=== PATIENT | male | born 1945 | race Caucasian/White ===

== ENCOUNTER 2022-09-18 15:36 | Outpatient (REF) | payer MEDICARE, SELFPAY ==
[2022-09-18 18:01] LABS: Anion Gap 16 (12-20); Blood Urea Nitrogen 26 mg/dL (9-16); Calcium 8.3 mg/dL (8.4-10.2); Carbon Dioxide 27 mmol/L (22-29); Chloride 103 mmol/L (96-108); Estimated Glomerular Filt Rate 30; Glucose Random 163 mg/dL (60-115); Potassium 4.1 mmol/L (3.3-5.1); Sodium 142 mmol/L (135-145)
[2022-09-18 18:30] LABS: Folate 6.1 ng/mL (> or = 4.0); T4 Thyroxine 8.1 ug/dL (4.5-12.0); Thyroid Stimulating Hormone 1.86 uIU/mL (0.32-4.0); Vitamin B12 316 pg/mL (200-900); Vitamin D 25-OH Total 6.8 ng/mL (>30)
== END 2022-09-18 15:37 | disposition home or self-care (01) ==
LOC: HO.LAB 15:36
PROVIDERS: PCP Psychiatry & Neurology Neurology; Visit Provider Psychiatry & Neurology Neurology
DX: G31.84 Mild cognitive impairment of uncertain or unknown etiology (principal); E55.9 Vitamin D deficiency, unspecified
CPT/HCPCS: 36415; 80048; 82306; 82607; 82746; 84436; 84443

== ENCOUNTER 2022-10-08 10:16 | Outpatient (REF) | payer MEDICARE, SELFPAY ==
--- NOTE | ~2022-10-08 | CT_ITS ---
EXAMINATION: CT HEAD WITHOUT CONTRAST CLINICAL INFORMATION: Mild cognitive impairment. COMPARISON: There are no prior studies available for comparison. TECHNIQUE: Multidetector CT imaging of the head was obtained without the use of intravenous contrast. Coronal and sagittal reformatted images were generated at the technologist workstation. This CT examination was performed using dose optimization techniques as appropriate, variously including the following: *Automated exposure control *Adjustment of mA and/or kV according to patient size (this includes techniques or standardized protocols for targeted exams where dose is matched to indication/reason for exam; i.e. extremities or head) *Use of iterative reconstruction technique DLP: 890 mGy-cm. FINDINGS: There is no evidence of acute intracranial hemorrhage or territorial infarction. No abnormal mass-effect or midline shift is seen. Blackwood to white matter differentiation is well preserved. No extra-axial fluid collections are identified. The ventricles and sulci are commensurately prominent consistent with diffuse volume loss. There are a few patchy areas of low-attenuation in the periventricular subcortical white matter, consistent with chronic microvascular ischemic changes. 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 There are atheromatous calcifications of the bilateral vertebral and cavernous internal carotid arteries. There are likely small vascular calcifications in branches of the right middle cerebral artery. There are no acute osseous or soft tissue abnormalities. There is relative paucity of subcutaneous and scalp fat and there are multiple small cutaneous calcifications. The mastoid air cells are well-aerated. There is mucosal thickening in the inferior right maxillary and anterior left ethmoid sinuses. CT/CT head/brain wo IV con IMPRESSION: 1. There are no acute bleeds or territorial infarcts. No masses are demonstrated. 2. There are chronic microvascular ischemic changes and there are chronic infarcts in the cerebellar hemispheres. There is diffuse volume loss.
== END 2022-10-08 10:17 | disposition home or self-care (01) ==
LOC: HO.CT 10:16
PROVIDERS: PCP Physician Assistant Medical; Visit Provider Psychiatry & Neurology Neurology
DX: G31.84 Mild cognitive impairment of uncertain or unknown etiology (principal)
CPT/HCPCS: 70450

== ENCOUNTER 2025-01-06 14:00 | Outpatient (AMB) | payer MEDICARE, SELFPAY ==
--- OUTSIDE RECORDS SUMMARY | 2025-01-06 14:03 | XMS_ITS | Encounter Summary ---
Author Organization [facility], Address [address] [place] [address] Phone Care Team Providers Care Vb Net Programmer Name Role Phone Ryan Zhang Primary Care Provider [phone] Encounter Details Date Type Department Care Team (Late st Contact Info) Description 03/12/2024 Documentation Only [facility], [address] [place] [address] Suni Florez [address] [place] [phone] Social History Tobacco Use Types Packs/Day Years Used Date Smoking Tobacco: Never Sex and Gender Information Value Date Recorded Sex Assigned at Not on file Legal Sex Male 9:48 AM EDT Gender Identity Not on file Sexual Orientation Not on file documented as of this encounter Plan of Treatment Not on file documented as of this encounter Visit Diagnoses Not on filedocumented in this encounter Care Teams Vb Net Programmer Relationship Specialty Start Date End Date Ryan Zhang PCP - General 08/05/23 documented as of this encounter
--- NOTE | 2025-01-06 14:06 | MHC.OFFWIV ---
Intake Vital Signs 01/06/25 14:08 Height 5 ft 10 in Weight 73 lb BMI 10.5 BP 94/62 Blood Pressure Location Rt brachial Pulse 127 H Pulse Source Pulse Oximeter Temp 98.2 F Temp Source Oral Pulse Oximetry (%) 97 Oxygen Delivery Method Room Air Intake Visit Reasons: [employer] low pulse rate, pain when coughing Intake Note: patient reports a fall 2 days ago, fell on his front side, sustained laceration left hand and developed pain in chest with coughing and tickle in throat. states his heart rate is usually low and since the fall it has been very high Allergies Iodinated Contrast Media (IV Contrast Dye) Allergy (Intermediate, Verified 01/06/25 14:13) Swelling Penicillins Allergy (Verified 01/06/25 14:13) Swelling Do you need a note to return to daycare/school/sports/work: No HPI HPI Comments History of Present Illness Details 79 y/o Male patient with past medical history significant for HTN, CHF, Pacemaker, Afib on Warfarin, T2DM, GERD and HDL, presents to the walk in clinic with c/o Tachycardia associated with CP and Coughing for 2 days now. Pt fell and landed on the Chest 2 days ago, when the pain started. Reports his HR is always low, but today is elevated. He does have a Visiting nurse who comes home and check his Vitals. [facility] Medical History (Updated 01/06/25 @ 15:06 by Rebecca Levine NP) Tachycardia with heart rate 121-140 beats per minute Chest pain Review of Systems Const All systems reviewed & are unremarkable except as noted in HPI and below Physical Exam Vital Signs: Last Vital Signs Temp 98.2 F 01/06/25 14:08 Pulse 127 H 01/06/25 14:08 BP 94/62 01/06/25 14:08 Pulse Ox 97 01/06/25 14:08 Oxygen Delivery Method Room Air 01/06/25 14:08 BMI result Body Mass Index 10.5 Const General: no acute distress Nutritional Appearance: well nourished Orientation/consciousness: patient oriented x3 Resp Effort & Inspection: normal respiratory effort Auscultation: clear to auscultation bilaterally, no crackles, no rales, no rhonchi and no wheezes Cardio Rate: tachycardic Heart sounds: S1 normal heart sound present and S2 normal heart sound present Neuro General: patient oriented x3 Psych Speech and movement: Normal speech and movement present Assessment & Plan Assessment & Plan (1) Chest pain: Code(s): R07.9 - Chest pain, unspecified Qualifiers: Chest pain type: unspecified Qualified Code(s): R07.9 - Chest pain, unspecified Plan: Due to his extensive h/o Cardiac on Warfarin and Pacemaker, advised Patient to go to ED for further evaluation. High risk for internal bleeding, SVT, ID Offered Ambulance ride but patient felt stable and strong to drive himself to [facility] ED. (2) Tachycardia with heart rate 121-140 beats per minute: Code(s): R00.0 - Tachycardia, unspecified Plan: Due to his extensive h/o Cardiac on Warfarin and Pacemaker, advised Patient to go to ED for further evaluation. High risk for internal bleeding, SVT, ID Offered Ambulance ride but patient felt stable and strong to drive himself to [facility] ED. Plan Due to his extensive h/o Cardiac on Warfarin and Pacemaker, advised Patient to go to ED for further evaluation. High risk for internal bleeding, SVT, ID Offered Ambulance ride but patient felt stable and strong to drive himself to [facility] ED. Coding Level of Care Code Est Pt Level 4 (06595) Diagnoses Chest pain, unspecified type R07.9 Chest pain type: unspecified Tachycardia with heart rate 121-140 beats per minute R00.0 Time Spent (min) 20
[2025-01-06 14:08] VITALS: BP 94/62; PULSE 127; TEMP 36.8; O2SAT 97; BMI 10.5
== END 2025-01-06 14:52 | disposition home or self-care (01) ==
PROVIDERS: PCP Physician Assistant Medical; Visit Provider Nurse Practitioner Family
DX: R07.9 Chest pain, unspecified (principal); R00.0 Tachycardia, unspecified

== ENCOUNTER → 2025-01-06 14:00 | Outpatient (BNVA) | payer MEDICARE, SELFPAY | PROVIDERS: PCP Physician Assistant Medical; Visit Provider Nurse Practitioner Family | DX: R07.89 Other chest pain (principal); R00.0 Tachycardia, unspecified | CPT/HCPCS: 99212 ==

== ENCOUNTER 2025-05-01 12:22 | Inpatient (IN) | payer MEDICARE, SELFPAY ==
--- OUTSIDE RECORDS SUMMARY | 2025-04-29 10:00 | XMS_ITS | Encounter Summary ---
Author Organization [facility] Address [address] [place] [address] Care Team Providers Care Forensic Examiner Name Role Phone Armando Aceves Primary Care Provider [phone] Encounter Details Date Type Department Care Team (Latest Contact Info) Description 04/29/2025 10:00 AM EDT Clinical Support Coumadin [address] [phone] Persistent atrial fibrillation (CMS/HCC V24, CMS/HCC V28) (Primary Dx); FPC (current) use of anticoagulants Social History Tobacco Use Types Packs/Day Years Used Date Smoking Tobacco: Never Smokeless Tobacco: Never Alcohol Use Standard Drinks/Week Comments Not Currently 0 (1 standard drink = 0.6 oz pur e alcohol) Housing Instability Answer Date Recorde d Are you worried that in the next 2 months you may not have stable housing? No 10/06/2024 Food Access & Nutrition Answer Date Rec orded Do you have access to a vari ety of food including fruits and vegetables? No 10/06/2024 Access to Healthcare Answer Date Record ed Within the last 3 months, ho w many times did you visit the emergency department for your medical care? 3 10/06/2024 Health Literacy Answer Date Recorded How often do you need to hav e someone help you when you read instructions, pamphlets, or other written material from your doctor or pharmacy? Never 10/06/2024 Caregiver: How often do you need to have someone help you when you read instructions, pamphlets, or other written material from your doctor or pharmacy? Not on file 10/06/2024 Financial Risk Answer Date Recorded How hard is it for you to pa y for the very basics like food, housing, medical care, and air conditioning / heating? Not very hard 10/06/2024 Transportation Answer Date Recorded Has the lack of transportati on kept you from meetings, work, or from getting things needed for daily living? No Has the lack of transportati on kept you from medical appointments or from getting medications? No 10/06/2024 Social Isolation Answer Date Recorded How often do you feel lonely or isolated from th ose around you? Rarely 10/06/2024 Food Risk Answer Date Recorded Within the past 12 months we worried whether our food would run out before we got money to buy more. Never true 10/06/2024 Within the past 12 months th e food we bought just didn't last and we didn't have money to get more. Never true 10/06/2024 Dependent Care Answer Date Recorded Do you need help finding or paying for care for your loved ones. For example, client care consultant or elderly care for an older adult? No 10/06/2024 Education Answer Date Recorded Do you think completing more education or training, like finishing a GED, going to college, or learning a trade, would be helpful for you? No 10/06/2024 Employment and Income Answer Date Recor ded During the last four weeks, have you been actively looking for work? No 10/06/2024 Living Situation Answer Date Recorded What is your living situation? Unrecognized valu e 10/06/2024 Interpersonal Safety Answer Date Record ed Physical Abuse Unrecognized value 01/07/2025 Verbal Abuse Unrecognized value 01/07/2025 Sex and Gender Information Value Date Recorded Sex Assigned at Male 09/05/2024 6:24 PM EST Legal Sex Male 10:30 AM EST Gender Identity Male 09/05/2024 6:24 PM EST Sexual Orientation Straight 10/04/2024 10 :11 AM EDT documented as of this encounter Functional Status * Are you deaf or do you have serious difficulty hearing? Answer Date of Assessment Author No 09/26/2024 4:23 PM EDT Megan Cooley, BARBARA * Are you blind or do you have serious difficulty seeing, even when wearing glasses? Answer Date of Assessment Author No 09/26/2024 4:23 PM EDT CooleyMegan banks RN * Do you have serious difficulty walking or climbing stairs? Answer Date of Assessment Author No 09/26/2024 4:23 PM EDT Megan Cooley RN * Do you have serious difficulty dressing or bathing? Answer Date of Assessment Author No 09/26/2024 4:23 PM EDT Megan Cooley RN * Because of a physical, mental, or emotional condition, do you have serious difficulty doing errandsalone such as visiting the doctor? Answer Date of Assessment Author No 09/26/2024 4:23 PM EDT Megan Cooley RN documented as of this encounter Mental Status * Because of a physical, mental, or emotional condition, do you have serious difficulty concentrating, remembering, or making decisions? (5 years old or older) Answer Entry Date Author No 09/26/2024 4:23 PM EDT Megan Cooley RN documented in this encounter Progress Notes * Breanne Zhong LPN - 04/29/2025 10:00 AM EDT Anticoagulation Summary As of 04/29/2025 INR goal: 2.5-3.5 TTR: 53.8% (10.9 mo) INR used for dosin.0 (04/29/2025) Warfarin maintenance plan: 2.5 mg (5 mg x 0.5) every e, Fri, Emily; 0 mg all other days Weekly warfarin total: 7.5 mg Plan last modified: Beranne Zhong LPN (04/29/2025) Next INR check: 05/02/2025 Priority: Critical Target end date: -- Indications Atrial fibrillation (CMS/HCC V24 CMS/HCC V28) [I48.91] H/O mechanical aortic valve replacement (Resolved) [Z95.2] prep person (current) use of anticoagulants [Z79.01] Anticoagulation Episode Summary INR check location: Anticoagulation Clinic Preferred lab: -- Send INR reminders to: [facility] [place] Comments: -- Anticoagulation Care Providers Provider Role Specialty Phone number TOM [facility] [phone] Patient presents for follow-up of ongoing Warfarin therapy. Patient had his INR drawn via A/C Clinic Draw. Patient denies any significant issues with adherence to the medication regimen. Patient denies experiencing any symptoms of bleeding, such as unusual bruising, nosebleeds, hematuria, or melena. Patient reports feeling generally well and denies any new complaints. Plan of care: New warfarin dose: Hold 3 doses for upcoming Endoscopy Warfarin education of dietary considerations, medication/supplement interactions, and the need to continue avoiding activities that increase the risk of injury or bleeding reinforced. Patient verbalized understanding of ongoing INR monitoring and dosage change. Patient is aware of the signs of potential complications and knows to contact the clinic if they occur. Anticoagulation Flowsheet updated with new plan of care. Plan discussed with provider, no additional changes at this time. Anticoagulation Clinic Protocol Dose Type Dose Range INR Dose Adjustment # Doses Omitted Recheck Date Mini Dose 1.4-2.0 Very Low <1.2 Consult Provider 0 1 week Low 1.2-1.4 If singular event - no change If 2 in a row or 2 of the last 3 - Increase weekly dose by 10% 0 1 week In Range 1.4-2.0 No adjustment 0 1-4 weeks* High 2.0-3.0 If singular event - no change If 2 in a row or 2 of the last 3 - Decrease weekly dose by 10% 0 1 week Very High >3.0 Consult Provider 2 2 days If OK after 2 days - Decrease weekly dose by 10% 0 1 week Usual Dose 2.0-3.0 Very Low <1.5 Consult Provider 0 1 week Low 1.5-2.0 If singular event - No change If 2 in a row or 2 of the last 3 - Increase weekly dose by 10% 0 1 week In Range 2.0-3.0 No Adjustment 0 1-4 weeks* High >3.0-3.5 If singular event - No change If 2 in a row or 2 of the last 3 - Decrease weekly dose by 10% 0 1 week Very High >3.5-4.0 Consult Provider 1 2 days >4.0 Consult Provider 2 2 days If OK after 2 days - Decrease weekly dose by 10% 0 1 week Mechanical Valve 2.5-3.5 Very Low <1.5 Consult Provider 0 1 week Low 1.5-2.5 If singular event - No change If 2 in a row or 2 of the last 3 - Increase weekly dose by 10% 0 1 week In Range 2.5-3.5 No Adjustment 0 1-4 weeks* High >3.5-4.0 If singular event - No change If 2 in a row or 2 of the last 3 - Decrease weekly dose by 10% 0 1 week Very High >4.0-4.9 Consult Provider 1 2 days >5.0 Consult Provider 2 2 days If OK after 2 days - Decrease weekly dose by 10% 0 1 week * In range 1 week = recheck in 1 week In range 2 weeks = recheck in 2 weeks In range 3 weeks = recheck in 3 weeks In range 4 weeks = recheck in 4 weeks Cosigned by Ryan Zhang MD at 04/29/2025 10:36 AM EDT documented in this encounter Plan of Treatment Upcoming Encounters Date Type Department Care Team (Late st Contact Info) Description 05/03/2025 8:45 AM EDT Clinical Support Coumadin Clinic [address] [phone] 05/03/2025 11:00 AM EDT Hospital Encounter [facility] Endoscopy [address] [place] [phone] La Kidd MD [address] [address] 06/01/2025 11:00 AM EST Office Visit Adult Medicine [address] [phone] Armando Aceves, TOM [address] [place] [phone] 07/28/2025 10:30 AM EST Nutrition Internal Medicine [facility] [address] [facility] [address] [place] [phone] Georgette Bradley, RD [address] [place] [phone] 11/17/2025 11:00 AM EDT Ancillary Procedure [facility] [address] [facility] [address] [place] [address] documented as of this encounter Goals Goal Patient Goal Type Associated Problems Recent Progress Patient-Stated? Author STG's 6 visits General Yes Robert Gordon PT Note: Pt will report walking up to 7 mins, 2 or more days per week for exercise for general health. Pt is Independent and compliant with initial HEP. Pt will demonstrate sit to stand transfers w/ min A of UE's or less. Pt will demonstrate 9 reps or more for 30 SCS Test. LTG's 12 visits General Yes Robert Gordon PT Note: Pt will report walking up to 15 mins, 3 or more days per week for exercise for general health. Pt is Independent and compliant with final HEP. Pt will demonstrate sit to stand transfers w/ A of UE's for safety only. Pt will [id number] reps or more for 30 SCS Test. Autogenerated Goal Care Plan Autogenerated Problem No Jerica Mock documented as of this encounter Procedures Procedure Name Priority Date/Time Associated Diagnosis Comments POC PROTIME INR BLOOD Routine 04/29/2025 9:59 AM EDT Persistent atrial fibrillation (CMS/HCC V24, CMS/HCC V28) FPC (current) use of anticoagulants documented in this encounter Results * POC Protime INR Blood (04/29/2025 9:59 AM EDT) Lot Number INR POC 3.0 Prothrombin Time POC Exp Date Blood 04/29/2025 9:59 AM EDT us Ryan Zhang MD POINT OF CARE TEST ENT ER/EDIT ORDERABLES Final Result documented in this encounter Visit Diagnoses Diagnosis Persistent atrial fibrillation (CMS/HCC V24, CMS/HCC V28)- Primary Atrial fibrillation FPC (current) use of anticoagulants Long-term (current) use of anticoagulants Encounter for adjustment or management of cardiac device documented in this encounter Additional Health Concerns Active Problems Noted Date Diagnosed Date Autogenerated Problem 04/18/2025 Assessment Noted Time PHQ-9 Depression Total Score: 0 02/05/20 25 9:57 AM EDT A fall risk assessment has been complete d for the patient 06/17/2024 2:30 PM EST documented as of this encounter Care Teams Forensic Examiner Relationship Specialty Start Date End Date Armando Aceves PA [address] [place] [address] PCP - General Internal Medicine 10/11/20 documented as of this encounter
[2025-05-01] VITALS (12 sets, daily range): BP systolic 84–108; BP diastolic 26–61; PULSE 63–113; RESP 14–20; TEMP 36.1–37.3; O2SAT 93–100; BMI 21.6
--- NOTE | ~2025-05-01 | XR_ITS ---
CLINICAL HISTORY: check redjustment of NG tube 1 view chest x-ray. Comparison: CR - XR CHEST 1V - 05/01/25 19:50 EDT Findings: Enteric tube visualized looped over the upper chest near the midline, likely within the proximal esophagus. No pneumothorax or pleural effusion. Vague density redemonstrated over the mid right lung. Heart size is mildly enlarged. Left subclavian cardiac pacemaker/defibrillator device in place. Median sternotomy wires are visualized. Impression: 1. Enteric tube visualized looped over the upper chest near the midline, likely within the proximal esophagus. Recommend enteric tube repositioning. 2. Mild cardiomegaly with redemonstration of a vague density over the mid right lung. This document has been electronically signed by: Jeb Mendoza MD on 05/02/2025 00:21:10
--- NOTE | ~2025-05-01 | XR_ITS ---
CLINICAL HISTORY: NG tube placement Single view of the chest. COMPARISON: None provided. FINDINGS: Enteric tube extends present within the thoracic esophagus and is kinked upon itself with the tip directed superiorly. Tip is 13.3 cm above the diaphragm. Recommend retraction and advancement. Low lung volumes. Cardiomegaly. Atherosclerotic thoracic aorta. Hazy opacity within the right midlung. No pleural effusion. No pneumothorax. No acute fracture. IMPRESSION: 1. Enteric tube (NG) tip is kinked within the thoracic esophagus with tip terminating 13.3 cm above the diaphragm. Recommend retraction and readvancement. 2. Hazy opacity within the right midlung. This could represent atelectasis, aspiration pneumonitis or pneumonia. This document has been electronically signed by: Brandon Sweeney MD on 05/01/2025 17:25:30
--- NOTE | ~2025-05-01 | CT_ITS ---
CLINICAL HISTORY: abd pain, nausea, vomiting CT abdomen and pelvis without IV contrast. COMPARISON: None provided. FINDINGS: Aortic annular calcifications. Aortic valve replacement. Cardiomegaly. Cardiac pacemaker leads present. Heavy [place] coronary artery calcifications. Patchy tree-in-bud nodularity along the right lung base. Cholelithiasis present within the gallbladder. No pericholecystic inflammatory changes. Noncontrast appearance of the liver, spleen, pancreas and adrenal glands are unremarkable. Right renal cystic lesions measuring up to 1.7 cm. Nonobstructing right renal calculi measuring up to 3 mm. No right-sided hydronephrosis or hydroureter. No right ureteral calculus. Multiple nonobstructing left renal calculi measuring up to 4 mm. No left-sided hydronephrosis or hydroureter. Small volume abdominal ascites. Multiple dilated fluid-filled loops of small bowel within the abdomen measuring up to 3.5 cm. Most distal small bowel is contracted. Transition point present within a moderate-sized right inguinal hernia containing a portion of small bowel. Small fat containing left inguinal hernia. Jiudauxa-vn-waxve colonic stool burden. Normal appendix. Multiple normal-sized and prominent retroperitoneal lymph nodes. Moderate aortoiliac atherosclerotic vascular calcifications. Urinary bladder is unremarkable given degree of distention. Small fat containing left inguinal hernia. Advanced multilevel spondylosis. No acute fracture. IMPRESSION: 1. High-grade small-bowel obstruction secondary to obstruction of small bowel contained within a moderate sized right inguinal hernia. No free intraperitoneal air. 2. Small volume abdominal ascites. 3. Zykmeqyw-wc-dycfr colonic stool burden. 4. Multiple normal-sized and prominent retroperitoneal lymph nodes, nonspecific. 5. Cardiomegaly with coronary artery atherosclerosis. 6. Multiple nonobstructing renal calculi present bilaterally measuring up to 4 mm on the left. This document has been electronically signed by: Brandon Sweeney MD on 05/01/2025 14:10:01
--- NOTE | ~2025-05-01 | XR_ITS ---
CLINICAL HISTORY: NG tube adjustment --- Additional Notes or Special Instructions: Nurse will call when NG tube is adjusted [id number] Single view of the chest. COMPARISON: XR chest dated 05/01/25 at 15:22 EDT FINDINGS: Enteric tube is kinked with tip directed superiorly and side hole at the GE junction. Recommend retraction and readvancement. Left-sided cardiac pacemaker defibrillator appears in stable position. Cardiomegaly. Tortuous atherosclerotic thoracic aorta. Hazy opacity within the right midlung, similar to prior imaging. No pleural effusion. No pneumothorax. No acute fracture. Moderate spondylosis. IMPRESSION: 1. Enteric tube (NG) remains kinked within the distal esophagus with tip directed superiorly. Recommend retraction and readvancement. This document has been electronically signed by: Brandon Sweeney MD on 05/01/2025 20:56:00
--- NOTE | 2025-05-01 12:47 | ED_ITS ---
HPI - General Adult General Chief complaint: Abdominal Pain Stated complaint: WEAKNESS AND VOMITING Time Seen by Provider: 05/01/25 12:47 Source: patient and EMS Mode of arrival: EMS Limitations: no limitations History of Present Illness ED Provider: Brigid Marte PA-C HPI narrative: This is a 79 yo male who presents to the ED via EMS for abdominal pain with associated nausea and dizziness. He has a past medical history of mild cognitive impairment, HTN, and atrial fibrillation on warfarin with ICD and pacemaker. He report that he started feeling nauseous this morning about 2 hours after he woke up, attempted to go downstairs to the bathroom but could not ambulate down the stairs normally on account of weakness/dizziness/feeling faint. Attempted to get down the stairs by sitting and scooting down each step. A person in the home called EMS for him at that time. He vomited the first time outside of the home while EMS was preparing to transport him and again multiple times on the ride to the hospital. He does not quite recall the color of the vomit but thinks it might have been red. He endorses feeling like he might still vomit later. Ate fish and ice cream from [employer] around 5pm last night, others who had the same meal are not having GI symptoms. Notably, he has not had a bowel movement in 1 week. This is becoming more usual for him lately. Also reports trouble swallowing solids and has a EGD scheduled for this upcoming Friday through [facility]. Denies sick contacts, recent travel, chest pain, shortness of breath, diarrhea, syncope, or history of abdominal surgery. Onset (ago): hour(s) Location: abdomen Related Data Home Medications ?Medication ?Instructions ?Recorded ?Confirmed amiodarone 200 mg tablet 200 mg PO BID 02/11/2502/16 amitriptyline 75 mg tablet 75 mg PO BEDTIME 02/11/25 0 02/16/25 carvedilol 3.125 mg tablet 3.125 mg PO BID 02/11/25 donepezil 10 mg tablet 10 mg PO DAILY 02/11/2502/04 empagliflozin 10 mg tablet 10 mg PO DAILY 02/11/25 (Jardiance) ferrous sulfate 325 mg (65 mg 325 mg PO BID 02/11/25 0 02/16/25 iron) tablet (FeroSul) lansoprazole 30 mg capsule,delayed 30 mg PO DAILY@0630 02/11/25 02/16/25 release losartan 25 mg tablet 25 mg PO DAILY 02/11/2502/04 torsemide 20 mg tablet 80 mg PO BID 02/11/25 warfarin 5 mg tablet 5 - 7.5 mg PO DAILY 02/11/25 02/16/25 allopurinol 100 mg tablet 200 mg PO DAILY 05/01/25 fluticasone propionate 50 2 spray intranasal DAILY mcg/actuation nasal spray,suspension omeprazole 40 mg capsule,delayed 40 mg PO BID@0630,163 0 05/01/25 release prochlorperazine maleate 10 mg 10 mg PO Q6H PRN nausea /vomiting 05/01/25 tablet sennosides 8.6 mg tablet (senna) 17.2 mg PO DAILY 04/0705/01/25 simvastatin 20 mg tablet 20 mg PO BEDTIME 05/01/25 Previous Rx's ?Medication ?Instructions ?Recorded memantine 5 mg tablet (Namenda) 5 mg PO BID 30 days #6 0 tabs 02/16/25 Allergies Allergy/AdvReac Type Severity Reaction Status Date / Time Penicillins Allergy Unknown Unknown Verified 05/01/25 12:31 Iodinated Contrast Media (IV Allergy Swelling Verified 05/01/25 12:34 Contrast Dye) Review of Systems 2 Constitutional: Constitutional: Reports as per HPI Eyes: Eyes: Reports as per HPI ENT: Reports as per HPI Cardiovascular: Cardiovascular: Reports as per HPI Respiratory: Respiratory: Reports as per HPI Gastrointestinal: Gastrointestinal: Reports as per HPI Genitourinary: Genitourinary: Reports as per HPI Musculoskeletal: Musculoskeletal: Reports as per HPI Integumentary/Breasts: Skin/Breast: Reports as per HPI Neurologic: Reports as per HPI Psychiatric: Psychiatric: Reports as per HPI Endocrine: Endocrine: Reports as per HPI Hematologic/Lymphatic: Hematologic/Lymphatic: Reports as per HPI Allergic/Immunologic: Allergic/Immunologic: Reports as per HPI [facility] Past Medical History Attestation statement: The following information was validated with the patient. Source: old records reviewed and nursing notes reviewed Medical History Presence of combination internal cardiac defibrillator (ICD) and pacemaker Atrial fibrillation Hypertension MCI (mild cognitive impairment) Social History Social History Substance Use Type: Marijuana Physical Exam ED Vital Signs: Vital Signs - 24 hr 05/01/25 12:28 05/01/25 13:29 05/01/25 13:32 Temperature 98.7 F 98.2 F Pulse Rate 112 H 113 H Respiratory Rate 20 14 16 Blood Pressure 95/61 97/61 Pulse Oximetry 100 94 Oxygen Delivery Method Room Air Room Air BMI result Body Mass Index 21.6 Const General: no acute distress, alert, awake and other (chronically ill appearing) Nutritional Appearance: average body habitus Orientation/consciousness: patient oriented x3 HENMT Head: Yes normal to inspection and Yes atraumatic Ears: hearing grossly normal bilaterally and external ears normal General nose exam: Normal external nose present, no nasal discharge noted and no epistaxis Face and sinus: Yes normal facial exam, No abrasion and No laceration Mouth: Normal oral and palatal mucosa present, no drooling and no muffled voice Eyes General: appearance normal, both eyes and all related structures Periorbital: periorbital findings normal Eyelids: Yes eyelids normal Conjunctivae: conjunctivae normal Pupils: Equal, round and reactive pupils present EOM: EOMs intact bilaterally Neck Neck: Yes normal visual inspection and Yes full ROM Resp Effort & Inspection: normal respiratory effort and able to speak in complete sentences GI Palpation (GI): Soft to palpation, Tenderness to palpation present (GI) other (diffuse), no guarding and not rigid Auscultation: Hyperactive bowel sounds present Neuro General: patient oriented x3 Cranial nerves: Yes Equal, round and reactive pupils present Cognition (Neuro): normal cognition Extrem General: Yes normal to inspection, Yes full ROM and Yes capillary refill normal Psych Appearance: grossly normal Mental Status: mental status grossly normal Affect: normal affect Attitude: cooperative Thought process: Normal thought process present Thought content: Normal thought content present Insight: Good insight present (Psych) Medications Administered Generic Name Dose Route Start Last Admin Trade Name Freq PRN Reason Stop Dose Admin Sodium Chloride 1,000 mls @ 250 mls/hr 05/01/25 14:00 05/01/25 15:32 Ns IV 05/01/25 17:59 250 mls/hr .Q4H ASHLEE Administration Discontinued Medications Generic Name Dose Route Start Last Admin Trade Name Jose A PRN Reason Stop Dose Admin Sodium Chloride 1,000 mls @ 999 mls/hr 05/01/25 13:00 05/01/25 15:31 Ns IV 05/01/25 14:00 Infused .Q1H1M ASHLEE Infusion Phytonadione 5 mg/ Sodium 50.5 mls @ 50.5 mls/hr 05/01/25 15:27 05/01/25 16:37 Chloride IV 05/01/25 16:26 50.5 mls/hr ONCE ONE Administration Morphine Sulfate 4 mg 05/01/25 12:47 05/01/25 13:29 Morphine Sulfate 4 Mg/Ml Cartridge IVPUSH 05/01/25 12:48 4 mg ONCE ONE Administration Protocol Ondansetron HCl 4 mg 05/01/25 12:47 05/01/25 13:30 Ondansetron Hcl 4 Mg/2 Ml Vial IVPUSH 05/01/25 12:48 4 mg ONCE ONE Administration Medical Decision Making Medical Decision Making MDM Narrative: Patient is a 79 year old assigned male at with a history of HTN, CKD, atrial fib on warfarin, aortic root repair, pacemaker, mild cognitive impairment presenting to the emergency department today with nausea, vomiting, and abdominal pain. Patient's physical exam was as noted in the physical exam portion of this note. Patient's blood work showed a WBC of 13.5, INR of 1.9, BUN of 43, CR of 2.93, and alk phos of 126. Patient's EKG was unremarkable / paced. Patient's CT abd/pelvis showed a high-grade small-bowel obstruction secondary to obstruction of small bowel contained within a moderate sized right inguinal hernia but no free intraperitoneal air. I spoke to Dr. Nation, the general surgeon transitional nurse, who recommended NG tube placement, 5mg of IV Vitamin K, and that she would take him to the OR. Patient had an NG tube placed by BARBARA Chaidez. Patient's first NG tube was kinked in the esophagus. Patient's NG tube was retracted and readvanced without issue. I explained my physical exam findings as well as all test results to the patient. I answered all questions asked by the patient. Patient verbalized understanding and agreement with going to the OR with Dr. Nation to address his small bowel obstruction. Differential Diagnosis Differential Diagnoses: The differential diagnosis associated with the presentation includes SBO Nausea Vomiting Gastroenteritis Admission/Observation Consideration of admission/observation: Escalation of care including admission/observation considered Patient going to the operating room and then being admitted to the surgical service as noted in the MDM Rationale portion of this note. Consult Healthcare Provider Management of the patient was discussed with: Casserole Preparer (spoke with Dr. Nation as noted in the MDM Rationale portion of this note. ) Lab Data [facility] Lab Attestation statement: I reviewed the patient's lab results. My interpretation of these results are in the MDM Rationale portion of this note. 05/01/25 13:22 05/01/25 13:22 Labs: Lab Results 05/01/25 Range/Units 13:22 WBC 13.5 H (4.8-10.8) X10*3/uL RBC 4.72 (4.60-5.80) X10*6/uL Hgb 14.7 (14.0-18.0) g/dl Hct 46.1 (42.0-52.0) % MCV 97.7 (80.0-98.0) fL MCH 31.1 (27.0-33.0) pg MCHC 31.9 (31.0-36.0) g/dl RDW 15.3 (11.0-16.0) % Plt Count 154 L (160-400) X10*3/uL MPV 10.8 (9.4-12.4) fL Immature Gran % (Auto) 0.4 (0.0-0.4) % Neut % (Auto) 91.4 H (45-73) % Lymph % (Auto) 5.6 L (20-40) % [place] % (Auto) 2.1 (2-11) % Eos % (Auto) 0.2 (0-4) % Baso % (Auto) 0.3 (0-2) % Lymph # (Auto) 0.8 L (1.2-4.9) X10*3/uL [place] # (Auto) 0.3 (0.1-1.2) X10*3/uL Eos # (Auto) 0.0 (0.0-0.4) X10*3/uL Baso # (Auto) 0.0 (0.0-0.2) X10*3/uL Abs Immat Gran (auto) 0.06 H (0.00-0.03) X10*3/uL Absolute Neuts (auto) 12.3 H (2.0-8.3) x10*3/uL Absolute Nucleated RBC 0.000 (0.0-0.012) X10*3/uL Nucleated RBC % (auto) 0.0 (0.0-0.2) /100WBC Smear Tech's Comments VERIFIED PT 21.7 H (10.9-12.4) SEC INR 1.9 H (0.9-1.1) Sodium 139 (135-145) mmol/L Potassium 4.9 (3.3-5.1) mmol/L Chloride 97 (96-108) mmol/L Carbon Dioxide 27 (22-29) mmol/L Anion Gap 20 (12-20) BUN 43 H (9-16) mg/dL Creatinine 2.93 H (0.5-1.4) mg/dL Estim Creat Clear Calc 19.7 Estimated GFR 21 Random Glucose 173 H (60-115) mg/dL Calcium 9.8 (8.4-10.2) mg/dL Magnesium 2.5 (1.6-2.6) mg/dL Total Bilirubin 1.3 H (0.0-1.0) mg/dL AST 35 (5-37) U/L ALT 26 (0-40) U/L Alkaline Phosphatase 126 H (39-117) U/L Troponin I High Sens 23.8 (<3.5-35.0) ng/L Total Protein 8.4 H (6.5-8.0) g/dL Albumin 5.1 H (3.5-5.0) g/dL Independent Interpretation I performed an independent interpretation of an: EKG, Plain X-Ray and CT Scan Interpretation: My interpretation is in agreement with the radiologist's impression of these imaging studies. L CLINICAL HISTORY: abd pain, nausea, vomiting CT abdomen and pelvis without IV contrast. COMPARISON: None provided. FINDINGS: Aortic annular calcifications. Aortic valve replacement. Cardiomegaly. Cardiac pacemaker leads present. Heavy [place] coronary artery calcifications. Patchy tree-in-bud nodularity along the right lung base. Cholelithiasis present within the gallbladder. No pericholecystic inflammatory changes. Noncontrast appearance of the liver, spleen, pancreas and adrenal glands are unremarkable. Right renal cystic lesions measuring up to 1.7 cm. Nonobstructing right renal calculi measuring up to 3 mm. No right-sided hydronephrosis or hydroureter. No right ureteral calculus. Multiple nonobstructing left renal calculi measuring up to 4 mm. No left-sided hydronephrosis or hydroureter. Small volume abdominal ascites. Multiple dilated fluid-filled loops of small bowel within the abdomen measuring up to 3.5 cm. Most distal small bowel is contracted. Transition point present within a moderate-sized right inguinal hernia containing a portion of small bowel. Small fat containing left inguinal hernia. Wiipxzre-dp-esuxu colonic stool burden. Normal appendix. Multiple normal-sized and prominent retroperitoneal lymph nodes. Moderate aortoiliac atherosclerotic vascular calcifications. Urinary bladder is unremarkable given degree of distention. Small fat containing left inguinal hernia. Advanced multilevel spondylosis. No acute fracture. IMPRESSION: 1. High-grade small-bowel obstruction secondary to obstruction of small bowel contained within a moderate sized right inguinal hernia. No free intraperitoneal air. 2. Small volume abdominal ascites. 3. Mysrjxde-rl-rmcuz colonic stool burden. 4. Multiple normal-sized and prominent retroperitoneal lymph nodes, nonspecific. 5. Cardiomegaly with coronary artery atherosclerosis. 6. Multiple nonobstructing renal calculi present bilaterally measuring up to 4 mm on the left. This document has been electronically signed by: Brandon Sweeney MD on 05/01/2025 14:10:01 Dictated By: Brandon Sweeney MD Signed By: Electronically signed by Brandon Sweeney MD 05/01/25 1410 CLINICAL HISTORY: NG tube placement Single view of the chest. COMPARISON: None provided. FINDINGS: Enteric tube extends present within the thoracic esophagus and is kinked upon itself with the tip directed superiorly. Tip is 13.3 cm above the diaphragm. Recommend retraction and advancement. Low lung volumes. Cardiomegaly. Atherosclerotic thoracic aorta. Hazy opacity within the right midlung. No pleural effusion. No pneumothorax. No acute fracture. IMPRESSION: 1. Enteric tube (NG) tip is kinked within the thoracic esophagus with tip terminating 13.3 cm above the diaphragm. Recommend retraction and readvancement. 2. Hazy opacity within the right midlung. This could represent atelectasis, aspiration pneumonitis or pneumonia. This document has been electronically signed by: Brandon Sweeney MD on 05/01/2025 17:25:30 Dictated By: Brandon Sweeney MD Signed By: Electronically signed by Brandon Sweeney MD 05/01/25 1727 I independently interpreted this EKG and am in agreement with the below findings: Vent. Rate: 114 BPM Atrial Rate: 34 BPM P-R Int: * ms QRS Dur: 206 ms QT Int: 462 ms P-R-T Axes: * 187 48 degrees QTcB Int: 636 ms Ventricular-paced rhythm No previous ECGs available DD/ 1325 Radiology Impression Discussion of test interpretation with radiology: I have reviewed the radiologist's reading. Independent Historian Clinical information obtained from an independent historian. History obtained from or confirmed by: EMS (EMS provided additional history and confirmed the history provided by the patient. ) External Record Review External record reviewed: Outpatient record (reviewed records from [facility] ) Critical Care Time Critical Care Time Critical Care Time: Yes Total Critical Care Time: 58 Attestation: I spent 58 minutes of Critical Care Time with this patient. This does not include time spent on separately reported billable procedures. Discharge Plan Discharge Clinical Impression: Small bowel obstruction Patient Disposition: Admitted As Inpatient Discharge Date/Time: 05/01/25 17:09
--- NOTE | 2025-05-01 12:47 | ECG_ITS ---
Test Reason : WEAKNESS/NAUSEA Blood Pressure : */* mmHG Vent. Rate : 114 BPM Atrial Rate : 34 BPM P-R Int : * ms QRS Dur : 206 ms QT Int : 462 ms P-R-T Axes : * 187 48 degrees QTcB Int : 636 ms Ventricular-paced rhythm Abnormal ECG No previous ECGs available Referred By: Brigid Marte Electronically Signed By: RITO ROWLEY
--- OUTSIDE RECORDS SUMMARY | 2025-05-01 12:55 | XMS_ITS | Encounter Summary ---
Author Organization [facility], Address [address] [place] [address] Phone Care Team Providers Care Milk And Cream Grader Name Role Phone Ryan Zhang Primary Care Provider [phone] Encounter Details Date Type Department Care Team (Late st Contact Info) Description 03/17/2024 Documentation Only [facility], [address] [place] [address] Suni Florez [address] [place] [phone] Social History Tobacco Use Types Packs/Day Years [...] on filedocumented in this encounter Care Teams Milk And Cream Grader Relationship Specialty Start Date End Date Ryan Zhang PCP - General 08/05/23 documented as of this encounter
--- OUTSIDE RECORDS SUMMARY | 2025-05-01 12:55 | XMS_ITS | Encounter Summary ---
Author Organization [facility], Address [address] [place] [address] Phone Care Team Providers Care Mixing Machine Tender Name Role Phone Ryan Zhang Primary Care Provider [phone] Encounter Details Date Type Department Care Team (Late st Contact Info) Description 03/12/2024 Documentation Only [facility], [address] [place] [address] Suni Florez [address] [place] [phone] Social History Tobacco Use Types Packs/Day Years [...] on filedocumented in this encounter Care Teams Mixing Machine Tender Relationship Specialty Start Date End Date Ryan Zhang PCP - General 08/05/23 documented as of this encounter
--- OUTSIDE RECORDS SUMMARY | 2025-05-01 12:55 | XMS_ITS | Encounter Summary ---
Author Organization [facility] Address [address] [place] [address] Care Team Providers Care Senior Android Software Engineer Name Role Phone Armando Aceves Primary Care Provider [phone] Reason for Visit * Reason Onset Date Comments VNA 04/22/2025 Encounter Details Date Type Department Care Team ([facility] st Contact Info) Description 04/22/2025 Telephone Adult Medicine [address] [phone] Armando Aceves PA [address] [place] [phone] Social History Tobacco Use Types Packs/Day Years [...] care for your loved ones. For example, child nutrition manager or elderly care for an older adult? [...] 4:23 PM EDT Megan Cooley RN * Are you blind or do you [...] documented in this encounter Progress Notes * Veronique Santoro MA - 04/29/2025 2:49 PM EDT Call [facility] and verify signature * Veronique Santoro MA - 04/26/2025 3:06 PM EDT MSG left for call back * Dorota Cordova - 04/22/2025 11:52 AM EDT Mahsa is calling from [facility]. She would like to know who signed the last orders. If it wasMichael then to let her know and she can fax over a signature auth form. Please advise. documented in this encounter Plan of Treatment Upcoming Encounters Date Type Department Care Team (Late st Contact Info) Description 05/03/2025 8:45 AM EDT Clinical Support [facility] [place] [address] [place] [address] 05/03/2025 11:00 AM EDT Hospital Encounter [facility] Endoscopy [address] [place] [phone] La Kidd MD [address] [address] 06/01/2025 11:00 AM EST Office Visit Adult Medicine [address] [phone] Armando Aceves PA [address] [place] [phone] 07/28/2025 10:30 AM EST Nutrition Internal Medicine - [place] [address] [facility] [address] [place] [phone] Georgette Bradley, [place] [address] [place] [phone] 11/17/2025 11:00 AM EDT Ancillary Procedure [facility] [address] [facility] [address] [place] [phone] documented as of this encounter Goals Goal Patient Goal Type Associated Problems Recent Progress Patient-Stated? Author STG's 6 visits General Yes Robert Gordon, PT Note: Pt will report walking up to 7 mins, 2 or more days per week for exercise for general health. Pt is Independent and compliant with initial HEP. Pt will demonstrate sit to stand transfers w/ min A of UE's or less. Pt will demonstrate 9 reps or more for 30 SCS Test. LTG's 12 visits General Yes Robert Gordon, PT Note: Pt will report walking up to 15 mins, 3 or more days per week for exercise for general health. Pt is Independent and compliant with final HEP. Pt will demonstrate sit to stand transfers w/ A of UE's for safety only. Pt will [id number] reps or more for 30 SCS Test. Autogenerated Goal Care Plan Autogenerated Problem No Jerica Mock documented as of this encounter Visit Diagnoses Not on filedocumented in this encounter Additional Health Concerns Active Problems Noted Date Diagnosed Date Autogenerated Problem 04/18/2025 Assessment Noted Time PHQ-9 Depression Total Score: 0 02/05/20 25 9:57 AM EDT A fall risk assessment has been complete d for the patient 06/17/2024 2:30 PM EST documented as of this encounter Care Teams Senior Android Software Engineer Relationship Specialty Start Date End Date Armando Aceves PA [address] [place] [address] PCP - General Internal Medicine 10/11/20 documented as of this encounter
--- OUTSIDE RECORDS SUMMARY | 2025-05-01 12:55 | XMS_ITS | Clinical Summary ---
Author Organization [facility] Address [address] [place] [phone] Phone Care Team Providers Care Slider Assembler Name Role Phone Ryan Zhang Primary Care Provider [phone] Allergies Active Allergy Reactions Criticality Noted Date Comments Iodinated Contrast Media 09/05/2023 Penicillins 09/05/2023 Medications dilTIAZem CD (CARDIZEM CD) 180 MG 24 hr capsule Take 180 mg by mouth 1 (one) time each day Active simvastatin (ZOCOR) 20 MG tablet Take 20 mg by mouth every night Active amitriptyline (ELAVIL) 50 MG tablet Take 50 mg by mouth every night Active allopurinol (ZYLOPRIM) 100 MG tablet Take 100 mg by mouth 1 (one) time each day Active warfarin (COUMADIN) 5 MG tablet Take as directed per After Visit Summary. Active potassium chloride (MICRO-K) 10 MEQ CR capsule Take 20 mEq by mouth in the morning and 20 mEq in the evening. Do not crush or chew.. Active omeprazole OTC (PriLOSEC OTC) 20 MG EC tablet Take 20 mg by mouth 1 (one) time each day Do not crush, chew, or split. Active memantine (NAMENDA) 5 MG tablet Take 5 mg by mouth 1 (one) time each day Active torsemide (DEMADEX) 20 MG tablet Take FORTY mg in the morning and TWENTY mg in the evening Active amiodarone (PACERONE) 100 MG tablet Take 100 mg by mouth 1 (one) time each day Active lisinopril 10 MG tablet Take 1 tablet (10 mg total) by mouth 1 (one) time each day 30 tablet 11 09/05/2023 Active Active Problems Problem Noted Date Diagnosed Date Stage 3b chronic kidney disease 03/12/2024 Type 2 diabetes mellitus 09/05/2023 Anticoagulant therapy 09/05/2023 Benign essential hypertension 09/05/2023 Congestive heart failure 09/05/2023 Overview (09/05/2023): with diastolic dysfunction Gout 09/05/2023 Hyperlipidemia 09/05/2023 Hyperthyroidism 09/05/2023 Impaired fasting glucose 09/05/2023 Peripheral edema 09/05/2023 Immunizations Immunization Administration Dates Next Due H1N1 Inj Preservative Free 07/28/2009 Influenza Split High Dose Pr eservative Free IM 04/29/2023,04/13/2022,05/10/2021,04/14,05/03/2019,03/15/2018,03/23/2017 ,04/13/2016,03/20/2015 Moderna SARS-COV-2 06/12/2021,,09/01/2020,08/22,08/01/2020,07/22/2020 Pfizer SARS-COV-2 04/29/2023 Pneumococcal Conjugate 13-Valent 07/19/2015 Pneumococcal Polysaccharide 08/23/2016, 0 Tdap 05/18/2008 Family History Medical History Relation Comments Down syndrome Brother Heart disease Brother Coronary artery disease Mother Relation Status Comments Brother Father Mother Social History Tobacco Use Types Packs/Day Years Used Date Smoking Tobacco: Never Sex and Gender Information Value Date Recorded Sex Assigned at Not on file Legal Sex Male 9:48 AM EDT Gender Identity Not on file Sexual Orientation Not on file Plan of Treatment Health Maintenance Due Date Last Done Comments Diabetes: Hemoglobin A1C 12/06/2024 07/15/2023 Diabetes: Ophthalmology Exam 12/06/2024 03/29/2013, 03/17/2006 Diabetes: Pedal Pulse Checked 12/06/2024 Diabetes: Sensory Foot Exam 12/06/2024 Diabetes: Visual Foot Exam 12/06/2024 Influenza Vaccine (#1) 2025 3, 04/13/2022, 05/10/2021, Additional history exists Pneumococcal Vaccine: 50+ Years Completed 08/23/2016, 07/19/2015, 05/02/2010 Hepatitis B Vaccine Aged Out No longe r eligible based on patient's age to complete this topic Insurance Medicare [facility] Medicare [facility] Care Teams Slider Assembler Relationship Specialty Start Date End Date Ryan Zhang PCP - General 08/05/23
--- OUTSIDE RECORDS SUMMARY | 2025-05-01 12:55 | XMS_ITS | Encounter Summary ---
Author Organization [facility] Address [address] [place] [address] Care Team Providers Care Biomedical Instrument Technician Name Role Phone Armando Aceves Primary Care Provider [phone] Reason for Visit * Reason Onset Date Comments faxed order 04/26/2025 Marlyn Kyler - # [id number], #[id number], #[id number] Encounter Details Date Type Department Care Team ([facility] Contact Info) Description 04/26/2025 Telephone Adult Medicine [address] [phone] Armando Aceves PA [address] [place] [phone] Social History Tobacco Use Types Packs/Day Years [...] Record ed Within the last 3 months, jameel w many times did you visit the [...] for your loved ones. For example, child development assistant or elderly care for an older adult? [...] documented in this encounter Progress Notes * Cecil Jefferson - 04/26/2025 9:39 AM EDT Marlyn Caring order #[id number], #[id number], #[id number] received please sign and fax to [phone] documented in this encounter Plan of Treatment Upcoming Encounters Date Type Department Care Team (Late st Contact Info) Description 05/03/2025 8:45 AM EDT Clinical Support Coumadin [address] [phone] 05/03/2025 11:00 AM EDT Hospital Encounter [facility] [address] [place] [phone] La Kidd MD [address] [address] 06/01/2025 11:00 AM EST Office Visit Adult Medicine [facility] [address] [place] [address] Armando Aceves PA [address] [place] [phone] 07/28/2025 10:30 AM EST Nutrition Internal Medicine - [place] [address] [facility] [address] [place] [phone] Georgette Bradley, RD [address] [place] [phone] 11/17/2025 11:00 AM EDT Ancillary Procedure [facility] [address] [facility] [address] [place] [phone] documented as of this encounter Goals Goal [...] of UE's for safety only. Pt will reps or more for 30 SCS Test. [...] documented as of this encounter Care Teams Biomedical Instrument Technician Relationship Specialty Start Date End Date Armando Aceves PA [address] [place] [address] PCP - General Internal Medicine 10/11/20 documented as of this encounter
--- OUTSIDE RECORDS SUMMARY | 2025-05-01 12:55 | XMS_ITS | Encounter Summary ---
Author Organization [facility] Address [address] [place] [address] Care Team Providers Care Living Advisor Name Role Phone Armando Aceves Primary Care Provider [phone] Encounter Details Date Type Department Care Team (Latest Contact Info) Description 02/24/2025 Anticoagulation - Warfarin Visit Coumadin [address] [phone] Melissa Nichols LPN Persistent atrial fibrillation (CMS/HCC V24, CMS/HCC V28) (Primary Dx); care home (current) use of anticoagulants Social History Tobacco [...] for your loved ones. For example, child life therapist or elderly care for an older adult? [...] No 09/26/2024 4:23 PM EDT Megan Cooley, RN * Are you blind or do [...] Megan Cooley RN documented in this encounter Plan of Treatment Upcoming Encounters Date Type Department Care Team (Late st Contact Info) Description 05/03/2025 8:45 AM EDT Clinical Support Cou[facility] Clinic [address] [phone] 05/03/2025 11:00 AM EDT Hospital Encounter [facility] [address] [place] [phone] La Kidd MD [address] [address] 06/01/2025 11:00 AM EST Office Visit Adult Medicine [address] [phone] Armando Aceves PA [address] [place] [phone] 07/28/2025 10:30 AM EST Nutrition Internal Medicine [facility] 175 [facility] [address] [place] [phone] Georgette Bradley, [place]IN [address] [place] [phone] 11/17/2025 11:00 AM EDT Ancillary Procedure [facility] - [facility] [address] [facility] [address] [place] [address] documented as of this encounter [...] of UE's for safety only. Pt will [id number] reps or more for 30 SCS Test. documented as of this encounter Visit Diagnoses Diagnosis Persistent atrial fibrillation (CMS/HCC V24, CMS/HCC V28)- Primary Atrial fibrillation care home (current) use of anticoagulants Long-term (current) use of anticoagulants Encounter for adjustment or management of cardiac device documented in this encounter Additional Health Concerns Assessment Noted Time PHQ-9 Depression Total Score: 0 02/05/20 25 9:57 AM EDT A fall risk assessment has been complete d for the patient 06/17/2024 2:30 PM EST documented as of this encounter Care Teams Living Advisor Relationship Specialty Start Date End Date Armando Aceves PA [address] [place] [address] PCP - General Internal Medicine 10/11/20 documented as of this encounter
--- OUTSIDE RECORDS SUMMARY | 2025-05-01 12:55 | XMS_ITS | Clinical Summary ---
Author Organization [facility] [address] [place] [address] [place] [phone] Phone Care Team Providers Care Box Icer Name Role Phone Armando Aceves Primary Care Provider [phone] Allergies Active Allergy Reactions Criticality Noted Date Comments Iodinated Contrast Media Swelling High 08/23/2022 Confirmed with pt 09/05/24 Penicillins 09/05/2023 Medications warfarin (COUMADIN) 5 mg tablet Take 1 tablet (5 mg total) by mouth 2 (two) times a week. FRIDAY + FRIDAY May cause heavy bleeding. Take at same time every day. Do not change dietary habits. Managed by [facility] Class: Historic 023 Active FREESTYLE LANCETS MISC Sig: Use to check blood sugar once daily 023 Active blood-glucose meter kit Sig: Use to check blood sugar once daily Active blood sugar diagnostic (FreeStyle Lite Strips) test strip Use to check blood sugars daily 100 strip 5 024 Active cyanocobalamin (VITAMIN B-12) 1,000 mcg tablet Take 1 tablet (1,000 mcg total) by mouth 1 (one) time each day. 30 each 025 2025 Active warfarin (COUMADIN) 2.5 mg tablet Take 1 tablet (2.5 mg total) by mouth. FRIDAY, FRIDAY, FRIDAY, FRIDAY Active senna-docusate (PERICOLACE) 8.6-50 mg per tablet Take 2 tablets by mouth 1 (one) time each day. 60 each 11 025 Active carvediloL (COREG) 3.125 mg tablet Take 1 tablet (3.125 mg total) by mouth 2 (two) times a day. 180 tablet 1 025 2024 Active allopurinoL (ZYLOPRIM) 100 mg tablet Take 2 tablets (200 mg total) by mouth 1 (one) time each day. 180 tablet 1 025 Active ferrous sulfate 325 mg (65 mg iron) EC tablet Take 1 tablet (325 mg total) by mouth 2 (two) times a day. 180 tablet 1 025 Active amitriptyline (ELAVIL) 75 mg tablet Take 1 tablet (75 mg total) by mouth at bedtime. 90 tablet 1 025 Active simvastatin (ZOCOR) 20 mg tablet Take 1 tablet (20 mg total) by mouth at bedtime. 90 tablet 1 025 Active losartan (COZAAR) 25 mg tabletIndication s:Atrial fibrillation, unspecified type (CMS/HCC V24, CMS/HCC V28),Aberrant right subclavian artery,Biventric ular congestive heart failure (CMS/HCC V24, CMS/HCC V28),Nonrheumati c tricuspid valve regurgitation,St age 3b chronic kidney disease (CMS/HCC V24, CMS/HCC V28),PALMER (dyspnea on exertion),H/O mechanical aortic valve replacement,H/O aortic root repair TAKE 1 TABLET BY MOUTH EVERY DAY *NEW PRESCRIPTION REQUEST* 90 tablet 1 025 Active donepeziL (ARICEPT) 10 mg tablet Take 1 tablet (10 mg total) by mouth at bedtime. 025 Active torsemide (DEMADEX) 20 mg tablet Take 4 tablets (80 mg total) by mouth 1 (one) time each day. Dose adjustment per Dr Delarosa see encounter 7.22.25 025 Active potassium chloride (Klor-Con) 20 mEq packet Take 20 mEq by mouth 2 (two) times a day. 60 packet 11 025 Active fluticasone propionate (FLONASE) 50 mcg/actuation nasal spray Administer 2 sprays into each nostril 1 (one) time each day. Shake gently. Before first use, prime pump. After use, clean tip and replace cap. 16 g 5 025 2025 Active omeprazole (PriLOSEC) [address] capsule Take 1 capsule (40 mg total) by mouth 2 (two) times a day before meals. Do not crush or chew. 60 each 3 025 2025 Active enoxaparin (LOVENOX) 80 mg/0.8 mL syringe Inject 0.8 mL (80 mg total) under the skin every 12 (twelve) hours. 10 each 1 025 Active memantine (NAMENDA) 5 mg tablet Take 1 tablet (5 mg total) by mouth 2 (two) times a day. Active Jardiance 10 mg tablet TAKE 1 TABLET BY MOUTH ONCE DAILY 90 tablet 1 025 Active amiodarone (PACERONE) 200 mg tabletIndication s:Persistent atrial fibrillation (CMS/HCC V24, CMS/HCC V28) TAKE 2 TABLETS(400 MG) BY MOUTH 1 TIME EACH DAY 60 tablet 1 025 Active empagliflozin (Jardiance) 10 mg tablet Take 1 tablet (10 mg total) by mouth 1 (one) time each day in the morning. 90 tablet 1 025 2024 Discontinued amiodarone (PACERONE) 200 mg tabletIndication s:Persistent atrial fibrillation (CMS/HCC V24, CMS/HCC V28) Take 2 tablets (400 mg total) by mouth 1 (one) time each day. 60 each 1 025 2024 Discontinued Active Problems Problem Noted Date Diagnosed Date Biventricular implantable ca rdioverter-defibrillator (ICD) in situ 03/09/2025 Elevated INR 03/09/2025 Congestive heart failure, un specified HF chronicity, unspecified heart failure type (CMS/HCC V24, CMS/HCC V28) 01/07/2025 Pacemaker-mediated tachycardia 01/06/2025 Secondary hypercoagulable state (CMS/HCC V24) Assessment & Plan (12/30/2024 8:31 PM EDT): Atrial fibrillation with rap id ventricular response (CMS/HCC V24, CMS/HCC V28) 11/15/2024 Assessment & Plan (11/16/2024 1:01 AM EDT): - Being hospitalized for atrial fibrillation in rapid ventricular response significant for variable pacemaker conduction rates - 79-year-old man with multiple medical problems including chronic atrial fibrillation with pacemaker managed with amiodarone, carvedilol, and chronically on Coumadin; mechanical AVR; coronary artery heart disease; hypertension; hyperlipidemia; 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 is being hospitalized - Came to the ED with vague symptoms of dizziness and lightheadedness - In the ED, initial vital signs significant for tachycardia and soft systolic blood pressure; specifically heart rate then was oriented BPM, blood pressure 101/73 mmHg, respiration 18 bpm, temperature 36.6 C, O2 sat 97% on room air; twelve-lead EKG which showed V paced rhythm at 98 bpm initially with repeat showing the rate of 74 and seeming pacemaker failure; screening blood test beginning from comprehensive metabolic panel largely unremarkable documenting stable stage IV CKD with BUN/creatinine 22/2.66 with estimated GFR 24; BNP 1190; magnesium elevated to 2.7; CBC documenting stable chronic anemia to H/H 10.08/2033.0 and normal platelet count of 137; PT/INR therapeutic at 2.9; present discussed with cardiology who advised admission to hospital medicine with formal evaluation full fasting in the morning; hospital medicine was asked admit for atrial fibrillation RVR for this further evaluation - Will admit to hospital medicine for atrial fibrillation RVR with concerns for malfunctioning pacemaker device; telemetry bed; continuation of home medications unchanged; gentle isotonic saline; attention to systemic oxygenation, work of breathing, and fluid and electrolyte imbalances Diverticulum of Ahsanll 11/13/2024 Dizziness 11/08/2024 Assessment & Plan (11/24/2024 6:21 AM EDT): The patient's dizziness and dyspnea on exertion may be multifactorial as discussed above. However, he has been noted to have worsening iron deficiency anemia with a hemoglobin of 13 in June 2024 and most recently 9.6 on 11/16/2024. This may be contributing to his shortness of breath and dizziness; he is already taking an iron supplement and his PCP is continuing to follow him for this. Falls precautions reviewed. He was advised to seek urgent medical attention for any worsening symptoms. Acute kidney injury superimposed on CKD ([facility] V24) 10/22/2024 Nonischemic cardiomyopathy ([facility] V24, [facility] V28) 10/14/2024 Assessment & Plan (12/30/2024 8:44 PM EDT): ACC/AHA stage C heart failure with NYHA class II- III symptoms. LVEF 30-35% on most recent echocardiogram from 09/20/2024. The patient does still appear fluid overloaded today on exam and continues to report shortness of breath with exertion worse in the afternoon than in the mornings, but he no longer has orthopnea and his shortness of breath does appear somewhat improved by the description of his activity tolerance. He has persistent but very mild peripheral edema. Less you I feel still congested is okay to remain coughing given that the majority of his shortness of breath occurs in the afternoon, I did suggest that he take his second dose of torsemide today, approximately 6 hours after his first dose to see if this helps to improve symptoms. We will update a metabolic panel today to evaluate his renal function and electrolytes as well as recheck a BNP for comparison to previous; we will also check a chest xray to see if it provides an insight. Once again, I was able to review the patient's case with Dr. Delarosa; in line with guideline directed medical therapies for heart failure he will continue with carvedilol, empagliflozin, and losartan as well as torsemide. His renal function does not allow for the addition of spironolactone. He has an appointment with the advanced heart failure clinic at [facility], Dr. Connell, 12/31/2024 at 0745; we discussed this at length today as well as where the clinic is located and the patient strongly encouraged to attend this visit; he verbalizes understanding of the importance of this visit and that he will attend. We will see him back in 3 months after he has been seen by Dr. Connell; I will plan to follow up with him early next week to see how things went and we will see him sooner as needed. We reviewed heart failure management including low- sodium diet, symptom surveillance, daily weights, and medication compliance. I've asked the patient to call if they develop worsening symptoms of heart failure such as increased shortness of breath, new or worsening cough, increased swelling in the legs or ankles, or weight gain of more than 2 pounds in one day or 4 pounds in one week. Orders: B-type natriuretic peptide; Future XR Chest 2 Views; Future Assessment & Plan (11/24/2024 6:22 AM EDT): Ef 30-35% on most recent echocardiogram from 09/20/2024. The patient does still appear fluid overloaded today on exam and continues to report shortness of breath with exertion worse in the afternoon than in the mornings. BNP while in the emergency room was elevated at 1989; however, he felt well and appeared euvolemic on exam and no adjustments made to his diuretics. After the patient's visit was complete today, I was able to review his case with Dr. Delarosa; we will change his furosemide to torsemide 80 mg twice daily with a repeat BMP in approximately 1 week; he does take potassium supplementation. Additionally, in line with guideline directed medical therapies for heart failure he will continue with carvedilol, empagliflozin, and losartan. I have referred him to the advanced heart failure clinic at [facility], Dr. Connell, for further evaluation as well. I have reached out to the patient via telephone to discuss these changes and had to leave a message as there was no answer; I will continue to try to reach out but had requested a call back as well. We discussed risk reduction through lifestyle modifications including healthy diet, routine exercise, and weight management. We reviewed heart failure management including low-sodium diet, symptom surveillance, daily weights, and medication compliance. I've asked the patient to call if they develop worsening symptoms of heart failure such as increased shortness of breath, new or worsening cough, increased swelling in the legs or ankles, or weight gain of more than 2 pounds in one day or 4 pounds in one week. Will see him in close follow-up. Orders: torsemide (DEMADEX) 20 mg tablet; Take 4 tablets (80 mg total) by mouth 2 (two) times a day. Basic metabolic panel; Future Chronic anemia 10/08/2024 ACC/AHA stage C heart failur e with reduced ejection fraction (CMS/HCC V24, CMS/HCC V28) 09/26/2024 Assessment & Plan (12/30/2024 8:31 PM EDT): Orders: Comprehensive metabolic panel; Future B-type natriuretic peptide; Future XR Chest 2 Views; Future Assessment & Plan (11/24/2024 6:21 AM EDT): Orders: Ambulatory referral to Cardiology; Future Basic metabolic panel; Future Acute on chronic heart failure ([facility] V24, [facility] V28) 09/26/2024 Aortic aneurysm ([facility] V24) 09/13/2024 Aortic valve stenosis 09/13/2024 Assessment & Plan (12/30/2024 8:31 PM EDT): Assessment & Plan (11/24/2024 6:21 AM EDT): intermediate card tender (current) use of anticoagulants 2023 Assessment & Plan (11/16/2024 1:07 AM EDT): - Continue anticoagulant therapy for patient with multiple indications including mechanical valve in aortic position; chronic atrial fibrillation; and always involve cardiology in periodic monitoring History of actinic keratoses 09/09/2023 H/O aortic root repair 09/09/2023 Assessment & Plan (12/30/2024 8:31 PM EDT): Assessment & Plan (11/24/2024 6:21 AM EDT): Orders: Ambulatory referral to Cardiology; Future Atrial tachycardia ([facility] V24) 06/09/2023 Heart block 03/04/2023 Snoring 03/04/2023 Bradycardia 02/25/2023 Type 2 diabetes mellitus wit hout complication, without long-term current use of insulin ([facility] V24, [facility] V28) 02/03/2023 Assessment & Plan (11/16/2024 1:06 AM EDT): - Would continue glycemic control in house using insulin regimen augmented by sliding scale for known type 2 diabetes - Consider interval A1c Assessment & Plan (06/17/2024 6:17 PM EST): Orders: Hemoglobin A1c; Future Lipid panel with reflex to direct LDL; Future Microalbumin creatinine urine ratio; Future Last hemoglobin A1c was controlled at 5.4%. He is not on any medication. Will continue to monitor. Refilled strips. Nonrheumatic tricuspid valve regurgitation 10/09 Assessment & Plan (12/30/2024 8:31 PM EDT): Severe low velocity regurgitation of the tricuspid valve noted on most recent echocardiogram 09/20/2024; this may have been functional in nature related to his fluid overload at that time. No significant murmur noted on exam today. We will continue to monitor this on serial echocardiograms. Assessment & Plan (11/24/2024 6:21 AM EDT): Severe low velocity regurgitation of the tricuspid valve noted on most recent echocardiogram 09/20/2024; this may have been functional in nature related to his fluid overload at that time. No significant murmur noted on exam today. We will continue to monitor this on serial echocardiograms. Orders: Ambulatory referral to Cardiology; Future Peripheral edema 10/09/2022 Assessment & Plan (12/30/2024 8:31 PM EDT): As above. PALMER (dyspnea on exertion) 10/09/2022 Assessment & Plan (12/30/2024 8:31 PM EDT): As above. Orders: B-type natriuretic peptide; Future XR Chest 2 Views; Future Complete blood count; Future Stage 3b chronic kidney disease ([facility] V24, [facility] V28) 10/09/2022 Assessment & Plan (11/24/2024 6:21 AM EDT): Orders: Basic metabolic panel; Future Assessment & Plan (06/17/2024 6:17 PM EST): Orders: Complete blood count; Future Basic metabolic panel; Future Aberrant right subclavian artery 11/26/2021 Syphilis (acquired) 02/20/2021 Overview (09/09/2023): Positive titers, no known history of exposur eor tx. Patient did see ID, declined LP, decided to tx with doxy x 28 days Gallstone 02/05/2018 Cold sore 08/14/2017 Impaired fasting glucose 04/05/2016 History of mechanical aortic valve replacement 0 09/18/2015 Overview (09/09/2023): mechanical AVR in and root replacement in [address] [facility] [address] Zee for bicuspid AV with normal coronary arteries at that time. Last Assessment & Plan: Patient's mechanical aortic valve is normally functioning on most recent echocardiogram. Continue periodic surveillance, Coumadin, and SBE prophylaxis. Assessment & Plan (12/30/2024 8:31 PM EDT): The patient's most recent echocardiogram was completed 09/20/2024 showing a mechanical aortic valve that was well-seated and appeared to be functioning normally with a 35 mmHg peak and 17 mmHg mean gradient and no paravalvular leak; sinus of Valsalva measuring 3.3 cm and ascending aorta measured 3.7 cm. No concerning findings on exam today; will continue to follow this on serial echocardiograms. Assessment & Plan (11/24/2024 6:21 AM EDT): The patient's most recent echocardiogram was completed 09/20/2024 showing a mechanical aortic valve that was well-seated and appeared to be functioning normally with a 35 mmHg peak and 17 mmHg mean gradient and no paravalvular leak; sinus of Valsalva measuring 3.3 cm and ascending aorta measured 3.7 cm. No concerning findings on exam today; will continue to follow this on serial echocardiograms. Orders: Ambulatory referral to Cardiology; Future Assessment & Plan (11/16/2024 1:04 AM EDT): - Known mechanical valve in aortic position and chronically on Coumadin - INR therapeutic trial at 2.9 and he continues on carvedilol and multiple risk factor controls - Will continue will continue multiple risk factor control regimen including statin; beta-maria luisa; antiplatelets; and antihypertensives Insomnia 09/18/2015 Gout 03/20/2015 Assessment & Plan (06/17/2024 6:17 PM EST): Orders: Uric acid; Future Last flareup was 6 months ago. Continue allopurinol. Labs ordered. Hyperlipidemia 11/11/2014 Assessment & Plan (12/30/2024 8:31 PM EDT): Last lipid panel completed 09/26/2024 with an LDL of 26; continue simvastatin. Assessment & Plan (11/24/2024 6:21 AM EDT): Last lipid panel completed 09/26/2024 with an LDL of 26; continue simvastatin. Assessment & Plan (11/16/2024 1:06 AM EDT): - Continue outpatient statin for known hyperlipidemia - Simvastatin Assessment & Plan (06/17/2024 6:17 PM EST): Mixed hyperlipidemia. Continue on simvastatin daily. Labs are ordered. Vertigo, peripheral 07/02/2012 Depression 12/13/2011 Hyperthyroidism 06/13/2011 Overview (09/09/2023): Amiodarone-induced Congestive heart failure ([facility] V24, [facility] V 28) 02/14/2011 Hemorrhage of gastrointestinal tract 05/14/2007 Overview (09/09/2023): Chronic small-volume rectal bleeding. Negative colonoscopy 05/14/2007, no colon cancer screening needed for 10 years. IMO update Hearing loss 01/01/2007 Overview (09/09/2023): IMO update Assessment & Plan (11/16/2024 1:03 AM EDT): - Known progressive hearing loss requiring careful and directed communication for effective receipt - Direct communications close to the ear keeping the communicators mouth within his view reasonable Atrial fibrillation ([facility] V24, [facility] V28) 0 09/17/2005 Assessment & Plan (12/30/2024 8:31 PM EDT): Rate is well-controlled on carvedilol, he remains on amiodarone for rhythm control and no atrial fibrillation has been noted on his device. He remains anticoagulated on warfarin for cardioembolic prophylaxis; risks and benefits of continuing with anticoagulation were reviewed and he wishes to continue the current plan. He is aware to seek urgent medical attention for any uncontrolled bleeding, signs or symptoms of GI or other internal bleeding, or for any head injury. Orders: amiodarone (PACERONE) 200 mg tablet; Take 1 tablet (200 mg total) by mouth 1 (one) time each day. Assessment & Plan (11/24/2024 6:21 AM EDT): Orders: Ambulatory referral to Cardiology; Future Assessment & Plan (06/17/2024 6:17 PM EST): Continue anticoagulation with Coumadin, rate control with diltiazem. Advised patient to book follow-up appointment with Dr. Davis. Coronary atherosclerosis 09/17/2005 Assessment & Plan (11/16/2024 1:02 AM EDT): - Known CAD with no acute events - Continue secondary prevention regimen including antiplatelets, beta-maria luisa, statin, and follow clinical course closely Essential hypertension, benign 09/17/2005 Assessment & Plan (12/30/2024 8:31 PM EDT): Blood pressure is favorable on current medical therapies; continue losartan, carvedilol, and torsemide. We will update a metabolic panel in preparation for his visit with Dr. Connell tomorrow; continue to follow with nephrology as recommended. Assessment & Plan (11/24/2024 6:21 AM EDT): Blood pressure is favorable on current medical therapies; continue losartan in addition to torsemide. Will be updating metabolic panel in approximately 1 week; given his CKD, it does appear that his PCP has already referred him to nephrology to establish care. Orders: Basic metabolic panel; Future Assessment & Plan (11/16/2024 1:01 AM EDT): - Continue outpatient antihypertensive regimen for known essential hypertension; monitor BP control Assessment & Plan (06/17/2024 6:17 PM EST): Blood pressure is elevated today at 152/70. It has been elevated at home as well. Will discuss blood pressure management with PCP tomorrow. Will have him come back in 2 weeks for recheck. Heartburn 09/17/2005 Overview (09/09/2023): Extensive evaluation, approximately 1996, Dr. Royer Coronado, [place], [place], upper GI endoscopy, duodenal biopsy, flexible sigmoidoscopy, video esophagram, completely normal. History of heart valve replacement 09/17/2005 Overview (09/09/2023): [facility] aortic valve 1985. Aortic root replacement for ascending aortic aneurysm 1996. Resolved Problems Problem Noted Date Diagnosed Date Resolved Date H/O mechanical aortic valve replacement 05/19/2024 12/30/2024 (HFpEF) heart failure with p reserved ejection fraction (CMS/HCC V24, CMS/HCC V28) 01/10/202309/05 Assessment & Plan (06/17/2024 6:17 PM EST): No leg swelling, shortness of breath today. Continue on torsemide. Book follow- up appointment with Dr. Davis. Encounters Date Type Department Care Team Description 04/29/2025 10:00 AM EDT Clinical Support Coumadin [address] [phone] Persistent atrial fibrillation (CMS/HCC V24, CMS/HCC V28) (Primary Dx); intermediate card tender (current) use of anticoagulants 04/26/2025 Telephone Adult Medicine [address], [place] [phone] Armando Aceves PA 04/25/2025 Telephone Adult Medicine [address] [phone] Armando Aceves PA 04/25/2025 Telephone Coumadin [address] [phone] Breanne Zhong LPN 04/25/2025 Anticoagulation - Warfarin Visit Coumadin [address] [phone] Armando Aceves PA Persistent atrial fibrillation (CMS/HCC V24, CMS/HCC V28) (Primary Dx); senior living (current) use of anticoagulants 04/22/2025 Telephone Adult [address] [phone] Armando Aceves PA 04/19/2025 Anticoagulation - Warfarin Visit Coumadin [address] [phone] Armando Aceves PA Persistent atrial fibrillation (CMS/HCC V24, CMS/HCC V28) (Primary Dx); senior living (current) use of anticoagulants 04/18/2025 Telephone Gastroenterology - [address] [place] [phone] Rashaad Jose MD 04/15/2025 9:50 AM EDT Anticoagulation - Warfarin Visit Coumadin [address] [phone] Persistent atrial fibrillation (CMS/HCC V24, CMS/HCC V28) (Primary Dx); senior living (current) use of anticoagulants 04/12/2025 Telephone Adult Medicine [address] [phone] Armando Aceves PA 04/12/2025 Telephone Adult Medicine [address] [phone] Armando Aceves PA 04/11/2025 Anticoagulation - Warfarin Visit Coumadin [address] [phone] Armando Aceves PA Persistent atrial fibrillation (CMS/HCC V24, CMS/HCC V28) (Primary Dx); senior living (current) use of anticoagulants 04/07/2025 Telephone [facility] - [address] [place] [address] Provider, Not In System 04/06/2025 Telephone Adult Medicine [address] [phone] Genie Brown [place] 04/04/2025 Anticoagulation - Warfarin Visit Coumadin [address] [phone] Armando Aceves PA Persistent atrial fibrillation (CMS/HCC V24, CMS/HCC V28) (Primary Dx); intermediate card tender (current) use of anticoagulants 04/04/2025 Telephone Adult Medicine [address] [phone] Armando Aceves PA 04/01/2025 Telephone Gastroenterology - [address] [facility] [address] [facility] [address] [place] [phone] Kandice Laura [place] 03/28/2025 10:30 AM EDT Nutrition Internal Medicine - [place] [address] [facility] [address] [place] [phone] Stage 3b chronic kidney disease (CMS/HCC V24, CMS/HCC V28) (Primary Dx); Type 2 diabetes mellitus without complication, without long-term current use of insulin (CMS/HCC V24, CMS/HCC V28) 03/28/2025 Anticoagulation - Warfarin Visit Coumadin [address] [phone] Breanne Zhong LPN Persistent atrial fibrillation (CMS/HCC V24, CMS/HCC V28) (Primary Dx); senior living (current) use of anticoagulants 03/24/2025 Telephone Adult Medicine [facility] - [address] [phone] Armando Aceves PA 03/24/2025 Telephone Coumadin [address] [phone] Breanne Zhong LPN 03/24/2025 Anticoagulation - Warfarin Visit Coumadin [address] [phone] Breanne Zhong LPN Persistent atrial fibrillation (CMS/HCC V24, CMS/HCC V28) (Primary Dx); intermediate card tender (current) use of anticoagulants 03/23/2025 12:30 PM EDT Ancillary Procedure [facility] - [address] [place] [phone] Persistent atrial fibrillation (CMS/HCC V24, CMS/HCC V28); Biventricular congestive heart failure (CMS/HCC V24, CMS/HCC V28); H/O aortic root repair; History of heart valve replacement; Nonischemic cardiomyopathy (CMS/HCC V24, CMS/HCC V28); Acute kidney injury superimposed on CKD (CMS/HCC V24); Biventricular implantable cardioverter-defibrill ator (ICD) in situ; Elevated INR 03/21/2025 2:30 PM EDT Anesthesia Event [facility] [address] [place] [phone] Andres Vinson MD 03/21/2025 1:44 PM EDT - 03/21/2025 11:59 PM EDT Hospital Encounter [facility] [address] [place] [phone] La Kidd MD Oral phase dysphagia; Weight loss Discharge Disposition: Home or Self Care 03/21/2025 Telephone Gastroenterology - [address] [facility] [address] [place] [phone] La Kidd MD 03/18/2025 10:00 AM EDT Anticoagulation - Warfarin Visit [facility] [address] [phone] Persistent atrial fibrillation (CMS/HCC V24, CMS/HCC V28) (Primary Dx); senior living (current) use of anticoagulants 03/18/2025 Telephone Adult [address] [phone] Armando Aceves PA 03/16/2025 10:00 AM EDT Office Visit Adult [address] [phone] Thanh Anand PA Bilateral impacted cerumen (Primary Dx) 03/16/2025 Telephone Adult [address] [phone] Armando Aceves PA 03/15/2025 Anticoagulation - Warfarin Visit Coumadin [address] [phone] Breanne Zhong LPN Persistent atrial fibrillation (CMS/HCC V24, CMS/HCC V28) (Primary Dx); senior living (current) use of anticoagulants 03/11/2025 Anticoagulation - Warfarin Visit Coumadin [address] [phone] Breanne Zhong LPN Persistent atrial fibrillation (CMS/HCC V24, CMS/HCC V28) (Primary Dx); intermediate card tender (current) use of anticoagulants 03/09/2025 12:40 PM EDT Lab Draw Station [address] Persistent atrial fibrillation (CMS/HCC V24, CMS/HCC V28); Biventricular congestive heart failure (CMS/HCC V24, CMS/HCC V28); H/O aortic root repair; History of heart valve replacement; Nonischemic cardiomyopathy (CMS/HCC V24, CMS/HCC V28); Acute kidney injury superimposed on CKD (CMS/HCC V24); Biventricular implantable cardioverter-defibrill ator (ICD) in situ; Elevated INR; Chronic sinus complaints; Dysphagia, unspecified type; Atherosclerosis of coronary artery with other form of angina pectoris, unspecified vessel or lesion type, unspecified whether [place] or transplanted heart ([facility]/HCC V24); Essential hypertension, benign; Hyperthyroidism; Impaired fasting glucose; Type 2 diabetes mellitus without complication, without long-term current use of insulin (CMS/HCC V24, CMS/HCC V28) 03/09/2025 10:50 AM EDT Office Visit [facility] [address] [phone] Solo Delarosa MD Biventricular congestive heart failure (CMS/HCC V24, CMS/HCC V28) (Primary Dx); Persistent atrial fibrillation (CMS/HCC V24, CMS/HCC V28); H/O aortic root repair; History of heart valve replacement; Nonischemic cardiomyopathy (CMS/HCC V24, CMS/HCC V28); Acute kidney injury superimposed on CKD ([facility] V24); Biventricular implantable cardioverter-defibrill ator (ICD) in situ; Elevated INR; Tricuspid valve insufficiency, unspecified etiology 03/08/2025 Telephone [facility] [address] [phone] Solo Delarosa MD 03/08/2025 Anticoagulation - Warfarin Visit [facility]in Clinic [address] [phone] Breanne Zhong LPN Persistent atrial fibrillation ([facility] V24, [facility] V28) (Primary Dx); senior living (current) use of anticoagulants 03/03/2025 11:30 AM EDT Office Visit Adult Medicine [address] [phone] Anita Gastelum PA Fall, subsequent encounter (Primary Dx); Laceration of scalp, subsequent encounter; Dysphagia, unspecified type; Type 2 diabetes mellitus without complication, without long-term current use of insulin ([facility] V24, CMS/[facility] V28) 03/01/2025 Telephone Adult Medicine [address] [phone] Armando Aceves PA 03/01/2025 Anticoagulation - Warfarin Visit [facility]in Clinic [address] [phone] Breanne Zhong LPN Persistent atrial fibrillation (CMS/HCC V24, CMS/HCC V28) (Primary Dx); intermediate card tender (current) use of anticoagulants 03/01/2025 Telephone Gastroenterology [facility] 175 [facility] [address] [phone] Анна Enamorado PA 02/28/2025 Telephone Gastroenterology [facility] 175 [facility] [address] [phone] Анна Enamorado PA 02/25/2025 10:30 AM EDT Office Visit Adult [address] [phone] Aury Ferreira PA Fall, subsequent encounter (Primary Dx); Laceration of scalp, subsequent encounter 02/25/2025 Telephone Adult Medicine [address] [phone] Ariella Jimenez [place] 02/24/2025 Anticoagulation - Warfarin Visit Coumadin [address] [phone] Melissa Nichols LPN Persistent atrial fibrillation (CMS/HCC V24, CMS/HCC V28) (Primary Dx); senior living (current) use of anticoagulants 02/24/2025 Telephone Adult Medicine [address] [phone] Armando Aceves PA 02/23/2025 3:07 PM EDT - 02/23/2025 6:37 PM EDT Emergency [facility] [address] [place] [phone] Fall, initial encounter (Primary Dx); Laceration of scalp, initial encounter; History of pacemaker; History of atrial fibrillation Discharge Disposition: Home or Self Care 02/23/2025 9:00 AM EDT Office Visit [facility] [address] [phone] Thanh Anand PA Bilateral impacted cerumen (Primary Dx); intermediate card tender (current) use of anticoagulants; Type 2 diabetes mellitus without complication, without long-term current use of insulin ([facility] V24, [facility] V28) 02/22/2025 Telephone Coumadin [address] [phone] Breanne Zhong LPN 02/22/2025 Telephone Gastroenterology [facility] [address] [facility] [address] [place] [phone] Megan Hollis LPN 02/21/2025 10:30 AM EDT Office Visit [facility] [address] [phone] Анна Enamorado PA Gastroesophageal reflux disease, unspecified whether esophagitis present (Primary Dx); Dysphagia, unspecified type 02/18/2025 Telephone Adult [address] [phone] Ariella Jimenez [place] 02/16/2025 Anticoagulation - Warfarin Visit [address] [phone] Melissa Nichols LPN Persistent atrial fibrillation ([facility] V24, [facility] V28) (Primary Dx); intermediate card tender (current) use of anticoagulants 02/14/2025 11:00 AM EDT Office Visit Adult [address] [phone] Armando Aceves PA Chronic sinus complaints (Primary Dx); Dysphagia, unspecified type; Persistent atrial fibrillation ([facility]/HCC V24, [facility] V28); Biventricular congestive heart failure ([facility] V24, CMS/[facility] V28); Atherosclerosis of coronary artery with other form of angina pectoris, unspecified vessel or lesion type, unspecified whether [place] or transplanted heart ([facility] V24); Essential hypertension, benign; Hyperthyroidism; Impaired fasting glucose; Type 2 diabetes mellitus without complication, without long-term current use of insulin ([facility]/HCC V24, CMS/HCC V28) 02/14/2025 Telephone Adult Medicine [address] [phone] Armando Aceves PA 02/11/2025 Anticoagulation - Warfarin Visit Coumadin [address] [phone] Breanne Zhong LPN Persistent atrial fibrillation (CMS/HCC V24, CMS/HCC V28) (Primary Dx); intermediate card tender (current) use of anticoagulants 02/10/2025 Telephone Adult [address] [phone] Ariella Jimenez [place] 02/07/2025 [facility] [address] [phone] Breanne Zhong LPN Persistent atrial fibrillation (CMS/HCC V24, CMS/HCC V28) (Primary Dx); senior living (current) use of anticoagulants 02/04/2025 10:00 AM EDT Office Visit Adult [address] [phone] Aury Ferreira PA Oral phase dysphagia (Primary Dx); Weight loss; Decreased appetite 02/04/2025 Telephone [facility] [address] [place] [phone] Kathryn Chao [place] 02/03/2025 Telephone Adult [address] [phone] Armando Aceves PA 02/03/2025 Anticoagulation - Warfarin Visit Coumadin [address] [phone] Melissa Nichols LPN Persistent atrial fibrillation (CMS/HCC V24, CMS/HCC V28) (Primary Dx); senior living (current) use of anticoagulants 02/01/2025 2:10 PM EDT Ancillary Procedure [facility] [address] [place] [address] 02/01/2025 8:10 AM EDT Ancillary Procedure [facility] [address] [place] [address] from Last 3 Months Immunizations Immunization Administration Dates Next Due H1N1 Inj Preservative Free 07/28/2009 Influenza Quadravalent, 0.5m l (Fluzone High-dose) 65yo and older 04/13/2022,05/10/2021 Influenza trivalent, 0.5mL ( Fluzone High-dose) 65yo and older 04/06/2024,04/29/2023,04/13/2022,05/10,04/14/2020,05/03/2019,03/15/2018 ,03/23/2017,04/13/2016,03/20/2015 Influenza trivalent, with pr eservative (Fluzone; Afluria) 6mo and older 04/19/2014,03/30/2013,03/18/2012,04/04,03/27/2010,04/09/2009,05/04/2008 ,04/25/2007,05/07/2006,04/30/2005 Moderna SARS-CoV-2 COVID-19, mRNA, LNP-S, preservative free 04/17/2021,08/22/2020,07/22/2020 Pneumococcal conjugate 13 va lent (Prevnar 13, PCV13) 2mo and older 07/19/2015 Pneumococcal polysaccharide 23 valent (Pneumovax 23) 2yo and older 08/23/2016,05/02/2010 RSV, bivalent, protein subun it RSVpreF, 0.5mL, Preservative Free (Arexvy) 50yo and older 06/24/2024 Td Tetanus diptheria (Tdvax) 7yo and older 05/13/2018 Tdap Tetanus diptheria acell ular pertussis (Boostrix; Adacel) 7yo and older 05/18/2008 Zoster recombinant (Shingrix ) 19yo and older 09/19/2023,07/21/2023 Surgical History Surgery Date Site/Laterality Comments CERVICAL LAMINECTOMY early 1999 PROCEDURE: HISTORICAL CERV LAMINECTOMY OTHER SURGICAL HISTORY PROCEDURE: IA RPR THORACOABDOMINAL AORTIC ANEURYS W/WO BYPASS COLONOSCOPY 05/14/2007 PROCEDURE: IA COLONOSCOPY FLX DX W/COLLJ SPEC WHEN PFRMD; COMMENT: Negative AORTIC VALVE REPLACEMENT PROCEDURE: HISTORICAL AORTIC VALVE REPL Medical History Medical History Date Comments Heart valve replaced by other means DX:Heart valve replaced by other means; COMMENT: [facility] Aortic Atrial fibrillation ([facility] V24, [facility] V28) DX:Atrial fibrillation (HCC) ; COMMENT: S/P Ablation Heartburn DX:Heartburn Unspecified essential hypertension DX:Unspecified essential hypertension Hemorrhage of gastrointestin al tract, unspecified 05/14/2007 DX:Hemorrhage of gastrointes tinal tract, unspecified; COMMENT: Chronic small-volume rectal bleeding. Negative colonoscopy 05/14/2007, no colon cancer screening needed for 10 years. Unspecified disorder of thyroid DX:Unspecified disorder of thyroid Esophageal reflux DX:Esophageal reflux Actinic keratosis, hx of DX:Acti lukasz keratosis, hx of History of gallstones 12/01/2019 DX:History of gallstones Diabetes mellitus ([facility] V 24, [facility] V28) Hyperlipidemia Chronic gout CKD (chronic kidney disease) Lung disease Non-ischemic cardiomyopathy ([facility] V24, [facility] V28) CHF (congestive heart failur e) ([facility] V24, [facility] V28) Biventricular implantable cardioverter-defibrillator (ICD) in situ Anemia Depression Anxiety Elevated INR 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 ejection fraction ([facility] V24, [facility] V28) Aortic aneurysm ([facility] V24) Heart block Tricuspid regurgitation Aberrant right subclavian artery Syphilis H/O mechanical aortic valve replacement Gout Family History Medical History Relation Name Comments Other: Down syndrome Brother 1 at age 70 Other: Heart disease Brother 2 Other: in his 70s Father Other: coronary disease Mother in her 60s Blindness Neg Hx Cataracts Neg Hx Glaucoma Neg Hx Macular degeneration Neg Hx Strabismus Neg Hx Relation Name Status Comments Brother 1 downs syndrome Brother 2 (Age 70) heart Father (Age 70,s) Mother (Age 60s) Sister Alive Social History Tobacco Use Types Packs/Day Years Used Date Smoking Tobacco: Never Smokeless Tobacco: Never Tobacco Cessation:Counseling Given: Not Answered Alcohol Use Standard Drinks/Week Comments Not Currently [...] for your loved ones. For example, child care attendant school or elderly care for an older adult? [...] Orientation Straight 10/04/2024 10 :11 AM EDT Obstetrics History Last Filed Vital Signs Vital Sign Reading Time Taken Comments Blood Pressure 106/60 03/23/2025 1:05 PM EDT Pulse 60 03/16/2025 9:56 AM EDT Temperature 35.7 C (96.3 F) 03/16/2025 9:56 AM EDT Respiratory Rate 14 03/16/2025 9:56 AM EDT Oxygen Saturation 98% 03/16/2025 9:56 AM EDT Inhaled Oxygen Concentration - - Weight 75.8 kg (167 lb) 03/28/2025 12:03 PM EDT Height 177.8 cm (5' 10 ) 03/28/2025 12:03 PM EDT Body Mass Index 23.96 03/28/2025 12:03 PM EDT Plan of Treatment Upcoming Encounters Date Type Department Care Team (Late st Contact Info) Description 05/03/2025 8:45 AM EDT Clinical Support Coumadin [address] [phone] 05/03/2025 11:00 AM EDT Hospital Encounter [facility] [address] [place] [phone] La Kidd MD [address] [address] 06/01/2025 11:00 AM EST Office Visit Adult Medicine [address] [phone] Armando Aceves PA [address] [place] [address] 07/28/2025 10:30 AM EST Nutrition Internal Medicine - [place] 175 [facility] [address] [place] [phone] Georgette Bradley, RD [address] [place] [address] 11/17/2025 11:00 AM EDT Ancillary Procedure [facility] [address] [facility] [address] [place] [address] Health Maintenance Due Date Last Done Comments Colorectal Cancer Screening: Stool Based Tests (FOBT/FIT) 01/29/2024 01/28/2023 Diabetes: Annual Foot Exam 07/15/2024 07/15/2023, COVID-19 Vaccine (8 - Moderna risk season) 2025 04/06/2024, 04/29/2023, 05/07/2022, Additional history exists Influenza Vaccine (#1) 2025 , 04/29/2023, 04/13/2022, Additional history exists Medicare Annual Wellness Visit 06/17/2025 06/17/2024 Diabetes: Blood Sugar Control Test (HGBA1C) 09/06/2025 03/09/2025, 09/14/2024, 06/17/2024, Additional history exists Diabetes: Annual Urine Albumin-Creatinine Ratio (uACR) 09/14/2025 09/14/2024, 06/17/2024, 02/12/2024, Additional history exists Social Influencers of Health Screening 10/06/2025 10/06/2024, 06/17/2024 Falls Risk Assessment 01/08/2026 01/08/2025 , 06/17/2024, 08/15/2023, Additional history exists Diabetes: Annual Retina Eye Exam 02/07/2026 02/07/2025, 07/15/2023, 07/15/2023 Diabetes: Annual GFR (Glomerular Filtration Rate) 03/09/2026 03/09/2025, 02/23/2025, 01/28/2025, Additional history exists Hypertension/CHF/CAD Annual BMP Blood Test 03/09/2026 03/09/2025, 02/23/2025, 01/28/2025, Additional history exists DTaP,Tdap,and Td Vaccines (3 - Td or Tdap) 05/13/2028 05/13/2018, 05/18/2008 Cholesterol Screening (Lipid Panel) 03/09/2030 03/09/2025, 09/26/2024, 09/14/2024, Additional history exists Hepatitis C Screening Completed 04/08/2013, 013 Pneumococcal Vaccine: 50+ Years Completed 08/23/2016, 07/19/2015, 05/02/2010 Zoster Vaccines Completed 09/19/2023, 07/21/2023 RSV Immunization Adult Patients Completed 06/24/2024 Depression Screening Completed 02/04/2025, 08/15/19 24 HIB Vaccines Aged Out No longer eligi ble based on patient's age to complete this topic HPV Vaccines Aged Out No longer eligi ble based on patient's age to complete this topic Hepatitis A Vaccines Aged Out No long er eligible based on patient's age to complete this topic Hepatitis B Vaccines Aged Out No long er eligible based on patient's age to complete this topic IPV Vaccines Aged Out No longer eligi ble based on patient's age to complete this topic MMR Vaccines Aged Out No longer eligi ble based on patient's age to complete this topic Meningococcal ACWY Vaccine Aged Out N o longer eligible based on patient's age to complete this topic Meningococcal B Vaccine Aged Out No l onger eligible based on patient's age to complete this topic RSV Immunization Patients Under 20 months Aged Out No longer eligible based on patient's age to complete this topic Varicella Vaccines Aged Out No longer eligible based on patient's age to complete this topic Goals Goal Patient Goal Type Associated Problems [...] of UE's for safety only. Pt will [id number] reps or more for 30 SCS Test. Autogenerated Goal Care Plan Autogenerated Problem No [employer] Implanted Type Area Help Desk Consultant Device Identifier Shelf Expiration Date Model / Serial / Lot Defib Icd Bi Vent Sisseton Hr Leadership Coach D - [id number] - [id number] Implanted:Qty: 1 on 10/20/2024 by Adal Padilla MD at [facility] Cardiac BUILDING CODE ADMINISTRATOR-D ICD Left: Heart [employer] [facility] [employer] [id number] 09/03/2025 [id number] / [id number] / Abbt-Stju Sisseton Hf [id number] Implanted:10/05 (Quantity not on file) Cardiac BUILDING CODE ADMINISTRATOR-D ICD [employer] [employer] [employer] GALLANT HF / [id number] / Abbt-Stju [id number] Sisseton(Tm) Hf [id number] Implanted:10/05 (Quantity not on file) Cardiac BUILDING CODE ADMINISTRATOR-D ICD [employer] [employer] [id number] GALLANT(T M) HF / [id number] / Lead Tachy Durat 65cm 7122q/65 Sj4 - [id number] - [id number] Implanted:Qty: 1 on 10/20/2024 by Adal Padilla MD at [facility] Cardiac Lead N/A: Heart [employer] [id number] 07/06/2027 7122Q/65 / [id number] / Lead Pcmk Tendril Sts 7ool31cu - [id number] - [id number] Implanted:Qty: 1 on 10/20/2024 by Adal Padilla MD at [facility] Cardiac Lead N/A: Heart [employer] [id number] 05/06/2027 2088TC/52 / [id number] / Lead Pcmkr Lv Quartet Quardri 86 - [id number] - [id number] Implanted:Qty: 1 on 10/20/2024 by Adal Padilla MD at [facility] Cardiac Lead Left: Heart [employer] [employer] [id number] 03/06/2027 1458Q/86 / [id number] / Procedures Procedure Name Priority Date/Time Associated Diagnosis Comments POC PROTIME INR BLOOD Routine 04/29/2025 9:59 AM EDT Persistent atrial fibrillation (CMS/HCC V24, CMS/HCC V28) senior living (current) use of anticoagulants PROTHROMBIN TIME WITH INR Routine 04/25/2025 PROTHROMBIN TIME WITH INR Routine 04/19/2025 POC PROTIME INR BLOOD Routine 04/15/2025 9:49 AM EDT Persistent atrial fibrillation (CMS/HCC V24, CMS/HCC V28) intermediate card tender (current) use of anticoagulants PROTHROMBIN TIME WITH INR Routine 04/11/2025 PROTHROMBIN TIME WITH INR Routine 04/04/2025 PROTHROMBIN TIME WITH INR Routine 03/28/2025 PROTHROMBIN TIME WITH INR Routine 03/24/2025 TRANSTHORACIC ECHOCARDIOGRAM (TTE) COMPLETE W/ CONTRAST Routine 03/23/2025 1:19 PM EDT Persistent atrial fibrillation (CMS/HCC V24, CMS/HCC V28) Biventricular congestive heart failure (CMS/HCC V24, CMS/HCC V28) H/O aortic root repair History of heart valve replacement Nonischemic cardiomyopathy (CMS/HCC V24, CMS/HCC V28) Acute kidney injury superimposed on CKD (CMS/HCC V24) Biventricular implantable cardioverter-defibrill ator (ICD) in situ Elevated INR POC PROTIME INR BLOOD Routine 03/18/2025 Persistent atrial fibrillation (CMS/HCC V24, CMS/HCC V28) senior living (current) use of anticoagulants PROTHROMBIN TIME WITH INR Routine 03/15/2025 PROTHROMBIN TIME WITH INR Routine 03/11/2025 BILIRUBIN DUPLICATE PROCEDURE TO ORDER Routine 03/09/2025 12:44 PM EDT Persistent atrial fibrillation (CMS/HCC V24, CMS/HCC V28) Biventricular congestive heart failure (CMS/HCC V24, CMS/HCC V28) H/O aortic root repair History of heart valve replacement Nonischemic cardiomyopathy (CMS/HCC V24, CMS/HCC V28) Acute kidney injury superimposed on CKD (CMS/HCC V24) Biventricular implantable cardioverter-defibrill ator (ICD) in situ Elevated INR CBC WITH AUTO DIFFERENTIAL Routine 03/09/2025 12:44 PM EDT Chronic sinus complaints Dysphagia, unspecified type Persistent atrial fibrillation (CMS/HCC V24, CMS/HCC V28) Biventricular congestive heart failure (CMS/HCC V24, CMS/HCC V28) Atherosclerosis of coronary artery with other form of angina pectoris, unspecified vessel or lesion type, unspecified whether [place] or transplanted heart (CMS/HCC V24) Essential hypertension, benign Hyperthyroidism Impaired fasting glucose Type 2 diabetes mellitus without complication, without long-term current use of insulin (CMS/HCC V24, CMS/HCC V28) LIPID PANEL WITH REFLEX TO DIRECT LDL Routine 03/09/2025 12:44 PM EDT Chronic sinus complaints Dysphagia, unspecified type Persistent atrial fibrillation (CMS/HCC V24, CMS/HCC V28) Biventricular congestive heart failure (CMS/HCC V24, CMS/HCC V28) Atherosclerosis of coronary artery with other form of angina pectoris, unspecified vessel or lesion type, unspecified whether [place] or transplanted heart (CMS/HCC V24) Essential hypertension, benign Hyperthyroidism Impaired fasting glucose Type 2 diabetes mellitus without complication, without long-term current use of insulin (CMS/HCC V24, CMS/HCC V28) COMPREHENSIVE METABOLIC PANEL Routine 03/09/2025 12:44 PM EDT Chronic sinus complaints Dysphagia, unspecified type Persistent atrial fibrillation (CMS/HCC V24, CMS/HCC V28) Biventricular congestive heart failure (CMS/HCC V24, CMS/HCC V28) Atherosclerosis of coronary artery with other form of angina pectoris, unspecified vessel or lesion type, unspecified whether [place] or transplanted heart ([facility] V24) Essential hypertension, benign Hyperthyroidism Impaired fasting glucose Type 2 diabetes mellitus without complication, without long-term current use of insulin (CMS/[facility] V24, CMS/[facility] V28) HEMOGLOBIN A1C Routine 03/09/2025 12:44 PM EDT Chronic sinus complaints Dysphagia, unspecified type Persistent atrial fibrillation (CMS/HCC V24, CMS/HCC V28) Biventricular congestive heart failure (CMS/HCC V24, CMS/HCC V28) Atherosclerosis of coronary artery with other form of angina pectoris, unspecified vessel or lesion type, unspecified whether [place] or transplanted heart ([facility] V24) Essential hypertension, benign Hyperthyroidism Impaired fasting glucose Type 2 diabetes mellitus without complication, without long-term current use of insulin ([facility] V24, CMS/[facility] V28) THYROID STIMULATING HORMONE WITH REFLEX TO FREE T4 AND FREE T3 Routine 03/09/2025 12:44 PM EDT Chronic sinus complaints Dysphagia, unspecified type Persistent atrial fibrillation (CMS/HCC V24, CMS/HCC V28) Biventricular congestive heart failure (CMS/HCC V24, CMS/HCC V28) Atherosclerosis of coronary artery with other form of angina pectoris, unspecified vessel or lesion type, unspecified whether [place] or transplanted heart ([facility]/HCC V24) Essential hypertension, benign Hyperthyroidism Impaired fasting glucose Type 2 diabetes mellitus without complication, without long-term current use of insulin ([facility] V24, CMS/HCC V28) CBC AND DIFFERENTIAL Routine 03/09/2025 12:44 PM EDT Chronic sinus complaints Dysphagia, unspecified type Persistent atrial fibrillation (CMS/HCC V24, CMS/HCC V28) Biventricular congestive heart failure (CMS/HCC V24, CMS/HCC V28) Atherosclerosis of coronary artery with other form of angina pectoris, unspecified vessel or lesion type, unspecified whether [place] or transplanted heart ([facility] V24) Essential hypertension, benign Hyperthyroidism Impaired fasting glucose Type 2 diabetes mellitus without complication, without long-term current use of insulin ([facility] V24, [facility] V28) URIC ACID Routine 03/09/2025 12:44 PM EDT Chronic sinus complaints Dysphagia, unspecified type Persistent atrial fibrillation ([facility] V24, [facility] V28) Biventricular congestive heart failure ([facility] V24, [facility] V28) Atherosclerosis of coronary artery with other form of angina pectoris, unspecified vessel or lesion type, unspecified whether [place] or transplanted heart ([facility] V24) Essential hypertension, benign Hyperthyroidism Impaired fasting glucose Type 2 diabetes mellitus without complication, without long-term current use of insulin ([facility] V24, [facility] V28) PROTHROMBIN TIME WITH INR Routine 03/08/2025 PROTHROMBIN TIME WITH INR Routine 03/01/2025 ECG ANNOTATED 02/24/2025 ED LACERATION REPAIR Routine 02/23/2025 5:06 PM EDT ECG 12-LEAD STAT 02/23/2025 4:22 PM EDT CBC WITH AUTO DIFFERENTIAL STAT 02/23/2025 4:22 PM EDT CREATINE KINASE STAT 02/23/2025 4:22 PM EDT TROPONIN I HIGH SENSITIVITY STAT 02/23/2025 4:22 PM EDT ACTIVATED PARTIAL THROMBOPLASTIN TIME STAT 02/23/2025 4:22 PM EDT PROTHROMBIN TIME WITH INR STAT 02/23/2025 4:22 PM EDT BASIC METABOLIC PANEL STAT 02/23/2025 4:22 PM EDT CBC AND DIFFERENTIAL STAT 02/23/2025 4:[address] CERVICAL SPINE WO CONTRAST STAT 02/23/2025 3:[address] HEAD WO CONTRAST STAT 02/23/2025 3 :49 PM EDT PROTHROMBIN TIME WITH INR Routine 02/16/2025 PROTHROMBIN TIME WITH INR Routine 02/11/2025 PROTHROMBIN TIME WITH INR Routine 02/07/2025 PROTHROMBIN TIME WITH INR Routine 02/03/2025 CARDIAC DEVICE CHECK- REMOTE- MURJ Routine 02/01/2025 2:06 PM EDT CARDIAC DEVICE CHECK- REMOTE- MURJ Routine 02/01/2025 8:09 AM EDT MICROALBUMIN CREATININE URINE RATIO Routine 09/14/2024 10:58 AM EDT Longstanding persistent atrial fibrillation (CMS/HCC V24, CMS/HCC V28) Hospital discharge follow-up Atrial tachycardia (CMS/HCC V24) Aberrant right subclavian artery Chronic heart failure with preserved ejection fraction (CMS/HCC V24, CMS/HCC V28) Congestive heart failure, unspecified HF chronicity, unspecified heart failure type (CMS/HCC V24, CMS/HCC V28) Essential hypertension, benign HM DEPRESSION SCREENING Routine 08/15/2023 FALLS RISK ASSESSMENT Routine 08/15/2023 DIABETES EYE EXAM Routine 07/15/2023 DIABETES FOOT EXAM Routine 07/15/2023 HM STOOL BASED TEST Routine 01/28/2023 HEPATITIS C SCREENING Routine 04/08/2013 from Last 3 Months or Most Recently Relevant to Health Maintenance Results * POC Protime INR Blood (04/29/2025 9:59 AM EDT) Only the most recent of3 resultswithin the time period is included. Lot Number INR POC 3.0 Prothrombin Time POC Exp Date Blood 04/29/2025 9:59 AM EDT Ryan Zhang MD POINT OF CARE TEST ENT ER/EDIT ORDERABLES Final Result * Prothrombin time with INR (04/25/2025) Only the most recent of15 resultswithin the time period is included. INR 2.6 Comment:Marlyn Jackson Prothrombin Time POC Blood Venous blood specimen / Unknown 04/25/2025 Ryan Zhang MD LAB BLOOD ORDERABLES F inal Result * (ABNORMAL) TRANSTHORACIC ECHOCARDIOGRAM (TTE) COMPLETE W/ CONTRAST (03/23/2025 1:19 PM EDT) LV EDV (A2C) 218 mL CV PACS LV EDV (A4C) 167 mL CV PACS LV Diastolic Volume (BP) 199(A) 62 - 150 mL CV PACS LV ESV (A2C) 145 mL CV PACS LV ESV (A4C) 108 mL CV PACS LV Systolic Volume (BP) 129(A) 21 - 61 mL CV PACS IVSD 1.0 0.6 - 1.0 cm CV PACS LVIDD 5.1 4.2 - 5.8 cm CV PACS LVIDS 4.1(A) 2.5 - 4.0 cm CV PACS LVOT Diameter 2.1 cm CV PACS LVOT Mean Grad 1 mmHg CV PACS LVOT Peak VTI 11.4 cm CV PACS LVOT Mean Bandar 0.4 m/s CV PACS LVOT Peak Bandar 0.7 m/s CV PACS LVOT Peak Gradient 2 mmHg CV PACS LVPWD 1.0 0.6 - 1.0 cm CV PACS Ejection Fraction (A2C) 34 % CV PACS Ejection Fraction (A4C) 35 % CV PACS Ejection Fraction (BP) 35 % CV PACS LVOT Area 3.5 cm2 CV PACS LVOT Stroke Volume 39 mL CV PACS Left Atrium Minor Harrison 6.9 cm CV PACS Left Atrium Major Harrison 7.5 cm CV PACS LA Area Sys (A2C) 33 cm2 CV PACS LA Area Sys (A4C) 35 cm2 CV PACS LA Volume (BP) 138 mL CV PACS RA Area 42.2 cm2 CV PACS RA 2D Volume 195 mL CV PACS AV Mean Gradient 8 mmHg CV PACS Ao VTI 38.4 cm CV PACS AV Peak Bandar 2.0 m/s CV PACS AV Peak Gradient 15 mmHg CV PACS AV Area Continuity Equation 1.0 cm2 CV PACS AV Area Peak Velocity 1.1 cm2 CV PACS Aortic Sinus Valsalva 3.7 cm CV PACS Ascending Aorta 3.7 cm CV PACS IVC Proximal 4.2 cm CV PACS MR PISA Max Velocity 3.1 m/s CV PACS MR Peak Gradient 39 mmHg CV PACS Mitral Valve Max Velocity 1.3 m/s CV PACS MV Peak Gradient 7 mmHg CV PACS MV Deceleration Independence 3.7 m/s2 CV PACS MV PHT 105 ms CV PACS MV Mean Gradient 2 mmHg CV PACS MV VTI 35.2 cm CV PACS MV Area PHT 2.1 cm2 CV PACS MV Area Continuity Equation 1.1 cm2 CV PACS PV Acceleration Time 137 ms CV PACS PV Acceleration Time 137 ms CV PACS PV Peak Velocity 0.6 m/s CV PACS PV Peak Gradient 2 mmHg CV PACS RV Diastolic Basal Dimension 6.0(A) 2.5 - 4.1 cm CV PACS RV S' 10 cm/s CV PACS TAPSE 19 mm CV PACS TR Peak Velocity 1.50 m/s CV PACS TR Peak Gradient 9 mmHg CV PACS LV ESV Index (A4C) 56 mL/m2 CV PACS LV EDV Index (A4C) 87 mL/m2 CV PACS LVOT Stroke Index 20 mL/m2 CV PACS Relative Wall Thickness ratio 0.39 CV PACS LVOT:AV VTI Index 0.30 CV PACS FS 20 % CV PACS LV Mass 2D 188 g CV PACS Ascending Aorta Index 1.93 cm/m2 CV PACS MV VTI:LVOT VTI ratio 3.1 CV PACS LVOT flow 138 mL/s CV PACS RA 2D Volume Index 102 mL/m2 CV PACS NINFA Index (VTI) 0.54 cm2/m2 CV PACS NINFA Index (Pk Bandar) 0.57 cm2/m2 CV PACS LVIDD Index 2.66 cm/m2 CV PACS LVIDS Index 2.14 cm/m2 CV PACS AV Velocity Ratio 0.35 CV PACS LV Systolic Volume Index (BP) 67 mL/m2 CV PACS LV Diastolic Volume Index (BP) 104 mL/m2 CV PACS LA Volume Index (BP) 72 mL/m2 CV PACS LV Mass Index 2D 98 g/m2 CV PACS LV EDV Index (A2C) 114 mL/m2 CV PACS LV ESV Index (A2C) 76 mL/m2 CV PACS BSA 1.92 m2 CV PACS Right Ventricular Peak Systolic Pressure 24 mmHg CV PACS Est. RA Pressure 15 mmHg CV PACS Anatomical Region Laterality Modality Ultrasound Narrative 03/25/2025 12:55 PM EDT Left ventricle cavity size is normal. Left ventricular systolic function is moderately decreased. EF by 2D Ramirez biplane is 35%. Increased end-systolic diameter Moderate LV global hypokinesis is present. Left ventricle wall thickness is normal. Right ventricle is enlarged. Right ventricular systolic function appears mildly impaired. A mechanical aortic valve is present. Prosthetic valve appears to be functioning normally. Mitral valve with moderately thickened leaflets. Leaflet excursion appears to be decreased but no significant stenosis on Doppler interrogation and only very mild MR. Tricuspid valve demonstrates severe lower velocity regurgitation. There is a pacer wire in the right sided chambers. Mild pulmonic insufficiency. When compared to the study of September 20, 2024 it seems that the defibrillator wire is now present. The paradoxical septal motion looks slightly less prominent now. But no real change in the ejection fraction or tricuspid regurgitation. Left Ventricle Left ventricle cavity size is normal. Wall thickness is normal. Systolic function is moderately decreased. The quantitative EF by 2D Ramirez biplane is 35%. Moderate global LV hypokinesis is present. On some views there appears to be paradoxical septal motion. Unable to assess diastolic function. Right Ventricle Right ventricle cavity is dilated. Systolic function is normal. Left Atrium Left atrium volume index is severely increased. Right Atrium Right atrium cavity is severely dilated. IVC/SVC RA pressures is estimated to be 15 mmHg (IVC diameter >21 mm and decreases <50% during inspiration). Mitral Valve The leaflets are moderately thickened. There is annular calcification. There is mild regurgitation. There is no evidence of mitral valve stenosis. Tricuspid Valve The leaflets exhibit normal excursion. There is severe low velocity regurgitation. There is no evidence of tricuspid valve stenosis. The RVSP is estimated at 24 mmHg. Aortic Valve The valve has been surgically replaced. There is a mechanical valve. The prosthetic valve appears to be functioning normally. There is trace regurgitation. The aortic valve peak velocity is 2.0 m/s. The mean gradient is 8 mmHg. Pulmonic Valve Visualized portions of the pulmonic valve appear normal. There is mild pulmonic valve regurgitation. There is no evidence of pulmonic valve stenosis. Ascending Aorta The aorta appears normal in size. Pericardium Pericardium appears normal. Study Details Overall the study quality was technically difficult. Definity contrast was given to enhance imaging. Study was difficult due to: poor endocardial visualization. Solo Delarosa MD CV ECHO PROCEDURES Final Result * (ABNORMAL) Bilirubin duplicate procedure to order (03/09/2025 12:44 PM EDT) Total Bilirubin 0.8 0.0 - 1.4 mg/dL LAB CHEMISTRY METHOD 03/09/2025 4:03 PM EDT [facility] Bilirubin, Direct 0.4(H) 0.0 - 0.3 mg/dL LAB CHEMISTRY METHOD 03/09/2025 4:03 PM EDT [facility] Bilirubin, Indirect 0.4 0.0 - 1.1 mg/dL LAB CHEMISTRY METHOD 03/09/2025 4:03 PM EDT [facility] Blood Venous blood specimen / Unknown Venipuncture / Unknown 03/09/2025 12:44 PM EDT 03/09/2025 12:44 PM EDT Solo Delarosa MD LAB BLOOD ORDERABLES Final Resu lt [facility] [address] [place] [address], * Thyroid stimulating hormone with reflex to free t4 and free t3 (03/09/2025 12:44 PM EDT) Pathologist [facility] TSH 3.12 0.40 - 4.00 mcIU/mL LAB CHEMISTRY METHOD 03/09/2025 5:08 PM EDT [facility] Blood Venous blood specimen / Unknown Venipuncture / Unknown 03/09/2025 12:44 PM EDT 03/09/2025 12:44 PM EDT Armando SANTOS LAB BLOOD ORDERABLES Charlotte l Result Performing Organization Address [facility]/ZIP Co de Phone Number [facility] [address] [place] [address], * Lipid panel with reflex to direct LDL (03/09/2025 12:44 PM EDT) [facility] Cholesterol 102 0 - 200 mg/dL LAB CHEMISTRY METHOD 03/09/2025 4:03 PM EDT [facility] Triglycerides 71 0 - 150 mg/dL LAB CHEMISTRY METHOD 03/09/2025 4:03 PM EDT [facility] HDL 60 >=40 mg/dL LAB CHEMISTRY METHOD 03/09/2025 4:03 PM EDT [facility] LDL Calculated 28 0 - 100 mg/dL LAB CHEMISTRY METHOD 03/09/2025 4:03 PM EDT [facility] Comment:Estimated LDL Calcul ated using equation: Total cholesterol - HDL cholesterol - (Triglycerides/5) VLDL Cholesterol David 14.2 mg/dL LAB CHEMISTRY METHOD 03/09/2025 4:03 PM EDT [facility] Non HDL Chol. (LDL+VLDL) 42 <145 mg/dL LAB CHEMISTRY METHOD 03/09/2025 4:03 PM EDT [facility] Chol/HDL Ratio 1.7 0.0 - 4.4 LAB CHEMISTRY METHOD 03/09/2025 4:03 PM EDT [facility] Blood Venous blood specimen / Unknown Venipuncture / Unknown 03/09/2025 12:44 PM EDT 03/09/2025 12:44 PM EDT Armando SANTOS LAB BLOOD ORDERABLES Charlotte hickey Result [facility] [address] [place] [address], [place] [phone] * (ABNORMAL) CBC auto differential (03/09/2025 12:44 PM EDT) Only the most recent of2 resultswithin the time period is included. WBC 5.8 4.8 - 10.8 K/mcL LAB HEMETOLOGY METHOD 03/09/2025 2:56 PM EDT [facility] RBC 3.40(L) 4.50 - 5.50 M/mcL LAB HEMETOLOGY METHOD 03/09/2025 2:56 PM EDT [facility] Hemoglobin 10.1(L) 13.5 - 17.5 g/dL LAB HEMETOLOGY METHOD 03/09/2025 2:56 PM EDT [facility] Hematocrit 33.1(L) 42.0 - 54.0 % LAB HEMETOLOGY METHOD 03/09/2025 2:56 PM EDT [facility] MCV 96.5 79.0 - 98.0 FL LAB HEMETOLOGY METHOD 03/09/2025 2:56 PM EDT [facility] MCH 29.4 27.0 - 32.0 pcg LAB HEMETOLOGY METHOD 03/09/2025 2:56 PM EDT [facility] MCHC 30.5(L) 32.0 - 37.0 g/dL LAB HEMETOLOGY METHOD 03/09/2025 2:56 PM EDT [facility] RDW 17.8(H) 11.0 - 15.0 % LAB [facility]EMETOLOGY [facility] Platelets 100(L) 130 - 400 K/mcL LAB HEMETOLOGY METHOD 03/09/2025 2:56 PM [facility] MPV 11.5(H) 7.0 - 11.0 FL LAB HEMETOLOGY METHOD 03/09[facility]2025 [facility] NRBC 0.0 <1.0 % LAB HEMETOLOGY METHOD 03/09/2025 2:56 PM [facility] NRBC Absolute 0.00 <0.10 K/mcL LAB HEMETOLOGY METHOD 03/09/2025 2:56 PM [facility] Neutrophils Relative 77.1 % LAB HEMETOLOGY METHOD 03/09/2025 2:56 PM [facility] Lymphocytes Relative 14.6 % LAB HEMETOLOGY METHOD 03/09/2025 2:56 PM [facility] Monocytes Relative 5.9 % LAB HEMETOLOGY METHOD 03/09/2025 2:56 PM [facility] Eosinophils Relative 1.0 % LAB HEMETOLOGY METHOD 03/09/2025 2:56 PM [facility] Basophils Relative 0.9 % LAB HEMETOLOGY METHOD 03/09/2025 2:56 PM [facility] Immature Granulocytes Relative 0.5 % LAB HEMETOLOGY METHOD 03/09/2025 2:56 PM [facility] Neutrophils Absolute 4.45 1.50 - 7.00 K/mcL LAB HEMETOLOGY METHOD 03/09[facility]2025 2[facility] Lymphocytes Absolute 0.84(L) 1.00 - 5.00 K/mcL LAB HEMETOLOGY METHOD 03/09/2025 2:56 PM EDT [facility] Monocytes Absolute 0.34 0.20 - 1.00 K/mcL LAB HEMETOLOGY METHOD 03/09/2025 2:56 PM EDT [facility] Eosinophils Absolute 0.06 0.00 - 0.50 K/mcL LAB HEMETOLOGY METHOD 03/09/2025 2:56 PM EDT [facility] Basophils Absolute 0.05 0.00 - 0.20 K/[facility] LAB HEMETOLOGY METHOD 03/09/2025 2:56 PM EDT [facility] Immature Granulocytes Absolute 0.03 0.00 - 0.03 K/[facility] LAB HEMETOLOGY METHOD 03/09/2025 2:56 PM EDT [facility] Blood Venous blood specimen / Unknown Venipuncture / Unknown 03/09/2025 12:44 PM EDT 03/09/2025 12:44 PM EDT Armando SANTOS LAB BLOOD ORDERABLES Charlotte l Result [facility] [address] [place] [address], [place] [phone] * Uric acid (03/09/2025 12:44 PM EDT) Uric Acid 4.1 3.7 - 9.2 mg/dL LAB CHEMISTRY METHOD 03/09/2025 4:03 PM EDT [facility] Blood Venous blood specimen / Unknown Venipuncture / Unknown 03/09/2025 12:44 PM EDT 03/09/2025 12:44 PM EDT Armando SANTOS LAB BLOOD ORDERABLES Charlotte l Result [facility] [address] [place] [address], [place] [phone] * Hemoglobin A1c (03/09/2025 12:44 PM EDT) [facility] Hemoglobin A1C 6.4 <6.5 % LAB CHEMISTRY METHOD 03/09/2025 8:32 PM EDT [facility] Mean Bld Glu Estim. 137 mg/dL LAB CHEMISTRY METHOD 03/09/2025 8:32 PM EDT [facility] Blood Venous blood specimen / Unknown Venipuncture / Unknown 03/09/2025 12:44 PM EDT 03/09/2025 12:44 PM EDT Armando SANTOS LAB BLOOD ORDERABLES Charlotte hickey Result [facility] [address] [place] [address], * (ABNORMAL) Comprehensive metabolic panel (03/09/2025 12:44 PM EDT) [facility] Sodium 136 133 - 145 mmol/L LAB CHEMISTRY METHOD 03/09/2025 4:03 PM [facility] Potassium 4.4 3.5 - 5.5 mmol/L LAB CHEMISTRY METHOD 03/09/2025 4:03 PM [facility] Chloride 103 96 - 110 mmol/L LAB CHEMISTRY METHOD 03/09/2025 4:03 PM [facility] CO2 27 21 - 32 mmol/L LAB CHEMISTRY METHOD 03/09/2025 4:03 PM [facility] Anion Gap 6 3 - 11 LAB CHEMISTRY METHOD 03/09/2025 4:03 PM [facility] Glucose 136(H) 70 - 100 mg/dL LAB CHEMISTRY METHOD 03/09/2025 4:03 PM [facility] BUN 25 5 - 25 mg/dL LAB CHEMISTRY METHOD 03/09/2025 4:03 PM [facility] Creatinine 2.05(H) 0.70 - 1.30 mg/dL LAB CHEMISTRY METHOD 03/09/2025 4:03 PM [facility] eGFR 32(L) >=60 mL/min/1. 73m2 LAB CHEMISTRY METHOD 03/09/2025 4:03 PM [facility] Comment:Calculation based on the Chronic Kidney Disease Epidemiology Collaboration (CKD-EPI) equation refit without adjustment for race. BUN/Creatinine Ratio 12.2 LAB CHEMISTRY METHOD 03/09/2025 4:03 PM [facility] Calcium 8.5 8.5 - 10.5 mg/dL LAB CHEMISTRY METHOD 03/09/2025 4:03 PM [facility] AST (SGOT) 18 10 - 42 unit/L LAB CHEMISTRY METHOD 03/09/2025 4:03 PM [facility] ALT (SGPT) 14 10 - 60 unit/L LAB CHEMISTRY METHOD 03/09/2025 4:03 PM [facility] Alkaline Phosphatase 140(H) 42 - 121 unit/L LAB CHEMISTRY METHOD 03/09/2025 4:03 PM [facility] Total Protein 6.2 6.0 - 8.0 g/dL LAB CHEMISTRY METHOD 03/09/2025 4:03 PM [facility] Albumin 3.5 3.2 - 5.0 g/dL LAB CHEMISTRY METHOD 03/09/2025 4:03 PM [facility] Total Bilirubin 0.8 0.0 - 1.4 mg/dL LAB CHEMISTRY METHOD 03/09/2025 4:03 PM [facility] Blood Venous blood specimen / Unknown Venipuncture / Unknown 03/09/2025 12:44 PM EDT 03/09/2025 12:44 PM EDT Armando SANTOS LAB BLOOD ORDERABLES Charlotte l Result [facility] [address] [place] [address], [place] [phone] * ECG-Annotated (02/24/2025) us Provider Onbase ECG ORDERABLES Final Result * Laceration Repair (02/23/2025 5:06 PM EDT) Narrative Jonn Townsend MD - 02/23/2025 5:06 PM EDT Rosamaria Duffy NP 02/23/2025 5:41 PM Laceration Repair Date/Time: 02/23/2025 5:06 PM Performed by: Rosamaria Duffy NP Authorized by: Rosamaria Duffy NP Consent: Consent obtained: Verbal Consent given by: Patient Risks, benefits, and alternatives were discussed: yes Risks discussed: Infection and pain Alternatives discussed: No treatment Potter protocol: Procedure explained and questions answered to patient or proxy's satisfaction: yes Anesthesia: Anesthesia method: None Laceration details: Location: Scalp Scalp location: L parietal Length (cm): 3 Pre-procedure details: Preparation: Patient was prepped and draped in usual sterile fashion Exploration: Hemostasis achieved with: Direct pressure Imaging outcome: foreign body not noted Treatment: Area cleansed with: Povidone-iodine Amount of cleaning: Standard Irrigation solution: Sterile saline Irrigation method: Syringe Skin repair: Repair method: [place] Number of leatha: 5 Post-procedure details: Dressing: Antibiotic ointment Procedure completion: Tolerated well, no immediate complications Rosamaria Duffy NP IN CLINIC/BEDSIDE ORDERABLES Fi nal Result * Troponin I High Sensitivity (02/23/2025 4:22 PM EDT) High Sensitivity Troponin I 14 <=79 ng/L LAB CHEMISTRY METHOD 02/23/2025 5:23 PM EDT [facility] Blood Venous blood specimen / Unknown Venipuncture / Unknown 02/23/2025 4:22 PM EDT 02/23/2025 4:54 PM EDT Narrative [facility] - 02/23/2025 5:23 PM EDT High levels of biotin in samples may falsely decrease hsTroponin values. Use caution when interpreting hsTroponin results in patients taking biotin who exhibit renal impairment (eGFR <60) or in patients taking more than 20 mg/day of biotin. [facility] BLOOD ORDERABLES Final Resu lt Performing Organization Address [facility]/ZIP Co de Phone Number [facility] [address] [place] [address], [place] [phone] * (ABNORMAL) APTT (02/23/2025 4:22 PM EDT) [facility] aPTT 43.0(H) 24.1 - 39.3 sec LAB COAGULATION METHOD 02/23/2025 5:08 PM EDT [facility] Blood Venous blood specimen / Unknown Venipuncture / Unknown 02/23/2025 4:22 PM EDT 02/23/2025 4:54 PM EDT [facility] LAB BLOOD ORDERABLES Final Resu lt Performing Organization Address [facility] de Phone Number [facility] [address] [place] [address], [place] [phone] * Creatine kinase (02/23/2025 4:22 PM EDT) [facility] Total CK 82 22 - 269 unit/L LAB CHEMISTRY METHOD 02/23/2025 5:23 PM EDT [facility] Blood Venous blood specimen / Unknown Venipuncture / Unknown 02/23/2025 4:22 PM EDT 02/23/2025 4:54 PM EDT [facility] LAB BLOOD ORDERABLES Final Resu lt Performing Organization Address [facility]/ZIP Co de Phone Number [facility] [address] [place] [address], [place] [phone] * (ABNORMAL) Basic Metabolic Panel (BMP) (02/23/2025 4:22 PM EDT) Sodium 136 133 - 145 mmol/L LAB CHEMISTRY METHOD 02/23/2025 5:23 PM [facility] Potassium 4.4 3.5 - 5.5 mmol/L LAB CHEMISTRY METHOD 02/23/2025 5:23 PM [facility] Chloride 102 96 - 110 mmol/L LAB CHEMISTRY METHOD 02/23/2025 5:23 PM [facility] CO2 30 21 - 32 mmol/L LAB CHEMISTRY METHOD 02/23/2025 5:23 PM [facility] Anion Gap 4 3 - 11 LAB CHEMISTRY METHOD 02/23/2025 5:23 PM [facility] Glucose 111(H) 70 - 100 mg/dL LAB CHEMISTRY METHOD 02/23/2025 5:23 PM [facility] BUN 25 5 - 25 mg/dL LAB CHEMISTRY METHOD 02/23/2025 5:23 PM [facility] Creatinine 2.51(H) 0.70 - 1.30 mg/dL LAB CHEMISTRY METHOD 02/23/2025 5:23 PM [facility] eGFR 25(L) >=60 mL/min/1. 73m2 LAB CHEMISTRY METHOD 02/23/2025 5:23 PM [facility] Comment:Calculation based on the Chronic Kidney Disease Epidemiology Collaboration (CKD-EPI) equation refit without adjustment for race. BUN/Creatinine Ratio 10.0 LAB CHEMISTRY METHOD 02/23/2025 5:23 PM [facility] Calcium 8.4(L) 8.5 - 10.5 mg/dL LAB CHEMISTRY METHOD 02/23/2025 5:23 PM [facility] Blood Venous blood specimen / Unknown Venipuncture / Unknown 02/23/2025 4:22 PM EDT 02/23/2025 4:54 PM EDT Rosamaria Tati LAB BLOOD ORDERABLES Final Resu lt [facility] [address] [place] [address], [place] [phone] * 12-Lead ECG (02/23/2025 4:22 PM EDT) Ventricular Rate ECG 110 BPM GEMUSE Atrial Rate 102 BPM GEMUSE QRS Duration 216 ms GEMUSE Q-T Interval 474 ms GEMUSE QTc 641 ms GEMUSE R Harrison -160 degrees GEMUSE T Harrison 53 degrees GEMUSE ECG Interpretation Ventricular-pa wali rhythm Biventricular pacemaker detected Abnormal ECG When compared with ECG of 06-JAN-2025 17:14, Vent. rate has increased BY 39 BPM Suspect tracking of sinus tachycardia or slow atrial tachycardia Confirmed by Montrell PADILLA JOHN ([id number]) on 02/23/2025 5:54:45 PM GEMUSE 02/23/2025 4:22 PM EDT 02/23/2025 5:[address] [facility] Tati SAP CONSULTANT ECG ORDERABLES Final Result Performing Organization Address [facility] Co de Phone Number GEMUSE * CT Cervical Spine wo Contrast (02/23/2025 3:49 PM EDT) Anatomical Region Laterality Modality Spine, C-spine Computed Tomogra phy 02/23/2025 4:16 PM EDT Impressions 02/23/2025 4:20 PM EDT Osteopenia and degenerative changes without acute fracture or soft tissue swelling. No significant change from the prior study. -------- FINAL REPORT -------- Dictated By: Dk Kenney Dictated Date: 02/23/2025 16:16 ET Assigned Physician: Dk Kenney Reviewed and Electronically Signed By: Dk Kenney Signed Date: 02/23/2025 16:20 ET Workstation ID: [id number] Transcribed By: Self Edit Transcribed Date: 02/23/2025 16:16 ET Narrative 02/23/2025 4:20 PM EDT INDICATION: Neck trauma with pain Technique: CT scan of the cervical spine obtained without contrast. Scanner: [employer] LightSpeed 64 slice VCT Dose reduction technique: ASIR (Adaptive statistical iterative reconstruction) and/or AEC (automated exposure control) Dose: total exam DLP 1757 mGY per cm Comparison: September 06, 2024 FINDINGS: Vertebral bodies: Osteopenia, multilevel degenerative and scoliotic changes are similar to the prior study. No evidence of acute fracture or subluxation. No focal lytic or sclerotic lesions. Soft tissue: No evidence of prevertebral or paraspinal soft tissue swelling or hematoma. Other: Airway within normal limits. No cervical lymphadenopathy. Moderate right- sided carotid vascular calcifications. Lung apices are clear. No significant thyroid abnormality. Significantly tortuous partially imaged aortic arch. Procedure Note Dk Kenney MD - 02/23/2025 INDICATION: Neck trauma with pain Technique: CT scan of the cervical spine obtained without contrast. Scanner: [employer] LightSpeed 64 slice VCT Dose reduction technique: ASIR (Adaptive statistical iterativereconstruction) and/or AEC (automated exposure control) Dose: total exam DLP 1757 mGY per cm Comparison: September 06, 2024 FINDINGS: Vertebral bodies: Osteopenia, multilevel degenerative and scolioticchanges are similar to the prior study. No evidence of acute fracture orsubluxation. No focal lytic or sclerotic lesions. Soft tissue: No evidence of prevertebral or paraspinal soft tissueswelling or hematoma. Other: Airway within normal limits. No cervical lymphadenopathy. Moderateright- sided carotid vascular calcifications. Lung apices are clear. Nosignificant thyroid abnormality. Significantly tortuous partially imaged aortic arch. IMPRESSION: Osteopenia and degenerative changes without acute fracture or soft tissueswelling. No significant change from the prior study. -------- FINAL REPORT -------- Dictated By: Dk Kenney Dictated Date: 02/23/2025 16:16 ET Assigned Physician: Dk Kenney Reviewed and Electronically Signed By: Dk Kenney Signed Date: 02/23/2025 16:20 ET Workstation ID: [id number] Transcribed By: Self Edit Transcribed Date: 02/23/2025 16:16 ET us Rosamaria Tati TAWANNA IMG CT PROCEDURES Final Result * CT Head wo Contrast (02/23/2025 3:49 PM EDT) Anatomical Region Laterality Modality Head and Neck Computed Tomogra phy 02/23/2025 4:15 PM EDT Impressions 02/23/2025 4:16 PM EDT No evidence of acute intracranial process on noncontrast head CT. Atrophy and age-related changes. No significant change from the prior study. -------- FINAL REPORT -------- Dictated By: Dk Kenney Dictated Date: 02/23/2025 16:15 ET Assigned Physician: Dk Kenney Reviewed and Electronically Signed By: Dk Kenney Signed Date: 02/23/2025 16:16 ET Workstation ID: [id number] Transcribed By: Self Edit Transcribed Date: 02/23/2025 16:15 ET Narrative 02/23/2025 4:16 PM EDT INDICATION: Head trauma Technique: Axial images were obtained from the skull base to the vertex without contrast enhancement. Coronal and sagittal reformats obtained. Scanner: [employer] 64 slice VCT Dose reduction technique: ASIR (Adaptive statistical iterative reconstruction) Dose: total exam DLP 1757 mGY per cm Comparison: Compared to multiple prior studies most recent from January 06, 2025. FINDINGS: Intracranial contents: No acute intracranial hemorrhage, midline shift or mass-effect. The ventricles, sulci, sylvian fissures and basilar cisterns are symmetrically enlarged most consistent with atrophy. Minimal periventricular white matter changes are most consistent with small vessel ischemic disease. There are no abnormal intra or extra-axial fluid collections. Bony structures/soft tissues: Within normal limits for the patient's age. Sinuses: paranasal sinuses are clear. Procedure Note Dk Kenney MD - 02/23/2025 INDICATION: Head trauma Technique: Axial images were obtained from the skull base to the vertexwithout contrast enhancement. Coronal and sagittal reformats obtained. Scanner: [employer] 64 slice VCT Dose reduction technique: ASIR (Adaptive statistical iterativereconstruction) Dose: total exam DLP 1757 mGY per cm Comparison: Compared to multiple prior studies most recent from January. FINDINGS: Intracranial contents: No acute intracranial hemorrhage, midline shift ormass- effect. The ventricles, sulci, sylvian fissures and basilar cisternsare symmetrically enlarged most consistent with atrophy. Minimalperiventricular white matter changes are most consistent with small vesselischemic disease. There are no abnormal intra or extra-axial fluidcollections. Bony structures/soft tissues: Within normal limits for the patient'nadine. Sinuses: paranasal sinuses are clear. IMPRESSION: No evidence of acute intracranial process on noncontrast head CT. Atrophy and age-related changes. No significant change from the prior study. -------- FINAL REPORT -------- Dictated By: Dk Kenney Dictated Date: 02/23/2025 16:15 ET Assigned Physician: Dk Kenney Reviewed and Electronically Signed By: Dk Kenney Signed Date: 02/23/2025 16:16 ET Workstation ID: [id number] Transcribed By: Self Edit Transcribed Date: 02/23/2025 16:15 ET Rosamaria Duffy NP IM CT PROCEDURES Final Result * Cardiac device check - Remote- MURJ (02/01/2025 2:06 PM EDT) Only the most recent of2 resultswithin the time period is included. Date Time Interrogation Session [id number] CV DEVICE CHECK Type Interrogation Session Remote Device Initiated CV DEVICE CHECK Implantable Pulse Generator Help Desk Consultant [place] CV DEVICE CHECK Implantable Pulse Generator Type BUILDING CODE ADMINISTRATOR-D CV DEVICE CHECK Implantable Pulse Generator Model [id number] [place](TM) HF CV DEVICE CHECK Implantable Pulse Generator Serial Number [id number] CV DEVICE CHECK Implantable Pulse Generator Implant Date 20241020 CV DEVICE CHECK Battery Remaining Percentage 87.00 CV DEVICE CHECK Battery Remaining Longevity 50.0 CV DEVICE CHECK Battery Voltage 2.960 CV D EVICE CHECK Battery DUMPLING MACHINE OPERATOR Trigger 2.620 CV DEVICE CHECK Battery Status Middle of Service CV DEVICE CHECK Capacitor Charge Time 10.100 CV DEVICE CHECK Aydin Statistic RA Percent Paced 62.00 CV DEVICE CHECK Aydin Statistic RV Percent Paced 90.00 CV DEVICE CHECK BUILDING CODE ADMINISTRATOR Statistic BUILDING CODE ADMINISTRATOR Percent Paced 90.00 CV DEVICE CHECK Atrial Tachy Statistic AT/AF Delta Percent 0.00 CV DEVICE CHECK Lead Channel Sensing Intrinsic Amplitude 0.200 CV DEVICE CHECK Lead Channel Setting Sensing Sensitivity 0.30 CV DEVICE CHECK Lead Channel Impedance Value 310 CV DEVICE CHECK Lead Channel Setting Pacing Amplitude 3.000 CV DEVICE CHECK Lead Channel Setting Pacing Pulse Width 1.0 CV DEVICE CHECK Lead Channel Sensing Intrinsic Amplitude 6.500 CV DEVICE CHECK Lead Channel Setting Sensing Sensitivity 0.30 CV DEVICE CHECK Lead Channel Impedance Value 450 CV DEVICE CHECK Lead Channel Setting Pacing Amplitude 2.500 CV DEVICE CHECK Lead Channel Setting Pacing Pulse Width 0.5 CV DEVICE CHECK Lead Channel Impedance Value 600 CV DEVICE CHECK Lead Channel Pacing Threshold Amplitude 1.375 CV DEVICE CHECK Lead Channel Pacing Threshold Pulse Width 1.0 CV DEVICE CHECK Lead Channel Pacing Threshold Date 2025-02-01 CV DEVICE CHECK Lead Channel Setting Pacing Amplitude 1.875 CV DEVICE CHECK Lead Channel Setting Pacing Pulse Width 1.0 CV DEVICE CHECK Aydin Setting Mode (NBG Code) DDDR CV DEVICE CHECK Ventricular chambers paced during BUILDING CODE ADMINISTRATOR pacing. BiV CV DEVICE CHECK Aydin Setting Lower Rate Limit 60 CV DEVICE CHECK Aydin Setting AT Mode Switch Rate 180 CV DEVICE CHECK Aydin Setting Maximum Tracking Rate 120 CV DEVICE CHECK Aydin Setting Maximum Sensor Rate 130 CV DEVICE CHECK Aydin Setting PAV Delay 170 CV DEVICE CHECK Aydin Setting LETTY Delay 150 CV DEVICE CHECK BUILDING CODE ADMINISTRATOR LV-RV Delay -30 CV D EVICE CHECK Therapy Statistic Recent Shocks Delivered 0 CV DEVICE CHECK Therapy Statistic Recent Shocks Aborted 0 CV DEVICE CHECK Therapy Statistic Recent ATP Delivered 0 CV DEVICE CHECK Shock Measured Impedance 42 CV DEVICE CHECK Zone Setting Type Category VT CV DEVICE CHECK Rate 150 CV DEVICE CHECK Zone Setting Status On CV DEVICE CHECK Zone ID 1 CV DEVICE CHECK Zone Setting Type Category VT CV DEVICE CHECK Zone Setting Status Inactive CV DEVICE CHECK Zone ID 2 CV DEVICE CHECK Zone Setting Type Category VF CV DEVICE CHECK Rate 200 CV DEVICE CHECK Therapies 35.3J,39.3J,39.3J x 4 CV DEVICE CHECK Zone Setting Status On CV DEVICE CHECK Zone ID 3 CV DEVICE CHECK Date of Service 2025-05-01 CV DEVICE CHECK Anatomical Region Laterality Modality Device Interroga tion 02/01/2025 8:18 AM EDT Impressions 02/01/2025 2:03 PM EDT Unscheduled Remote * Reason: Per Lion Delarosa for HR * Alerts or Events: 0 * Battery: Battery is at 87%, 4.17 yrs * Sensing, impedance and thresholds reviewed * Programmed parameters reviewed * Presenting rhythm reviewed * Heart Rate Histograms reviewed * No significant changes noted Additional Notes: Presenting rhythm is BiV paced with Bigeminy Narrative Procedure Note Mallory Helm PA - 02/01/2025 IMPRESSION: Unscheduled Remote * Reason: Per Lion Delarosa for HR * Alerts or Events: 0 * Battery: Battery is at 87%, 4.17 yrs * Sensing, impedance and thresholds reviewed * Programmed parameters reviewed * Presenting rhythm reviewed * Heart Rate Histograms reviewed * No significant changes noted Additional Notes: Presenting rhythm is BiV paced with Bigeminy Mallory SANTOS CV IMPLANTABLE CARDIAC DEVICE IA OCEDURES Final Result * (ABNORMAL) Microalbumin creatinine urine ratio (09/14/2024 10:58 AM EDT) Creatinine, Urine 46.0 mg/dL LAB CHEMISTRY METHOD 09/14/2024 2:02 PM EDT [facility] Microalb, Ur 226.0(H) 0.0 - 29.0 mg/L LAB CHEMISTRY METHOD 09/14/2024 2:02 PM EDT [facility] Microalb/Crea t Ratio 491(H) <30 mg/g creat LAB CHEMISTRY METHOD 09/14/2024 2:02 PM EDT [facility] Urine Urine specimen obtained by clean catch procedure / Unknown Non-blood Collection / Unknown 09/14/2024 10:58 AM EDT 09/14/2024 10:58 AM EDT Armando SANTOS LAB URINE ORDERABLES [place] l Result [facility] [address] [place] [address], * Falls Risk Assessment (08/15/2023) [facility] Falls Risk Assessment Abstracted [facility] Provider HEALTH MAINTENANCE Final Result * Depression Screening (08/15/2023) [facility] HM Depression Screening Abstracted [facility] Provider HEALTH MAINTENANCE Final Result * Diabetes Foot Exam (07/15/2023) [facility] Diabetes: Annual Foot Exam Abstracted [facility] Provider HEALTH MAINTENANCE Final Result * Diabetes Eye Exam (07/15/2023) [facility] Diabetes: Annual Retina Eye Exam Abstracted Result [facility] Provider HEALTH MAINTENANCE Final Result * Stool Based Tests (FOBT/FIT) (01/28/2023) [facility] Colorectal Cancer Screening: Stool Based Tests negative [facility] Provider HEALTH MAINTENANCE Final Result * Hepatitis C Screening (04/08/2013) [facility] Hepatitis C Screening Abstracted [facility] Provider HEALTH MAINTENANCE Final Result from Last 3 Months or Most Recently Relevant to Health Maintenance Additional Health Concerns Active Problems Noted Date Diagnosed Date Autogenerated Problem 04/18/2025 Insurance MEDICARE [facility] Advance Directives Documents on File Type Date Recorded Patient Fish Peddler Expl anation Advance Directives and Living Will 09/14/2024 2:42 PM HEALTH CARE PROXY SIGNED ON 07/24/23 * Full Code - Confirmed (Latest Code Status on File) Date Activated Date Inactivated Comments 01/06/2025 11:29 PM 01/08/2025 3:43 PM This code sta tus was ascertained in the following way: Code status discussion: discussion with patient To update the patient's code status, place a code status order. Do not modify or discontinue any currently active code status orders. * Full Code - Default Date Activated Date Inactivated Comments 01/06/2025 9:14 PM 01/06/2025 11:29 PM This is order is used when code status has not been discussed with the patient, or code status is otherwise unknown/unconfirmed To update the patient's code status, place a code status order. Do not modify or discontinue any currently active code status orders. * Full Code - Default Date Activated Date Inactivated Comments 11/15/2024 11:08 PM 11/16/2024 5:16 PM This is ord er is used when code status has not been discussed with the patient, or code status is otherwise unknown/unconfirmed To update the patient's code status, place a code status order. Do not modify or discontinue any currently active code status orders. * Full Code - Default Date Activated Date Inactivated Comments 10/22/2024 2:09 PM 10/23/2024 6:05 PM This is orde r is used when code status has not been discussed with the patient, or code status is otherwise unknown/unconfirmed To update the patient's code status, place a code status order. Do not modify or discontinue any currently active code status orders. * Full Code - Default Date Activated Date Inactivated Comments 09/26/2024 7:57 PM 09/29/2024 4:37 PM This is orde r is used when code status has not been discussed with the patient, or code status is otherwise unknown/unconfirmed To update the patient's code status, place a code status order. Do not modify or discontinue any currently active code status orders. Healthcare Agents on File Name Relationship Healthcare Agent [facility] Communication Surendra Sesay Health Care Agent Care Teams Box Icer Relationship Specialty Start Date End Date Armando Aceves PA [address] [place] [address] PCP - General Internal Medicine 10/11/20
--- OUTSIDE RECORDS SUMMARY | 2025-05-01 12:55 | XMS_ITS | Encounter Summary ---
Author Organization [facility] Address [address] [place] [address] Care Team Providers Care Research Compliance Specialist Name Role Phone Armando Aceves Primary Care Provider [phone] Encounter Details Date Type Department Care Team ([facility] st Contact Info) Description 04/25/2025 Telephone Adult Medicine [address] [phone] Armando Aceves PA [address] [place] [phone] Social History Tobacco Use Types Packs/Day Years [...] your loved ones. For example, child care education coordinator or elderly care for an older adult? [...] Progress Notes * Veronique Santoro MA - 04/26/2025 11:17 AM EDT Call Kenyetta from [facility] and to verify the signature for order number #[id number]- #[id number] #[id number] - #[id number]. * Georgia Olivera - 04/25/2025 3:34 PM EDT Kenyetta from [facility] called and wanted to verify the signature for order number #[id number]- #[id number] #[id number] - #[id number]. [phone] documented in this encounter Plan of Treatment Upcoming Encounters Date Type Department Care Team (Late st Contact Info) Description 05/03/2025 8:45 AM EDT Clinical Support [address] [phone] 05/03/2025 11:00 AM EDT Hospital Encounter [facility] [address] [place] [phone] La Kidd MD [address] [facility] [address] [place] [address] 06/01/2025 11:00 AM EST Office Visit Adult Medicine [address] [phone] Armando Aceves PA [address] [place] [phone] 07/28/2025 10:30 AM EST Nutrition Internal Medicine - [place] [address] [facility] [address] [place] [phone] Georgette Bradley, [place] [address] [place] [phone] 11/17/2025 11:00 AM EDT Ancillary Procedure [facility] [address] [facility] [address] [place] [phone] documented as of this encounter Goals Goal [...] of UE's for safety only. Pt will [id number] reps or more for 30 SCS Test. [...] documented as of this encounter Care Teams Research Compliance Specialist Relationship Specialty Start Date End Date Armando Aceves PA [address] [place] [address] PCP - General Internal Medicine 10/11/20 documented as of this encounter
--- OUTSIDE RECORDS SUMMARY | 2025-05-01 12:55 | XMS_ITS | Encounter Summary ---
Author Organization [facility], Address [address] [place] [address] Phone Care Team Providers Care Radio Aerial Installer Name Role Phone Ryan Zhang Primary Care Provider [phone] Encounter Details Date Type Department Care Team (Late st Contact Info) Description 03/12/2024 Documentation Only [facility], [address] [place] [phone] Suni Florez [address] [place] [phone] Social History Tobacco Use Types Packs/Day Years [...] on filedocumented in this encounter Care Teams Radio Aerial Installer Relationship Specialty Start Date End Date Ryan Zhang PCP - General 08/05/23 documented as of this encounter
[2025-05-01 13:27] LABS: Hematocrit 46.1 % (42.0-52.0); Hemoglobin 14.7 g/dl (14.0-18.0); Imm Gran Abs Auto 0.06 X10*3/uL (0.00-0.03); Imm Gran Pct Auto 0.4 % (0.0-0.4); Lymphocytes Absolute Auto 0.8 X10*3/uL (1.2-4.9); MANUAL DIFF FLAG SCAN; Mean Corpuscular HGB Conc 31.9 g/dl (31.0-36.0); Mean Corpuscular Hemoglobin 31.1 pg (27.0-33.0); Mean Corpuscular Volume 97.7 fL (80.0-98.0); NRBC Abs Auto 0.000 X10*3/uL (0.0-0.012); NRBC Pct Auto 0.0 /100WBC (0.0-0.2); Platelet Count 154 X10*3/uL (160-400); Red Blood Count 4.72 X10*6/uL (4.60-5.80); SCAN SMEAR FLAG 1; White Blood Count 13.5 X10*3/uL (4.8-10.8)
[2025-05-01 13:44] LABS: Alanine Aminotransferase 26 U/L (0-40); Albumin Level 5.1 g/dL (3.5-5.0); Alkaline Phosphatase 126 U/L (39-117); Anion Gap 20 (12-20); Aspartate Amino Transferase 35 U/L (5-37); Blood Urea Nitrogen 43 mg/dL (9-16); Calcium 9.8 mg/dL (8.4-10.2); Carbon Dioxide 27 mmol/L (22-29); Chloride 97 mmol/L (96-108); Creatinine Clr Calc Pharmacy 19.7; Estimated Glomerular Filt Rate 21; Magnesium 2.5 mg/dL (1.6-2.6); Potassium 4.9 mmol/L (3.3-5.1); Sodium 139 mmol/L (135-145); Total Protein 8.4 g/dL (6.5-8.0)
[2025-05-01 13:50] LABS: INTERNATIONAL NORM RATIO 1.9 (0.9-1.1); Prothrombin Time 21.7 SEC (10.9-12.4)
[2025-05-01 13:51] LABS: Troponin-I High Sensitivity 23.8 ng/L (<3.5-35.0)
--- NOTE | 2025-05-01 15:35 | PC.NURSE ---
NG tube placed by this RN Auscultated for placement, + placement Suction applied, brown gastric contents filling container Will confirm with xray Dr. Schwartz in to see patient
--- NOTE | 2025-05-01 16:17 | PM.HPGS ---
History of Present Illness History of Present Illness Date of Service: 05/01/25 Chief complaint: abdominal discomfort Narrative: Danilo Sanders is a 79 year old male who presents to the ED via EMS for abdominal pain with associated nausea and dizziness. He has a past medical history of mild cognitive impairment, HTN, and atrial fibrillation with ICD and pacemaker. He report that he started feeling nauseous this morning about 2 hours after he woke up and needed help coming down the stairs. His friend who lives with him called EMS and they brought him into the ER. He denies any sick contacts he last ate yesterday age. He has not had a good bowel movement he says in over a week. He denies really knowing that he had a hernia and that it could cause problems. In the emergency room he was diagnosed with a right inguinal mass and CT scan of his abdomen and pelvis shows this to be incarcerated small bowel containing inguinal hernia. Patient says that he has been feeling weaker more tired. He is anticoagulated but held his Coumadin yesterday because he is supposed to be having an EGD on Friday at [facility] because he has dysphagia symptoms. Review of Systems Review of Systems: Yes all other systems are reviewed and are negative [facility] Past Medical History Medical History (Updated 05/01/25 @ 16:24 by Mandi Nation MD) Presence of combination internal cardiac defibrillator (ICD) and pacemaker Atrial fibrillation Hypertension MCI (mild cognitive impairment) Social History Social History Smoked in Last 30 Days: No Use of substances other than those prescribed or required for medical reasons: Yes Substance Use Type: Marijuana Substance Use Frequency: Daily Advance Directives: No Advance Directives Information Provided: No Do you have a plan to hurt others: No Plan Meds Allergies Allergy/AdvReac Type Severity Reaction Status Date / Time Penicillins Allergy Unknown Unknown Verified 05/01/25 12:31 Iodinated Contrast Media (IV Allergy Swelling Verified 05/01/25 12:34 Contrast Dye) Active Medications: Current Medications Sodium Chloride (Ns) 1,000 mls @ 250 mls/hr IV .Q4H ASHLEE Stop: 05/01/25 17:59 Last Admin: 05/01/25 15:32 Dose: 250 mls/hr Phytonadione 5 mg/ Sodium (Chloride) 50.5 mls @ 50.5 mls/hr IV ONCE ONE Stop: 05/01/25 16:26 Home Medications ?Medication ?Instructions ?Recorded ?Confirmed ?Last Taken ?Type amiodarone 200 mg tablet 200 mg PO BID 02/11/25 02/16/25 Unknown History amitriptyline 75 mg tablet 75 mg PO BEDTIME 02/11/25 02/16/25 Unknown History carvedilol 3.125 mg tablet 3.125 mg PO BID 02/11/25 02/16/25 Unknown History donepezil 10 mg tablet 10 mg PO DAILY 02/11/25 02/16/25 Unknown History empagliflozin 10 mg tablet 10 mg PO DAILY 02/11/25 02/16/25 Unknown History (Jardiance) ferrous sulfate 325 mg (65 mg 325 mg PO BID 02/11/25 02/16/25 Unknown History iron) tablet (FeroSul) lansoprazole 30 mg capsule,delayed 30 mg PO DAILY@0630 02/11/25 02/16/25 Unknown History release losartan 25 mg tablet 25 mg PO DAILY 02/11/25 02/16/25 Unknown History torsemide 20 mg tablet 80 mg PO BID 02/11/25 02/16/25 Unknown History warfarin 5 mg tablet 5 - 7.5 mg PO DAILY 02/11/25 02/16/25 Unknown History allopurinol 100 mg tablet 200 mg PO DAILY 05/01/25 Unknown History fluticasone propionate 50 2 spray intranasal DAILY 05/01/25 Unknown History mcg/actuation nasal spray,suspension omeprazole 40 mg capsule,delayed 40 mg PO BID@0630,1630 05/01/25 Unknown History release prochlorperazine maleate 10 mg 10 mg PO Q6H PRN nausea/vomiting 05/01/25 Unknown History tablet sennosides 8.6 mg tablet (senna) 17.2 mg PO DAILY 05/01/25 05/01/25 Unknown History simvastatin 20 mg tablet 20 mg PO BEDTIME 05/01/25 Unknown History Physical Exam Vital Signs: Vital Signs: Last Vital Signs Temp 97.0 F 05/01/25 16:03 Pulse 109 H 05/01/25 16:03 Resp 16 05/01/25 16:03 BP 93/56 L 05/01/25 16:03 Pulse Ox 96 05/01/25 16:03 O2 Del Method Room Air 05/01/25 16:03 BMI result Body Mass Index 21.6 Const: General: cooperative, lethargic and tired appearing Nutritional Appearance: thin Orientation/consciousness: patient oriented x3 and lethargic Eyes: Other: Nonicteric Resp: Effort & Inspection: normal respiratory effort Cardio: Rate: regular rate Rhythm: regular rhythm GI: Other: Abdomen is soft mild tenderness moderate distention hypoactive bowel sounds. Right inguinal area there is a moderate size mass consistent with incarcerated right inguinal hernia. No overlying skin changes. Left inguinal area feels relatively good. Neuro: General: patient oriented x3 Psych: Appearance: grossly normal Mental Status: mental status grossly normal Speech and movement: Other speech and movement exam findings present (Psych) Affect: normal affect Attitude: cooperative Results Results Labs: Short CBC 05/01/25 Range/Units 13:22 WBC 13.5 H (4.8-10.8) X10*3/uL Hgb 14.7 (14.0-18.0) g/dl Hct 46.1 (42.0-52.0) % Plt Count 154 L (160-400) X10*3/uL BMP 05/01/25 13:22 Sodium 139 Potassium 4.9 Chloride 97 Carbon Dioxide 27 BUN 43 H Creatinine 2.93 H Calcium 9.8 Liver Function 05/01/25 Range/Units 13:22 Total Bilirubin 1.3 H (0.0-1.0) mg/dL AST 35 (5-37) U/L ALT 26 (0-40) U/L Alkaline Phosphatase 126 H (39-117) U/L Albumin 5.1 H (3.5-5.0) g/dL Abdomen CT scan report/results: report reviewed and image reviewed CT scan - pelvis: report reviewed and image reviewed Additional studies: Patient: Danilo Sanders MR#: [id number] : 1945 Acct:[id number] Age/Sex: 79 / M ADM Date: 05/01/25 Loc: HO.ED Attending Dr: Ordering Physician: Brigid Marte Date of Service: 05/01/25 Procedure(s): CT abdomen pelvis wo IV con Accession Number(s): [id number] cc: Brigid Marte; Armando Aceves~ Report Number: [id number]: Total DLP = 471.00 mGy-cm Reason for Exam: abd pain, nausea, vomiting ADDENDUMThis document has been electronically signed by: Brandon Sweeney MD on 05/01/2025 14:10:01 ADDENDUM: This report was discussed with Estuardo Rainey on May 01, 2025 14:13:00 EDT. This document has been electronically signed by: Radha Fierro on 05/01/2025 14:13:56 Addendum Dictated By: Brandon Sweeney MD Addendum Signed By: <Electronically signed by Brandon Sweeney MD in OV> 05/01/25 141 Addendum Cosigned By: DD/ TD/TT: 05/01/25 CLINICAL HISTORY: abd pain, nausea, vomiting CT abdomen and pelvis without IV contrast. COMPARISON: None provided. FINDINGS: Aortic annular calcifications. Aortic valve replacement. Cardiomegaly. Cardiac pacemaker leads present. Heavy chemehuevi coronary artery calcifications. Patchy tree-in-bud nodularity along the right lung base. Cholelithiasis present within the gallbladder. No pericholecystic inflammatory changes. Noncontrast appearance of the liver, spleen, pancreas and adrenal glands are unremarkable. Right renal cystic lesions measuring up to 1.7 cm. Nonobstructing right renal calculi measuring up to 3 mm. No right-sided hydronephrosis or hydroureter. No right ureteral calculus. Multiple nonobstructing left renal calculi measuring up to 4 mm. No left-sided hydronephrosis or hydroureter. Small volume abdominal ascites. Multiple dilated fluid-filled loops of small bowel within the abdomen measuring up to 3.5 cm. Most distal small bowel is contracted. Transition point present within a moderate-sized right inguinal hernia containing a portion of small bowel. Small fat containing left inguinal hernia. Ymtpgzhz-bv-nfbru colonic stool burden. Normal appendix. Multiple normal-sized and prominent retroperitoneal lymph nodes. Moderate aortoiliac atherosclerotic vascular calcifications. Urinary bladder is unremarkable given degree of distention. Small fat containing left inguinal hernia. Advanced multilevel spondylosis. No acute fracture. IMPRESSION: 1. High-grade small-bowel obstruction secondary to obstruction of small bowel contained within a moderate sized right inguinal hernia. No free intraperitoneal air. 2. Small volume abdominal ascites. 3. Bgmnzshv-om-ikatb colonic stool burden. 4. Multiple normal-sized and prominent retroperitoneal lymph nodes, nonspecific. 5. Cardiomegaly with coronary artery atherosclerosis. 6. Multiple nonobstructing renal calculi present bilaterally measuring up to 4 mm on the left. This document has been electronically signed by: Brandon Sweeney MD on 05/01/2025 14:10:01 Dictated By: Brandon Sweeney MD Signed By: <Electronically signed by Brandon Sweeney MD in OV> 05/01/251409 DD/ 09 TD/TT: 05/01/251409 Shaker Operator: Assessment and Plan (1) Small bowel obstruction: Status: Acute (2) Incarcerated right inguinal hernia: Status: Acute Plan 79-year-old male with multiple medical problems presenting with small-bowel obstruction secondary to incarcerated right inguinal hernia. Patient is anticoagulated for an AICD and atrial fibrillation but he also told me that he has an aortic valve. He is set to see GI on Friday because he has not been able to swallow well and having difficulties this way. He had held his Coumadin yesterday and has not taken any meds today. He was unaware that he had a hernia. He has never had this repaired. It seems that this is the cause of his bowel obstruction and probably the cause of his nausea and vomiting. He says he has not had a bowel movement in about a week but his colon has a moderate amount of stool present. At this point his blood pressure is low he is weak he is tachycardic. He has responded a little bit to some IV fluids but our plan will be to try to reduce this hernia gave a little vitamin K2 reverse his anticoagulation status. If we are able to reduce his hernia in the operating room with sedation and muscle relaxation then we will plan for some elective repair in the future after getting him better resuscitated and dealing with his anticoagulation today. If we are unable to make this happen we will plan on doing an open repair. Patient understands risks and benefits and agrees to the operation. In the meantime continue resuscitation NG tube for decompression. We will get medical consult as well. We will come to the OR now for attempted reduction Quality Stroke Does the patient have a stroke diagnosis?: No VTE Prior VTE?: No VTE Risk Level:: Surgical - low VTE Device Contraindication: N/A - Device Ordered VTE Drug Contraindication: Treatment Not Indicated Procedures Date of Service Date of Service: 05/01/25
--- NOTE | 2025-05-01 16:18 | HO.ANESPROP2 ---
HPI - Anesthesia Eval Consult details Narrative: incarcerated hernia PMFSH Active Problems Active Problems: All Active Problems (Updated 02/16/25 @ 13:48 by Katherine Rizvi CNP) MCI (mild cognitive impairment) (Acute) Past Medical History Medical History Presence of combination internal cardiac defibrillator (ICD) and pacemaker Atrial fibrillation Hypertension MCI (mild cognitive impairment) Family History Family history of problems with anesthesia: No Surgical History History of Problems with Anesthesia: No Social History Social History Substance Use Type: Marijuana Meds Allergies Allergy/AdvReac Type Severity Reaction Status Date / Time Penicillins Allergy Unknown Unknown Verified 05/01/25 12:31 Iodinated Contrast Media (IV Allergy Swelling Verified 05/01/25 12:34 Contrast Dye) Active Medications: Current Medications Sodium Chloride (Ns) 1,000 mls @ 250 mls/hr IV .Q4H ASHLEE Stop: 05/01/25 17:59 Last Admin: 05/01/25 15:32 Dose: 250 mls/hr Phytonadione 5 mg/ Sodium (Chloride) 50.5 mls @ 50.5 mls/hr IV ONCE ONE Stop: 05/01/25 16:26 Home Medications ?Medication ?Instructions ?Recorded ?Confirmed ?Last Taken ?Type amiodarone 200 mg tablet 200 mg PO BID 02/11/25 02/16/25 Unknown History amitriptyline 75 mg tablet 75 mg PO BEDTIME 02/11/25 02/16/25 Unknown History carvedilol 3.125 mg tablet 3.125 mg PO BID 02/11/25 02/16/25 Unknown History donepezil 10 mg tablet 10 mg PO DAILY 02/11/25 02/16/25 Unknown History empagliflozin 10 mg tablet 10 mg PO DAILY 02/11/25 02/16/25 Unknown History (Jardiance) ferrous sulfate 325 mg (65 mg 325 mg PO BID 02/11/25 02/16/25 Unknown History iron) tablet (FeroSul) lansoprazole 30 mg capsule,delayed 30 mg PO DAILY@0630 02/11/25 02/16/25 Unknown History release losartan 25 mg tablet 25 mg PO DAILY 02/11/25 02/16/25 Unknown History torsemide 20 mg tablet 80 mg PO BID 02/11/25 02/16/25 Unknown History warfarin 5 mg tablet 5 - 7.5 mg PO DAILY 02/11/25 02/16/25 Unknown History allopurinol 100 mg tablet 200 mg PO DAILY 05/01/25 Unknown History fluticasone propionate 50 2 spray intranasal DAILY 05/01/25 Unknown History mcg/actuation nasal spray,suspension omeprazole 40 mg capsule,delayed 40 mg PO BID@0630,1630 05/01/25 Unknown History release prochlorperazine maleate 10 mg 10 mg PO Q6H PRN nausea/vomiting 05/01/25 Unknown History tablet sennosides 8.6 mg tablet (senna) 17.2 mg PO DAILY 05/01/25 05/01/25 Unknown History simvastatin 20 mg tablet 20 mg PO BEDTIME 05/01/25 Unknown History Exam Height,Weight and Vital Signs: Height 5 ft 10 in Weight 68.4 kg Last Vital Signs Temp 97.0 F 05/01/25 16:03 Pulse 109 H 05/01/25 16:03 Resp 16 05/01/25 16:03 BP 93/56 L 05/01/25 16:03 Pulse Ox 96 05/01/25 16:03 O2 Del Method Room Air 05/01/25 16:03 Pertinent Lab Results Pertinent Lab Results: Laboratory Tests 05/01/25 13:22 WBC 13.5 H RBC 4.72 Hgb 14.7 Hct 46.1 MCV 97.7 MCH 31.1 MCHC 31.9 RDW 15.3 Plt Count 154 L MPV 10.8 Immature Gran % (Auto) 0.4 Neut % (Auto) 91.4 H Lymph % (Auto) 5.6 L Hunt % (Auto) 2.1 Eos % (Auto) 0.2 Baso % (Auto) 0.3 Lymph # (Auto) 0.8 L Hunt # (Auto) 0.3 Eos # (Auto) 0.0 Baso # (Auto) 0.0 Abs Immat Gran (auto) 0.06 H Absolute Neuts (auto) 12.3 H Absolute Nucleated RBC 0.000 Nucleated RBC % (auto) 0.0 Smear Tech's Comments VERIFIED PT 21.7 H INR 1.9 H Sodium 139 Potassium 4.9 Chloride 97 Carbon Dioxide 27 Anion Gap 20 BUN 43 H Creatinine 2.93 H Estim Creat Clear Calc 19.7 Estimated GFR 21 Random Glucose 173 H Calcium 9.8 Magnesium 2.5 Total Bilirubin 1.3 H AST 35 ALT 26 Alkaline Phosphatase 126 H Troponin I High Sens 23.8 Total Protein 8.4 H Albumin 5.1 H Airway Mallampati Class: II TM Dist: >3cm Neck ROM: Full Denture: Upper and Lower Loose/Missing/Broken Teeth: No Heart: RRR Lungs: Cta Assessment and Plan Assessment Anesthesia Assessment: Anesthesia Plan Discussed and Chart Reviewed Final Anesthetic Review Family History of Problems with Anesthesia: No History of Problems with Anesthesia: No NPO: No ASA Class: III and Emergency Final Preanesthetic Review: No Changes in Pt Med Stat, Meds/Allgs Chart Reviewed, Consent Obtained/Reviewed and Anes Risks/Benef Reviewed Patient Risk: High Procedure Risk: Intermediate Anesthetic Plan Anesthetic Plan: GA Disposition: Standard PACU
--- NOTE | 2025-05-01 17:07 | PC.NURSE ---
Xray showed NG tube coiled Backed out NG tube and readvanced + sounds when checking for placement Hung Vit K Patient care transferred to surgery
--- NOTE | 2025-05-01 17:47 | P.OP_ITS ---
Operative Note Operative Note Date of Service: 05/01/25 Narrative: Preop diagnosis--incarcerated right inguinal hernia Postop diagnosis--incarcerated right inguinal hernia Procedure done--reduction of right incarcerated inguinal hernia Surgeon-Rios Anesthesia--propofol sedation The patient is a 79-year-old male who came in with nausea and vomiting small- bowel obstruction secondary to right inguinal hernia. He is anticoagulated on Coumadin dehydrated tachycardic hypotensive in the emergency room. Creatinine was elevated in the 2 range. It was decided to try to reduce the hernia and if successful then save an elective operation for another time when we could resuscitate him and make him more stable before a larger case. If reduction was not possible then we would carry out an open repair. The patient and his son were in agreement with this plan Procedure-- Patient was brought to the operative room and under anesthesia guidance received propofol was intubated NG tube had been hooked up to suction with gastric contents being drained. He was positioned head down and received some muscle relaxant and with steady pressure in the right groin area in about 10 seconds the hernia which was unable to be reduced in the emergency room secondary to pain was reduced. Patient was then extubated and returned stable to recovery room
--- NOTE | 2025-05-01 18:10 | PHA.MEDREC ---
Addendum entered by Judi Radford [facility] 05/02/25 14:37: Looking for patient's specific dose of warfarin...called Marlyn Chávez [phone] who then transferred me to [facility] ([phone]). Per Danisha, patient's usual dose of warfarin is 2.5 mg daily (his dose has been fluctuated due to unstable INR). He was supposed to hold his warfarin since 04/27/25 due to endoscopy on 05/03/25 but when she checked with him on 04/29/25, he was still taking the warfarin. Addendum entered by Jeanie Urbina [facility] 05/01/25 18:38: reviewed by [facility], med rec was also compared to a list from home that matches almost perfect aside from more recent prochlorperazine that was not on home list. Original Note: Pharmacy Consult ? Medication Reconciliation Pharmacy has completed the medication reconciliation. Confirmed medication list with patient. Patient claims he has not taken warfarin since . Patient also claims that every non-PRN medication outside of warfarin was last taken yesterday.
[2025-05-01] MEDS: Lactated Ringers 1,000 ML 100 ML IVCONT (18:30)
--- NOTE | 2025-05-01 19:44 | HO.PM.IMCN ---
History of Present Illness Data of Consult Service Date: 05/01/25 Requesting physician: Mandi Nation Primary Care Provider: TOM Roger HPI Reason for consult: medical management Pt is a 79 yo male with PMH BPH, Valve replacement and 2 years later possible Bental procedure for Aortic surgery, AICD/PPM, CHF, HTN, AFIB on coumadin, NENO, Allergic rhitinits, GERD, GOUT, constipation was BIBA from home for report of near syncopal episode since experiencing increasign abd pain and nausea with vomiting since this past . Pt's roommate Julio call 911. Evaluation in the ED noted High-grade small-bowel obstruction secondary to obstruction of small bowel contained within a moderate sized right inguinal hernia. No free intraperitoneal air. and surgery was notified. Pt was admitted by surgery and hospitalist asked to consult for medical management. Pt did receive an NG tube in the ED and is currently draining bile like liquid contents. Pt is feeling some relief but has pain with palpation of abdomen currently. Pt's BP was exceptionally low since arrival and renal function reflects likely a true AMELIA as pt states he has no hx of CKD. Pt was started on LR and rate increased to 125 mls per hour for next 4 hours noting possible hx of CHF (pt could not confirm this). CM with atherosclerosis noted on CT scan and possible PNA/ aspiration vs atelectasis on CXR post NG placement. pt does have a leukocytostos, no fever. Review of Systems Review of Systems: Pt reports abdominal pain only with palpation of abd, states N/V have improved since placement of NG tube. Pt denies CP, SOB at rest, lower leg pain, CHAUDHRY or visual changes. Yes all other systems are reviewed and are negative [facility] Medical History (Updated 05/01/25 @ 20:02 by CESAR Chatman) Marijuana dependence BPH (benign prostatic hyperplasia) Presence of combination internal cardiac defibrillator (ICD) and pacemaker Atrial fibrillation Hypertension MCI (mild cognitive impairment) Cognitive capacity: Currently A/O X3 Pertinent family history: Mother cx of DM Surgical History (Updated 05/01/25 @ 19:57 by CESAR Chatman) AICD (automatic cardioverter/defibrillator) present S/P aorta repair Heart valve replaced Social History Household Members: Friend(s) Housing: House Do you presently have visiting nurse or other home services: Yes (chacho) Patient Tobacco Use Status: Never used Tobacco Substance Use Type: Marijuana Ebola Risk: Travel/Contact With Anyone From Affected Area/s: No Has Patient Experienced Ebola Symptoms: No Meds Allergies Allergy/AdvReac Type Severity Reaction Status Date / Time Penicillins Allergy Unknown Unknown Verified 05/01/25 12:31 Iodinated Contrast Media (IV Allergy Swelling Verified 05/01/25 12:34 Contrast Dye) Active Medications: Current Medications Lactated Ringer's (Lr) 1,000 mls @ 125 mls/hr IVCONT .Q8H [facility] Last Admin: 05/01/25 18:30 Dose: 100 mls/hr Ondansetron HCl (Ondansetron Hcl 4 Mg/2 Ml Vial) 4 mg IVPUSH Q6H PRN PRN Reason: Nausea and Vomiting Pantoprazole Sodium (Pantoprazole Sodium 40 Mg/10 Ml Vial) 40 mg IVPUSH DAILY@0630 [facility] Last Admin: 05/01/25 18:30 Dose: 40 mg Home Medications ?Medication ?Instructions ?Recorded ?Confirmed ?Last Taken ?Type amiodarone 200 mg tablet 400 mg PO DAILY 02/11/25 05/01/25 04/30/25 History amitriptyline 75 mg tablet 75 mg PO BEDTIME 02/11/25 05/01/25 04/30/25 History carvedilol 3.125 mg tablet 3.125 mg PO BID 02/11/25 05/01/25 04/30/25 History donepezil 10 mg tablet 10 mg PO BEDTIME 02/11/25 05/01/25 04/30/25 History empagliflozin 10 mg tablet 10 mg PO DAILY 02/11/25 05/01/25 04/30/25 History (Jardiance) ferrous sulfate 325 mg (65 mg 325 mg PO BID 02/11/25 05/01/25 04/30/25 History iron) tablet (FeroSul) lansoprazole 30 mg capsule,delayed 30 mg PO DAILY@0630 02/11/25 05/01/25 04/30/25 History release losartan 25 mg tablet 25 mg PO DAILY 02/11/25 05/01/25 04/30/25 History torsemide 20 mg tablet 80 mg PO DAILY 02/11/25 05/01/25 04/30/25 History warfarin 5 mg tablet 5 - 7.5 mg PO DAILY 02/11/25 05/01/25 04/28/25 History allopurinol 100 mg tablet 200 mg PO DAILY 05/01/25 05/01/25 04/30/25 History cyanocobalamin (vitamin B-12) 1,000 mcg PO DAILY 05/01/25 05/01/25 04/30/25 History 1,000 mcg tablet fluticasone propionate 50 2 spray intranasal BID 05/01/25 05/01/25 04/30/25 History mcg/actuation nasal spray,suspension prochlorperazine maleate 10 mg 10 mg PO Q6H PRN nausea/vomiting 05/01/25 05/01/25 Unknown History tablet sennosides 8.6 mg-docusate sodium 2 tab-cap PO DAILY@1200 05/01/25 05/01/25 04/30/25 History 50 mg tablet (Senna with Docusate Sodium) simvastatin 20 mg tablet 20 mg PO BEDTIME 05/01/25 05/01/25 04/30/25 History Physical Exam Vital Signs and Narrative: Vital Signs: Last Vital Signs Temp 98.9 F 05/01/25 19:37 Pulse 70 05/01/25 19:37 Resp 18 05/01/25 19:37 BP 95/53 L 05/01/25 19:37 Pulse Ox 97 05/01/25 19:37 O2 Del Method Room Air 05/01/25 19:37 BMI result Body Mass Index 21.6 A/O X3, in NAD Neuro: CN II-XII intact HEENT: glasses on, sclera nonicteric, PERRLA Cardiac: S1S2, V paced rhythm on ECG, no JVD, no murmur, sternotomy incision present and healed Respi: decreased breath sounds B, no RH or WHeezing ABD: NG to LWS, abd soft, tender, no rebound tenderness, some guarding noted, hypoactive BS EXT: no edema BLEs Psych: mood stable, insight and judgement good SkinL no new lesions or rashes Results Labs 05/02/25 05:22 05/01/25 21:03 Labs: Laboratory Results - last 24 hr 05/01/25 13:22 MCV 97.7 MCH 31.1 MCHC 31.9 RDW 15.3 Plt Count 154 L MPV 10.8 Immature Gran % (Auto) 0.4 Neut % (Auto) 91.4 H Lymph % (Auto) 5.6 L [place] % (Auto) 2.1 Eos % (Auto) 0.2 Baso % (Auto) 0.3 Lymph # (Auto) 0.8 L [place] # (Auto) 0.3 Eos # (Auto) 0.0 Baso # (Auto) 0.0 Abs Immat Gran (auto) 0.06 H Absolute Neuts (auto) 12.3 H Absolute Nucleated RBC 0.000 Nucleated RBC % (auto) 0.0 Smear Tech's Comments VERIFIED PT 21.7 H INR 1.9 H Anion Gap 20 Estim Creat Clear Calc 19.7 Estimated GFR 21 Random Glucose 173 H Calcium 9.8 Magnesium 2.5 Total Bilirubin 1.3 H AST 35 ALT 26 Alkaline Phosphatase 126 H Troponin I High Sens 23.8 Total Protein 8.4 H Albumin 5.1 H ECG Attestation: I personally reviewed and interpreted this ECG as follows: (V paced rhythm ) Imaging Radiologist's Impressions: CT ABD 1. High-grade small-bowel obstruction secondary to obstruction of small bowel contained within a moderate sized right inguinal hernia. No free intraperitoneal air. 2. Small volume abdominal ascites. 3. Nbdygtlw-de-xyqtn colonic stool burden. 4. Multiple normal-sized and prominent retroperitoneal lymph nodes, nonspecific. 5. Cardiomegaly with coronary artery atherosclerosis. 6. Multiple nonobstructing renal calculi present bilaterally measuring up to 4 mm on the left. Assessment and Plan (1) Small bowel obstruction: Status: Acute (2) Incarcerated right inguinal hernia: Status: Acute (3) AMELIA (acute kidney injury): Status: Acute Plan Pt is a 79 yo male with PMH BPH, Valve replacement and 2 years later possible Bental procedure for Aortic surgery, AICD/PPM, CHF, HTN, AFIB on coumadin, NENO, Allergic rhitinits, GERD, GOUT, constipation was BIBA from home for report of near syncopal episode since experiencing increasign abd pain and nausea with vomiting since this past . Pt found to have high grade SBO and incarcerated R ing hernia. Pt admitted by surgery. HIGH Grade SBO, Incarcerated R inguinal hernia MGMT per surgery Surgery ordered for NG to be readjusted, CXR reordered to recheck placement NPO Hernia rduced by surgeon earlier today AMELIA/ hypotension Nephrology consulted LR at 125 next 4 hours, then to 100 mls per hour BMP stat Patel placement recommended, BS ordered if > 250 cc, patel will be placed UA pending Avoid NSAIDS Urine studies requested Aspiation PNA vs Atelecatasis via CXR Noted leukocytosis, no fever Pt started on ceftriaxone and doxycycline, BC X2 drawn first IS once NG removed Aspiration precautions ordered O2 prn Duo nebs prn BPH Holding BPH meds due to low BP Patel in place AFIB on coumadin Pt received 5 mgs VIT K per surgeon, INR 1.9 VPACED on ECG INR daily Surgeon permitting wt based lovenox (once daily due to creatinine clearance) at this time and if surgery is indicated, will need to hold 12 hours prior AICD PPM V paced rhythm Pt follows with Dr. Wheeler at [facility] last checked 2 months ago per pt CHF without exacerbation Check BNP Currently NPO, low salt diet when able to eat Daily weights Measure I/Os O2 prn Pt lives with roommate and has sister in [place] that he asked not be contacted regarding this admission. Pt deneis having a HCP or ADV Directives. Pt requests FUll CODE status. DVT Prophylaxis: surgeon agreeable to wt based lovenox,will hold 12 hours prior if surgery needed MED REC pending FULL CODE Hospitalist group will continue to follow along with surgery. Please reach out with any questions or concerns.
[2025-05-01 20:25] LABS: Anion Gap 18 (12-20); Blood Urea Nitrogen 49 mg/dL (9-16); Calcium 8.6 mg/dL (8.4-10.2); Carbon Dioxide 28 mmol/L (22-29); Chloride 100 mmol/L (96-108); Creatinine Clr Calc Pharmacy 19.0; Estimated Glomerular Filt Rate 20; Potassium 5.3 mmol/L (3.3-5.1); Sodium 141 mmol/L (135-145)
[2025-05-01 20:54] LABS: Appearance Urine Cloudy; Glucose Urine UA 250 mg/dL (Negative); PH 5.0 (5.0-9.0); Specific Gravity - Urine 1.020 (1.005-1.025); UMIC TRIGGER UACC YES
[2025-05-01 21:05] LABS: UACC Culture Trigger YES
[2025-05-01 21:11] LABS: Hematocrit 39.1 % (42.0-52.0); Hemoglobin 12.4 g/dl (14.0-18.0); Mean Corpuscular HGB Conc 31.7 g/dl (31.0-36.0); Mean Corpuscular Hemoglobin 31.1 pg (27.0-33.0); Mean Corpuscular Volume 98.0 fL (80.0-98.0); NRBC Abs Auto 0.000 X10*3/uL (0.0-0.012); NRBC Pct Auto 0.0 /100WBC (0.0-0.2); Platelet Count 103 X10*3/uL (160-400); Red Blood Count 3.99 X10*6/uL (4.60-5.80); White Blood Count 7.6 X10*3/uL (4.8-10.8)
[2025-05-01 21:23] LABS: Blood Urea Nitrogen 49 mg/dL (9-16); Creatinine Clr Calc Pharmacy 19.1; Estimated Glomerular Filt Rate 20
[2025-05-02] VITALS (8 sets, daily range): BP systolic 96–116; BP diastolic 50–64; PULSE 60–105; RESP 14–18; TEMP 36.1–37.3; O2SAT 94–97; BMI 21.8
--- NOTE | 2025-05-02 01:07 | PC.NURSE ---
I removed NG tube from left nare and Mame attempted to insert a new NG tube into the right nare and had difficulty advancing with pt reporting pain and inability to take the discomfort. ICU resource nurse deandre notified by Mame.
--- NOTE | 2025-05-02 04:07 | PC.NURSE ---
ICU resource nurse deandre attempted to insert NG tube and was met with resistance from both nares. Pt voiced being very uncomfortable with the procedure and the NG tube was removed. PT has no NG tube at this time, DRUM DYEING MACHINE OPERATOR Rosie notified
[2025-05-02 05:30] LABS: Hematocrit 34.8 % (42.0-52.0); Hemoglobin 11.1 g/dl (14.0-18.0); Imm Gran Abs Auto 0.02 X10*3/uL (0.00-0.03); Imm Gran Pct Auto 0.3 % (0.0-0.4); Lymphocytes Absolute Auto 0.6 X10*3/uL (1.2-4.9); MANUAL DIFF FLAG NO; Mean Corpuscular HGB Conc 31.9 g/dl (31.0-36.0); Mean Corpuscular Hemoglobin 31.1 pg (27.0-33.0); Mean Corpuscular Volume 97.5 fL (80.0-98.0); NRBC Abs Auto 0.000 X10*3/uL (0.0-0.012); NRBC Pct Auto 0.0 /100WBC (0.0-0.2); Red Blood Count 3.57 X10*6/uL (4.60-5.80); White Blood Count 7.0 X10*3/uL (4.8-10.8)
[2025-05-02 05:32] LABS: Platelet Count 90 X10*3/uL (160-400)
[2025-05-02 05:35] LABS: INTERNATIONAL NORM RATIO 1.7 (0.9-1.1); Prothrombin Time 19.4 SEC (10.9-12.4)
--- NOTE | 2025-05-02 05:53 | PM.EVENT ---
Event Note Date of Service: 05/02/25 Event Note: Received urgent message from lab, K 6.0 and LA 2.4. Pt is currently NPO with bowel obstruction. IVF have been running overnight. Adding fluid bolus. Pt will receive 25 gms Dextrose and 5 u of regular insulin now. Repeat BMP and LA at 9AM. Nephrology consulted. Jauregui orderd noting status of current renal fx. Time Spent With Patient Time: Total time managing care of this patient today ____ minutes.
[2025-05-02 06:05] LABS: Alanine Aminotransferase 43 U/L (0-40); Albumin Level 3.8 g/dL (3.5-5.0); Alkaline Phosphatase 72 U/L (39-117); Anion Gap 19 (12-20); Aspartate Amino Transferase 67 U/L (5-37); Blood Urea Nitrogen 58 mg/dL (9-16); Calcium 8.3 mg/dL (8.4-10.2); Carbon Dioxide 25 mmol/L (22-29); Chloride 101 mmol/L (96-108); Creatinine Clr Calc Pharmacy 16.9; Estimated Glomerular Filt Rate 17; Potassium 6.0 mmol/L (3.3-5.1); Sodium 139 mmol/L (135-145); Total Protein 6.3 g/dL (6.5-8.0)
[2025-05-02] MEDS: Albumin Human 25 % 50 ML 100 ML IV (06:29)
[2025-05-02] MEDS: Lactated Ringers 1,000 ML 100 ML IVCONT ×2 (06:35→09:45)
[2025-05-02 06:46] LABS: Glucose, Whole Blood 226 mg/dL (60-115)
[2025-05-02 06:46] LABS: Glucose, Whole Blood 173 mg/dL (60-115)
[2025-05-02] MEDS: Lactated Ringers 500 ML 999 ML IV (07:07)
[2025-05-02 07:28] LABS: Reflex Lactate? Lactic Acid Added
--- NOTE | 2025-05-02 07:36 | PM.PNGS ---
Subjective Subjective Date of Service: 05/02/25 <Myrtle Jaimes PA-C - Last Filed: 05/02/25 07:47> 05/02/25 <Adal Otto MD - Last Filed: 05/02/25 08:53> Interval history: Underwent reduction of right inguinal hernia with small bowel loops under anesthesia yesterday. NGT was unable to be placed overnight. Asking to go home. Denies any nausea, vomiting. Passing flatus and had a very large BM overnight. Was scheduled to undergo EGD tomorrow at [facility] for dysphagia. <Myrtle Jaimes PA-C - Last Filed: 05/02/25 07:47> Physical Exam Vital Signs: Vital Signs: Last Vital Signs Temp 97.4 F 05/02/25 07:20 Pulse 60 05/02/25 07:20 Resp 14 05/02/25 07:20 BP 102/50 L 05/02/25 07:20 Pulse Ox 96 05/02/25 07:20 O2 Del Method Room Air 05/02/25 07:20 BMI result Body Mass Index 21.8 <Myrtle Jaimes PA-C - Last Filed: 05/02/25 07:47> Const: Orientation/consciousness: patient oriented x3 <JESSICA Martinez Last Filed: 05/02/25 07:47> Resp: Effort & Inspection: normal respiratory effort <JESSICA Martinez Last Filed: 05/02/25 07:47> GI: Other: right groin with reduced hernia <Myrtle Jaimes PA-C - Last Filed: 05/02/25 07:47> Inspection: Yes distended (mild, soft) <Myrtle Jaimes PA-C - Last Filed: 05/02/25 07:47> Palpation (GI): nontender, no guarding and not rigid <JESSICA Martinez Last Filed: 05/02/25 07:47> Skin: General skin exam: no rashes or lesions noted <JESSICA Martinez Last Filed: 05/02/25 07:47> Neuro: General: patient oriented x3 and moves all extremities <JESSICA Martinez Filed: 05/02/25 07:47> Objective Data Active Medications Albuterol/Ipratropium (Albuterol/Iprat 2.5/0.5mg 3 Ml Ampul.Neb) 3 ml INHALE RQ4H WHILE AWAKE PRN PRN Reason: Shortness of Breath/Wheezing Enoxaparin Sodium (Enoxaparin Sodium 80 Mg/0.8 Ml Syringe) 70 mg 1 mg/kg (70 mg) SUBCUT Q24H [facility] Last Admin: 05/01/25 22:11 Dose: 70 mg Documented By: PERRY Lactated Ringer's (Lr) 1,000 mls @ 125 mls/hr IVCONT .Q8H [facility] Last Infusion: 05/02/25 06:35 Dose: 0 mls/hr Documented By: PERRY Ceftriaxone Sodium 1 gm/ (Sodium Chloride) 50 mls @ 100 mls/hr IV Q24H [facility] Last Infusion: 05/01/25 21:03 Dose: Infused Documented By: PERRY Doxycycline Hyclate 100 mg/ (Sodium Chloride) 250 mls @ 166.67 mls/hr IV Q12H [facility] Last Infusion: 05/01/25 22:45 Dose: Infused Documented By: PERRY Ondansetron HCl (Ondansetron Hcl 4 Mg/2 Ml Vial) 4 mg IVPUSH Q6H PRN PRN Reason: Nausea and Vomiting Pantoprazole Sodium (Pantoprazole Sodium 40 Mg/10 Ml Vial) 40 mg IVPUSH DAILY@0630 [facility] Last Admin: 05/02/25 06:30 Dose: 40 mg Documented By: PERRY Sodium Zirconium Cyclosilicate (Sodium Zirconium Cyclosilicate 10 Gm Powd.Pack) 10 gm PO ONCE ONE Stop: 05/02/25 08:01 <Myrtle Jaimes PA-C - Last Filed: 05/02/25 07:47> Labs CBC & Chem 7: 05/02/25 05:22 05/02/25 05:22 <Myrtle Jaimes PA-C - Last Filed: 05/02/25 07:47> Labs: Laboratory Results - last 24 hr 10/26/25 10/26/25 10/26/25 13:22 19:37 20:30 MCV 97.7 MCH 31.1 MCHC 31.9 RDW 15.3 Plt Count 154 L MPV 10.8 Immature Gran % (Auto) 0.4 Neut % (Auto) 91.4 H Lymph % (Auto) 5.6 L [place] % (Auto) 2.1 Eos % (Auto) 0.2 Baso % (Auto) 0.3 Lymph # (Auto) 0.8 L [place] # (Auto) 0.3 Eos # (Auto) 0.0 Baso # (Auto) 0.0 Abs Immat Gran (auto) 0.06 H Absolute Neuts (auto) 12.3 H Absolute Nucleated RBC 0.000 Nucleated RBC % (auto) 0.0 Smear Tech's Comments VERIFIED PT 21.7 H INR 1.9 H Anion Gap 20 18 Estim Creat Clear Calc 19.7 19.0 Estimated GFR 21 20 POC Glucose Random Glucose 173 H 124 H Lactic Acid Calcium 9.8 8.6 D Magnesium 2.5 Total Bilirubin 1.3 H AST 35 ALT 26 Alkaline Phosphatase 126 H Troponin I High Sens 23.8 NT-Pro-B Natriuret Pep 22399.7 H Total Protein 8.4 H Albumin 5.1 H TSH 3.10 Urine Color Dark Yellow Urine Appearance Cloudy Urine pH 5.0 Ur Specific [place] 1.020 Urine Protein 30 (1+) H Urine Glucose (UA) 250 H Urine Ketones Trace Urine Blood Negative Urine Nitrite Negative Ur Leukocyte Esterase Small (1+) H Urine RBC 0-2 Urine WBC 0-5 Ur Squamous Epith Cells 3-5 Urine Bacteria None Seen Hyaline Casts 6-10 Urine Osmolality 351 L Urine Creatinine 98.74 05/01/25 05/02/25 05/02/25 21:03 05:22 06:22 MCV 98.0 97.5 MCH 31.1 31.1 MCHC 31.7 31.9 RDW 15.2 15.4 Plt Count 103 L D 90 L MPV 10.3 9.7 Immature Gran % (Auto) 0.3 Neut % (Auto) 82.2 H Lymph % (Auto) 9.1 L [place] % (Auto) 8.3 Eos % (Auto) 0.0 Baso % (Auto) 0.1 Lymph # (Auto) 0.6 L [place] # (Auto) 0.6 Eos # (Auto) 0.0 Baso # (Auto) 0.0 Abs Immat Gran (auto) 0.02 Absolute Neuts (auto) 5.8 Absolute Nucleated RBC 0.000 0.000 Nucleated RBC % (auto) 0.0 0.0 Smear Tech's Comments PT 19.4 H INR 1.7 H Anion Gap 19 Estim Creat Clear Calc 19.1 16.9 Estimated GFR 20 17 POC Glucose 226 H Random Glucose 110 Lactic Acid 2.4 H* Calcium 8.3 L Magnesium Total Bilirubin 1.2 H AST 67 H ALT 43 H Alkaline Phosphatase 72 Troponin I High Sens NT-Pro-B Natriuret Pep Total Protein 6.3 L Albumin 3.8 TSH Urine Color Urine Appearance Urine pH Ur Specific [place] Urine Protein Urine Glucose (UA) Urine Ketones Urine Blood Urine Nitrite Ur Leukocyte Esterase Urine RBC Urine WBC Ur Squamous Epith Cells Urine Bacteria Hyaline Casts Urine Osmolality Urine Creatinine 05/02/25 06:42 MCV MCH MCHC RDW Plt Count MPV Immature Gran % (Auto) Neut % (Auto) Lymph % (Auto) [place] % (Auto) Eos % (Auto) Baso % (Auto) Lymph # (Auto) [place] # (Auto) Eos # (Auto) Baso # (Auto) Abs Immat Gran (auto) Absolute Neuts (auto) Absolute Nucleated RBC Nucleated RBC % (auto) Smear Tech's Comments PT INR Anion Gap Estim Creat Clear Calc Estimated GFR POC Glucose 173 H Random Glucose Lactic Acid Calcium Magnesium Total Bilirubin AST ALT Alkaline Phosphatase Troponin I High Sens NT-Pro-B Natriuret Pep Total Protein Albumin TSH Urine Color Urine Appearance Urine pH Ur Specific [place] Urine Protein Urine Glucose (UA) Urine Ketones Urine Blood Urine Nitrite Ur Leukocyte Esterase Urine RBC Urine WBC Ur Squamous Epith Cells Urine Bacteria Hyaline Casts Urine Osmolality Urine Creatinine <Myrtle Jaimes PA-C - Last Filed: 05/02/25 07:47> Procedures Date of Service Date of Service: 05/02/25 <Myrtle Jaimes PA-C - Last Filed: 05/02/25 07:47> 05/02/25 <Adal Otto MD - Last Filed: 05/02/25 08:53> Progress Note: A&P Assessment and plan (1) Incarcerated right inguinal hernia: Status: Acute <Myrtle Jaimes PA-C - Last Filed: 05/02/25 07:47> Assessment and Plan: SBO secondary to right inguinal hernia containing small bowel s/p reduction in the OR under sedation. Hernia remains reduced this morning and he has good GI function. Abd remains benign- soft, mildly distended. Can hold off on NGT placement. Speech eval prior to advancing diet given history of dysphagia, question of possible PNA/ aspiration. Can begin to advance diet when cleared by speech. Can follow up in office for repair of right inguinal hernia on outpatient basis once medically more stable. Patient comfortable with plan. <Myrtle Jaimes PA-C - Last Filed: 05/02/25 07:47> SBO secondary to right inguinal hernia containing small bowel s/p reduction in the OR under sedation. Hernia remains reduced this morning and he has good GI function. Abd remains benign- soft, mildly distended. Can hold off on NGT placement. Speech eval prior to advancing diet given history of dysphagia, question of possible PNA/ aspiration. Can begin to advance diet when cleared by speech. Can follow up in office for repair of right inguinal hernia on outpatient basis once medically more stable. Patient comfortable with plan. Patient seen and examined independently and I concur with the above assessment and plan. He did have an incarcerated hernia which was reduced under anesthesia. The this was the source of his small-bowel obstruction. His abdomen is now soft, nondistended and nontender. The hernias completely reduced at this time. No nasogastric tube is required at this time. Agree with advancing his diet once he is cleared from speech. He is awaiting upper endoscopy at [facility] and should be able to be discharged in preparation for this testing. <Adal Otto MD - Last Filed: 05/02/25 08:53> Time Spent With Patient Time: Total time managing care of this patient today ____ minutes. <Myrtle Jaimes PA-C - Last Filed: 05/02/25 07:47> Quality Stroke Does the patient have a stroke diagnosis?: No <Myrtle Jaimes PA-C - Last Filed: 05/02/25 07:47> VTE Prior VTE?: No <JESSICA Martinez Last Filed: 05/02/25 07:47> VTE Risk Level:: Surgical - low <JESSICA Martinez Last Filed: 05/02/25 07:47> VTE Device Contraindication: N/A - Device Ordered <Myrtle Jaimes PA-C - Last Filed: 05/02/25 07:47> VTE Drug Contraindication: Treatment Not Indicated <Myrtle Jaimes PA-C - Last Filed: 05/02/25 07:47>
[2025-05-02 07:55] LABS: EOS Counted 0 CELLS; EOS QC POS YES; EOS Stain Quality OK YES; WBC, Counted 0 CELLS
--- NOTE | 2025-05-02 08:19 | HO.POSTANES ---
Post Anesthesia Evaluation Post Anesthesia Evaluation Date of Service: 05/02/25 Vital Signs: Vital Signs Temp Pulse Resp BP Pulse Ox O2 Del Method 05/02/25 07:20 97.4 F 60 14 102/50 L 96 Room Air 05/02/25 06:42 63 108/52 L 05/02/25 03:44 98.9 F 65 18 96/55 L 94 Room Air 05/01/25 23:19 99.1 F 63 16 108/51 L 94 Room Air Anesthesia: General Mental Status: Awake Pain Control: Satisfactory Nausea/Vomiting: None Hydration: Adequate Anesthesia-Related Issues: No Anes. Related Issues
[2025-05-02 08:38] LABS: ~Lactic Acid-LAB USE ONLY 2.4 mmol/L (0.5-2.0)
--- NOTE | 2025-05-02 09:07 | HO.PM.IMPN ---
Subjective Subjective Date of Service: 05/02/25 Review of Systems Follow up small-bowel obstruction, initially General surgery patient transitioned to medical service No nausea, vomiting No complaints of abdominal pain Physical Exam Exam: Exam: Appearing in no acute distress lung sounds are clear to auscultation heart regular rate rhythm, clear S1, S2 positive bowel sounds, abdomen is soft, nontender neuro patient is alert x3, no focal deficits Vital Signs: Vital Signs: Last Vital Signs Temp 98.9 F 05/02/25 08:54 Pulse 63 05/02/25 08:54 Resp 16 05/02/25 08:54 BP 103/53 L 05/02/25 08:54 Pulse Ox 97 05/02/25 08:54 O2 Del Method Room Air 05/02/25 08:54 BMI result Body Mass Index 21.8 Objective Data Active Medications Albuterol/Ipratropium (Albuterol/Iprat 2.5/0.5mg 3 Ml Ampul.Neb) 3 ml INHALE RQ4H WHILE AWAKE PRN PRN Reason: Shortness of Breath/Wheezing Enoxaparin Sodium (Enoxaparin Sodium 80 Mg/0.8 Ml Syringe) 70 mg 1 mg/kg (70 mg) SUBCUT Q24H [facility] Last Admin: 05/01/25 22:11 Dose: 70 mg Documented By: PERRY Lactated Ringer's (Lr) 1,000 mls @ 100 mls/hr IVCONT .Q10H [facility] Last Infusion: 05/02/25 06:35 Dose: 0 mls/hr Documented By: PERRY Ceftriaxone Sodium 1 gm/ (Sodium Chloride) 50 mls @ 100 mls/hr IV Q24H [facility] Last Infusion: 05/01/25 21:03 Dose: Infused Documented By: PERRY Doxycycline Hyclate 100 mg/ (Sodium Chloride) 250 mls @ 166.67 mls/hr IV Q12H [facility] Last Admin: 05/02/25 07:51 Dose: 166.67 mls/hr Documented By: SALVADOR Ondansetron HCl (Ondansetron Hcl 4 Mg/2 Ml Vial) 4 mg IVPUSH Q6H PRN PRN Reason: Nausea and Vomiting Pantoprazole Sodium (Pantoprazole Sodium 40 Mg/10 Ml Vial) 40 mg IVPUSH DAILY@0630 [facility] Last Admin: 05/02/25 06:30 Dose: 40 mg Documented By: PERRY Labs 05/02/25 05:22 05/02/25 09:14 Labs: Laboratory Results - last 24 hr 05/01/25 05/01/25 05/01/25 13:22 19:37 20:30 MCV 97.7 MCH 31.1 MCHC 31.9 RDW 15.3 Plt Count 154 L MPV 10.8 Immature Gran % (Auto) 0.4 Neut % (Auto) 91.4 H Lymph % (Auto) 5.6 L [place] % (Auto) 2.1 Eos % (Auto) 0.2 Baso % (Auto) 0.3 Lymph # (Auto) 0.8 L [place] # (Auto) 0.3 Eos # (Auto) 0.0 Baso # (Auto) 0.0 Abs Immat Gran (auto) 0.06 H Absolute Neuts (auto) 12.3 H Absolute Nucleated RBC 0.000 Nucleated RBC % (auto) 0.0 Smear Tech's Comments VERIFIED PT 21.7 H INR 1.9 H Anion Gap 20 18 Estim Creat Clear Calc 19.7 19.0 Estimated GFR 21 20 POC Glucose Random Glucose 173 H 124 H Lactic Acid Lactic Acid F/U @ 2Hr Calcium 9.8 8.6 D Magnesium 2.5 Total Bilirubin 1.3 H AST 35 ALT 26 Alkaline Phosphatase 126 H Troponin I High Sens 23.8 NT-Pro-B Natriuret Pep 51972.7 H Total Protein 8.4 H Albumin 5.1 H TSH 3.10 Urine Color Dark Yellow Urine Appearance Cloudy Urine pH 5.0 Ur Specific [place] 1.020 Urine Protein 30 (1+) H Urine Glucose (UA) 250 H Urine Ketones Trace Urine Blood Negative Urine Nitrite Negative Ur Leukocyte Esterase Small (1+) H Urine RBC 0-2 Urine WBC 0-5 Ur Squamous Epith Cells 3-5 Urine Bacteria None Seen Hyaline Casts 6-10 Urine Eosinophils % 0.0 Urine Osmolality 351 L Urine Creatinine 98.74 05/01/25 05/02/25 05/02/25 21:03 05:22 06:22 MCV 98.0 97.5 MCH 31.1 31.1 MCHC 31.7 31.9 RDW 15.2 15.4 Plt Count 103 L D 90 L MPV 10.3 9.7 Immature Gran % (Auto) 0.3 Neut % (Auto) 82.2 H Lymph % (Auto) 9.1 L [place] % (Auto) 8.3 Eos % (Auto) 0.0 Baso % (Auto) 0.1 Lymph # (Auto) 0.6 L [place] # (Auto) 0.6 Eos # (Auto) 0.0 Baso # (Auto) 0.0 Abs Immat Gran (auto) 0.02 Absolute Neuts (auto) 5.8 Absolute Nucleated RBC 0.000 0.000 Nucleated RBC % (auto) 0.0 0.0 Smear Tech's Comments PT 19.4 H INR 1.7 H Anion Gap 19 Estim Creat Clear Calc 19.1 16.9 Estimated GFR 20 17 POC Glucose 226 H Random Glucose 110 Lactic Acid 2.4 H* Lactic Acid F/U @ 2Hr Calcium 8.3 L Magnesium Total Bilirubin 1.2 H AST 67 H ALT 43 H Alkaline Phosphatase 72 Troponin I High Sens NT-Pro-B Natriuret Pep Total Protein 6.3 L Albumin 3.8 TSH Urine Color Urine Appearance Urine pH Ur Specific [place] Urine Protein Urine Glucose (UA) Urine Ketones Urine Blood Urine Nitrite Ur Leukocyte Esterase Urine RBC Urine WBC Ur Squamous Epith Cells Urine Bacteria Hyaline Casts Urine Eosinophils % Urine Osmolality Urine Creatinine 05/02/25 05/02/25 06:42 07:54 MCV MCH MCHC RDW Plt Count MPV Immature Gran % (Auto) Neut % (Auto) Lymph % (Auto) [place] % (Auto) Eos % (Auto) Baso % (Auto) Lymph # (Auto) [place] # (Auto) Eos # (Auto) Baso # (Auto) Abs Immat Gran (auto) Absolute Neuts (auto) Absolute Nucleated RBC Nucleated RBC % (auto) Smear Tech's Comments PT INR Anion Gap Estim Creat Clear Calc Estimated GFR POC Glucose 173 H Random Glucose Lactic Acid Lactic Acid F/U @ 2Hr 2.4 H* Calcium Magnesium Total Bilirubin AST ALT Alkaline Phosphatase Troponin I High Sens NT-Pro-B Natriuret Pep Total Protein Albumin TSH Urine Color Urine Appearance Urine pH Ur Specific [place] Urine Protein Urine Glucose (UA) Urine Ketones Urine Blood Urine Nitrite Ur Leukocyte Esterase Urine RBC Urine WBC Ur Squamous Epith Cells Urine Bacteria Hyaline Casts Urine Eosinophils % Urine Osmolality Urine Creatinine Assessment and Plan (1) Small bowel obstruction: Status: Acute Plan 79 yo male with PMH BPH, Valve replacement and 2 years later possible Bental procedure for Aortic surgery, AICD/PPM, CHF, HTN, AFIB on coumadin, NENO, Allergic rhitinits, GERD, GOUT, constipation was BIBA from home for report of near syncopal episode since experiencing increasign abd pain and nausea with vomiting since this past . Pt found to have high grade SBO and incarcerated R ing hernia. Pt admitted by surgery initially, now on med team. High Grade SBO, Incarcerated R inguinal hernia Initial NG-tube placement unsuccessful, overnight RN attempted multiple times including nasogastric, unsuccessful, General surgery aware Hernia reduced by surgeon therefore hold off on NG tube for now as per Dr. Moss Swallow evaluation IV fluids clear liquid diet AMELIA/ hypotension Nephrology consulted IV fluids BMP stat Aspiration PNA vs Atelecatasis via CXR Noted leukocytosis, no fever Pt started on ceftriaxone and doxycycline, BC X2 drawn first Aspiration precautions ordered Duo nebs prn BPH Holding BPH meds due to low BP [place] in place PAFIB on coumadin Pt received 5 mgs VIT K per surgeon, INR 1.7 INR daily AICD PPM V paced rhythm Pt follows with Dr. Chacko at [facility] Device last checked 2 months ago per pt CHF without exacerbation DVT Prophylaxis with warfarin FULL CODE Quality Stroke Does the patient have a stroke diagnosis?: No VTE Prior VTE?: No VTE Risk Level:: Surgical - low VTE Device Contraindication: N/A - Device Ordered VTE Drug Contraindication: Treatment Not Indicated
[2025-05-02 09:46] LABS: Anion Gap 17 (12-20); Blood Urea Nitrogen 59 mg/dL (9-16); Calcium 8.1 mg/dL (8.4-10.2); Carbon Dioxide 26 mmol/L (22-29); Chloride 103 mmol/L (96-108); Creatinine Clr Calc Pharmacy 17.2; Estimated Glomerular Filt Rate 18; Potassium 5.5 mmol/L (3.3-5.1); Sodium 140 mmol/L (135-145)
[2025-05-02 10:15] LABS: Reflex Lactate? 2 Y
[2025-05-02 10:54] LABS: ~Lactic Acid-LAB USE ONLY 2.0 mmol/L (0.5-2.0)
--- NOTE | 2025-05-02 12:11 | MHC.CM.PN ---
PPT LIVES WITH FRIEND HAS HILARIO FOR NURSING HAS OWN [facility] DCD DC PLAN HOME WITH HILARIO
--- NOTE | 2025-05-02 12:33 | MHC.SL.SWA ---
Speech Pathologist Impression: Mild oral phase dysphgia, esophageal dysphagia longstanding Risk of Aspiration Due to: Complexity of comorbidities (SBO/R ing. hernia/GERD/vomiting/nausea) Dysphasia Diet Status: Full liquid diet, thin liquids, aspiration precautions, assist with tray set-up, LEGAL PRACTICE MANAGER to followup post procedure Liquid Consistency and Strategies for Safe Swallow: Liquid Intake Recommendation: Thin Liquid Intake Strategies: Solid Food Consistency: Dietary Recommendations: Full liquid diet Additional Modifications to Solid Foods: Oral Medication Intake: Whole with Puree Please contact the pharmacy regarding appropriate crushable or liquid drug formulations that are available whenever modified delivery is recommended. Compensatory Strategies and Precautions to be Taken for Safe Swallow: Supervision While Eating and Drinking for Safe Swallow: Tray Set Up Foods to Avoid: Swallowing Recommended Treatments: Recommendation for Speech: Speech Therapy through Rehab Facility Comment: Pt not wearing dentures. Pt reported he has modified his diet by avoiding certain foods. Pt tolerated all trials of thins, purees and full liquids without overt s/s of aspiration. LEGAL PRACTICE MANAGER provided education on reason for clinical bedside swallow and verbalized understanding of recc diet; oropharyngeal swallow WFL but given pt hx of SBO, hernia, GERD, nausea and vomiting, no other consistencies trialed. MD and RN notified of recc: full liquid diet, thin liquid consistencies, large meds in applesauce, straws ok. LEGAL PRACTICE MANAGER to follow as indicated. Frequency/Duration: Date Range for Service Req: Timeline to reassess: Procurement Forester Clinican/Clinical Fellow: No Supervisory Statement: I have reviewed and agree with the student/clinical fellow's documentation: N/A Speech Language Pathologist: Edyta Conley M.S., [facility]-LEGAL PRACTICE MANAGER
--- NOTE | 2025-05-02 14:01 | HO.WOUND ---
Wound Consult: Initial 79yr old?male admitted to [facility] on 05/01/25 15:58 - See progress notes and H&P for detailed history.? Wound consult placed for Coccyx wound POA.? Patient agreeable to assessment and photo documentation.? Patient reports he has had significant weight loss over the past year and that has affected his buttock muscles. He reports he is currently staying with a friend and the couch is very bad. He reports it is painful for him to sit, he reports he is sitting for long periods of time. Patient was educated on foam and waffle cushion use along with position changes every 2 hours. Coccyx Etiology: ??Deep Tissue Injury Present on Admission Measurements: 1cm x 0.4cm x 0.2cm Wound Bed: central area open with red moist tissue macerated edges superior site with slough noted to wound bed Drainage / Odor: None noted Edges: ? macerated [place] wound: red pink intact blanchable tissue - MASD- ? No Induration, Fluctuance or Warmth noted Pain: pain and tenderness noted Goals of Treatment: ? Triad and foam dressing Bilateral heels assessed - noted to be intact and blanchable both heels have prominent calcaneus - recommend foam application and use of pillows to off load pressure from heel for prevention. Recommendations: 1. Turn and Reposition every 2 hours and as needed for patient comfort.? Use pillows or wedges to support off loading positions. 2. Off Load all bony prominences with use of pillows and heel boots if needed.? Apply Preventative foams where needed. ? 3. Monitor for incontinence and moisture control, use barrier creams when needed for prevention and treatment. 4. Provide adequate and supplemental nutrition.? 5. Order low air loss mattress. 6. When applicable maintain blood glucose levels per Providers order. Coccyx - Off Load Pressure with Q2 hr turns and use of pillows - Cleanse with PH balance spray or wipes, pat dry. ?Apply thin layer of Triad to wound bed. Do not remove all of paste between applications as this may cause further skin damage.? Cover with foam dressing to aid in off loading and protection from friction. Change every 3 days and PRN. Bilateral Heels? - Elevate heels off of bed surface with pillows.? Float heels off of pillows.? Apply skin prep allow to dry.? Apply heel foam dressings, peel back and assess Q shift and change every 5-7 days and PRN. Re-consult wound care Nurse for wound deterioration or wound changes.
--- NOTE | 2025-05-02 15:42 | PM.CNNEP ---
History of Present Illness Reason for Consult Consult date: 05/02/25 Chief Complaint Chief complaint: abdominal discomfort History of Present Illness Narrative: 79 yo male with PMH BPH, Valve replacement and 2 years later possible Bental procedure for Aortic surgery, AICD/PPM, CHF, HTN, AFIB on coumadin, NENO, Allergic rhitinits, GERD, GOUT, constipation On admission was 2.3. Increase to 3.4. Developed hyperkalemia. Hence this consultation Review of Systems Constitutional: Denies fever(s) and Denies weight loss Cardiovascular: Denies chest pain Respiratory: Denies cough and Denies hemoptysis Gastrointestinal: Denies diarrhea and Denies nausea Musculoskeletal: Denies back pain Denies focal weakness [facility] Past Medical History Medical History (Updated 05/01/25 @ 20:02 by CESAR Chatman) Marijuana dependence BPH (benign prostatic hyperplasia) Presence of combination internal cardiac defibrillator (ICD) and pacemaker Atrial fibrillation Hypertension MCI (mild cognitive impairment) Surgical History Surgical History (Updated 05/01/25 @ 19:57 by CESAR Chatman) AICD (automatic cardioverter/defibrillator) present S/P aorta repair Heart valve replaced Social History Social History Household Members: Friend(s) Housing: House Do you presently have visiting nurse or other home services: Yes ([place]) Patient Tobacco Use Status: Never used Tobacco Substance Use Type: Marijuana service: No Travel History Ebola Risk: Travel/Contact With Anyone From Affected Area/s: No Has Patient Experienced Ebola Symptoms: No Meds Allergies Allergy/AdvReac Type Severity Reaction Status Date / Time Penicillins Allergy Unknown Unknown Verified 05/01/25 12:31 Iodinated Contrast Media (IV Allergy Swelling Verified 05/01/25 12:34 Contrast Dye) Active Medications: Current Medications Albuterol/Ipratropium (Albuterol/Iprat 2.5/0.5mg 3 Ml Ampul.Neb) 3 ml INHALE RQ4H WHILE AWAKE PRN PRN Reason: Shortness of Breath/Wheezing Lactated Ringer's (Lr) 1,000 mls @ 100 mls/hr IVCONT .Q10H [facility] Last Admin: 05/02/25 09:45 Dose: 100 mls/hr Ceftriaxone Sodium 1 gm/ (Sodium Chloride) 50 mls @ 100 mls/hr IV Q24H [facility] Last Infusion: 05/01/25 21:03 Dose: Infused Doxycycline Hyclate 100 mg/ (Sodium Chloride) 250 mls @ 166.67 mls/hr IV Q12H [facility] Last Infusion: 05/02/25 09:48 Dose: Infused Ondansetron HCl (Ondansetron Hcl 4 Mg/2 Ml Vial) 4 mg IVPUSH Q6H PRN PRN Reason: Nausea and Vomiting Pantoprazole Sodium (Pantoprazole Sodium 40 Mg/10 Ml Vial) 40 mg IVPUSH DAILY@0630 [facility] Last Admin: 05/02/25 06:30 Dose: 40 mg Warfarin Sodium (Warfarin Sodium 5 Mg Tablet) 5 mg PO ONCE@1800 ONE Stop: 05/02/25 18:01 Warfarin Sodium (Warfarin Sodium 2.5 Mg Tablet) 2.5 mg PO DAILY@1800 [facility] Home Medications ?Medication ?Instructions ?Recorded ?Confirmed ?Last Taken ?Type amiodarone 200 mg tablet 400 mg PO DAILY 02/11/25 05/01/25 04/30/25 History amitriptyline 75 mg tablet 75 mg PO BEDTIME 02/11/25 05/01/25 04/30/25 History carvedilol 3.125 mg tablet 3.125 mg PO BID 02/11/25 05/01/25 04/30/25 History donepezil 10 mg tablet 10 mg PO BEDTIME 02/11/25 05/01/25 04/30/25 History empagliflozin 10 mg tablet 10 mg PO DAILY 02/11/25 05/01/25 04/30/25 History (Jardiance) ferrous sulfate 325 mg (65 mg 325 mg PO BID 02/11/25 05/01/25 04/30/25 History iron) tablet (FeroSul) lansoprazole 30 mg capsule,delayed 30 mg PO DAILY@0630 02/11/25 05/01/25 04/30/25 History release losartan 25 mg tablet 25 mg PO DAILY 02/11/25 05/01/25 04/30/25 History torsemide 20 mg tablet 80 mg PO DAILY 02/11/25 05/01/25 04/30/25 History warfarin 5 mg tablet 2.5 mg PO DAILY 02/11/25 05/02/25 04/28/25 History allopurinol 100 mg tablet 200 mg PO DAILY 05/01/25 05/01/25 04/30/25 History cyanocobalamin (vitamin B-12) 1,000 mcg PO DAILY 05/01/25 05/01/25 04/30/25 History 1,000 mcg tablet fluticasone propionate 50 2 spray intranasal BID 05/01/25 05/01/25 04/30/25 History mcg/actuation nasal spray,suspension prochlorperazine maleate 10 mg 10 mg PO Q6H PRN nausea/vomiting 05/01/25 05/01/25 Unknown History tablet sennosides 8.6 mg-docusate sodium 2 tab-cap PO DAILY@1200 05/01/25 05/01/25 04/30/25 History 50 mg tablet (Senna with Docusate Sodium) simvastatin 20 mg tablet 20 mg PO BEDTIME 05/01/25 05/01/25 04/30/25 History Physical Exam Vital Signs: Last Vital Signs Temp 99.2 F 05/02/25 15:09 Pulse 62 05/02/25 15:09 Resp 18 05/02/25 15:09 BP 114/57 L 05/02/25 15:09 Pulse Ox 96 05/02/25 15:09 O2 Del Method Room Air 05/02/25 15:09 BMI result Body Mass Index 21.8 Const General: ill appearing Neck Neck: Yes supple Resp Auscultation: clear to auscultation bilaterally Cardio Palpation: no palpable S3 Heart sounds: no rubs Neuro Motor exam (neuro): no asterixis Results Lab Results 05/02/25 05:22 05/02/25 09:14 Lab results: Chemistry 05/01/25 05/01/25 05/01/25 13:22 19:37 21:03 Sodium 139 141 Potassium 4.9 5.3 H Carbon Dioxide 28 BUN 43 H 49 H 49 H Creatinine 2.93 H 3.04 H 3.02 H Calcium 9.8 8.6 D 05/02/25 05/02/25 05:22 09:14 Sodium 139 140 Potassium 6.0 H* 5.5 H Carbon Dioxide BUN 58 H 59 H Creatinine 3.42 H 3.38 H Calcium 8.3 L 8.1 L Hematology 05/01/25 05/01/25 05/02/25 13:22 21:03 05:22 WBC 13.5 H 7.6 7.0 Hgb 14.7 12.4 L 11.1 L Plt Count 154 L 103 L D 90 L Urinalysis 05/01/25 20:30 Urine Color Dark Yellow Urine Appearance Cloudy Urine pH 5.0 Ur Specific [place] 1.020 Urine Protein 30 (1+) H Urine Glucose (UA) 250 H Urine Ketones Trace Urine Blood Negative Urine Nitrite Negative Ur Leukocyte Esterase Small (1+) H Urine RBC 0-2 Urine WBC 0-5 Ur Squamous Epith Cells 3-5 Hyaline Casts 6-10 Urine Studies 05/01/25 05/02/25 20:30 09:00 Urine Osmolality 351 L Urine Creatinine 98.74 82.98 Assessment and Plan (1) AMELIA (acute kidney injury): Status: Acute Plan AMELIA most likely due to hypoperfusion in the setting of small-bowel obstruction. And poor p.o. intake. Urine sodium is less than 20 Tubular injury can not be ruled out. No evidence of obstructive uropathy. Urinalysis is essentially benign. Hyperkalemia due to underlying AMELIA Recommendations IV hydration. Keep intake more than output. Can use normal saline instead of Ringer's lactate. Ringer's lactate contains potassium. Agree with Noman. Watch urine output. No indication for dialysis Expect renal recovery once he has fluid repleted Procedures Date of Service Date of Service: 05/02/25
[2025-05-02 18:33] LABS: Anion Gap 17 (12-20); Blood Urea Nitrogen 65 mg/dL (9-16); Calcium 8.2 mg/dL (8.4-10.2); Carbon Dioxide 27 mmol/L (22-29); Chloride 100 mmol/L (96-108); Creatinine Clr Calc Pharmacy 17.0; Estimated Glomerular Filt Rate 17; Potassium 4.7 mmol/L (3.3-5.1); Sodium 139 mmol/L (135-145)
[2025-05-03] VITALS (7 sets, daily range): BP systolic 94–141; BP diastolic 53–61; PULSE 61–115; RESP 16–18; TEMP 36.1–36.8; O2SAT 93–96; BMI 22.3
[2025-05-03 06:14] LABS: INTERNATIONAL NORM RATIO 1.3 (0.9-1.1); Prothrombin Time 14.9 SEC (10.9-12.4)
--- NOTE | 2025-05-03 07:43 | PM.PNGS ---
Subjective Subjective Date of Service: 05/03/25 Interval history: Denies abd pain. Has been passing flatus. Occasionally has some pain at right groin. Physical Exam Vital Signs: Vital Signs: Last Vital Signs Temp 97.3 F 05/03/25 07:28 Pulse 106 H 05/03/25 07:28 Resp 16 05/03/25 07:28 BP 141/56 H 05/03/25 07:28 Pulse Ox 96 05/03/25 07:28 O2 Del Method Room Air 05/03/25 07:28 BMI result Body Mass Index 22.3 Const: General: comfortable, no acute distress and alert Resp: Effort & Inspection: normal respiratory effort GI: Other: distended, tympanitic soft, reports some mild discomfort with palpation of right groin, otherwise nontender right inguinal hernia, soft and reduced with light pressure again this morning Palpation (GI): no guarding Skin: General skin exam: no rashes or lesions noted Neuro: General: moves all extremities Objective Data Active Medications Albuterol/Ipratropium (Albuterol/Iprat 2.5/0.5mg 3 Ml Ampul.Neb) 3 ml INHALE RQ4H WHILE AWAKE PRN PRN Reason: Shortness of Breath/Wheezing Allopurinol (Allopurinol 100 Mg Tablet) 200 mg PO DAILY [facility] Amiodarone HCl (Amiodarone Hcl 200 Mg Tablet) 400 mg PO DAILY [facility] Amitriptyline HCl (Amitriptyline Hcl 25 Mg Tablet) 75 mg PO BEDTIME [facility] Atorvastatin Calcium (Atorvastatin Calcium 10 Mg Tablet) 10 mg PO BEDTIME [facility] Carvedilol (Carvedilol 3.125 Mg Tablet) 3.125 mg PO BID [facility]; Protocol Cyanocobalamin (Cyanocobalamin (Vitamin B-12) 1,000 Mcg Tablet) 1,000 mcg PO DAILY [facility] Donepezil HCl (Donepezil Hcl 10 Mg Tablet) 10 mg PO BEDTIME [facility] Empagliflozin (Empagliflozin 10 Mg Tablet) 10 mg PO DAILY [facility] Ferrous Sulfate (Ferrous Sulfate 324 Mg Tablet.Dr) 324 mg PO BID [facility] Fluticasone Propionate (Fluticasone Propionate Nasal 16 Gm Tamiment) 2 spray NOSTRIL-B BID [facility] Ceftriaxone Sodium 1 gm/ (Sodium Chloride) 50 mls @ 100 mls/hr IV Q24H [facility] Last Infusion: 05/02/25 19:55 Dose: Infused Documented By: JULES Doxycycline Hyclate 100 mg/ (Sodium Chloride) 250 mls @ 166.67 mls/hr IV Q12H [facility] Last Admin: 05/03/25 07:18 Dose: 166.67 mls/hr Documented By: SALVADOR Sodium Chloride (Ns) 1,000 mls @ 80 mls/hr IVCONT .[id number] [facility] Last Admin: 05/03/25 05:03 Dose: 80 mls/hr Documented By: JULES Memantine (Memantine Hcl 5 Mg Tablet) 5 mg PO BID [facility] Non-Formulary Medication (Lansoprazole) 30 mg PO DAILY@0630 [facility] Ondansetron HCl (Ondansetron Hcl 4 Mg/2 Ml Vial) 4 mg IVPUSH Q6H PRN PRN Reason: Nausea and Vomiting Pantoprazole Sodium (Pantoprazole Sodium 40 Mg/10 Ml Vial) 40 mg IVPUSH DAILY@0630 [facility] Last Admin: 05/03/25 05:02 Dose: 40 mg Documented By: JULES Senna/Docusate Sodium (Sennosides/Docusate Sodium Tablet) 2 tab PO DAILY@1200 [facility] Warfarin Sodium (Warfarin Sodium 2.5 Mg Tablet) 2.5 mg PO DAILY@1800 [facility] Labs 05/02/25 05:22 05/02/25 18:05 Labs: Laboratory Results - last 24 hr 05/01/25 05/02/25 05/02/25 20:30 07:54 09:00 Hold Purple Top PT INR Anion Gap Estim Creat Clear Calc Estimated GFR Random Glucose Lactic Acid F/U @ 2Hr 2.4 H* Lactic Acid F/U @ 4Hr Calcium Urine Eosinophils % 0.0 Ur Random Sodium < 20.0 Urine Creatinine 82.98 05/02/25 05/02/25 05/02/25 09:14 10:27 18:05 Hold Purple Top PT INR Anion Gap 17 17 Estim Creat Clear Calc 17.2 17.0 Estimated GFR 18 17 Random Glucose 98 132 H Lactic Acid F/U @ 2Hr Lactic Acid F/U @ 4Hr 2.0 Calcium 8.1 L 8.2 L Urine Eosinophils % Ur Random Sodium Urine Creatinine 05/03/25 05:02 Hold Purple Top SEE NOTE PT 14.9 H D INR 1.3 H Anion Gap Estim Creat Clear Calc Estimated GFR Random Glucose Lactic Acid F/U @ 2Hr Lactic Acid F/U @ 4Hr Calcium Urine Eosinophils % Ur Random Sodium Urine Creatinine Microbiology Microbiology Results: Microbiology 05/01/25 19:37 Blood Culture - Preliminary Blood - Venous No growth after 24 hours. 05/01/25 19:38 Blood Culture - Preliminary Blood - Venous No growth after 24 hours. 05/01/25 20:30 Urine Culture - Preliminary Urine clean catch - Clean Catch Midstream No growth to date. Procedures Date of Service Date of Service: 05/03/25 Progress Note: A&P Assessment and plan (1) Incarcerated right inguinal hernia: Status: Acute Plan Admitted with multiple acute medical comorbidities including SBO secondary to incarcerated right inguinal hernia containing bowel loops, reduced in the OR. He appears more distended this am, but remains soft. His hernia was again reduced at bedside this time with light pressure. Will order abdominal binder, instructed to apply pressure with coughing/use of abdominal muscles to prevent incarceration again. Given it continues to recur, would recommend repair of the right inguinal hernia during this stay once he clinically improves. Will continue to follow. Time Spent With Patient Time: Total time managing care of this patient today ____ minutes. Quality Stroke Does the patient have a stroke diagnosis?: No VTE Prior VTE?: No VTE Risk Level:: Surgical - low VTE Device Contraindication: N/A - Device Ordered VTE Drug Contraindication: Treatment Not Indicated
[2025-05-03] MEDS: Ferrous Sulfate 324 MG TABLET.DR PO ×2 (07:59→20:17)
[2025-05-03 08:27] LABS: Anion Gap 15 (12-20); Blood Urea Nitrogen 56 mg/dL (9-16); Calcium 8.0 mg/dL (8.4-10.2); Carbon Dioxide 26 mmol/L (22-29); Chloride 104 mmol/L (96-108); Creatinine Clr Calc Pharmacy 21.5; Estimated Glomerular Filt Rate 22; Potassium 4.7 mmol/L (3.3-5.1); Sodium 140 mmol/L (135-145)
--- NOTE | 2025-05-03 11:31 | MHC.CLN ---
CONSULT PT WITH INCREASED NUTRITION RISK R/T PRESSURE INJURY PO INTAKE 75-100% DIET RX: C/L RECOMMEND ADDING ENSURE CLEAR TID TO PROMOTE WOUND HEALING SUPP TO PROVIDE 720KCALS, 24G PROTEIN MONITOR PO INTAKE AND ENCOURAGE SUPPLEMENTS SEE FULL ASSESSMENT
--- NOTE | 2025-05-03 12:38 | P.CDIM_ITS ---
PROVIDER RESPONSE TEXT: To clarify, the appropriate diagnosis supported by the clinical indicators: Small bowel obstruction: partial QUERY TEXT: PHYSICIAN'S DOCUMENTATION REQUEST Date of Query: 05/03/2025 12:19 PM EDT Patient Name: Danilo Sanders Admit Date: 05/01/2025 Dear Jono Echeverria MD, A review of the medical record indicates additional documentation may be needed. Please review below and update the documentation accordingly. Clinical Indicators: Progress note 05/02/25 - High grade SBO, incarcerated right inguinal hernia. Hernia reduced by surgeon, swallow evaluation, IV fluids, clear liquid diet. Surgery notes 05/02/25 - Underweight reduction of right inguinal hernia with small bowel loops under anesthesia yesterday. Good GI function. BMI last night. He did have an incarcerated hernia which was reduced, this was the source of his small bowel obstruction. Based on the above, could you provide further specifics to the documented Small Bowel Obstruction? Small bowel obstruction partial, complete, incomplete, adynamic, reflex, neurogenic, volvulus etc. Other specified Other (explain) Clinically unable to determine (explain) Thank you, Ann Meyer, CCS, CDIS Use of terms such as suspected, likely, concern for, or probable (associated with a specific diagnosis that is being evaluated, monitored, or treated as if it exists) are acceptable and can be coded in the inpatient setting, when documented at the time of discharge. Please use your independent medical judgment in providing your response. THIS QUERY IS PART OF THE PERMANENT MEDICAL RECORD
--- NOTE | 2025-05-03 12:59 | P.PNNP_ITS ---
Subjective Subjective Date of Service: 05/03/25 Physical Exam 2 Vital Signs: Vital Signs: Last Vital Signs Temp 98.0 F 05/03/25 11:44 Pulse 112 H 05/03/25 11:44 Resp 18 05/03/25 11:44 BP 100/60 05/03/25 12:00 Pulse Ox 96 05/03/25 11:44 O2 Del Method Room Air 05/03/25 11:44 BMI result Body Mass Index 22.3 Neck: Neck: Yes supple Resp: Auscultation: clear to auscultation bilaterally Cardio: Palpation: no palpable S3 Heart sounds: no rubs Neuro: Motor exam (neuro): no asterixis Objective Data Labs 05/05/25 06:42 05/05/25 06:42 Labs: Laboratory Results - last 24 hr 05/02/25 05/03/25 05/03/25 18:05 05:02 07:57 Hold Purple Top SEE NOTE PT 14.9 H D INR 1.3 H Sodium 139 140 Potassium 4.7 4.7 Chloride 100 104 Carbon Dioxide 27 26 Anion Gap 17 15 BUN 65 H 56 H Creatinine 3.42 H 2.77 H Estim Creat Clear Calc 17.0 21.5 Estimated GFR 17 22 Random Glucose 132 H 73 Calcium 8.2 L 8.0 L Microbiology Microbiology Results: Microbiology 05/01/25 20:30 Urine clean catch - Clean Catch Midstream Urine Culture - Final 05/01/25 19:37 Blood - Venous Blood Culture - Preliminary No growth after 24 hours. 05/01/25 19:38 Blood - Venous Blood Culture - Preliminary No growth after 24 hours. Procedures Date of Service Date of Service: 05/05/25 Assessment & Plan Assessment and plan (1) AMELIA (acute kidney injury): Status: Acute Plan AMELIA most likely due to hypoperfusion in the setting of small-bowel obstruction. And poor p.o. intake. Urine sodium is less than 20 No evidence of obstructive uropathy. Urinalysis is essentially benign. Hyperkalemia due to underlying AMELIA- resolving Recommendations IV hydration. Keep intake more than output. Watch urine output. Expect renal recovery once he has fluid repleted Time Spent With Patient Time: Total time managing care of this patient today ____ minutes. Progress Note: Quality Stroke Does the patient have a stroke diagnosis?: No
--- NOTE | 2025-05-03 15:25 | MHC.SLORD ---
Speech Language Pathology Order Status: Patient seen at end of lunch today, currently on clear liquids as ordered by GI, tolerating well. Patient cleared by [employer]LECT[employer]ICE REPAIRER carlita yesterday oral pharyngeal swallow WFL Patient is edentulous and without dentures in hospital. Diet to advance per GI order, patient should tolerate up to level of soft regular diet/or dysphagia diet of chopped advanced, however advancement continingent upon GI direction.
--- NOTE | 2025-05-03 16:53 | P.PNIM_ITS ---
Subjective Subjective Date of Service: 05/03/25 Interval History: Patient seen examined at bedside this morning, in no acute respiratory distress. Patient states that he is feeling better than yesterday, is able to tolerate liquids, denies any complaints at this time. Review of Systems Review of Systems: Yes all other systems are reviewed and are negative Physical Exam 2 Exam: Exam: General: AxOx3, No acute distress Head: AT/NC ENT: Moist mucous membranes Neck: supple CVS; RRR, S1 S2 normal Lungs: Clear bilateral breath sounds, no wheezes or crackles Abd: Soft non tender, non distended Ext: No edema and no calf tenderness MSK: moving all 4 limbs Skin: No cyanosis or edema Psych: Cooperative with exam Neurology: no focal deficit Vital Signs: Vital Signs: Last Vital Signs Temp 97.6 F 05/03/25 15:48 Pulse 113 H 05/03/25 15:48 Resp 16 05/03/25 15:48 BP 106/53 L 05/03/25 15:48 Pulse Ox 96 05/03/25 15:48 O2 Del Method Room Air 05/03/25 15:48 BMI result Body Mass Index 22.3 Objective Data Active Medications Albuterol/Ipratropium (Albuterol/Iprat 2.5/0.5mg 3 Ml Ampul.Neb) 3 ml INHALE RQ4H WHILE AWAKE PRN PRN Reason: Shortness of Breath/Wheezing Allopurinol (Allopurinol 100 Mg Tablet) 200 mg PO DAILY [facility] Last Admin: 05/03/25 07:59 Dose: 200 mg Documented By: SALVADOR Amiodarone HCl (Amiodarone Hcl 200 Mg Tablet) 400 mg PO DAILY [facility] Last Admin: 05/03/25 07:59 Dose: 400 mg Documented By: SALVADOR Amitriptyline HCl (Amitriptyline Hcl 25 Mg Tablet) 75 mg PO BEDTIME [facility] Atorvastatin Calcium (Atorvastatin Calcium 10 Mg Tablet) 10 mg PO BEDTIME [facility] Carvedilol (Carvedilol 3.125 Mg Tablet) 3.125 mg PO BID [facility]; Protocol Last Admin: 05/03/25 07:59 Dose: 3.125 mg Documented By: SALVADOR Cyanocobalamin (Cyanocobalamin (Vitamin B-12) 1,000 Mcg Tablet) 1,000 mcg PO DAILY [facility] Last Admin: 05/03/25 07:59 Dose: 1,000 mcg Documented By: SALVADOR Donepezil HCl (Donepezil Hcl 10 Mg Tablet) 10 mg PO BEDTIME [facility] Empagliflozin (Empagliflozin 10 Mg Tablet) 10 mg PO DAILY [facility] Last Admin: 05/03/25 07:59 Dose: 10 mg Documented By: SALVADOR Ferrous Sulfate (Ferrous Sulfate 324 Mg Tablet.Dr) 324 mg PO BID [facility] Last Admin: 05/03/25 07:59 Dose: 324 mg Documented By: SALVADOR Fluticasone Propionate (Fluticasone Propionate Nasal 16 Gm [place]) 2 spray NOSTRIL-B BID [facility] Last Admin: 05/03/25 07:58 Dose: 2 spray Documented By: SALVADOR Ceftriaxone Sodium 1 gm/ (Sodium Chloride) 50 mls @ 100 mls/hr IV Q24H [facility] Last Infusion: 05/02/25 19:55 Dose: Infused Documented By: JULES Doxycycline Hyclate 100 mg/ (Sodium Chloride) 250 mls @ 166.67 mls/hr IV Q12H [facility] Last Infusion: 05/03/25 09:06 Dose: Infused Documented By: SALVADOR Lactated Ringer's (Lr) 1,000 mls @ 100 mls/hr IVCONT .Q10H [facility] Memantine (Memantine Hcl 5 Mg Tablet) 5 mg PO BID [facility] Last Admin: 05/03/25 07:59 Dose: 5 mg Documented By: SALVDAOR Ondansetron HCl (Ondansetron Hcl 4 Mg/2 Ml Vial) 4 mg IVPUSH Q6H PRN PRN Reason: Nausea and Vomiting Pantoprazole Sodium (Pantoprazole Sodium 40 Mg/10 Ml Vial) 40 mg IVPUSH DAILY@0630 [facility] Last Admin: 05/03/25 05:02 Dose: 40 mg Documented By: JULES Senna/Docusate Sodium (Sennosides/Docusate Sodium Tablet) 2 tab PO DAILY@1200 [facility] Last Admin: 05/03/25 11:55 Dose: 2 tab Documented By: SALVADOR Labs 05/02/25 05:22 05/03/25 07:57 Labs: Laboratory Results - last 24 hr 05/02/25 05/03/25 05/03/25 18:05 05:02 07:57 Hold Purple Top SEE NOTE PT 14.9 H D INR 1.3 H Anion Gap 17 15 Estim Creat Clear Calc 17.0 21.5 Estimated GFR 17 22 Random Glucose 132 H 73 Calcium 8.2 L 8.0 L Microbiology Microbiology Results: Microbiology 05/01/25 20:30 Urine Culture - Final Urine clean catch - Clean Catch Midstream 05/01/25 19:37 Blood Culture - Preliminary Blood - Venous No growth after 24 hours. 05/01/25 19:38 Blood Culture - Preliminary Blood - Venous No growth after 24 hours. Assessment and Plan (1) Small bowel obstruction: Status: Acute (2) AMELIA (acute kidney injury): Status: Acute (3) BPH (benign prostatic hyperplasia): Status: Acute Plan 79 yo male with PMH BPH, Valve replacement and 2 years later possible Bental procedure for Aortic surgery, AICD/PPM, CHF, HTN, AFIB on coumadin, NENO, Allergic rhitinits, GERD, GOUT, constipation was BIBA from home for report of near syncopal episode since experiencing increasign abd pain and nausea with vomiting since this past . Pt found to have high grade SBO and incarcerated R ing hernia. Pt admitted by surgery initially, now on med team. High Grade SBO, Incarcerated R inguinal hernia, fluctuated Initial NG-tube placement unsuccessful, overnight RN attempted multiple times including nasogastric, unsuccessful, General surgery aware Hernia reduced by surgeon, however recurred, plans on possible surgery on will switch to LR at 100mL/hr clear liquid diet AMELIA likely multifactorial in setting of SBO and poor oral intake Nephrology consulted and following initiate LR at 100mL/hr, will closely monitor, will aim for increased intake Aspiration PNA vs Atelecatasis via CXR, resolved continue ceftriaxone, doxy d/c Aspiration precautions Duo nebs prn BPH Holding BPH meds due to low BP [place] in place PAFIB on coumadin will hold of on coumadin at this time due to plans of possible surgery on . INR daily AICD PPM V paced rhythm Pt follows with Dr. Chacko at [facility] Device last checked 2 months ago per pt CHF without exacerbation DVT Prophylaxis: SCDs FULL CODE Quality Stroke Does the patient have a stroke diagnosis?: No VTE Prior VTE?: No VTE Risk Level:: Surgical - low VTE Device Contraindication: N/A - Device Ordered VTE Drug Contraindication: Treatment Not Indicated
--- NOTE | 2025-05-03 16:56 | PC.NURSE ---
Pt kary Agosto called stating patient phone and dentures are at home
[2025-05-03] MEDS: Lactated Ringers 1,000 ML 100 ML IVCONT (17:35)
[2025-05-04] MEDS: Lactated Ringers 1,000 ML 100 ML IVCONT ×3 (02:40→21:29)
[2025-05-04 04:00] VITALS: BP 104/65; PULSE 111; RESP 18; TEMP 36.6; O2SAT 94
[2025-05-04 05:49] LABS: Hematocrit 31.3 % (42.0-52.0); Hemoglobin 10.2 g/dl (14.0-18.0); Mean Corpuscular HGB Conc 32.6 g/dl (31.0-36.0); Mean Corpuscular Hemoglobin 31.7 pg (27.0-33.0); Mean Corpuscular Volume 97.2 fL (80.0-98.0); NRBC Abs Auto 0.000 X10*3/uL (0.0-0.012); NRBC Pct Auto 0.0 /100WBC (0.0-0.2); Platelet Count 71 X10*3/uL (160-400); Red Blood Count 3.22 X10*6/uL (4.60-5.80); White Blood Count 4.8 X10*3/uL (4.8-10.8)
[2025-05-04 05:53] VITALS: BMI 22.4
[2025-05-04 05:55] LABS: INTERNATIONAL NORM RATIO 1.2 (0.9-1.1); Prothrombin Time 14.2 SEC (10.9-12.4)
[2025-05-04 06:12] LABS: Anion Gap 12 (12-20); Blood Urea Nitrogen 43 mg/dL (9-16); Calcium 8.0 mg/dL (8.4-10.2); Carbon Dioxide 26 mmol/L (22-29); Chloride 105 mmol/L (96-108); Creatinine Clr Calc Pharmacy 26.8; Estimated Glomerular Filt Rate 29; Magnesium 1.8 mg/dL (1.6-2.6); Potassium 4.2 mmol/L (3.3-5.1); Sodium 139 mmol/L (135-145)
[2025-05-04 07:42] VITALS: BP 96/58; PULSE 99; RESP 16; TEMP 36.2; O2SAT 92
[2025-05-04] MEDS: Ferrous Sulfate 324 MG TABLET.DR PO ×2 (08:02→21:08)
--- NOTE | 2025-05-04 09:05 | P.PNGS_ITS ---
Subjective Subjective Date of Service: 05/04/25 Interval history: Denies abdominal pain, nausea, vomiting. Passing flatus. No new concerns. Physical Exam 2 Vital Signs: Vital Signs: Last Vital Signs Temp 97.2 F 05/04/25 07:42 Pulse 99 05/04/25 07:42 Resp 16 05/04/25 07:42 BP 96/58 L 05/04/25 07:42 Pulse Ox 92 05/04/25 07:42 O2 Del Method Room Air 05/04/25 07:42 BMI result Body Mass Index 22.4 Const: General: comfortable, no acute distress and alert Resp: Effort & Inspection: normal respiratory effort, able to speak in complete sentences and not tachypneic GI: Other: soft, very mildly distended nontender right inguinal hernia remains reduced Skin: General skin exam: no rashes or lesions noted Neuro: General: moves all extremities Objective Data Active Medications Albuterol/Ipratropium (Albuterol/Iprat 2.5/0.5mg 3 Ml Ampul.Neb) 3 ml INHALE RQ4H WHILE AWAKE PRN PRN Reason: Shortness of Breath/Wheezing Allopurinol (Allopurinol 100 Mg Tablet) 200 mg PO DAILY [facility] Last Admin: 05/04/25 08:02 Dose: 200 mg Documented By: ALBIN Amiodarone HCl (Amiodarone Hcl 200 Mg Tablet) 400 mg PO DAILY [facility] Last Admin: 05/04/25 08:02 Dose: 400 mg Documented By: ALBIN Amitriptyline HCl (Amitriptyline Hcl 25 Mg Tablet) 75 mg PO BEDTIME [facility] Last Admin: 05/03/25 20:17 Dose: 75 mg Documented By: RICK Atorvastatin Calcium (Atorvastatin Calcium 10 Mg Tablet) 10 mg PO BEDTIME [facility] Last Admin: 05/03/25 20:17 Dose: 10 mg Documented By: RICK Carvedilol (Carvedilol 3.125 Mg Tablet) 3.125 mg PO BID [facility]; Protocol Last Admin: 05/04/25 08:02 Dose: 3.125 mg Documented By: ALBIN Cyanocobalamin (Cyanocobalamin (Vitamin B-12) 1,000 Mcg Tablet) 1,000 mcg PO DAILY [facility] Last Admin: 05/04/25 08:02 Dose: 1,000 mcg Documented By: ALBIN Donepezil HCl (Donepezil Hcl 10 Mg Tablet) 10 mg PO BEDTIME [facility] Last Admin: 05/03/25 20:17 Dose: 10 mg Documented By: RICK Empagliflozin (Empagliflozin 10 Mg Tablet) 10 mg PO DAILY [facility] Last Admin: 05/04/25 08:03 Dose: Not Given Documented By: ALBIN Non-Admin Reason: preop for tomorrow Ferrous Sulfate (Ferrous Sulfate 324 Mg Tablet.Dr) 324 mg PO BID [facility] Last Admin: 05/04/25 08:02 Dose: 324 mg Documented By: ALBIN Fluticasone Propionate (Fluticasone Propionate Nasal 16 Gm [place]) 2 spray NOSTRIL-B BID [facility] Last Admin: 05/04/25 08:21 Dose: 2 spray Documented By: ALBIN Ceftriaxone Sodium 1 gm/ (Sodium Chloride) 50 mls @ 100 mls/hr IV Q24H [facility] Last Infusion: 05/03/25 20:46 Dose: Infused Documented By: RICK Lactated Ringer's (Lr) 1,000 mls @ 100 mls/hr IVCONT .Q10H [facility] Last Admin: 05/04/25 02:40 Dose: 100 mls/hr Documented By: EMI Memantine (Memantine Hcl 5 Mg Tablet) 5 mg PO BID [facility] Last Admin: 05/04/25 08:02 Dose: 5 mg Documented By: ALBIN Ondansetron HCl (Ondansetron Hcl 4 Mg/2 Ml Vial) 4 mg IVPUSH Q6H PRN PRN Reason: Nausea and Vomiting Pantoprazole Sodium (Pantoprazole Sodium 40 Mg/10 Ml Vial) 40 mg IVPUSH DAILY@0630 [facility] Last Admin: 05/04/25 05:38 Dose: 40 mg Documented By: EMI Senna/Docusate Sodium (Sennosides/Docusate Sodium Tablet) 2 tab PO DAILY@1200 [facility] Last Admin: 05/03/25 11:55 Dose: 2 tab Documented By: BRITTANYIT Labs 05/04/25 05:01 05/04/25 05:01 Labs: Laboratory Results - last 24 hr 05/04/25 05:01 MCV 97.2 MCH 31.7 MCHC 32.6 RDW 15.1 Plt Count 71 L MPV 11.2 Absolute Nucleated RBC 0.000 Nucleated RBC % (auto) 0.0 PT 14.2 H INR 1.2 H Anion Gap 12 Estim Creat Clear Calc 26.8 Estimated GFR 29 Random Glucose 81 Calcium 8.0 L Magnesium 1.8 Microbiology Microbiology Results: Microbiology 05/01/25 19:37 Blood Culture - Preliminary Blood - Venous No growth after 48 hours. 05/01/25 19:38 Blood Culture - Preliminary Blood - Venous No growth after 48 hours. 05/01/25 20:30 Urine Culture - Final Urine clean catch - Clean Catch Midstream Procedures Date of Service Date of Service: 05/04/25 Progress Note: A&P Assessment and plan (1) Incarcerated right inguinal hernia: Status: Acute Plan Admitted with multiple acute medical comorbidities including SBO secondary to incarcerated right inguinal hernia containing bowel loops, reduced in the OR. Right inguinal hernia intermittently recurring with associated discomfort at the area. Hernia currently remains reduced, abd soft and non tender. It was therefore recommended to proceed with repair of the right inguinal hernia during this stay to prevent recurrence of incarceration. He is tenatively on the schedule for tomorrow. NPO after midnight. Cont to hold coumadin. Time Spent With Patient Time: Total time managing care of this patient today ____ minutes. Quality Stroke Does the patient have a stroke diagnosis?: No VTE Prior VTE?: No VTE Risk Level:: Surgical - low VTE Device Contraindication: N/A - Device Ordered VTE Drug Contraindication: Treatment Not Indicated
--- NOTE | 2025-05-04 09:06 | P.CONAN_ITS ---
HPI - Anesthesia Eval Consult details Narrative: 79 yr old male for right Repair Hernia Inguinal Reducible *cancelled due to rapid afib during admission after 05/01 procedure s/p reduction of incarcerated inguinal hernia 05/01/25 with GA, ETT 7 H/O aortic valve replacement: see recent echo below Afib: on warfarin, follows with coumadin clinic through [facility] AICD (automatic cardioverter/defibrillator) present: device check from 01/2025 below CKD: seen by [facility] renal 05/03/25, recommended fluid repletion. Low platelets: 71 on 05/04/25. Daily CBCs planned per orders. [facility], [facility] Active Problems Active Problems: All Active Problems (Updated 05/01/25 @ 20:02 by [facility] AMELIA (acute kidney injury) (Acute) AICD (automatic cardioverter/defibrillator) present (Acute) BPH (benign prostatic hyperplasia) (Acute) Incarcerated right inguinal hernia (Acute) Small bowel obstruction (Acute) MCI (mild cognitive impairment) (Acute) Past Medical History Medical History (Updated 05/17/25 @ 00:02 by Background Daemon) Preoperative cardiovascular examination Marijuana dependence BPH (benign prostatic hyperplasia) Presence of combination internal cardiac defibrillator (ICD) and pacemaker Atrial fibrillation Hypertension MCI (mild cognitive impairment) Tachycardia with heart rate 121-140 beats per minute Chest pain Family History Family history of problems with anesthesia: No Surgical History Surgical History (Updated 05/17/25 @ 00:02 by Background Daemon) AICD (automatic cardioverter/defibrillator) present S/P aorta repair Heart valve replaced History of Problems with Anesthesia: No Social History Social History (System 05/05/25 @ 11:17 by Radha Solorio) Household Members: Friend(s) Housing: House Do you presently have visiting nurse or other home services: Yes ([place]) Patient Tobacco Use Status: Never used Tobacco Substance Use Type: Marijuana service: No Meds Allergies Allergy/AdvReac Type Severity Reaction Status Date / Time Iodinated Contrast Media (IV Allergy Intermediate Swelling Verified 05/17/25 13:44 Contrast Dye) Penicillins Allergy Swelling Verified 05/17/25 13:44 Active Medications: Current Medications Albuterol/Ipratropium (Albuterol/Iprat 2.5/0.5mg 3 Ml Ampul.Neb) 3 ml INHALE RQ4H WHILE AWAKE PRN PRN Reason: Shortness of Breath/Wheezing Allopurinol (Allopurinol 100 Mg Tablet) 200 mg PO DAILY [facility] Last Admin: 05/04/25 08:02 Dose: 200 mg Amiodarone HCl (Amiodarone Hcl 200 Mg Tablet) 400 mg PO DAILY [facility] Last Admin: 05/04/25 08:02 Dose: 400 mg Amitriptyline HCl (Amitriptyline Hcl 25 Mg Tablet) 75 mg PO BEDTIME [facility] Last Admin: 05/03/25 20:17 Dose: 75 mg Atorvastatin Calcium (Atorvastatin Calcium 10 Mg Tablet) 10 mg PO BEDTIME [facility] Last Admin: 05/03/25 20:17 Dose: 10 mg Carvedilol (Carvedilol 3.125 Mg Tablet) 3.125 mg PO BID [facility]; Protocol Last Admin: 05/04/25 08:02 Dose: 3.125 mg Cyanocobalamin (Cyanocobalamin (Vitamin B-12) 1,000 Mcg Tablet) 1,000 mcg PO DAILY [facility] Last Admin: 05/04/25 08:02 Dose: 1,000 mcg Donepezil HCl (Donepezil Hcl 10 Mg Tablet) 10 mg PO BEDTIME [facility] Last Admin: 05/03/25 20:17 Dose: 10 mg Empagliflozin (Empagliflozin 10 Mg Tablet) 10 mg PO DAILY [facility] Last Admin: 05/04/25 08:03 Dose: Not Given Ferrous Sulfate (Ferrous Sulfate 324 Mg Tablet.Dr) 324 mg PO BID [facility] Last Admin: 05/04/25 08:02 Dose: 324 mg Fluticasone Propionate (Fluticasone Propionate Nasal 16 Gm [place]) 2 spray NOSTRIL-B BID [facility] Last Admin: 05/04/25 08:21 Dose: 2 spray Ceftriaxone Sodium 1 gm/ (Sodium Chloride) 50 mls @ 100 mls/hr IV Q24H [facility] Last Infusion: 05/03/25 20:46 Dose: Infused Lactated Ringer's (Lr) 1,000 mls @ 100 mls/hr IVCONT .Q10H [facility] Last Admin: 05/04/25 02:40 Dose: 100 mls/hr Memantine (Memantine Hcl 5 Mg Tablet) 5 mg PO BID [facility] Last Admin: 05/04/25 08:02 Dose: 5 mg Ondansetron HCl (Ondansetron Hcl 4 Mg/2 Ml Vial) 4 mg IVPUSH Q6H PRN PRN Reason: Nausea and Vomiting Pantoprazole Sodium (Pantoprazole Sodium 40 Mg/10 Ml Vial) 40 mg IVPUSH DAILY@0630 [facility] Last Admin: 05/04/25 05:38 Dose: 40 mg Senna/Docusate Sodium (Sennosides/Docusate Sodium Tablet) 2 tab PO DAILY@1200 [facility] Last Admin: 05/03/25 11:55 Dose: 2 tab Home Medications ?Medication ?Instructions ?Recorded ?Confirmed ?Last Taken ?Type allopurinol 100 mg tablet 200 mg PO DAILY 01/06/25 Un known History cyanocobalamin (vitamin B-12) 1,000 mcg PO DAILY 01/06 Unknown History 1,000 mcg capsule ferrous sulfate 325 mg (65 mg 325 mg PO BID 01/06/25 Unknown History iron) tablet,delayed release potassium chloride 20 mEq 20 meq PO BID 01/06/25 Unkn own History tablet,extended release simvastatin 20 mg tablet 20 mg PO BEDTIME 01/06/25 U nknown History amitriptyline 75 mg tablet 75 mg PO BEDTIME 02/11/25 1 04/30/25 History carvedilol 3.125 mg tablet 3.125 mg PO BID 02/11/2504/30/25 History empagliflozin 10 mg tablet 10 mg PO DAILY 02/11/2504/30/25 History (Jardiance) lansoprazole 30 mg capsule,delayed 30 mg PO DAILY@0630 02/11/25 05/01/25 04/30/25 History release losartan 25 mg tablet 25 mg PO DAILY 02/11/2504/0704/30/25 History torsemide 20 mg tablet 80 mg PO DAILY 02/11/2504/0704/30/25 History fluticasone propionate 50 2 spray intranasal BID 05/0105/01/25 04/30/25 History mcg/actuation nasal spray,suspension prochlorperazine maleate 10 mg 10 mg PO Q6H PRN nausea /vomiting 05/01/25 05/01/25 Unknown History tablet sennosides 8.6 mg-docusate sodium 2 tab-cap PO DAILY@1 200 05/01/25 05/01/25 04/30/25 History 50 mg tablet (Senna with Docusate Sodium) Exam Height,Weight and Vital Signs: Height 5 ft 10 in Weight 70.7 kg Last Vital Signs Temp 97.2 F 05/04/25 07:42 Pulse 99 05/04/25 07:42 Resp 16 05/04/25 07:42 BP 96/58 L 05/04/25 07:42 Pulse Ox 92 05/04/25 07:42 O2 Del Method Room Air 05/04/25 07:42 Pertinent Lab Results Pertinent Lab Results: Laboratory Tests 05/01/25 05/01/25 05/01/25 13:22 19:37 20:30 WBC 13.5 H RBC 4.72 Hgb 14.7 Hct 46.1 MCV 97.7 MCH 31.1 MCHC 31.9 RDW 15.3 Plt Count 154 L MPV 10.8 Immature Gran % (Auto) 0.4 Neut % (Auto) 91.4 H Lymph % (Auto) 5.6 L [place] % (Auto) 2.1 Eos % (Auto) 0.2 Baso % (Auto) 0.3 Lymph # (Auto) 0.8 L [place] # (Auto) 0.3 Eos # (Auto) 0.0 Baso # (Auto) 0.0 Abs Immat Gran (auto) 0.06 H Absolute Neuts (auto) 12.3 H Absolute Nucleated RBC 0.000 Nucleated RBC % (auto) 0.0 Smear Tech's Comments VERIFIED Hold Purple Top PT 21.7 H INR 1.9 H Sodium 139 141 Potassium 4.9 5.3 H Chloride 97 100 Carbon Dioxide 27 28 Anion Gap 20 18 BUN 43 H 49 H Creatinine 2.93 H 3.04 H Estim Creat Clear Calc 19.7 19.0 Estimated GFR 21 20 POC Glucose Random Glucose 173 H 124 H Lactic Acid Lactic Acid F/U @ 2Hr Lactic Acid F/U @ 4Hr Calcium 9.8 8.6 D Magnesium 2.5 Total Bilirubin 1.3 H AST 35 ALT 26 Alkaline Phosphatase 126 H Troponin I High Sens 23.8 NT-Pro-B Natriuret Pep 67598.7 H Total Protein 8.4 H Albumin 5.1 H TSH 3.10 Urine Color Dark Yellow Urine Appearance Cloudy Urine pH 5.0 Ur Specific [place] 1.020 Urine Protein 30 (1+) H Urine Glucose (UA) 250 H Urine Ketones Trace Urine Blood Negative Urine Nitrite Negative Ur Leukocyte Esterase Small (1+) H Urine RBC 0-2 Urine WBC 0-5 Ur Squamous Epith Cells 3-5 Urine Bacteria None Seen Hyaline Casts 6-10 Urine Eosinophils % 0.0 Urine Osmolality 351 L Ur Random Sodium Urine Creatinine 98.74 05/01/25 05/02/25 05/02/25 21:03 05:22 06:22 WBC 7.6 7.0 RBC 3.99 L 3.57 L Hgb 12.4 L 11.1 L Hct 39.1 L 34.8 L MCV 98.0 97.5 MCH 31.1 31.1 MCHC 31.7 31.9 RDW 15.2 15.4 Plt Count 103 L D 90 L MPV 10.3 9.7 Immature Gran % (Auto) 0.3 Neut % (Auto) 82.2 H Lymph % (Auto) 9.1 L [place] % (Auto) 8.3 Eos % (Auto) 0.0 Baso % (Auto) 0.1 Lymph # (Auto) 0.6 L [place] # (Auto) 0.6 Eos # (Auto) 0.0 Baso # (Auto) 0.0 Abs Immat Gran (auto) 0.02 Absolute Neuts (auto) 5.8 Absolute Nucleated RBC 0.000 0.000 Nucleated RBC % (auto) 0.0 0.0 Smear Tech's Comments Hold Purple Top PT 19.4 H INR 1.7 H Sodium 139 Potassium 6.0 H* Chloride 101 Carbon Dioxide 25 Anion Gap 19 BUN 49 H 58 H Creatinine 3.02 H 3.42 H Estim Creat Clear Calc 19.1 16.9 Estimated GFR 20 17 POC Glucose 226 H Random Glucose 110 Lactic Acid 2.4 H* Lactic Acid F/U @ 2Hr Lactic Acid F/U @ 4Hr Calcium 8.3 L Magnesium Total Bilirubin 1.2 H AST 67 H ALT 43 H Alkaline Phosphatase 72 Troponin I High Sens NT-Pro-B Natriuret Pep Total Protein 6.3 L Albumin 3.8 TSH Urine Color Urine Appearance Urine pH Ur Specific [place] Urine Protein Urine Glucose (UA) Urine Ketones Urine Blood Urine Nitrite Ur Leukocyte Esterase Urine RBC Urine WBC Ur Squamous Epith Cells Urine Bacteria Hyaline Casts Urine Eosinophils % Urine Osmolality Ur Random Sodium Urine Creatinine 05/02/25 05/02/25 05/02/25 06:42 07:54 09:00 WBC RBC Hgb Hct MCV MCH MCHC RDW Plt Count MPV Immature Gran % (Auto) Neut % (Auto) Lymph % (Auto) [place] % (Auto) Eos % (Auto) Baso % (Auto) Lymph # (Auto) [place] # (Auto) Eos # (Auto) Baso # (Auto) Abs Immat Gran (auto) Absolute Neuts (auto) Absolute Nucleated RBC Nucleated RBC % (auto) Smear Tech's Comments Hold Purple Top PT INR Sodium Potassium Chloride Carbon Dioxide Anion Gap BUN Creatinine Estim Creat Clear Calc Estimated GFR POC Glucose 173 H Random Glucose Lactic Acid Lactic Acid F/U @ 2Hr 2.4 H* Lactic Acid F/U @ 4Hr Calcium Magnesium Total Bilirubin AST ALT Alkaline Phosphatase Troponin I High Sens NT-Pro-B Natriuret Pep Total Protein Albumin TSH Urine Color Urine Appearance Urine pH Ur Specific [place] Urine Protein Urine Glucose (UA) Urine Ketones Urine Blood Urine Nitrite Ur Leukocyte Esterase Urine RBC Urine WBC Ur Squamous Epith Cells Urine Bacteria Hyaline Casts Urine Eosinophils % Urine Osmolality Ur Random Sodium < 20.0 Urine Creatinine 82.98 05/02/25 05/02/25 05/02/25 09:14 10:27 18:05 WBC RBC Hgb Hct MCV MCH MCHC RDW Plt Count MPV Immature Gran % (Auto) Neut % (Auto) Lymph % (Auto) [place] % (Auto) Eos % (Auto) Baso % (Auto) Lymph # (Auto) [place] # (Auto) Eos # (Auto) Baso # (Auto) Abs Immat Gran (auto) Absolute Neuts (auto) Absolute Nucleated RBC Nucleated RBC % (auto) Smear Tech's Comments Hold Purple Top PT INR Sodium 140 139 Potassium 5.5 H 4.7 Chloride 103 100 Carbon Dioxide 26 27 Anion Gap 17 17 BUN 59 H 65 H Creatinine 3.38 H 3.42 H Estim Creat Clear Calc 17.2 17.0 Estimated GFR 18 17 POC Glucose Random Glucose 98 132 H Lactic Acid Lactic Acid F/U @ 2Hr Lactic Acid F/U @ 4Hr 2.0 Calcium 8.1 L 8.2 L Magnesium Total Bilirubin AST ALT Alkaline Phosphatase Troponin I High Sens NT-Pro-B Natriuret Pep Total Protein Albumin TSH Urine Color Urine Appearance Urine pH Ur Specific [place] Urine Protein Urine Glucose (UA) Urine Ketones Urine Blood Urine Nitrite Ur Leukocyte Esterase Urine RBC Urine WBC Ur Squamous Epith Cells Urine Bacteria Hyaline Casts Urine Eosinophils % Urine Osmolality Ur Random Sodium Urine Creatinine 05/03/25 05/03/25 05/04/25 05:02 07:57 05:01 WBC 4.8 RBC 3.22 L Hgb 10.2 L Hct 31.3 L MCV 97.2 MCH 31.7 MCHC 32.6 RDW 15.1 Plt Count 71 L MPV 11.2 Immature Gran % (Auto) Neut % (Auto) Lymph % (Auto) [place] % (Auto) Eos % (Auto) Baso % (Auto) Lymph # (Auto) [place] # (Auto) Eos # (Auto) Baso # (Auto) Abs Immat Gran (auto) Absolute Neuts (auto) Absolute Nucleated RBC 0.000 Nucleated RBC % (auto) 0.0 Smear Tech's Comments Hold Purple Top SEE NOTE PT 14.9 H D 14.2 H INR 1.3 H 1.2 H Sodium 140 139 Potassium 4.7 4.2 Chloride 104 105 Carbon Dioxide 26 26 Anion Gap 15 12 BUN 56 H 43 H Creatinine 2.77 H 2.23 H Estim Creat Clear Calc 21.5 26.8 Estimated GFR 22 29 POC Glucose Random Glucose 73 81 Lactic Acid Lactic Acid F/U @ 2Hr Lactic Acid F/U @ 4Hr Calcium 8.0 L 8.0 L Magnesium 1.8 Total Bilirubin AST ALT Alkaline Phosphatase Troponin I High Sens NT-Pro-B Natriuret Pep Total Protein Albumin TSH Urine Color Urine Appearance Urine pH Ur Specific [place] Urine Protein Urine Glucose (UA) Urine Ketones Urine Blood Urine Nitrite Ur Leukocyte Esterase Urine RBC Urine WBC Ur Squamous Epith Cells Urine Bacteria Hyaline Casts Urine Eosinophils % Urine Osmolality Ur Random Sodium Urine Creatinine Narrative Narrative: ECHO 03/23/25 ? Left ventricle cavity size is normal. Left ventricular systolic function is moderately decreased. EF by 2D Ramirez biplane is 35%. Increased end-systolic diameter ? Moderate LV global hypokinesis is present. ? Left ventricle wall thickness is normal. ? Right ventricle is enlarged. Right ventricular systolic function appears mildly impaired. ? A mechanical aortic valve is present. Prosthetic valve appears to be functioning normally. ? Mitral valve with moderately thickened leaflets. Leaflet excursion appears to be decreased but no significant stenosis on Doppler interrogation and only very mild MR. ? Tricuspid valve demonstrates severe lower velocity regurgitation. There is a pacer wire in the right sided chambers. ? Mild pulmonic insufficiency. ? When compared to the study of September 20, 2024 it seems that the defibrillator wire is now present. The paradoxical septal motion looks slightly less prominent now. But no real change in the ejection fraction or tricuspid regurgitation. ? DEVICE check January 2025 IMPRESSION: Unscheduled Remote * Reason: Per Lion Delarosa for HR * Alerts or Events: 0 * Battery: Battery is at 87%, 4.17 yrs * Sensing, impedance and thresholds reviewed * Programmed parameters reviewed * Presenting rhythm reviewed * Heart Rate Histograms reviewed * No significant changes noted ? Additional Notes: Presenting rhythm is BiV paced with Bigeminy EKG 02/2025 Suspected pacer failure Vent paced rhythm. Rate 110 Assessment and Plan Final Anesthetic Review Family History of Problems with Anesthesia: No History of Problems with Anesthesia: No
--- NOTE | 2025-05-04 10:49 | P.CDIM_ITS ---
PROVIDER RESPONSE TEXT: To clarify, the appropriate diagnosis supported by the clinical indicators: Deep tissue injury coccyx QUERY TEXT: PHYSICIAN'S DOCUMENTATION REQUEST Date of Query: 05/04/2025 08:51 AM EDT Patient Name: Danilo Sanders Admit Date: 05/01/2025 Dear Jono Echeverria MD, A review of the medical record indicates additional documentation may be needed. Please review below and update the documentation accordingly. Clinical Indicators: Wound care notes dated 05/03/25 - Deep tissue injury coccyx - Present on admision. Central area open with red moist tissue macerated edges superior site with slough noted to wound bed. Triad and foam dressing. Based on the above, could you please provide further information regarding the ulcer/wound/injury: Deep tissue injury coccyx Other specified Please specify the location and laterality of the ulcer/wound Pressure injury coccyx Other (explain) Clinically unable to determine (explain) Thank you, Ann Meyer, CCS, CDIS Use of terms such as suspected, likely, concern for, or probable (associated with a specific diagnosis that is being evaluated, monitored, or treated as if it exists) are acceptable and can be coded in the inpatient setting, when documented at the time of discharge. Please use your independent medical judgment in providing your response. THIS QUERY IS PART OF THE PERMANENT MEDICAL RECORD
--- NOTE | 2025-05-04 11:07 | HO.PM.IMPN ---
Subjective Subjective Date of Service: 05/04/25 Interval History: Patient seen examined at bedside this morning, in no acute respiratory distress. Patient's creatinine has improved. Continues on IV fluids. Plans on possible surgery on . No acute overnight events. Physical Exam Exam: Exam: General: AxOx3, No acute distress Head: AT/NC ENT: Moist mucous membranes Neck: supple CVS; RRR, S1 S2 normal Lungs: Clear bilateral breath sounds, no wheezes or crackles Abd: Soft non tender, abdominal binder in place Ext: No edema and no calf tenderness MSK: moving all 4 limbs Skin: No cyanosis or edema Psych: Cooperative with exam Neurology: no focal deficit Vital Signs: Vital Signs: Last Vital Signs Temp 97.2 F 05/04/25 07:42 Pulse 99 05/04/25 07:42 Resp 16 05/04/25 07:42 BP 96/58 L 05/04/25 07:42 Pulse Ox 92 05/04/25 07:42 O2 Del Method Room Air 05/04/25 07:42 BMI result Body Mass Index 22.4 Objective Data Active Medications Albuterol/Ipratropium (Albuterol/Iprat 2.5/0.5mg 3 Ml Ampul.Neb) 3 ml INHALE RQ4H WHILE AWAKE PRN PRN Reason: Shortness of Breath/Wheezing Allopurinol (Allopurinol 100 Mg Tablet) 200 mg PO DAILY [facility] Last Admin: 05/04/25 08:02 Dose: 200 mg Documented By: ALBIN Amiodarone HCl (Amiodarone Hcl 200 Mg Tablet) 400 mg PO DAILY [facility] Last Admin: 05/04/25 08:02 Dose: 400 mg Documented By: ALBIN Amitriptyline HCl (Amitriptyline Hcl 25 Mg Tablet) 75 mg PO BEDTIME [facility] Last Admin: 05/03/25 20:17 Dose: 75 mg Documented By: RICK Atorvastatin Calcium (Atorvastatin Calcium 10 Mg Tablet) 10 mg PO BEDTIME [facility] Last Admin: 05/03/25 20:17 Dose: 10 mg Documented By: RICK Carvedilol (Carvedilol 3.125 Mg Tablet) 3.125 mg PO BID [facility]; Protocol Last Admin: 05/04/25 08:02 Dose: 3.125 mg Documented By: ALBIN Cyanocobalamin (Cyanocobalamin (Vitamin B-12) 1,000 Mcg Tablet) 1,000 mcg PO DAILY [facility] Last Admin: 05/04/25 08:02 Dose: 1,000 mcg Documented By: ALBIN Donepezil HCl (Donepezil Hcl 10 Mg Tablet) 10 mg PO BEDTIME [facility] Last Admin: 05/03/25 20:17 Dose: 10 mg Documented By: RICK Ferrous Sulfate (Ferrous Sulfate 324 Mg Tablet.) 324 mg PO BID [facility] Last Admin: 05/04/25 08:02 Dose: 324 mg Documented By: ALBIN Fluticasone Propionate (Fluticasone Propionate Nasal 16 Gm [place]) 2 spray NOSTRIL-B BID [facility] Last Admin: 05/04/25 08:21 Dose: 2 spray Documented By: ALBIN Ceftriaxone Sodium 1 gm/ (Sodium Chloride) 50 mls @ 100 mls/hr IV Q24H [facility] Last Infusion: 05/03/25 20:46 Dose: Infused Documented By: RICK Lactated Ringer's (Lr) 1,000 mls @ 100 mls/hr IVCONT .Q10H [facility] Last Admin: 05/04/25 02:40 Dose: 100 mls/hr Documented By: EMI Memantine (Memantine Hcl 5 Mg Tablet) 5 mg PO BID [facility] Last Admin: 05/04/25 08:02 Dose: 5 mg Documented By: ALBIN Ondansetron HCl (Ondansetron Hcl 4 Mg/2 Ml Vial) 4 mg IVPUSH Q6H PRN PRN Reason: Nausea and Vomiting Pantoprazole Sodium (Pantoprazole Sodium 40 Mg/10 Ml Vial) 40 mg IVPUSH DAILY@0630 [facility] Last Admin: 05/04/25 05:38 Dose: 40 mg Documented By: EMI Senna/Docusate Sodium (Sennosides/Docusate Sodium Tablet) 2 tab PO DAILY@1200 [facility] Last Admin: 05/03/25 11:55 Dose: 2 tab Documented By: BRITTANYIT Labs 05/04/25 05:01 05/04/25 05:01 Labs: Laboratory Results - last 24 hr 05/04/25 05:01 MCV 97.2 MCH 31.7 MCHC 32.6 RDW 15.1 Plt Count 71 L MPV 11.2 Absolute Nucleated RBC 0.000 Nucleated RBC % (auto) 0.0 PT 14.2 H INR 1.2 H Anion Gap 12 Estim Creat Clear Calc 26.8 Estimated GFR 29 Random Glucose 81 Calcium 8.0 L Magnesium 1.8 Microbiology Microbiology Results: Microbiology 05/01/25 19:37 Blood Culture - Preliminary Blood - Venous No growth after 48 hours. 05/01/25 19:38 Blood Culture - Preliminary Blood - Venous No growth after 48 hours. 05/01/25 20:30 Urine Culture - Final Urine clean catch - Clean Catch Midstream Assessment and Plan (1) Small bowel obstruction: Status: Acute (2) AMELIA (acute kidney injury): Status: Acute (3) Incarcerated right inguinal hernia: Status: Acute Plan 79 yo male with PMH BPH, Valve replacement and 2 years later possible Bental procedure for Aortic surgery, AICD/PPM, CHF, HTN, AFIB on coumadin, NENO, Allergic rhitinits, GERD, GOUT, constipation was BIBA from home for report of near syncopal episode since experiencing increasign abd pain and nausea with vomiting since this past . Pt found to have high grade SBO and incarcerated R ing hernia. Pt admitted by surgery initially, now on med team. patient with recurrence of SBO with plans on taking to OR tomorrow High Grade SBO, Incarcerated R inguinal hernia, fluctuating Initial NG-tube placement unsuccessful, overnight RN attempted multiple times including nasogastric, unsuccessful, General surgery aware Hernia reduced by surgeon, however recurred, plans on possible surgery on 05/05 continue LR at 100mL/hr will advance diet, will make NPO at midnight for procedyre AMELIA likely multifactorial in setting of SBO and poor oral intake, improving currently 2.2 Nephrology consulted and following continue LR at 100mL/hr, will closely monitor, will aim for increased intake Aspiration PNA vs Atelecatasis via CXR, resolved continue ceftriaxone, doxy d/c Aspiration precautions Duo nebs prn BPH Holding BPH meds due to low BP [place] in place PAFIB on coumadin continue to hold of on coumadin at this time due to plans of possible surgery tomorrow INR daily AICD PPM V paced rhythm Pt follows with Dr. Chacko at [facility] last checked 2 months ago per pt sacral wound continue per wound care recs, offloading q2 hours CHF without exacerbation DVT Prophylaxis: SCDs FULL CODE Quality Stroke Does the patient have a stroke diagnosis?: No VTE Prior VTE?: No VTE Risk Level:: Surgical - low VTE Device Contraindication: N/A - Device Ordered VTE Drug Contraindication: Treatment Not Indicated
--- NOTE | 2025-05-04 11:10 | MHC.SL.SWA ---
Speech Pathologist Impression: Oropharyngeal coordination WNL, pt is edentulous but able to formulate/manipulate bolus of soft moist solids with efficiency Risk of Aspiration Due to: Hx GERD/vomitting Deconditioning Dx hernia Dysphasia Diet Status: Recc NDD2 with thins, meds in puree or as pt prefers Liquid Consistency and Strategies for Safe Swallow: Liquid Intake Recommendation: Thin Liquid Intake Strategies: Small Sips Chin Tuck with Liquids Double Swallow Solid Food Consistency: Dietary Recommendations: Grnd/Mech Altered (NDD2) Additional Modifications to Solid Foods: Oral Medication Intake: Whole with Puree Please contact the pharmacy regarding appropriate crushable or liquid drug formulations that are available whenever modified delivery is recommended. Compensatory Strategies and Precautions to be Taken for Safe Swallow: Sitting Upright (90 deg) Double Swallow Small Bites and Sips Alternate Liquids/Solids Rate of Ingestion Change Supervision While Eating and Drinking for Safe Swallow: Intermittent Supervision Foods to Avoid: Swallowing Recommended Treatments: Compens. Strategy Educat. Recommendation for Speech: Speech Therapy through Rehab Facility Comment: Pt seen for dysphagia treatment. Pt sitting upright in bed, alert, conversant. Pt will be NPO for procedure at midnight tonight. Pt endorsed persisting mild sore throat s/p attempts to insert NG tube, turgor of posterior pharynx remains red, velopharyngeal elevation WNL. Pt voicing mildly harsh but absent of wetness. Pt expressed dissatisfaction with clear liquid diet. Pt is edentulous and as dentures but does not have them here. Pt tolerated trials of vinnie cracker with sips of gingerale and tsps of pudding without overt s/s of aspiration. Pt elicited one dry cough with first bite of vinnie cracker d/t throat soreness, sipping gingerale by straw to relieve sensation. Pt reported sensation of globus with large medication, clearing with additional sips of thins. Pt on omeprazole at baseline d/t hx of GERD. FEED MILL TENDER recommended strategies such as alternating consistencies, double swallow, chin tuck, liquid wash, slow pacing/taking breaks and remaining upright after eating for 30 minutes. Pt verbalized understanding and demonstrated efficient use of strategies without cueing. Recc NDD2 with thins (pt will have lunch and dinner today, then will be NPO), meds as pt prefers. FEED MILL TENDER to followup post procedure. MD and RN notified via secure text of diet changes, white board updated in pt room. Frequency/Duration: M-F Daily, as indicated Date Range for Service Req: Timeline to reassess: Slab Grinder Clinican/Clinical Fellow: No Supervisory Statement: I have reviewed and agree with the student/clinical fellow's documentation: N/A Speech Language Pathologist: Edyta Conley M.S., CCC-FEED MILL TENDER
[2025-05-04 12:00] VITALS: BP 93/60; PULSE 117; RESP 16; TEMP 36.5; O2SAT 98
--- NOTE | 2025-05-04 13:47 | MHC.CLN ---
F/U PT WITH INCREASED NUTRITION RISK R/T PRESSURE INJURY PO INTAKE 75-100% DIET RX: 1800DM GRD M/S RECOMMEND ADDING ENSURE CLEAR TID TO PROMOTE WOUND HEALING SUPP TO PROVIDE 720KCALS, 24G PROTEIN MONITOR PO INTAKE AND ENCOURAGE SUPPLEMENTS
--- NOTE | 2025-05-04 13:53 | P.PNNP_ITS ---
Subjective Subjective Date of Service: 05/04/25 Interval history: Events noted. Serum creatinine has improved. Continues on IV fluids. Plans on possible surgery on . Physical Exam 2 Vital Signs: Vital Signs: Last Vital Signs Temp 97.7 F 05/04/25 12:00 Pulse 117 H 05/04/25 12:00 Resp 16 05/04/25 12:00 BP 93/60 05/04/25 12:00 Pulse Ox 98 05/04/25 12:00 O2 Del Method Room Air 05/04/25 12:00 BMI result Body Mass Index 22.4 Const: General: comfortable and no acute distress O rientation/consciousness: patient oriented x3 HEENT: Head: Yes normocephalic Mouth: Normal oral and palatal mucosa present Eyes: EOM: EOMs intact bilaterally Neck: Neck: Yes supple Resp: Auscultation: clear to auscultation bilaterally Cardio: Jugular venous distension: no JVD Rate: regular rate GI: Palpation (GI): Soft to palpation Auscultation: normal bowel sounds : General: Yes no CVA tenderness Back/Spine/Pelvis: Back: no CVA tenderness Skin: General skin exam: no rashes or lesions noted Neuro: General: patient oriented x3 and moves all extremities Extrem: General: Yes no pedal edema Objective Data Labs 05/04/25 05:01 05/04/25 05:01 Labs: Laboratory Results - last 24 hr 05/04/25 05:01 WBC 4.8 RBC 3.22 L Hgb 10.2 L Hct 31.3 L MCV 97.2 MCH 31.7 MCHC 32.6 RDW 15.1 Plt Count 71 L MPV 11.2 Absolute Nucleated RBC 0.000 Nucleated RBC % (auto) 0.0 PT 14.2 H INR 1.2 H Sodium 139 Potassium 4.2 Chloride 105 Carbon Dioxide 26 Anion Gap 12 BUN 43 H Creatinine 2.23 H Estim Creat Clear Calc 26.8 Estimated GFR 29 Random Glucose 81 Calcium 8.0 L Magnesium 1.8 Microbiology Microbiology Results: Microbiology 05/01/25 19:37 Blood - Venous Blood Culture - Preliminary No growth after 48 hours. 05/01/25 19:38 Blood - Venous Blood Culture - Preliminary No growth after 48 hours. 05/01/25 20:30 Urine clean catch - Clean Catch Midstream Urine Culture - Final Procedures Date of Service Date of Service: 05/04/25 Assessment & Plan Assessment and plan (1) AMELIA (acute kidney injury): Status: Acute Plan AMELIA most likely due to compromise in renal perfusion Urine sodium was less than 20; UO good Urinalysis is essentially benign. Serum cr better Continue current supportive care for now Progress Note: Quality Stroke Does the patient have a stroke diagnosis?: No
[2025-05-04 15:23] VITALS: BP 101/62; PULSE 116; RESP 18; TEMP 36.2; O2SAT 97
--- NOTE | 2025-05-04 15:38 | MHC.CM.PN ---
PER ROUNDS PT TO GO TO OR TOMORROW
[2025-05-04 19:25] VITALS: BP 107/65; PULSE 115; RESP 18; O2SAT 98
--- NOTE | 2025-05-04 19:28 | PC.NURSE ---
HR 110's. Off coumadin for surgery. Received carvedilol this AM. Ordered BID. Dr. Wheeler notified. Order for IV Push metoprolol x1. BP soft, 90's-100's systolic. 107/65. HR 115. Placed on Tele - VPaced. ? appropriateness of metoprolol. Dr. Wheeler at bedside. Order to give carvedilol as scheduled, hold of on IV metoprolol, transfer to [facility] for cardiac monitoring. Report given to Isha JIMENEZ.
[2025-05-04 20:00] VITALS: BP 103/61; PULSE 83; RESP 16; TEMP 37.2; O2SAT 95
[2025-05-05] VITALS (9 sets, daily range): BP systolic 88–110; BP diastolic 53–67; PULSE 63–119; RESP 16–18; TEMP 36.1–37; O2SAT 92–98; BMI 24.8; BMI 25.7
[2025-05-05] MEDS: Lactated Ringers 500 ML 999 ML IV (00:27)
[2025-05-05 06:52] LABS: Hematocrit 33.1 % (42.0-52.0); Hemoglobin 10.4 g/dl (14.0-18.0); Mean Corpuscular HGB Conc 31.4 g/dl (31.0-36.0); Mean Corpuscular Hemoglobin 31.0 pg (27.0-33.0); Mean Corpuscular Volume 98.8 fL (80.0-98.0); NRBC Abs Auto 0.000 X10*3/uL (0.0-0.012); NRBC Pct Auto 0.0 /100WBC (0.0-0.2); Red Blood Count 3.35 X10*6/uL (4.60-5.80); White Blood Count 5.1 X10*3/uL (4.8-10.8)
[2025-05-05 06:56] LABS: INTERNATIONAL NORM RATIO 1.4 (0.9-1.1); Prothrombin Time 15.9 SEC (10.9-12.4)
[2025-05-05 07:04] LABS: Platelet Count 77 X10*3/uL (160-400)
[2025-05-05 07:10] LABS: Anion Gap 11 (12-20); Blood Urea Nitrogen 31 mg/dL (9-16); Calcium 8.1 mg/dL (8.4-10.2); Carbon Dioxide 26 mmol/L (22-29); Chloride 106 mmol/L (96-108); Creatinine Clr Calc Pharmacy 33.4; Estimated Glomerular Filt Rate 37; Magnesium 1.8 mg/dL (1.6-2.6); Potassium 4.3 mmol/L (3.3-5.1); Sodium 139 mmol/L (135-145)
[2025-05-05] MEDS: Lactated Ringers 1,000 ML 100 ML IVCONT (07:52)
[2025-05-05] MEDS: Ferrous Sulfate 324 MG TABLET.DR PO ×2 (08:33→21:42)
--- NOTE | 2025-05-05 09:09 | PM.PNGS ---
Subjective Subjective Date of Service: 05/05/25 Interval history: Went into rapid A fib overnight with hypotension. Still in A fib. Denies any abdominal pain. Reports passing flatus. Physical Exam Vital Signs: Vital Signs: Last Vital Signs Temp 98.3 F 05/05/25 07:08 Pulse 119 H 05/05/25 07:08 Resp 18 05/05/25 07:08 BP 95/53 L 05/05/25 07:08 Pulse Ox 95 05/05/25 07:08 O2 Del Method Room Air 05/05/25 07:08 BMI result Body Mass Index 24.8 Const: General: comfortable, no acute distress and alert Resp: Effort & Inspection: normal respiratory effort and able to speak in complete sentences Cardio: Rate: tachycardic GI: Other: mildly distended soft mild tenderness overlying right groin, palpable hernia which was again reduced with light pressure Skin: Other: warm and dry Neuro: General: moves all extremities Objective Data Active Medications Albuterol/Ipratropium (Albuterol/Iprat 2.5/0.5mg 3 Ml Ampul.Neb) 3 ml INHALE RQ4H WHILE AWAKE PRN PRN Reason: Shortness of Breath/Wheezing Allopurinol (Allopurinol 100 Mg Tablet) 200 mg PO DAILY [facility] Last Admin: 05/05/25 08:33 Dose: 200 mg Documented By: SOSA Amiodarone HCl (Amiodarone Hcl 200 Mg Tablet) 400 mg PO DAILY [facility] Last Admin: 05/05/25 08:33 Dose: 400 mg Documented By: SOSA Amitriptyline HCl (Amitriptyline Hcl 25 Mg Tablet) 75 mg PO BEDTIME [facility] Last Admin: 05/04/25 21:08 Dose: 75 mg Documented By: SHEMAR Atorvastatin Calcium (Atorvastatin Calcium 10 Mg Tablet) 10 mg PO BEDTIME [facility] Last Admin: 05/04/25 21:08 Dose: 10 mg Documented By: SHEMAR Carvedilol (Carvedilol 3.125 Mg Tablet) 3.125 mg PO BID [facility]; Protocol Last Admin: 05/04/25 21:08 Dose: 3.125 mg Documented By: SHEMAR Cyanocobalamin (Cyanocobalamin (Vitamin B-12) 1,000 Mcg Tablet) 1,000 mcg PO DAILY [facility] Last Admin: 05/05/25 08:33 Dose: 1,000 mcg Documented By: SOSA Donepezil HCl (Donepezil Hcl 10 Mg Tablet) 10 mg PO BEDTIME [facility] Last Admin: 05/04/25 21:08 Dose: 10 mg Documented By: SHEMAR Ferrous Sulfate (Ferrous Sulfate 324 Mg Tablet.Dr) 324 mg PO BID [facility] Last Admin: 05/05/25 08:33 Dose: 324 mg Documented By: SOSA Fluticasone Propionate (Fluticasone Propionate Nasal 16 Gm [place]) 2 spray NOSTRIL-B BID [facility] Last Admin: 05/05/25 08:33 Dose: Not Given Documented By: SOSA Non-Admin Reason: Patient Refused Ceftriaxone Sodium 1 gm/ (Sodium Chloride) 50 mls @ 100 mls/hr IV Q24H [facility] Last Infusion: 05/04/25 21:35 Dose: Infused Documented By: SHEMAR Lactated Ringer's (Lr) 1,000 mls @ 100 mls/hr IVCONT .Q10H [facility] Last Admin: 05/05/25 07:52 Dose: 100 mls/hr Documented By: SOSA Memantine (Memantine Hcl 5 Mg Tablet) 5 mg PO BID [facility] Last Admin: 05/05/25 08:33 Dose: 5 mg Documented By: SOSA Ondansetron HCl (Ondansetron Hcl 4 Mg/2 Ml Vial) 4 mg IVPUSH Q6H PRN PRN Reason: Nausea and Vomiting Senna/Docusate Sodium (Sennosides/Docusate Sodium Tablet) 2 tab PO DAILY@1200 [facility] Last Admin: 05/04/25 13:06 Dose: 2 tab Documented By: ALBIN Labs 05/05/25 06:42 05/05/25 06:42 Labs: Laboratory Results - last 24 hr 05/05/25 06:42 MCV 98.8 H MCH 31.0 MCHC 31.4 RDW 14.7 Plt Count 77 L MPV 11.5 Absolute Nucleated RBC 0.000 Nucleated RBC % (auto) 0.0 PT 15.9 H INR 1.4 H Anion Gap 11 L Estim Creat Clear Calc 33.4 Estimated GFR 37 Random Glucose 88 Calcium 8.1 L Magnesium 1.8 Procedures Date of Service Date of Service: 05/05/25 Progress Note: A&P Assessment and plan (1) Incarcerated right inguinal hernia: Status: Acute Plan Rapid a fib with hypotension overnight, remains in A fib. Plan was for repair of right inguinal hernia today but discussed with hospitalist service and will postpone. Cardiology consulted. Added on tentatively for tomorrow if more stable. Can advance diet today, NPO after midnight. Discussed with patient. Time Spent With Patient Time: Total time managing care of this patient today ____ minutes. Quality Stroke Does the patient have a stroke diagnosis?: No VTE Prior VTE?: No VTE Risk Level:: Surgical - low VTE Device Contraindication: N/A - Device Ordered VTE Drug Contraindication: Treatment Not Indicated
--- NOTE | 2025-05-05 10:20 | P.CONCA_ITS ---
History of Present Illness History of Present Illness Date of Service: 05/05/25 Chief complaint: abdominal discomfort Narrative: This is a cardiology consultation regarding preoperative risk stratification for hernia surgery as well as atrial fibrillation. It seems that he goes to [facility]. Fairly complicated history and I do not have all the information. He has had some valvular intervention and possibly aortic surgery and has cardiomyopathy and atrial fibrillation. Not clear if it is paroxysmal atrial fibrillation or persistent but he is on amiodarone. Has an ICD in place. Current admission is because of small-bowel obstruction and in that context, there is planned for possibly operative intervention. In this context, he has been noticed to have a tachyarrhythmia with a paced rhythm and this suspicion for atrial fibrillation. Patient himself states he feels well. When he is home he can get around short distances without any major issues but may have difficulty going upstairs. He has not had any active anginal-type major concerns before this admission in the recent months. Review of Systems 2 Review of Systems: Yes all other systems are reviewed and are negative Constitutional: Constitutional: Reports as per HPI and Reports no additional constitutional complaints Eyes: Eyes: Reports as per HPI and Denies no additional eye complaints ENT: Denies system reviewed and no additional complaints, except as documented and Reports as per HPI Cardiovascular: Cardiovascular: Reports as per HPI, Reports no additional cardiovascular complaints, Denies acrocyanosis, Denies cool extremities, Denies chest pain, Denies leg edema, Denies lightheadedness, Denies palpitations and Denies dyspnea Respiratory: Respiratory: Reports as per HPI, Denies no additional respiratory complaints and Denies dyspnea Gastrointestinal: Gastrointestinal: Reports as per HPI and Denies no additional gastrointestinal complaints Genitourinary: Genitourinary: Reports no additional male genitourinary complaints and Reports as per HPI Musculoskeletal: Musculoskeletal: Reports no additional musculoskeletal complaints and Reports as per HPI Integumentary/Breasts: Skin/Breast: Reports system reviewed and no additional complaints, except as docu Neurologic: Reports system reviewed and no additional complaints, except as documented and Reports as per HPI Psychiatric: Psychiatric: Reports no additional psychiatric complaints and Reports as per HPI Endocrine: Endocrine: Reports no additional endocrine complaints, Reports as per HPI and Denies palpitations Hematologic/Lymphatic: Hematologic/Lymphatic: Reports no additional hematologic/lymphatic complaints and Reports as per HPI Allergic/Immunologic: Allergic/Immunologic: Reports no additional allergic/immunologic complaints and Reports as per HPI [facility] Past Medical History Medical History (Updated 05/05/25 @ 10:24 by Cameron Adrian MD) Marijuana dependence BPH (benign prostatic hyperplasia) Presence of combination internal cardiac defibrillator (ICD) and pacemaker Atrial fibrillation Hypertension MCI (mild cognitive impairment) Family History Pertinent family history: No pertinent family history Surgical History Surgical History (Updated 05/01/25 @ 19:57 by BENITO Chatman) AICD (automatic cardioverter/defibrillator) present S/P aorta repair Heart valve replaced Social History Social History Household Members: Friend(s) Housing: House Do you presently have visiting nurse or other home services: Yes ([place]) Patient Tobacco Use Status: Never used Tobacco Substance Use Type: Marijuana service: No Travel History Ebola Risk: Travel/Contact With Anyone From Affected Area/s: No Has Patient Experienced Ebola Symptoms: No Meds Allergies Allergy/AdvReac Type Severity Reaction Status Date / Time Penicillins Allergy Unknown Unknown Verified 05/01/25 12:31 Iodinated Contrast Media (IV Allergy Swelling Verified 05/01/25 12:34 Contrast Dye) Active Medications: Current Medications Albuterol/Ipratropium (Albuterol/Iprat 2.5/0.5mg 3 Ml Ampul.Neb) 3 ml INHALE RQ4H WHILE AWAKE PRN PRN Reason: Shortness of Breath/Wheezing Allopurinol (Allopurinol 100 Mg Tablet) 200 mg PO DAILY [facility] Last Admin: 05/05/25 08:33 Dose: 200 mg Amiodarone HCl (Amiodarone Hcl 200 Mg Tablet) 400 mg PO DAILY [facility] Last Admin: 05/05/25 08:33 Dose: 400 mg Amitriptyline HCl (Amitriptyline Hcl 25 Mg Tablet) 75 mg PO BEDTIME [facility] Last Admin: 05/04/25 21:08 Dose: 75 mg Atorvastatin Calcium (Atorvastatin Calcium 10 Mg Tablet) 10 mg PO BEDTIME [facility] Last Admin: 05/04/25 21:08 Dose: 10 mg Carvedilol (Carvedilol 3.125 Mg Tablet) 3.125 mg PO BID [facility]; Protocol Last Admin: 05/04/25 21:08 Dose: 3.125 mg Cyanocobalamin (Cyanocobalamin (Vitamin B-12) 1,000 Mcg Tablet) 1,000 mcg PO DAILY [facility] Last Admin: 05/05/25 08:33 Dose: 1,000 mcg Donepezil HCl (Donepezil Hcl 10 Mg Tablet) 10 mg PO BEDTIME [facility] Last Admin: 05/04/25 21:08 Dose: 10 mg Ferrous Sulfate (Ferrous Sulfate 324 Mg Tablet.) 324 mg PO BID [facility] Last Admin: 05/05/25 08:33 Dose: 324 mg Fluticasone Propionate (Fluticasone Propionate Nasal 16 Gm [place]) 2 spray NOSTRIL-B BID [facility] Last Admin: 05/05/25 08:33 Dose: Not Given Ceftriaxone Sodium 1 gm/ (Sodium Chloride) 50 mls @ 100 mls/hr IV Q24H [facility] Last Infusion: 05/04/25 21:35 Dose: Infused Lactated Ringer's (Lr) 1,000 mls @ 100 mls/hr IVCONT .Q10H [facility] Last Admin: 05/05/25 07:52 Dose: 100 mls/hr Memantine (Memantine Hcl 5 Mg Tablet) 5 mg PO BID [facility] Last Admin: 05/05/25 08:33 Dose: 5 mg Ondansetron HCl (Ondansetron Hcl 4 Mg/2 Ml Vial) 4 mg IVPUSH Q6H PRN PRN Reason: Nausea and Vomiting Senna/Docusate Sodium (Sennosides/Docusate Sodium Tablet) 2 tab PO DAILY@1200 [facility] Last Admin: 05/04/25 13:06 Dose: 2 tab Home Medications ?Medication ?Instructions ?Recorded ?Confirmed ?Last Taken ?Type amiodarone 200 mg tablet 400 mg PO DAILY 02/11/2504/30/25 History amitriptyline 75 mg tablet 75 mg PO BEDTIME 02/11/25 1 04/30/25 History carvedilol 3.125 mg tablet 3.125 mg PO BID 02/11/2504/30/25 History donepezil 10 mg tablet 10 mg PO BEDTIME 02/11/2504/30/25 History empagliflozin 10 mg tablet 10 mg PO DAILY 02/11/2504/30/25 History (Jardiance) ferrous sulfate 325 mg (65 mg 325 mg PO BID 02/11/25 1 04/30/25 History iron) tablet (FeroSul) lansoprazole 30 mg capsule,delayed 30 mg PO DAILY@0630 02/11/25 05/01/25 04/30/25 History release losartan 25 mg tablet 25 mg PO DAILY 02/11/2504/0704/30/25 History torsemide 20 mg tablet 80 mg PO DAILY 02/11/2504/0704/30/25 History warfarin 5 mg tablet 2.5 mg PO DAILY 02/11/2504/28/25 History allopurinol 100 mg tablet 200 mg PO DAILY 05/01/2504/30/25 History cyanocobalamin (vitamin B-12) 1,000 mcg PO DAILY 05/0105/01/25 04/30/25 History 1,000 mcg tablet fluticasone propionate 50 2 spray intranasal BID 05/0105/01/25 04/30/25 History mcg/actuation nasal spray,suspension prochlorperazine maleate 10 mg 10 mg PO Q6H PRN nausea /vomiting 05/01/25 05/01/25 Unknown History tablet sennosides 8.6 mg-docusate sodium 2 tab-cap PO DAILY@1 200 05/01/25 05/01/25 04/30/25 History 50 mg tablet (Senna with Docusate Sodium) simvastatin 20 mg tablet 20 mg PO BEDTIME 05/01/2504/30/25 History Physical Exam 2 Vital Signs: Vital Signs: Last Vital Signs Temp 98.3 F 05/05/25 07:08 Pulse 119 H 05/05/25 07:08 Resp 18 05/05/25 07:08 BP 95/53 L 05/05/25 07:08 Pulse Ox 95 05/05/25 07:08 O2 Del Method Room Air 05/05/25 07:08 BMI result Body Mass Index 24.8 Const: General: comfortable and no acute distress O rientation/consciousness: patient oriented x3 HEENT: Other: Unremarkable Head: Yes normal to inspection Neck: Neck: Yes normal visual inspection Chest: Chest palpation & inspection: normal inspection of the chest Resp: Auscultation: clear to auscultation bilaterally Cardio: Palpation: normal PMI Heart sounds: S1 normal heart sound present, S2 normal heart sound present, no gallops, Murmur heart sound present systolic II/ and no rubs GI: Palpation (GI): Soft to palpation Back/Spine/Pelvis: Other: unremarkable Skin: General skin exam: no rashes or lesions noted Neuro: General: patient oriented x3 Extrem: General: Yes normal to inspection Psych: Mental Status: mental status grossly normal Objective Labs and Meds 05/05/25 06:42 05/05/25 06:42 Lab results: Laboratory Results - last 24 hr 05/05/25 06:42 WBC 5.1 RBC 3.35 L Hgb 10.4 L Hct 33.1 L MCV 98.8 H MCH 31.0 MCHC 31.4 RDW 14.7 Plt Count 77 L MPV 11.5 Absolute Nucleated RBC 0.000 Nucleated RBC % (auto) 0.0 PT 15.9 H INR 1.4 H Sodium 139 Potassium 4.3 Chloride 106 Carbon Dioxide 26 Anion Gap 11 L BUN 31 H Creatinine 1.79 H Estim Creat Clear Calc 33.4 Estimated GFR 37 Random Glucose 88 Calcium 8.1 L Magnesium 1.8 ECG Interpretation: In the admission EKG, ventricular paced rhythm at 114/Min. Underlying rhythm probable flutter but not clear. Assessment and Plan (1) Preoperative cardiovascular examination: Status: Acute (2) Atrial fibrillation with rapid ventricular response: Status: Acute (3) AICD (automatic cardioverter/defibrillator) present: Status: Acute Plan Overall, complicated patient with prior cardiac interventions including valve surgery plus ICD and possible cardiomyopathy but no information available regarding any of this. Current arrhythmia probable atrial fibrillation with rapid rate. Per home meds, already on amiodarone 400 mg daily. Try oral metoprolol 50 mg and see if it slow down or converts. We will need an echocardiogram and also device check. This will need to be reviewed and the rhythm should will be stable before surgery- unless it is emergency surgery in which case it can proceed as high- risk surgery. 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 Procedures Date of Service Date of Service: 05/05/25
--- NOTE | 2025-05-05 12:18 | CA_ITS ---
Transthoracic Echocardiogram Patient (Last, First, Middle): Danilo Sanders M Gender: M Date of : 1945 Age: 79 Procedure Date: 05/05/2025 Procedure Type: Transthoracic Echocardiogram Location: [facility] [place] Height: 177.8 cm Weight: 78.02 kg BSA: 1.96 m2 Heart Rate: 116 bpm BP: 104 / 62 mmHg Pump House Technician: TO Referring MD: Cameron Adrian MD Symptoms: cardiomyopathy Study Quality: Adequate w contrast ECG Rhythm: Ventriculary paced rhythm Conclusions: - The left ventricular systolic function is severely decreased. The calculated ejection fraction is 28% by biplane method. - Severely increased right ventricular cavity size. - Severe biatrial enlargement. - The prosthetic aortic valve appears to be functioning normally. - There is severe tricuspid valve regurgitation. Tricuspid leaflets do not coapt. - The inferior vena cava is severely dilated and collapses less than 50% with inspiration. Findings Procedure Information Contrast agent, definity, is being given per protocol without apparent complications. Left Ventricle Normal left ventricular cavity size. There is mildly increased left ventricular wall thickness. The left ventricular systolic function is severely decreased. The calculated ejection fraction is 28% by biplane method. There is severe global hypokinesis. There is paradoxical septal motion consistent with post-operative status. Diastolic function is indeterminate on the basis of available data. Right Ventricle Severely increased right ventricular cavity size. There is mildly decreased right ventricular systolic function. There is an ICD wire seen in the right ventricle. Atria Severe biatrial enlargement. Aortic Valve The prosthetic aortic valve appears to be functioning normally. The mean gradient is 8 mmHg. There is no aortic valve regurgitation. Per history, mechanical aortic valve. Mitral Valve There is mild mitral annular calcification. There is trace mitral valve regurgitation. There is no mitral valve stenosis. Pulmonic Valve There is trace pulmonic valve regurgitation. Tricuspid Valve There is severe tricuspid valve regurgitation. The right ventricular systolic pressure is not calculated. Tricuspid leaflets do not coapt. Great Vessels The asc aorta is normal in size. Venous The inferior vena cava is severely dilated and collapses less than 50% with inspiration. Pericardium/Pleural There is no evidence of pericardial effusion. Prior Study Comparison No prior study available for comparison. Measurements 2D Linear Measurements IVSd: 1.20 0.6-0.9/0.6-1.0 cm LVIDd: 5.29 3.9-5.3/4.2-5.9 cm LVIDd Index: 2.70 2.4-3.2/2.2-3.1 cm/m2 LVIDs: 4.76 2.0-3.6 cm LVPWd: 1.18 0.7-1.1 cm LA Diam: 5.10 2.7-3.8/3.0-4.0 cm LAIDs Index: 1.94 1.5-2.3 cm/m2 LV Mass: 315.31 67-162/88-224 g LV Mass Index: 160.87 43-95/49-115 g/m2 LVOT Diam: 2.20 3.0+(-)1.3 cm 2D Systolic Function EF 4C: 32.90 >55% EF 2C: 25.60 >55% EF BiP: 27.70 >55% Mitral Valve MV VTI: 0.29 MV Pk Bandar: 1.38 MV Mn Bandar: 0.98 MV Pk Grad: 8.00 MV Mn Grad: 4.00 MV Pk E: 1.27 MV Decel Time: 198.00 E'Lateral: 6.37 E/E' Lat: 19.90 PHT: 58.00 MVA PHT: 3.79 MVA Continuity: 0.[address] [place]: 6.38 Aortic Valve AoV Pk Bandar: 1.94 AoV Mn Bandar: 1.35 AoV VTI: 0.31 AoV Pk Grad: 15.00 Aov Mn Grad: 8.00 NINFA Cont.VTI: 0.80 LVOT LVOT Pk Bandar: 0.51 LVOT Mn Bandar: 0.32 LVOT VTI: 0.07 LVOT Pk Grad: 1.00 LVOT Mn Grad: 0.00 LVOT Diam: 2.20 LVOT Area: 3.80 Diastolic Function MV Pk E: 1.27 E' Laterial: 6.37 E/E' Lat: 19.90 Right Ventricle TAPSE (mm): 16.90 TVS' Bandar: 8.70 Tricuspid Valve TR Pk Bandar: 1.49 TR Pk Grad: 9.00 RA Press: 15.00 RVSP: 24.00 Great Vessels Aorta Sinus of Valsalva: 3.63 2.0-3.5 cm Ao Asc: 3.20 2.1-3.4 cm Updated in Other Vendor System with Status of Final Cameron Adrian MD electronically signed on 05/05/2025 3:18:40 PM with status of Final
--- NOTE | 2025-05-05 12:49 | P.PNIM_ITS ---
Subjective Subjective Date of Service: 05/05/25 Interval History: Patient seen examined at bedside this morning, patient overnight had episodes of atrial fibrillation as well as hypotension, creatinine improved. Patient had plans for surgery today, however given atrial fibrillation and hypotension, surgery postpone. Cardiology consulted. Review of Systems Review of Systems: Yes all other systems are reviewed and are negative Physical Exam 2 Exam: Exam: General: AxOx3, No acute distress Head: AT/NC ENT: Moist mucous membranes Neck: supple CVS; irregularly irregular Lungs: Clear bilateral breath sounds, no wheezes or crackles Abd: Soft non tender, non distended Ext: No edema and no calf tenderness MSK: moving all 4 limbs Skin: No cyanosis or edema Psych: Cooperative with exam Neurology: no focal deficit Vital Signs: Vital Signs: Last Vital Signs Temp 97.5 F 05/05/25 11:10 Pulse 117 H 05/05/25 11:10 Resp 18 05/05/25 11:10 BP 104/62 05/05/25 11:10 Pulse Ox 93 05/05/25 11:10 O2 Del Method Room Air 05/05/25 11:10 BMI result Body Mass Index 24.8 Objective Data Active Medications Albuterol/Ipratropium (Albuterol/Iprat 2.5/0.5mg 3 Ml Ampul.Neb) 3 ml INHALE RQ4H WHILE AWAKE PRN PRN Reason: Shortness of Breath/Wheezing Allopurinol (Allopurinol 100 Mg Tablet) 200 mg PO DAILY [facility] Last Admin: 05/05/25 08:33 Dose: 200 mg Documented By: SOSA Amiodarone HCl (Amiodarone Hcl 200 Mg Tablet) 400 mg PO DAILY [facility] Last Admin: 05/05/25 08:33 Dose: 400 mg Documented By: SOSA Amitriptyline HCl (Amitriptyline Hcl 25 Mg Tablet) 75 mg PO BEDTIME [facility] Last Admin: 05/04/25 21:08 Dose: 75 mg Documented By: SHEMAR Atorvastatin Calcium (Atorvastatin Calcium 10 Mg Tablet) 10 mg PO BEDTIME [facility] Last Admin: 05/04/25 21:08 Dose: 10 mg Documented By: SHEMAR Carvedilol (Carvedilol 3.125 Mg Tablet) 3.125 mg PO BID [facility]; Protocol Last Admin: 05/04/25 21:08 Dose: 3.125 mg Documented By: SHEMAR Cyanocobalamin (Cyanocobalamin (Vitamin B-12) 1,000 Mcg Tablet) 1,000 mcg PO DAILY [facility] Last Admin: 05/05/25 08:33 Dose: 1,000 mcg Documented By: SOSA Donepezil HCl (Donepezil Hcl 10 Mg Tablet) 10 mg PO BEDTIME [facility] Last Admin: 05/04/25 21:08 Dose: 10 mg Documented By: SHEMAR Ferrous Sulfate (Ferrous Sulfate 324 Mg Tablet.Dr) 324 mg PO BID [facility] Last Admin: 05/05/25 08:33 Dose: 324 mg Documented By: SOSA Fluticasone Propionate (Fluticasone Propionate Nasal 16 Gm [place]) 2 spray NOSTRIL-B BID [facility] Last Admin: 05/05/25 08:33 Dose: Not Given Documented By: SOSA Non-Admin Reason: Patient Refused Ceftriaxone Sodium 1 gm/ (Sodium Chloride) 50 mls @ 100 mls/hr IV Q24H [facility] Last Infusion: 05/04/25 21:35 Dose: Infused Documented By: SHEMAR Lactated Ringer's (Lr) 1,000 mls @ 100 mls/hr IVCONT .Q10H [facility] Last Admin: 05/05/25 07:52 Dose: 100 mls/hr Documented By: SOSA Sodium Chloride (Ns) 2,352 mls @ 2,352 mls/hr 30 ml/kg infuse over 1 hr (2352 ml) IV .Q1H STA Stop: 05/05/25 13:40 Memantine (Memantine Hcl 5 Mg Tablet) 5 mg PO BID [facility] Last Admin: 05/05/25 08:33 Dose: 5 mg Documented By: SOSA Metoprolol Tartrate (Metoprolol Tartrate 50 Mg Tablet) 50 mg PO BID [facility]; Protocol Ondansetron HCl (Ondansetron Hcl 4 Mg/2 Ml Vial) 4 mg IVPUSH Q6H PRN PRN Reason: Nausea and Vomiting Senna/Docusate Sodium (Sennosides/Docusate Sodium Tablet) 2 tab PO DAILY@1200 [facility] Last Admin: 05/04/25 13:06 Dose: 2 tab Documented By: ALBIN Labs 05/05/25 06:42 05/05/25 06:42 Labs: Laboratory Results - last 24 hr 05/05/25 06:42 MCV 98.8 H MCH 31.0 MCHC 31.4 RDW 14.7 Plt Count 77 L MPV 11.5 Absolute Nucleated RBC 0.000 Nucleated RBC % (auto) 0.0 PT 15.9 H INR 1.4 H Anion Gap 11 L Estim Creat Clear Calc 33.4 Estimated GFR 37 Random Glucose 88 Calcium 8.1 L Magnesium 1.8 Assessment and Plan (1) Atrial fibrillation with rapid ventricular response: Status: Acute (2) Small bowel obstruction: Status: Acute (3) AMELIA (acute kidney injury): Status: Acute Plan 79 yo male with PMH BPH, Valve replacement and 2 years later possible Bental procedure for Aortic surgery, AICD/PPM, CHF, HTN, AFIB on coumadin, NENO, Allergic rhitinits, GERD, GOUT, constipation was BIBA from home for report of near syncopal episode since experiencing increasign abd pain and nausea with vomiting since this past . Pt found to have high grade SBO and incarcerated R ing hernia. Pt admitted by surgery initially, now on med team. patient with recurrence of SBO with plans on taking to OR tomorrow High Grade SBO, Incarcerated R inguinal hernia, fluctuating Initial NG-tube placement unsuccessful, overnight RN attempted multiple times including nasogastric, unsuccessful, General surgery aware Hernia reduced by surgeon, however recurred, patient hypotensive w/ A fib, will postpone surgery until medically optimized continue LR at 100mL/hr Hypotension likely 2/2 PAFIB on coumadin continue to hold of on coumadin at this time will initiate metoprolol per cardio recs will give NS bolus at this time and recheck BPS Cardiology consulted AMELIA likely multifactorial in setting of SBO and poor oral intake, improving currently 2.2, improving Nephrology consulted and following continue LR at 100mL/hr, will closely monitor, will aim for increased intake BPH Holding BPH meds due to low BP Ja[place] in place AICD PPM V paced rhythm Pt follows with Dr. Chacko at [facility] last checked 2 months ago per pt sacral wound continue per wound care recs, offloading q2 hours CHF without exacerbation DVT Prophylaxis: SCDs FULL CODE Quality Stroke Does the patient have a stroke diagnosis?: No VTE Prior VTE?: No VTE Risk Level:: Surgical - low VTE Device Contraindication: N/A - Device Ordered VTE Drug Contraindication: Treatment Not Indicated
[2025-05-05] MEDS: SODIUM CHLORIDE 2352 ML IV (13:02)
--- NOTE | 2025-05-05 13:07 | PC.NURSE ---
clarified with DR Wheeler , IV fluids bolus infusing for low hypotension. Carvedilol held by d/t hypotension .Surgery postponed, diet resumed , tolerating Po intake , no n/v
--- NOTE | 2025-05-05 13:15 | MHC.SL.SWA ---
Speech Pathologist Impression: Risk of Aspiration Due to: Dysphasia Diet Status: Liquid Consistency and Strategies for Safe Swallow: Liquid Intake Recommendation: Thin Liquid Intake Strategies: Small Sips Chin Tuck with Liquids Double Swallow Solid Food Consistency: Dietary Recommendations: Pureed (NDD1) Additional Modifications to Solid Foods: Oral Medication Intake: Whole with Puree Please contact the pharmacy regarding appropriate crushable or liquid drug formulations that are available whenever modified delivery is recommended. Compensatory Strategies and Precautions to be Taken for Safe Swallow: Sitting Upright (90 deg) Double Swallow Small Bites and Sips Alternate Liquids/Solids Rate of Ingestion Change Supervision While Eating and Drinking for Safe Swallow: Intermittent Supervision Foods to Avoid: Swallowing Recommended Treatments: Compens. Strategy Educat. Recommendation for Speech: Comment: Patient seen for dysphagia treatment. Patient placed on NDD1, Thin liquids per MD after postponed surgery. Patient remains NPO after midnight for potential procedure tomorrow. Per notes: patient with rapid a fib overnight, postponed surgery and consulted cardiology. Per Cardiology Consult: Overall, complicated patient with prior cardiac interventions including valve surgery plus ICD and possible cardiomyopathy but no information available regarding any of this. Current arrhythmia probable atrial fibrillation with rapid rate. Per home meds, already on amiodarone 400 mg daily. Try oral metoprolol 50 mg and see if it slow down or converts. We will need an echocardiogram and also device check. This will need to be reviewed and the rhythm should will be stable before surgery- unless it is emergency surgery in which case it can proceed as high-risk surgery. Patient met in room and seen with pudding and thin liquids. Patient completing lunch prior, reporting good appetite/intake. Patient educated on reflux precautions re: small sips/bites, alternating solids/liquids, HOB elevated at 90 degrees and remaining upright for at least 30 minutes after completion of meal. Patient showing understanding of compensatory strategies and able to use during PO intake. Patient with no overt s/sx of penetration/aspiration. Due to potential surgery/NPO at midnight as well as patient's extensive GI history, recommend continuing with MD orders of NDD1, Thin liquids. ST to follow-up tomorrow after procedure or potential upgrade if surgery remains postponed. RN notified of ST POC via secure chat. Frequency/Duration: Date Range for Service Req: Timeline to reassess: Rug Dyer Clinican/Clinical Fellow: No Supervisory Statement: I have reviewed and agree with the student/clinical fellow's documentation: N/A Speech Language Pathologist: Selene Ruby M.A., CCC-PERSONAL INJURY LAW SPECIALIST
--- NOTE | 2025-05-05 13:54 | P.PNNP_ITS ---
Subjective Subjective Date of Service: 05/05/25 Interval history: Events noted. Atrial fibrillation and developed hypotension. Surgery has been postponed. Creatinine is trending down Physical Exam 2 Vital Signs: Vital Signs: Last Vital Signs Temp 97.5 F 05/05/25 11:10 Pulse 117 H 05/05/25 11:10 Resp 18 05/05/25 11:10 BP 104/62 05/05/25 11:10 Pulse Ox 93 05/05/25 11:10 O2 Del Method Room Air 05/05/25 11:10 BMI result Body Mass Index 24.8 Const: General: ill appearing Neck: Neck: Yes supple Resp: Auscultation: clear to auscultation bilaterally Cardio: Palpation: no palpable S3 Heart sounds: no rubs Neuro: Motor exam (neuro): no asterixis Objective Data Labs 05/05/25 06:42 05/05/25 06:42 Labs: Laboratory Results - last 24 hr 05/05/25 06:42 WBC 5.1 RBC 3.35 L Hgb 10.4 L Hct 33.1 L MCV 98.8 H MCH 31.0 MCHC 31.4 RDW 14.7 Plt Count 77 L MPV 11.5 Absolute Nucleated RBC 0.000 Nucleated RBC % (auto) 0.0 PT 15.9 H INR 1.4 H Sodium 139 Potassium 4.3 Chloride 106 Carbon Dioxide 26 Anion Gap 11 L BUN 31 H Creatinine 1.79 H Estim Creat Clear Calc 33.4 Estimated GFR 37 Random Glucose 88 Calcium 8.1 L Magnesium 1.8 Microbiology Microbiology Results: Microbiology 05/01/25 19:37 Blood - Venous Blood Culture - Preliminary No growth after 48 hours. 05/01/25 19:38 Blood - Venous Blood Culture - Preliminary No growth after 48 hours. 05/01/25 20:30 Urine clean catch - Clean Catch Midstream Urine Culture - Final Procedures Date of Service Date of Service: 05/05/25 Assessment & Plan Assessment and plan (1) AMELIA (acute kidney injury): Status: Acute Plan AMELIA most likely due to hypoperfusion in the setting of small-bowel obstruction. And poor p.o. intake. Urine sodium is less than 20 No evidence of obstructive uropathy. Urinalysis is essentially benign. Hyperkalemia due to underlying AMELIA- resolving Renal function is improving. Recommendations Avoid hypotension IV hydration. Keep intake more than output. Watch urine output. Time Spent With Patient Time: Total time managing care of this patient today ____ minutes. Progress Note: Quality Stroke Does the patient have a stroke diagnosis?: No
[2025-05-05 16:02] LABS: Hematocrit 32.8 % (42.0-52.0); Hemoglobin 10.5 g/dl (14.0-18.0); Mean Corpuscular HGB Conc 32.0 g/dl (31.0-36.0); Mean Corpuscular Hemoglobin 31.7 pg (27.0-33.0); Mean Corpuscular Volume 99.1 fL (80.0-98.0); NRBC Abs Auto 0.000 X10*3/uL (0.0-0.012); NRBC Pct Auto 0.0 /100WBC (0.0-0.2); Red Blood Count 3.31 X10*6/uL (4.60-5.80); White Blood Count 4.3 X10*3/uL (4.8-10.8)
[2025-05-05 16:04] LABS: INTERNATIONAL NORM RATIO 1.4 (0.9-1.1); Prothrombin Time 16.3 SEC (10.9-12.4)
[2025-05-05 16:07] LABS: PTT Heparin Drip 32.0 SEC (53-77.9)
[2025-05-05] MEDS: Heparin Sodium,Porcine/1/2NS 25,000 UNIT/250 ML IV.SOLN 11.4 UNIT IVCONT (16:08)
[2025-05-05 16:10] LABS: Platelet Count 62 X10*3/uL (160-400)
[2025-05-05 22:20] LABS: PTT Heparin Drip 79.4 SEC (53-77.9)
[2025-05-06] VITALS (7 sets, daily range): BP systolic 91–102; BP diastolic 53–65; PULSE 65–121; RESP 16–18; TEMP 36.3–37.1; O2SAT 93–98; BMI 25.7
[2025-05-06 06:39] LABS: Mean Corpuscular Volume 97.9 fL (80.0-98.0); NRBC Abs Auto 0.000 X10*3/uL (0.0-0.012); NRBC Pct Auto 0.0 /100WBC (0.0-0.2); PLT CLUMP 1
[2025-05-06 06:41] LABS: Hematocrit 32.6 % (42.0-52.0); Hemoglobin 10.5 g/dl (14.0-18.0); Mean Corpuscular HGB Conc 32.2 g/dl (31.0-36.0); Mean Corpuscular Hemoglobin 31.5 pg (27.0-33.0); Red Blood Count 3.33 X10*6/uL (4.60-5.80)
[2025-05-06 06:43] LABS: Anion Gap 12 (12-20); Blood Urea Nitrogen 25 mg/dL (9-16); Calcium 7.7 mg/dL (8.4-10.2); Carbon Dioxide 22 mmol/L (22-29); Chloride 109 mmol/L (96-108); Creatinine Clr Calc Pharmacy 44.8; Estimated Glomerular Filt Rate 50; Magnesium 1.7 mg/dL (1.6-2.6); Potassium 3.7 mmol/L (3.3-5.1); Sodium 139 mmol/L (135-145)
[2025-05-06 06:49] LABS: Platelet Count 75 X10*3/uL (160-400); White Blood Count 5.5 X10*3/uL (4.8-10.8)
[2025-05-06 07:02] LABS: INTERNATIONAL NORM RATIO 1.4 (0.9-1.1); Prothrombin Time 15.8 SEC (10.9-12.4)
[2025-05-06 07:05] LABS: PTT Heparin Drip 44.9 SEC (53-77.9)
[2025-05-06] MEDS: Ferrous Sulfate 324 MG TABLET.DR PO ×2 (08:56→22:22)
--- NOTE | 2025-05-06 11:44 | MHC.CLN ---
F/U PT WITH INCREASED NUTRITION RISK R/T PRESSURE INJURY PO INTAKE 75-100% DIET RX: 1800DM GRD M/S-ACUTE SPECIALIST RECOMMENDING PUREED DIET AND PT WITH INCREASED KCAL NEEDS FOR WOUND HEALING RECOMMEND 2200DM PUREED DIET RECOMMEND ADDING ENSURE TID TO PROMOTE WOUND HEALING SUPP TO PROVIDE 1050KCALS, 60G PROTEIN MONITOR PO INTAKE AND ENCOURAGE SUPPLEMENTS
--- NOTE | 2025-05-06 13:53 | P.PNIM_ITS ---
Subjective Subjective Date of Service: 05/06/25 Interval History: Patient seen examined at bedside this morning, patient states that he is feeling okay, denies any abdominal pain. Spoke with General surgery, suggested that surgery can be done in the outpatient setting as he is no longer obstructed. 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 Continues on heparin drip. Review of Systems Review of Systems: Yes all other systems are reviewed and are negative Physical Exam 2 Exam: Exam: General: AxOx3, No acute distress Head: AT/NC ENT: Moist mucous membranes Neck: supple CVS; Irregularly Irregular, S1 S2 normal Lungs: Clear bilateral breath sounds, no wheezes or crackles Abd: Soft non tender, non distended Ext: No edema and no calf tenderness MSK: moving all 4 limbs Skin: No cyanosis or edema Psych: Cooperative with exam Neurology: no focal deficit Vital Signs: Vital Signs: Last Vital Signs Temp 97.6 F 05/06/25 11:58 Pulse 65 05/06/25 11:58 Resp 18 05/06/25 11:58 BP 98/57 L 05/06/25 11:58 Pulse Ox 98 05/06/25 11:58 O2 Del Method Room Air 05/06/25 11:58 BMI result Body Mass Index 25.7 Objective Data Active Medications Albuterol/Ipratropium (Albuterol/Iprat 2.5/0.5mg 3 Ml Ampul.Neb) 3 ml INHALE RQ4H WHILE AWAKE PRN PRN Reason: Shortness of Breath/Wheezing Allopurinol (Allopurinol 100 Mg Tablet) 200 mg PO DAILY [facility] Last Admin: 05/06/25 08:56 Dose: 200 mg Documented By: MILTON Amiodarone HCl (Amiodarone Hcl 200 Mg Tablet) 400 mg PO DAILY [facility] Last Admin: 05/06/25 08:55 Dose: 400 mg Documented By: MILTON Amitriptyline HCl (Amitriptyline Hcl 25 Mg Tablet) 75 mg PO BEDTIME [facility] Last Admin: 05/05/25 21:42 Dose: 75 mg Documented By: SHEMAR Atorvastatin Calcium (Atorvastatin Calcium 10 Mg Tablet) 10 mg PO BEDTIME [facility] Last Admin: 05/05/25 21:42 Dose: 10 mg Documented By: SHEMAR Cyanocobalamin (Cyanocobalamin (Vitamin B-12) 1,000 Mcg Tablet) 1,000 mcg PO DAILY [facility] Last Admin: 05/06/25 08:56 Dose: 1,000 mcg Documented By: MILTON Donepezil HCl (Donepezil Hcl 10 Mg Tablet) 10 mg PO BEDTIME [facility] Last Admin: 05/05/25 21:42 Dose: 10 mg Documented By: SHEMAR Enoxaparin Sodium (Enoxaparin Sodium 80 Mg/0.8 Ml Syringe) 80 mg 1 mg/kg (80 mg) SUBCUT Q12H [facility] Ferrous Sulfate (Ferrous Sulfate 324 Mg Tablet.Dr) 324 mg PO BID [facility] Last Admin: 05/06/25 08:56 Dose: 324 mg Documented By: MILTON Fluticasone Propionate (Fluticasone Propionate Nasal 16 Gm [place]) 2 spray NOSTRIL-B BID [facility] Last Admin: 05/06/25 11:56 Dose: Not Given Documented By: MILTON Non-Admin Reason: Patient Refused Ceftriaxone Sodium 1 gm/ (Sodium Chloride) 50 mls @ 100 mls/hr IV Q24H [facility] Last Infusion: 05/05/25 22:30 Dose: Infused Documented By: SHEMAR Memantine (Memantine Hcl 5 Mg Tablet) 5 mg PO BID [facility] Last Admin: 05/06/25 08:56 Dose: 5 mg Documented By: MILTON Metoprolol Tartrate (Metoprolol Tartrate 50 Mg Tablet) 50 mg PO BID [facility]; Protocol Ondansetron HCl (Ondansetron Hcl 4 Mg/2 Ml Vial) 4 mg IVPUSH Q6H PRN PRN Reason: Nausea and Vomiting Senna/Docusate Sodium (Sennosides/Docusate Sodium Tablet) 2 tab PO DAILY@1200 [facility] Last Admin: 05/05/25 16:17 Dose: 2 tab Documented By: SOSA Warfarin Sodium (Warfarin Sodium 5 Mg Tablet) 5 mg PO DAILY@1800 [facility] Labs 05/06/25 06:02 05/06/25 06:02 Labs: Laboratory Results - last 24 hr 05/05/25 05/05/25 05/06/25 15:47 21:41 06:02 MCV 99.1 H 97.9 MCH 31.7 31.5 MCHC 32.0 32.2 RDW 14.8 14.8 Plt Count 62 L 75 L MPV 12.2 11.8 Absolute Nucleated RBC 0.000 0.000 Nucleated RBC % (auto) 0.0 0.0 PT 16.3 H 15.8 H INR 1.4 H 1.4 H aPTT Heparin Protocol 32.0 L 79.4 H D 44.9 L D Anion Gap 12 Estim Creat Clear Calc 44.8 Estimated GFR 50 Random Glucose 80 Calcium 7.7 L Magnesium 1.7 Assessment and Plan (1) Atrial fibrillation with rapid ventricular response: Status: Acute (2) Small bowel obstruction: Status: Acute (3) AMELIA (acute kidney injury): Status: Acute Plan 79 yo male with PMH BPH, Valve replacement and 2 years later possible Bental procedure for Aortic surgery, AICD/PPM, CHF, HTN, AFIB on coumadin, NENO, Allergic rhitinits, GERD, GOUT, constipation was BIBA from home for report of near syncopal episode secondary to abd pain, N/V since this 04/28. Pt found to have high grade SBO and incarcerated R ing hernia. Pt admitted by surgery initially, now on med team. patient with recurrence of SBO. While awaiting for Surgery, patient with hypotension, assessed by Cardiology on 05/05, deemed high cardiac risk, if needed would benefit from procedure being done at tertiary center. Per surgery, hernia was reduced and at this time stable, suggested following up as outpatient. High Grade SBO, Incarcerated R inguinal hernia, fluctuating Initial NG-tube placement unsuccessful, overnight RN attempted multiple times including nasogastric, unsuccessful, General surgery aware Hernia reduced by surgeon, however recurred, patient hypotensive w/ A fib, patient HR improving, per surgery to follow up as outpatient Hypotension, resolved PAFIB will initiate lovenox 80mg BID, to bridge with warfarin as this medication was stopped preparing for surgery. continue metoprolol 50mg BID Cardiology consulted AMELIA likely multifactorial in setting of SBO and poor oral intake, improving Nephrology consulted and following continue LR at 100mL/hr, will closely monitor, will aim for increased intake BPH Holding BPH meds due to low BP Ja[place] in place AICD PPM V paced rhythm Pt follows with Dr. Chacko at [facility] last checked 2 months ago per pt sacral wound continue per wound care recs, offloading q2 hours CHF without exacerbation DVT Prophylaxis: SCDs lovenox 80mg BID w/ warfarin bridge FULL CODE Quality Stroke Does the patient have a stroke diagnosis?: No VTE Prior VTE?: No VTE Risk Level:: Surgical - low VTE Device Contraindication: N/A - Device Ordered VTE Drug Contraindication: Treatment Not Indicated
--- NOTE | 2025-05-06 14:43 | PM.EVENT ---
Event Note Date of Service: 05/06/25 Event Note: Cardiology consultation appreciated. Patient at high risk for surgical intervention and anesthesia. The hernias now reduced and is abdomen soft. Would be best to avoid surgery on this patient given the high risk. He should consider wearing a hernia truss to reduce the chances of incarceration. If surgery is necessary would be best done at a tertiary care center. Time Spent With Patient Time: Total time managing care of this patient today ____ minutes.
--- NOTE | 2025-05-06 16:00 | MHC.SL.SWA ---
Speech Pathologist Impression: Mild oropharyngeal dysphagia Risk of Aspiration Due to: Extensive GI Hx, Current dentition status Dysphasia Diet Status: Recommend UPGRADE to NDD2, Thin Liquids Liquid Consistency and Strategies for Safe Swallow: Liquid Intake Recommendation: Thin Liquid Intake Strategies: Small Sips Chin Tuck with Liquids Double Swallow Solid Food Consistency: Dietary Recommendations: Pureed (NDD1) Additional Modifications to Solid Foods: Oral Medication Intake: Whole with Puree Please contact the pharmacy regarding appropriate crushable or liquid drug formulations that are available whenever modified delivery is recommended. Compensatory Strategies and Precautions to be Taken for Safe Swallow: Sitting Upright (90 deg) Double Swallow Small Bites and Sips Alternate Liquids/Solids Rate of Ingestion Change Supervision While Eating and Drinking for Safe Swallow: Intermittent Supervision Foods to Avoid: Swallowing Recommended Treatments: Compens. Strategy Educat. Recommendation for Speech: Speech Therapy through Rehab Facility Comment: Patient seen for dysphagia treatment. Seen sitting EOB. Patient trialed with vinnie cracker pieces in pudding and small piece of regular vinnie cracker. Patient edentulous; typically wears dentures during PO intake but does not presently have. Patient with occasional prolonged mastication, yet adequate cohesion and clearance of ground trial. Patient reporting increase mastication efforts with small piece of vinnie cracker and noted reduced bite-off strength. Patient consuming thin liquids via cup sips of water and straw sips of gingerale. Patient with no overt s/sx of penetration/aspiration. Recommend UPGRADE to NDD2, Thin liquids. Recommendations communicated to RN and MD via secure chat and MD approving upgrade. GAMER to follow for compensatory strategies and any further upgrades if patient can tolerate. GAMER tx indicated to improve pt understanding and use of compensatory safety strategies such as slow pacing, small bites and sips, alternating consistencies, liquid wash, upright positioning during and after PO intake (for 30 mintues), taking large meds in applesauce, using straws. Frequency/Duration: M-F Daily Date Range for Service Req: Timeline to reassess: Riffler Tender Clinican/Clinical Fellow: No Supervisory Statement: I have reviewed and agree with the student/clinical fellow's documentation: N/A Speech Language Pathologist: Selene Ruby M.A., CCC-GAMER
--- NOTE | 2025-05-06 18:19 | P.PNNP_ITS ---
Subjective Subjective Date of Service: 05/06/25 Interval history: Patient seen examined at bedside this morning, patient states that he is feeling okay, denies any abdominal pain. Spoke with General surgery, suggested that surgery can be done in the outpatient setting as he is no longer obstructed. 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 Continues on heparin drip. Physical Exam 2 Vital Signs: Vital Signs: Last Vital Signs Temp 98.2 F 05/06/25 16:00 Pulse 110 H 05/06/25 16:00 Resp 18 05/06/25 16:00 BP 92/53 L 05/06/25 16:00 Pulse Ox 97 05/06/25 16:00 O2 Del Method Room Air 05/06/25 16:00 BMI result Body Mass Index 25.7 Const: General: ill appearing Neck: Neck: Yes supple Resp: Auscultation: clear to auscultation bilaterally Cardio: Palpation: no palpable S3 Heart sounds: no rubs Neuro: Motor exam (neuro): no asterixis Objective Data Labs 05/06/25 06:02 05/06/25 06:02 Labs: Laboratory Results - last 24 hr 05/05/25 05/06/25 21:41 06:02 WBC 5.5 RBC 3.33 L Hgb 10.5 L Hct 32.6 L MCV 97.9 MCH 31.5 MCHC 32.2 RDW 14.8 Plt Count 75 L MPV 11.8 Absolute Nucleated RBC 0.000 Nucleated RBC % (auto) 0.0 PT 15.8 H INR 1.4 H aPTT Heparin Protocol 79.4 H D 44.9 L D Sodium 139 Potassium 3.7 Chloride 109 H Carbon Dioxide 22 Anion Gap 12 BUN 25 H Creatinine 1.38 Estim Creat Clear Calc 44.8 Estimated GFR 50 Random Glucose 80 Calcium 7.7 L Magnesium 1.7 Microbiology Microbiology Results: Microbiology 05/01/25 19:37 Blood - Venous Blood Culture - Preliminary No growth after 48 hours. 05/01/25 19:38 Blood - Venous Blood Culture - Preliminary No growth after 48 hours. 05/01/25 20:30 Urine clean catch - Clean Catch Midstream Urine Culture - Final Procedures Date of Service Date of Service: 05/06/25 Assessment & Plan Assessment and plan (1) AMELIA (acute kidney injury): Status: Acute Plan Renal function abdias k to baseline Keep I >O and avoid hypotension Shall stop following actively. Time Spent With Patient Time: Total time managing care of this patient today ____ minutes. Progress Note: Quality Stroke Does the patient have a stroke diagnosis?: No
[2025-05-07 03:27] VITALS: BP 99/59; PULSE 111; RESP 18; TEMP 36.7; O2SAT 93
[2025-05-07 05:51] VITALS: BMI 26.0
[2025-05-07 07:28] VITALS: BP 110/64; PULSE 60; RESP 16; TEMP 36.9; O2SAT 94
[2025-05-07 08:44] LABS: INTERNATIONAL NORM RATIO 1.5 (0.9-1.1); Prothrombin Time 17.0 SEC (10.9-12.4)
[2025-05-07] MEDS: Ferrous Sulfate 324 MG TABLET.DR PO ×2 (10:07→22:26)
[2025-05-07 11:34] VITALS: BP 94/53; PULSE 61; RESP 20; TEMP 36.8; O2SAT 96
[2025-05-07 15:34] VITALS: BP 107/55; PULSE 60; RESP 20; TEMP 37; O2SAT 98
--- NOTE | 2025-05-07 16:28 | HO.PM.IMPN ---
Subjective Subjective Date of Service: 05/07/25 Interval History: hypotension improving no pain at hernia, which reduced yesterday Review of Systems Review of Systems: Yes all other systems are reviewed and are negative Physical Exam Vital Signs: Vital Signs: Last Vital Signs Temp 98.6 F 05/07/25 15:34 Pulse 60 05/07/25 15:34 Resp 20 05/07/25 15:34 BP 107/55 L 05/07/25 15:34 Pulse Ox 98 05/07/25 15:34 O2 Del Method Room Air 05/07/25 15:34 BMI result Body Mass Index 26.0 Gen: in no acute distress HEENT: sclera anicteric, moist mucus membranes Neck: supple Lungs: clear to auscultation bilaterally Heart: regular rate and rhythm, 2/6 systolic murmur, mechanical S2 Abd: soft, non-tender, non-distended Ext: no edema Skin: warm/well-perfused Neuro: alert and oriented x3, no focal findings Psych: appropriate affect Objective Data Active Medications Albuterol/Ipratropium (Albuterol/Iprat 2.5/0.5mg 3 Ml Ampul.Neb) 3 ml INHALE RQ4H WHILE AWAKE PRN PRN Reason: Shortness of Breath/Wheezing Allopurinol (Allopurinol 100 Mg Tablet) 200 mg PO DAILY [facility] [place] Last Admin: 05/07/25 10:06 Dose: 200 mg Documented By: SOSA Amiodarone HCl (Amiodarone Hcl 200 Mg Tablet) 400 mg PO DAILY [facility] [place] Last Admin: 05/07/25 10:07 Dose: 400 mg Documented By: SOSA Amitriptyline HCl (Amitriptyline Hcl 25 Mg Tablet) 75 mg PO BEDTIME [facility] [place] Last Admin: 05/06/25 22:21 Dose: 75 mg Documented By: KIANNA Atorvastatin Calcium (Atorvastatin Calcium 10 Mg Tablet) 10 mg PO BEDTIME [facility] [place] Last Admin: 05/06/25 22:21 Dose: 10 mg Documented By: KIANNA Cyanocobalamin (Cyanocobalamin (Vitamin B-12) 1,000 Mcg Tablet) 1,000 mcg PO DAILY [facility] [place] Last Admin: 05/07/25 10:07 Dose: 1,000 mcg Documented By: SOSA Donepezil HCl (Donepezil Hcl 10 Mg Tablet) 10 mg PO BEDTIME [facility] [place] Last Admin: 05/06/25 22:22 Dose: 10 mg Documented By: KIANNA Enoxaparin Sodium (Enoxaparin Sodium 80 Mg/0.8 Ml Syringe) 80 mg 1 mg/kg (80 mg) SUBCUT Q12H [facility] [place] Last Admin: 05/07/25 14:35 Dose: 80 mg Documented By: SOSA Ferrous Sulfate (Ferrous Sulfate 324 Mg Tablet.Dr) 324 mg PO BID [facility] [place] Last Admin: 05/07/25 10:07 Dose: 324 mg Documented By: SOSA Fluticasone Propionate (Fluticasone Propionate Nasal 16 Gm [place]) 2 spray NOSTRIL-B BID [facility] [place] Last Admin: 05/07/25 10:09 Dose: Not Given Documented By: SOSA Non-Admin Reason: Patient Refused Ceftriaxone Sodium 1 gm/ (Sodium Chloride) 50 mls @ 100 mls/hr IV Q24H [facility] [place] Last Infusion: 05/06/25 21:27 Dose: Infused Documented By: KIANNA Memantine (Memantine Hcl 5 Mg Tablet) 5 mg PO BID [facility] [place] Last Admin: 05/07/25 10:07 Dose: 5 mg Documented By: SOSA Metoprolol Tartrate (Metoprolol Tartrate 50 Mg Tablet) 50 mg PO BID [facility] [place]; Protocol Last Admin: 05/07/25 10:07 Dose: 50 mg Documented By: SOSA Ondansetron HCl (Ondansetron Hcl 4 Mg/2 Ml Vial) 4 mg IVPUSH Q6H PRN PRN Reason: Nausea and Vomiting Senna/Docusate Sodium (Sennosides/Docusate Sodium Tablet) 2 tab PO DAILY@1200 [facility] [place] Last Admin: 05/07/25 13:46 Dose: 2 tab Documented By: SOSA Warfarin Sodium (Warfarin Sodium 5 Mg Tablet) 5 mg PO DAILY@1800 [facility] [place] Last Admin: 05/06/25 17:49 Dose: 5 mg Documented By: MARIBELB Labs 05/06/25 06:02 05/06/25 06:02 Labs: Laboratory Results - last 24 hr 05/07/25 08:10 PT 17.0 H INR 1.5 H Microbiology Microbiology Results: Microbiology 05/01/25 19:37 Blood Culture - Final Blood - Venous No growth after 5 days. 05/01/25 19:38 Blood Culture - Final Blood - Venous No growth after 5 days. Assessment and Plan (1) Atrial fibrillation with rapid ventricular response: Status: Acute (2) Small bowel obstruction: Status: Acute (3) AMELIA (acute kidney injury): Status: Acute Plan d7, 79yo M with hx mechanical aortic valve, aortic root replacement, BiV AICD, AF on warfarin, CHF, HTN who came in with near-syncopal episode and was found to have high-grade SBO from incarcerated R inguinal hernia. Initially admitted to Gen Surg service, then transferred to Medicine service. Due to hypotension and cardiac conditions, deemed to be too high risk for surgery and hernia reduced anyways. high-grade SBO incarcarted R inguinal hernia, fluctuating - hernia reduced x2, follow up as outpt at tertiary care center pAF mechanical aortic valve chronic HFrEF - on enoxaparin->warfarin bridge - resumed metoprolol tartrate, continue amiodarone - per regulatory affairs consultant: In today's device check, biventricular pacing 96%. Atrial tachycardia/atrial fibrillation burden at 0%. Hence not clear if the slight tachycardia is sinus tachycardia or atrial tachycardia. Of note, outpatient notes also describing similar rhythm and even February of 2025. In today's echocardiogram, LVEF is similar to diminished in the 25-30% range. There is severe tricuspid regurgitation with markedly dilated IVC and diminished collapse suggesting high RA pressures. Overall, complicated patient, severe cardiomyopathy, severe tricuspid regurgitation, status post Bi V ICD, tachycardia from either sinus tachycardia or atrial tachycardia, incarcerated hernia. He is going to be at high cardiac risk for surgery. Consider doing this in a tertiary care center. Otherwise, with regard to the aortic valve itself as it is a mechanical valve he needs IV heparin, while being off Coumaund continue per wound care recs, offloading q2 hours hypotension, resolved - resumed metoprolol tartrate AMELIA, prerenal - resolving after IV fluid resuscitation, Nephrology following BPH - Jauregui in place, tamsulosin hold due to hypotension PNA - completed course of ceftriaxone and doxycycline MCI: donepezil, mematine HLD: statin VTE ppx: enoxaparin/warfarin dispo: home with VNA In my clinical judgment, the patient requires continued inpatient hospitalization for the following reasons: hypotension, anticoagulation Total time managing care of this patient today: 45 minutes. Quality Stroke Does the patient have a stroke diagnosis?: No VTE Prior VTE?: No VTE Risk Level:: Surgical - low VTE Device Contraindication: N/A - Device Ordered VTE Drug Contraindication: Treatment Not Indicated
[2025-05-07 20:00] VITALS: BP 101/62; PULSE 60; RESP 18; TEMP 36.4; O2SAT 98
[2025-05-07 22:27] VITALS: BP 99/54; PULSE 60
[2025-05-08] VITALS (9 sets, daily range): BP systolic 84–127; BP diastolic 46–62; PULSE 54–87; RESP 16–20; TEMP 36.2–37.2; O2SAT 92–97
[2025-05-08 07:57] LABS: INTERNATIONAL NORM RATIO 2.0 (0.9-1.1); Prothrombin Time 23.1 SEC (10.9-12.4)
[2025-05-08 08:10] LABS: Anion Gap 12 (12-20); Blood Urea Nitrogen 33 mg/dL (9-16); Calcium 8.1 mg/dL (8.4-10.2); Carbon Dioxide 24 mmol/L (22-29); Chloride 105 mmol/L (96-108); Creatinine Clr Calc Pharmacy 33.7; Estimated Glomerular Filt Rate 36; Potassium 4.4 mmol/L (3.3-5.1); Sodium 137 mmol/L (135-145)
[2025-05-08] MEDS: Ferrous Sulfate 324 MG TABLET.DR PO ×2 (09:39→22:44)
[2025-05-08] MEDS: Lactated Ringers 250 ML 50 ML IVCONT (10:00)
--- NOTE | 2025-05-08 12:40 | HO.PM.IMPN ---
Subjective Subjective Date of Service: 05/08/25 Interval History: no dyspnea or chest pain hypotensive overnight without symptoms; SCr worse Review of Systems Review of Systems: Yes all other systems are reviewed and are negative Physical Exam Vital Signs: Vital Signs: Last Vital Signs Temp 97.5 F 05/08/25 12:00 Pulse 60 05/08/25 12:00 Resp 20 05/08/25 12:00 BP 109/57 L 05/08/25 12:00 Pulse Ox 96 05/08/25 12:00 O2 Del Method Room Air 05/08/25 12:00 BMI result Body Mass Index 26.0 Gen: in no acute distress HEENT: sclera anicteric, moist mucus membranes Neck: supple Lungs: clear to auscultation bilaterally Heart: regular rate and rhythm, 2/6 systolic murmur, mechanical S2 Abd: soft, non-tender, non-distended Ext: no edema Skin: warm/well-perfused Neuro: alert and oriented x3, no focal findings Psych: appropriate affect Objective Data Active Medications Albuterol/Ipratropium (Albuterol/Iprat 2.5/0.5mg 3 Ml Ampul.Neb) 3 ml INHALE RQ4H WHILE AWAKE PRN PRN Reason: Shortness of Breath/Wheezing Allopurinol (Allopurinol 100 Mg Tablet) 200 mg PO DAILY [facility] Last Admin: 05/08/25 09:39 Dose: 200 mg Documented By: SOSA Amiodarone HCl (Amiodarone Hcl 200 Mg Tablet) 400 mg PO DAILY [facility] Last Admin: 05/08/25 09:39 Dose: 400 mg Documented By: SOSA Amitriptyline HCl (Amitriptyline Hcl 25 Mg Tablet) 75 mg PO BEDTIME [facility] Last Admin: 05/07/25 22:26 Dose: 75 mg Documented By: KIANNA Atorvastatin Calcium (Atorvastatin Calcium 10 Mg Tablet) 10 mg PO BEDTIME [facility] Last Admin: 05/07/25 22:26 Dose: 10 mg Documented By: KIANNA Cyanocobalamin (Cyanocobalamin (Vitamin B-12) 1,000 Mcg Tablet) 1,000 mcg PO DAILY [facility] Last Admin: 05/08/25 09:40 Dose: 1,000 mcg Documented By: SOSA Donepezil HCl (Donepezil Hcl 10 Mg Tablet) 10 mg PO BEDTIME [facility] Last Admin: 05/07/25 22:26 Dose: 10 mg Documented By: KIANNA Enoxaparin Sodium (Enoxaparin Sodium 80 Mg/0.8 Ml Syringe) 80 mg 1 mg/kg (80 mg) SUBCUT Q12H [facility] Last Admin: 05/08/25 01:30 EDT Dose: 80 mg Documented By: KIANNA Ferrous Sulfate (Ferrous Sulfate 324 Mg Tablet.Dr) 324 mg PO BID [facility] Last Admin: 05/08/25 09:39 Dose: 324 mg Documented By: SOSA Fluticasone Propionate (Fluticasone Propionate Nasal 16 Gm [place]) 2 spray NOSTRIL-B BID [facility] Last Admin: 05/08/25 09:40 Dose: Not Given Documented By: SOSA Non-Admin Reason: Patient Refused Lactated Ringer's (Lr) 250 mls @ 50 mls/hr IVCONT .Q5H [facility] Stop: 05/08/25 14:59 Last Admin: 05/08/25 10:00 Dose: 50 mls/hr Documented By: SOSA Memantine (Memantine Hcl 5 Mg Tablet) 5 mg PO BID [facility] Last Admin: 05/08/25 09:39 Dose: 5 mg Documented By: SOSA Metoprolol Tartrate (Metoprolol Tartrate 25 Mg Tablet) 25 mg PO BID [facility]; Protocol Last Admin: 05/08/25 09:40 Dose: 25 mg Documented By: SOSA Ondansetron HCl (Ondansetron Hcl 4 Mg/2 Ml Vial) 4 mg IVPUSH Q6H PRN PRN Reason: Nausea and Vomiting Senna/Docusate Sodium (Sennosides/Docusate Sodium Tablet) 2 tab PO DAILY@1200 [facility] Last Admin: 05/07/25 13:46 Dose: 2 tab Documented By: SOSA Warfarin Sodium (Warfarin Sodium 5 Mg Tablet) 5 mg PO DAILY@1800 [facility] Last Admin: 05/07/25 17:38 Dose: 5 mg Documented By: SOSA Labs 05/06/25 06:02 05/08/25 06:50 Labs: Laboratory Results - last 24 hr 05/08/25 06:50 Hold Purple Top SEE NOTE PT 23.1 H D INR 2.0 H Anion Gap 12 Estim Creat Clear Calc 33.7 Estimated GFR 36 Random Glucose 74 Calcium 8.1 L Assessment and Plan (1) Atrial fibrillation with rapid ventricular response: Status: Acute (2) Small bowel obstruction: Status: Acute (3) AMELIA (acute kidney injury): Status: Acute Plan d8, 79yo M with hx mechanical aortic valve, aortic root replacement, BiV AICD, AF on warfarin, CHF, HTN who came in with near-syncopal episode and was found to have high-grade SBO from incarcerated R inguinal hernia. Initially admitted to Gen Surg service, then transferred to Medicine service. Due to hypotension and cardiac conditions, deemed to be too high risk for surgery and hernia reduced anyways. AMELIA - will give 250 mL LR, recheck BMP tomorrow hypotension - fluids as above, reduce metoprolol dose high-grade SBO incarcarted R inguinal hernia, fluctuating - hernia reduced x2, follow up as outpt at tertiary care center pAF mechanical aortic valve chronic HFrEF - on enoxaparin->warfarin bridge, INR 2 today, d/c enoxaparin tomorrow if therapeutic - resumed metoprolol tartrate but decrease dose today, continue amiodarone - per fashion consultant sales: In today's device check, biventricular pacing 96%. Atrial tachycardia/atrial fibrillation burden at 0%. Hence not clear if the slight tachycardia is sinus tachycardia or atrial tachycardia. Of note, outpatient notes also describing similar rhythm and even February of 2025. In today's echocardiogram, LVEF is similar to diminished in the 25-30% range. There is severe tricuspid regurgitation with markedly dilated IVC and diminished collapse suggesting high RA pressures. Overall, complicated patient, severe cardiomyopathy, severe tricuspid regurgitation, status post Bi V ICD, tachycardia from either sinus tachycardia or atrial tachycardia, incarcerated hernia. He is going to be at high cardiac risk for surgery. Consider doing this in a tertiary care center. Otherwise, with regard to the aortic valve itself as it is a mechanical valve he needs IV heparin, while being off Coumaund continue per wound care recs, offloading q2 hours BPH - Jauregui in place, tamsulosin hold due to hypotension PNA - completed course of ceftriaxone and doxycycline MCI: donepezil, mematine HLD: statin VTE ppx: enoxaparin/warfarin dispo: PT eval In my clinical judgment, the patient requires continued inpatient hospitalization for the following reasons: hypotension, anticoagulation Total time managing care of this patient today: 45 minutes. Quality Stroke Does the patient have a stroke diagnosis?: No VTE Prior VTE?: No VTE Risk Level:: Surgical - low VTE Device Contraindication: N/A - Device Ordered VTE Drug Contraindication: Treatment Not Indicated
[2025-05-09 03:33] VITALS: BP 119/52; PULSE 60; RESP 18; TEMP 36.5; O2SAT 93
[2025-05-09 05:45] VITALS: BMI 26.6
[2025-05-09 07:41] LABS: Anion Gap 11 (12-20); Blood Urea Nitrogen 33 mg/dL (9-16); Calcium 7.9 mg/dL (8.4-10.2); Carbon Dioxide 23 mmol/L (22-29); Chloride 106 mmol/L (96-108); Creatinine Clr Calc Pharmacy 35.7; Estimated Glomerular Filt Rate 38; Potassium 3.6 mmol/L (3.3-5.1); Sodium 136 mmol/L (135-145)
[2025-05-09 07:45] LABS: INTERNATIONAL NORM RATIO 2.6 (0.9-1.1); Prothrombin Time 29.7 SEC (10.9-12.4)
[2025-05-09 08:00] VITALS: BP 112/55; PULSE 58; RESP 15; TEMP 36.9; O2SAT 93
[2025-05-09] MEDS: Ferrous Sulfate 324 MG TABLET.DR PO (08:42)
--- NOTE | 2025-05-09 10:55 | MHC.CM.PN ---
Second IMM 05/09/25, Pt to DC this afternoon, his son will bring him home, he is active with [facility], CM will request that they add PT to his services.
[2025-05-09 11:14] VITALS: BP 111/58; PULSE 61; RESP 16; TEMP 36.8; O2SAT 98
--- NOTE | 2025-05-09 13:40 | MHC.CLN ---
F/U PO INTAKE 100% DIET RX: 2200DM PUREED RECEIVING ENSURE TID TO PROMOTE WOUND HEALING SUPP PROVIDES 1050KCALS, 60G PROTEIN MONITOR PO INTAKE AND ENCOURAGE SUPPLEMENTS
--- NOTE | 2025-05-09 14:08 | W.MHC.F2F ---
Service Date Service Date: 05/09/25 Encounter Date of encounter: 05/09/25 Reasons for Services Signs and symptoms assessed: INR monitoring PT; see eval 05/09/25 Reason for fdc: medication management, medication treatment and teach disease management Reason for physical therapy: home safety and mobility, therapeutic exercises, gait/transfer training, assess need for DME, ADL training and energy conservation MD Overseeing Care: Armando Aceves Homebound: Leaving the home is medically contraindicated at this time without the asist of a device and/or another person due th the listed conditions above and below. Reason homebound: unsteady gait / fall risk and weakness related to hospital stay Certification: Based on the above findings, I certify that this patient is confined to the home and needs intermittent fdc care, physical therapy and/or speech therapy, or continues to need occupational therapy. The patient is under my care, and I have initiated the establishment of the plan of care. The patient will be followed by a physician who will periodically review the plan of care. Time Spent With Patient Time: Total time managing care of this patient today ____ minutes.
--- NOTE | 2025-05-09 14:17 | PM.DS ---
DS: Providers Provider Date of Service: 05/09/25 Date of admission: 05/01/25 15:58 Date of discharge: 05/09/25 Primary care physician: TOM Roger Consults: 05/01/25 17:43 Consult to Hospitalist Routine Comment: Consulting Provider: [facility] Reason For Exam: med management cardiac status etc. 05/01/25 20:14 Consult to Nephrology Routine Consulting Provider: [facility] Reason for consultation: AMELIA 05/02/25 11:26 Consult to Wound Care Routine Consulting Provider: [facility] Wound Care Management Reason for consultation: open wound coocyx 05/05/25 09:03 Consult to Cardiology Routine Consulting Provider: [facility] Reason for consultation: a fib Has provider been notified: No DS: Diagnosis Discharge Diagnosis (1) Small bowel obstruction: Status: Acute (2) Acute on chronic kidney failure: Status: Acute (3) Incarcerated right inguinal hernia: Status: Acute (4) Atrial fibrillation: Status: Acute (5) Anticoagulated on warfarin: Status: Acute (6) Pneumonia: Status: Acute (7) History of mechanical aortic valve replacement: Status: Acute DS: Summary Hospital Course Hospital Course: From the history and physical by the admitting surgeon, Mandi Nation, 05/01/25: Danilo Sanders is a 79 year old male who presents to the ED via EMS for abdominal pain with associated nausea and dizziness. He has a past medical history of mild cognitive impairment, HTN, and atrial fibrillation with ICD and pacemaker. He report that he started feeling nauseous this morning about 2 hours after he woke up and needed help coming down the stairs. His friend who lives with him called EMS and they brought him into the ER. He denies any sick contacts he last ate yesterday age. He has not had a good bowel movement he says in over a week. He denies really knowing that he had a hernia and that it could cause problems. In the emergency room he was diagnosed with a right inguinal mass and CT scan of his abdomen and pelvis shows this to be incarcerated small bowel containing inguinal hernia. Patient says that he has been feeling weaker more tired. He is anticoagulated but held his Coumadin yesterday because he is supposed to be having an EGD on Friday at [facility] because he has dysphagia symptoms. 79yo M with hx mechanical aortic valve, aortic root replacement, BiV AICD, AF on warfarin, CHF, HTN who came in with near-syncopal episode and was found to have high-grade SBO from incarcerated R inguinal hernia. Initially admitted to Gen Surgery service, then transferred to Medicine service. Due to hypotension and cardiac conditions, deemed to be too high risk for surgery; fortunately, the hernia reduced. Hospital course by problem: high-grade SBO incarcarted R inguinal hernia, fluctuating - Hernia reduced x2, recommended follow up as outpt at tertiary care center as he is high-risk for anesthesia. AMELIA/CKD - Improved with fluid resuscitation. To recheck BMP in 4 days. pAF mechanical aortic valve chronic HFrEF - Initially placed on enoxaparin with warfarin held in preparation for surgery, but once surgery no longer planned, started on warfarin with bridging enoxaparin. INR 2 on 05/08 and 2.6 on 05/09; enoxaparin discontinued. Warfarin to continue at 5 mg/d; recheck INR on 05/11 and 05/13 and adjust dose to achieve INR 2-3. - per wireless sales consultant: In today's device check, biventricular pacing 96%. Atrial tachycardia/atrial fibrillation burden at 0%. Hence not clear if the slight tachycardia is sinus tachycardia or atrial tachycardia. Of note, outpatient notes also describing similar rhythm and even February of 2025. In today's echocardiogram, LVEF is similar to diminished in the 25-30% range. There is severe tricuspid regurgitation with markedly dilated IVC and diminished collapse suggesting high RA pressures. Overall, complicated patient, severe cardiomyopathy, severe tricuspid regurgitation, status post Bi V ICD, tachycardia from either sinus tachycardia or atrial tachycardia, incarcerated hernia. He is going to be at high cardiac risk for surgery. Consider doing this in a tertiary care center. Otherwise, with regard to the aortic valve itself as it is a mechanical valve he needs IV heparin, while being off Coumaudin pneumonia - Completed course of ceftriaxone and doxycycline He was seen by PT and home VNA/PT recommended; discharged home with home services. Time Attestation Discharge Coordination Time (in mins): 45 Quality: Safe Use of Opioids Does Pt have an Active Cancer Diagnosis on the Problem List?: No Quality: Stroke Does the patient have a stroke diagnosis?: No Physical Exam Vital Signs: Vital Signs: Last Vital Signs Temp 98.3 F 05/09/25 11:14 Pulse 61 05/09/25 11:14 Resp 16 05/09/25 11:14 BP 111/58 L 05/09/25 11:14 Pulse Ox 98 05/09/25 11:14 O2 Del Method Room Air 05/09/25 11:14 BMI result Body Mass Index 26.6 Gen: in no acute distress HEENT: sclera anicteric, moist mucus membranes Neck: supple Lungs: clear to auscultation bilaterally Heart: regular rate and rhythm, 2/6 systolic murmur, mechanical S2 Abd: soft, non-tender, non-distended Ext: no edema Skin: warm/well-perfused Neuro: alert and oriented x3, no focal findings Psych: appropriate affect DS: Data Data Completed and Pending Completed studies during hospitalization [Text1]: Laboratory Results WBC 5.5 X10*3/uL (4.8-10.8) 05/06/25 06:02 RBC 3.33 X10*6/uL (4.60-5.80) L 05/06/25 06:02 Hgb 10.5 g/dl (14.0-18.0) L 05/06/25 06:02 Hct 32.6 % (42.0-52.0) L 05/06/25 06:02 MCV 97.9 fL (80.0-98.0) 05/06/25 06:02 MCH 31.5 pg (27.0-33.0) 05/06/25 06:02 MCHC 32.2 g/dl (31.0-36.0) 05/06/25 06:02 RDW 14.8 % (11.0-16.0) 05/06/25 06:02 Plt Count 75 X10*3/uL (160-400) L 05/06/25 06:02 MPV 11.8 fL (9.4-12.4) 05/06/25 06:02 Immature Gran % (Auto) 0.3 % (0.0-0.4) 05/02/25 05:22 Neut % (Auto) 82.2 % (45-73) H 05/02/25 05:22 Lymph % (Auto) 9.1 % (20-40) L 05/02/25 05:22 [place] % (Auto) 8.3 % (2-11) 05/02/25 05:22 Eos % (Auto) 0.0 % (0-4) 05/02/25 05:22 Baso % (Auto) 0.1 % (0-2) 05/02/25 05:22 Lymph # (Auto) 0.6 X10*3/uL (1.2-4.9) L 05/02/25 05:22 [place] # (Auto) 0.6 X10*3/uL (0.1-1.2) 05/02/25 05:22 Eos # (Auto) 0.0 X10*3/uL (0.0-0.4) 05/02/25 05:22 Baso # (Auto) 0.0 X10*3/uL (0.0-0.2) 05/02/25 05:22 Abs Immat Gran (auto) 0.02 X10*3/uL (0.00-0.03) 05/02/25 05:22 Absolute Neuts (auto) 5.8 x10*3/uL (2.0-8.3) 05/02/25 05:22 Absolute Nucleated RBC 0.000 X10*3/uL (0.0-0.012) 05/06/25 06:02 Nucleated RBC % (auto) 0.0 /100WBC (0.0-0.2) 05/06/25 06:02 Smear Tech's Comments VERIFIED 05/01/25 13:22 Hold Purple Top SEE NOTE 05/08/25 06:50 PT 29.7 SEC (10.9-12.4) H D 05/09/25 06:34 INR 2.6 (0.9-1.1) H 05/09/25 06:34 aPTT Heparin Protocol 44.9 SEC (53-77.9) L D 05/06/25 06:02 Sodium 136 mmol/L (135-145) 05/09/25 06:34 Potassium 3.6 mmol/L (3.3-5.1) 05/09/25 06:34 Chloride 106 mmol/L (96-108) 05/09/25 06:34 Carbon Dioxide 23 mmol/L (22-29) 05/09/25 06:34 Anion Gap 11 (12-20) L 05/09/25 06:34 BUN 33 mg/dL (9-16) H 05/09/25 06:34 Creatinine 1.73 mg/dL (0.5-1.4) H 05/09/25 06:34 Estim Creat Clear Calc 35.7 05/09/25 06:34 Estimated GFR 38 05/09/25 06:34 POC Glucose 173 mg/dL (60-115) H 05/02/25 06:42 Random Glucose 82 mg/dL (60-115) 05/09/25 06:34 Lactic Acid 2.4 mmol/L (0.5-2.0) H* 05/02/25 05:22 Lactic Acid F/U @ 2Hr 2.4 mmol/L (0.5-2.0) H* 05/02/25 07:54 Lactic Acid F/U @ 4Hr 2.0 mmol/L (0.5-2.0) 05/02/25 10:27 Calcium 7.9 mg/dL (8.4-10.2) L 05/09/25 06:34 Magnesium 1.7 mg/dL (1.6-2.6) 05/06/25 06:02 Total Bilirubin 1.2 mg/dL (0.0-1.0) H 05/02/25 05:22 AST 67 U/L (5-37) H 05/02/25 05:22 ALT 43 U/L (0-40) H 05/02/25 05:22 Alkaline Phosphatase 72 U/L (39-117) 05/02/25 05:22 Troponin I High Sens 23.8 ng/L (<3.5-35.0) 05/01/25 13:22 NT-Pro-B Natriuret Pep 48955.7 pg/mL (<300) H 05/01/25 13:22 Total Protein 6.3 g/dL (6.5-8.0) L 05/02/25 05:22 Albumin 3.8 g/dL (3.5-5.0) 05/02/25 05:22 TSH 3.10 uIU/mL (0.32-4.0) 05/01/25 13:22 Urine Color Dark Yellow 05/01/25 20:30 Urine Appearance Cloudy 05/01/25 20:30 Urine pH 5.0 (5.0-9.0) 05/01/25 20:30 Ur Specific [place] 1.020 (1.005-1.025) 05/01/25 20:30 Urine Protein 30 (1+) mg/dL (Neg-Trace) H 05/01/25 20:30 Urine Glucose (UA) 250 mg/dL (Negative) H 05/01/25 20:30 Urine Ketones Trace mg/dL (Negative) 05/01/25 20:30 Urine Blood Negative (Negative) 05/01/25 20: Urine Nitrite Negative (Negative) 05/01/25 20:30 Ur Leukocyte Esterase Small (1+) (Negative) H 05/01/25 20:30 Urine RBC 0-2 /HPF (0-2) 05/01/25 20:30 Urine WBC 0-5 /HPF (0-5) 05/01/25 20:30 Ur Squamous Epith Cells 3-5 /HPF (0-2) 05/01/25 20:30 Urine Bacteria None Seen (None Seen) 05/01/25 20: Hyaline Casts 6-10 /LPF (0-2) 05/01/25 20:30 Urine Eosinophils % 0.0 % 05/01/25 20:30 Urine Osmolality 351 mosm/kg (373-1093) L 05/01/25 20:30 Ur Random Sodium < 20.0 mmol/L 05/02/25 09:00 Urine Creatinine 82.98 mg/dL 05/02/25 09:00 Discharge Plan Discharge Anticipated Discharge Date/Time: 05/09/25 14:09 Patient Disposition: Home Health Service Discharge Diagnosis: Severe TR, HFrEF, A fib, SBO Referrals: [facility] General Surgery [Outside] - 2 Weeks Armando Aceves PA [Primary Care Provider, Internal Medicine] - 1 Week Discharge Medications: New warfarin [Jantoven] 5 mg Tablet 5 mg PO DAILY@1800 Qty: 1 0RF Continued prochlorperazine maleate 10 mg tablet 10 mg PO Q6H PRN (Reason: nausea/vomiting) fluticasone propionate 50 mcg/actuation spray,suspension 2 spray intranasal BID sennosides-docusate sodium [Senna with Docusate Sodium] 8.6-50 mg Tablet 2 tab-cap PO DAILY@1200 torsemide 20 mg tablet 80 mg PO DAILY amitriptyline 75 mg tablet 75 mg PO BEDTIME carvedilol 3.125 mg tablet 3.125 mg PO BID lansoprazole 30 mg capsule,delayed release(DR/EC) 30 mg PO DAILY@0630 losartan 25 mg tablet 25 mg PO DAILY Jardiance 10 mg tablet 10 mg PO DAILY memantine [Namenda] 5 mg tablet 5 mg PO BID 30 Days Qty: 60 3RF donepezil 10 mg tablet 10 mg PO DAILY allopurinol 100 mg tablet 200 mg PO DAILY simvastatin 20 mg tablet 20 mg PO BEDTIME ferrous sulfate 325 mg (65 mg iron) tablet,delayed release (DR/EC) 325 mg PO BID potassium chloride 20 mEq tablet extended release 20 meq PO BID cyanocobalamin (vitamin B-12) 1,000 mcg capsule 1,000 mcg PO DAILY Changed amiodarone 200 mg tablet 200 mg PO DAILY Qty: 1 0RF Discontinued allopurinol 100 mg tablet 200 mg PO DAILY simvastatin 20 mg tablet 20 mg PO BEDTIME cyanocobalamin (vitamin B-12) 1,000 mcg Tablet 1,000 mcg PO DAILY donepezil 10 mg tablet 10 mg PO BEDTIME ferrous sulfate [FeroSul] 325 mg (65 mg iron) tablet 325 mg PO BID warfarin 5 mg tablet 2.5 mg PO DAILY torsemide 20 mg tablet PO amitriptyline 75 mg tablet 75 mg PO BEDTIME amiodarone 200 mg tablet 200 mg PO DAILY carvedilol 3.125 mg tablet 3.125 mg PO BID lansoprazole 30 mg capsule,delayed release(DR/EC) 30 mg PO DAILY warfarin 5 mg tablet 5 - 7.5 mg PO DAILY losartan 25 mg tablet 25 mg PO DAILY Jardiance 10 mg tablet 10 mg PO DAILY Discharge Orders: Discharge Order (Routine); Ordered 05/09/25 Ordered By: Juan Daniel Sears Diet: Low salt diet Activity on Discharge: As tolerated Stand Alone Forms: Patient Portal Discharge page Print Language: Greek Other Ambulatory Orders: Basic Metabolic Panel (Routine) Timeframe: 4 Days Facility: [facility] - Location: Laboratory Ordered By: Juan Daniel Sears Prothrombin Time INR (Routine) Timeframe: 4 Days Facility: [facility] - Location: Laboratory Ordered By: Juan Daniel Sears Prothrombin Time INR (Routine) Timeframe: 2 Days Facility: [facility] - Location: Laboratory Ordered By: Juan Daniel Sears Care Plan Goals: safe anticoagulation cardiac health management of hernia Health Concerns: small bowel obstruction due to hernia, atrial fibrillation, CHF, AMELIA/CKD Plan of Treatment: hernia reduced follow up with [facility] General Surgery to plan for repair resume warfarin 5 mg daily; check INR 05/11 and 05/13; adjust to acheive INR of 2-3 resume all other medications recheck BMP 05/13 Please follow up with your primary care doctor within 1 week. Return to the hospital if you experience recurrent or worsening symptoms. Assessment: See Discharge Summary.
--- NOTE | 2025-05-09 14:50 | MHC.SL.SWA ---
Speech Pathologist Impression: Mild oropharyngeal dyspahgia Risk of Aspiration Due to: Current dentition status, extensive GI hx Dysphasia Diet Status: Recommend CONTINUE NDD2, Thin Liquids Liquid Consistency and Strategies for Safe Swallow: Liquid Intake Recommendation: Thin Liquid Intake Strategies: Small Sips Double Swallow Solid Food Consistency: Dietary Recommendations: Grnd/Mech Altered (NDD2) Additional Modifications to Solid Foods: Oral Medication Intake: Whole with Puree Please contact the pharmacy regarding appropriate crushable or liquid drug formulations that are available whenever modified delivery is recommended. Compensatory Strategies and Precautions to be Taken for Safe Swallow: Sitting Upright (90 deg) Double Swallow Small Bites and Sips Alternate Liquids/Solids Rate of Ingestion Change Supervision While Eating and Drinking for Safe Swallow: Intermittent Supervision Foods to Avoid: Swallowing Recommended Treatments: Compens. Strategy Educat. Recommendation for Speech: Speech Therapy through Rehab Facility Comment: Prior to being seen, patient's diet upgraded to NDD2 per INSPECTOR TYPE recommendations on 05/06/15. Patient seen for dysphagia treatment. Seen sitting EOB. Patient trialed with vinnie cracker pieces in pudding and small piece of regular vinnie cracker. Patient edentulous; typically wears dentures during PO intake but does not presently have. Patient with occasional prolonged mastication, yet adequate cohesion and clearance. Patient with no s/sx of penetration/aspiration. Patient reporting possible discharge home this evening. INSPECTOR TYPE educating patient on diet recommendations and ability to trial advanced solids at home when dentures are present. Patient demonstrating understanding towards diet recommendations and education. Recommend CONTINUE with diet of NDD2, Thin Liquids. Frequency/Duration: M-F daily Date Range for Service Req: Timeline to reassess: Director Of Email Marketing Clinican/Clinical Fellow: No Supervisory Statement: I have reviewed and agree with the student/clinical fellow's documentation: N/A Speech Language Pathologist: Selene Ruby M.A., CCC-INSPECTOR TYPE
[2025-05-09 15:42] VITALS: BP 108/56; PULSE 59; RESP 16; TEMP 36.6; O2SAT 95
--- OUTSIDE RECORDS SUMMARY | 2025-05-26 20:00 | XMS_ITS | Clinical Summary ---
Author Organization Unknown Care Team Providers Care Occ Med Physician Name Role Phone HARJIT SANTOS, JESS Unavailable Unavailmalinda FINK RN, JESUS Unavailable Unavaila jesse GODOY RN, LUIS Unavailable Unavailable RESHMA PT, DONTE Unavailable Unavailable BRI [employer], MALATHI Unavailable Unavai lable Payers Payer Name Policy Type Policy Number Effective Date Expira tion Date MEDICARE - [facility] [id number] [employer] [id number] Problems Condition Name Condition Details Condition Category [...] 07-07 00:00: 00 ATHSCL HEART DISEASE OF [place] CORONARY ARTERY W/O ANG PCTRS Active 07-07 00:00: 00 GOUT, UNSPECIFIED Active 07-07 00:00: 00 UNSPECIFIED HEARING LOSS, UNSPECIFIED EAR Active 07-07 00:00: 00 CONDUCTION DISORDER, UNSPECIFIED Active 07-07 00:00: 00 PRESENCE OF PROSTHETIC HEART VALVE Active 07-07 00:00: 00 INTERMEDIATE (CURRENT) USE OF ORAL HYPOGLYCEMIC DRUGS Active [...] 02-25 00:00: 00 09-26 23:59 :00 No [id number] 1 tablet DAILY 1 tablet DAILY (route: oral) Med Classific ation: Gout and Hyperuric emia Therapy amitriptyli ne 50 mg tablet 02-25 00:00: 00 09-26 23:59 :00 No [id number] 1 tablet BEDTIME 1 tablet BEDTIME (route: oral) Med Classific ation: Central Nervous System Agents diltiazem CD 180 mg capsule,ext ended release 24 hr 02-25 00:00: 00 09-26 23:59 :00 No [id number] 1 capsule DAILY 1 capsule DAILY (route: oral) Med Classific ation: Cardiovas cular Therapy Agents fluticasone propionate 50 mcg/actuati on nasal spray,suspe nsion 02-25 00:00: 00 09-26 23:59 :00 No [id number] 1 spray DAILY 1 spray DAILY (route: nasal) Med Classific ation: Respirato ry Therapy Agents omeprazole 20 mg capsule,del ayed release 02-25 00:00: 00 09-26 23:59 :00 No [id number] 1 capsule DAILY 1 capsule DAILY (route: oral) Med Classific ation: Gastroint estinal Therapy Agents potassium chloride ER 20 mEq tablet,exte nded release 02-25 00:00: 00 09-26 23:59 :00 No [id number] 1 tablet DAILY 1 tablet DAILY (route: oral) Med Classific ation: Electroly te Balance-N utritiona l Products simvastatin 20 mg tablet 02-25 00:00: 00 09-26 23:59 :00 No [id number] 1 tablet BEDTIME 1 tablet BEDTIME (route: oral) Med Classific ation: Cardiovas cular Therapy Agents torsemide 20 mg tablet 02-25 00:00: 00 09-26 23:59 :00 No [id number] 1 tablet DAILY 1 tablet DAILY (route: oral) Med Classific ation: Cardiovas cular Therapy Agents warfarin 5 mg tablet 02-22 00:00: 00 03-02 23:59 :00 No [id number] 1 tablet DAILY 1 tablet DAILY (route: oral) Med Classific ation: Hematolog ical Agents warfarin 2.5 mg tablet 03-06 00:00: 00 03-06 23:59 :00 No [id number] 2.5 mg DAILY 2.5 mg DAILY (route: oral) Med Classific ation: Hematolog ical Agents warfarin 5 mg tablet 03-07 00:00: 00 03-08 23:59 :00 No [id number] 5 mg DAILY 5 mg DAILY (route: oral) Med Classific ation: Hematolog ical Agents warfarin 5 mg tablet 03-09 00:00: 00 03-12 23:59 :00 No [id number] 5 tablet DAILY 5 tablet DAILY (route: oral) Med Classific ation: Hematolog ical Agents warfarin 5 mg tablet 03-12 00:00: 00 03-18 23:59 :00 No [id number] 5 mg DAILY 5 mg DAILY (route: oral) Med Classific ation: Hematolog ical Agents allopurinol 100 mg tablet 3-26 00:00: 00 Yes [id number] 2 tablet DAILY 2 tablet DAILY (route: oral) Med Classific ation: Gout and Hyperuric emia Therapy amitriptyli ne 75 mg tablet 09-29 00:00: 00 Yes [id number] 1 tablet BEDTIME 1 tablet BEDTIME (route: oral) Med Classific ation: Central Nervous System Agents carvedilol 3.125 mg tablet 09-29 00:00: 00 Yes [id number] 1 tablet 2 TIMES DAILY 1 tablet 2 TIMES DAILY (route: oral) Med Classific ation: Cardiovas cular Therapy Agents cyanocobala min (vit B-12) 1,000 mcg tablet 09-29 00:00: 00 Yes [id number] 1 tablet DAILY 1 tablet DAILY (route: oral) Med Classific ation: Electroly te Balance-N utritiona l Products donepezil 10 mg tablet 09-29 00:00: 00 Yes [id number] 1 tablet DAILY 1 tablet DAILY (route: oral) Med Classific ation: Cognitive Disorder Therapy furosemide 80 mg tablet 09-29 00:00: 00 10-05 23:59 :00 No [id number] 1 tablet 2 TIMES DAILY 1 tablet 2 TIMES DAILY (route: oral) Med Classific ation: Cardiovas cular Therapy Agents lansoprazol e 30 mg capsule,del ayed release 09-29 00:00: 00 03-01 23:59 :00 No [id number] 1 capsule DAILY 1 capsule DAILY (route: oral) Med Classific ation: Gastroint estinal Therapy Agents losartan 25 mg tablet 09-29 00:00: 00 Yes [id number] 1 tablet DAILY 1 tablet DAILY (route: oral) Med Classific ation: Cardiovas cular Therapy Agents potassium chloride 20 mEq oral packet 09-29 00:00: 00 02-16 00:00 :00 No [id number] 1 packet 2 TIMES DAILY 1 packet 2 TIMES DAILY (route: oral) Med Classific ation: Electroly te Balance-N utritiona l Products simvastatin 20 mg tablet 09-29 00:00: 00 Yes [id number] 1 tablet BEDTIME 1 tablet BEDTIME (route: oral) Med Classific ation: Cardiovas cular Therapy Agents warfarin 5 mg tablet 09-29 00:00: 10-05 23:59 :00 No [id number] 5 mg DIRECTED 5 mg DIRECTED (route: oral) Med Classific ation: Hematolog ical Agents furosemide 80 mg tablet 10-05 00:00: 00 11-21 23:59 :00 No [id number] Per instruc tions DAILY Per instructio ns DAILY (route: oral) Med Classific ation: Cardiovas cular Therapy Agents warfarin 5 mg tablet 10-11 00:00: 00 10-17 23:59 :00 No [id number] Per instruc tions DAILY Per instructio ns DAILY (route: oral) Med Classific ation: Hematolog ical Agents warfarin 5 mg tablet 10-05 00:00: 00 10-10 23:59 :00 No [id number] Per instruc tions DAILY Per instructio ns DAILY (route: oral) Med Classific ation: Hematolog ical Agents warfarin 2.5 mg tablet 10-18 00:00: 00 10-21 23:59 :00 No [id number] 1 tablet DAILY 1 tablet DAILY (route: oral) Med Classific ation: Hematolog ical Agents warfarin 5 mg tablet 10-25 00:00: 00 10-31 23:59 :00 No [id number] Per instruc tions DAILY Per instructio ns DAILY (route: oral) Med Classific ation: Hematolog ical Agents acetaminoph en ER 650 mg tablet,exte nded release 10-25 00:00: 00 Yes [id number] 1 tablet EVERY 8 HOURS 1 tablet EVERY 8 HOURS (route: oral) Med Classific ation: Analgesic , Anti-infl ammatory or Antipyret ic amiodarone 200 mg tablet 10-25 00:00: 00 01-10 23:59 :00 No [id number] 1 tablet DAILY 1 tablet DAILY (route: oral) Med Classific ation: Cardiovas cular Therapy Agents ferrous sulfate 325 mg (65 mg iron) tablet 10-25 00:00: 00 02-16 00:00 :00 No [id number] 1 tablet DAILY 1 tablet DAILY (route: oral) Med Classific ation: Electroly te Balance-N utritiona l Products Jardiance 10 mg tablet -21 00:00: 00 Yes [id number] 1 tablet DAILY 1 tablet DAILY (route: oral) Med Classific ation: Endocrine warfarin 5 mg tablet 4-28 00:00: 00 11-08 23:59 :00 No [id number] Per instruc tions DAILY Per instructio ns DAILY (route: oral) Med Classific ation: Hematolog ical Agents warfarin 5 mg tablet 11-10 00:00: 00 11-14 23:59 :00 No [id number] 2.5 mg DIRECTED 2.5 mg DIRECTED (route: oral) Med Classific ation: Hematolog ical Agents warfarin 5 mg tablet 11-15 00:00: 00 11-21 23:59 :00 No [id number] 2.5 mg DIRECTED 2.5 mg DIRECTED (route: oral) Med Classific ation: Hematolog ical Agents warfarin 2.5 mg tablet 20 00:00: 00 11-30 23:59 :00 No [id number] Per instruc tions DAILY Per instructio ns DAILY (route: oral) Med Classific ation: Hematolog ical Agents warfarin 5 mg tablet 11-30 00:00: 00 12-05 23:59 :00 No [id number] Per instruc tions DAILY Per instructio ns DAILY (route: oral) Med Classific ation: Hematolog ical Agents torsemide 20 mg tablet 19 00:00: 00 01-25 23:59 :00 No [id number] 4 tablet 2 TIMES DAILY 4 tablet 2 TIMES DAILY (route: oral) Med Classific ation: Cardiovas cular Therapy Agents warfarin 5 mg tablet 6-09 00:00: 00 12-16 23:59 :00 No [id number] 0.5 tablet DIRECTED 0.5 tablet DIRECTED (route: oral) Med Classific ation: Hematolog ical Agents warfarin 5 mg tablet 6-13 00:00: 00 12-20 23:59 :00 No [id number] 2.5 mg DAILY 2.5 mg DAILY (route: oral) Med Classific ation: Hematolog ical Agents warfarin 5 mg tablet 6-19 00:00: 00 12-28 23:59 :00 No [id number] 2.5 mg DAILY 2.5 mg DAILY (route: oral) Med Classific ation: Hematolog ical Agents warfarin 5 mg tablet 6-24 00:00: 00 01-03 23:59 :00 No [id number] 2.5 mg DAILY 2.5 mg DAILY (route: oral) Med Classific ation: Hematolog ical Agents warfarin 5 mg tablet - 00:00: 00 01-09 23:59 :00 No [id number] 2.5 mg DAILY 2.5 mg DAILY (route: oral) Med Classific ation: Hematolog ical Agents warfarin 5 mg tablet -07 00:00: 00 01-13 23:59 :00 No [id number] 0.5 tablet DIRECTED 0.5 tablet DIRECTED (route: oral) Med Classific ation: Hematolog ical Agents amiodarone 200 mg tablet -07 00:00: 00 01-25 23:59 :00 No [id number] 2 tablet DAILY 2 tablet DAILY (route: oral) Med Classific ation: Cardiovas cular Therapy Agents warfarin 5 mg tablet 7-11 00:00: 00 01-20 23:59 :00 No [id number] 2.5 mg DIRECTED 2.5 mg DIRECTED (route: oral) Med Classific ation: Hematolog ical Agents warfarin 5 mg tablet 7-18 00:00: 00 01-27 23:59 :00 No [id number] 2.5 mg DAILY 2.5 mg DAILY (route: oral) Med Classific ation: Hematolog ical Agents warfarin 5 mg tablet 8-03 00:00: 00 02-06 23:59 :00 No [id number] 2.5 mg DAILY 2.5 mg DAILY (route: oral) Med Classific ation: Hematolog ical Agents torsemide 20 mg tablet 01-25 00:00: 00 Yes [id number] 4 tablet DAILY 4 tablet DAILY (route: oral) Med Classific ation: Cardiovas cular Therapy Agents warfarin 5 mg tablet 02-11 00:00: 00 02-15 23:59 :00 No [id number] 2.5 mg DIRECTED 2.5 mg DIRECTED (route: oral) Med Classific ation: Hematolog ical Agents warfarin 5 mg tablet 02-16 00:00: 00 02-22 23:59 :00 No [id number] 0.5 tablet DIRECTED 0.5 tablet DIRECTED (route: oral) Med Classific ation: Hematolog ical Agents Allergy Relief (fluticason e) 50 mcg/actuati on nasal spray,suspe nsion 02-16 00:00: 00 Yes [id number] 2 spray DAILY 2 spray DAILY (route: nasal) Med Classific ation: Respirato ry Therapy Agents amiodarone 200 mg tablet 02-16 00:00: 00 Yes [id number] 2 tablet DAILY 2 tablet DAILY (route: oral) Med Classific ation: Cardiovas cular Therapy Agents ferrous sulfate 325 mg (65 mg iron) tablet 02-16 00:00: 00 Yes [id number] 1 tablet 2 TIMES DAILY 1 tablet 2 TIMES DAILY (route: oral) Med Classific ation: Electroly te Balance-N utritiona l Products potassium chloride ER 20 mEq tablet,exte nded release 02-16 00:00: 00 Yes [id number] 1 tablet 2 TIMES DAILY 1 tablet 2 TIMES DAILY (route: oral) Med Classific ation: Electroly te Balance-N utritiona l Products Senna with Docusate Sodium 8.6 mg-50 mg tablet 02-16 00:00: 00 Yes [id number] 2 tablet DAILY 2 tablet DAILY (route: oral) Med Classific ation: Gastroint estinal Therapy Agents memantine 5 mg tablet 02-16 00:00: 00 Yes [id number] 1 tablet 2 TIMES DAILY 1 tablet 2 TIMES DAILY (route: oral) Med Classific ation: Cognitive Disorder Therapy warfarin 5 mg tablet 02-23 00:00: 00 03-01 23:59 :00 No [id number] Per instruc tions DIRECTED Per instructio ns DIRECTED (route: oral) Med Classific ation: Hematolog ical Agents omeprazole 40 mg capsule,del ayed release 03-01 00:00: 00 Yes [id number] 1 capsule 2 TIMES DAILY 1 capsule 2 TIMES DAILY (route: oral) Med Classific ation: Gastroint estinal Therapy Agents warfarin 5 mg tablet 03-03 00:00: 00 03-07 23:59 :00 No [id number] Per instruc tions DAILY Per instructio ns DAILY (route: oral) Med Classific ation: Hematolog ical Agents warfarin 5 mg tablet 03-11 00:00: 00 03-14 23:59 :00 No [id number] Per instruc tions DAILY Per instructio ns DAILY (route: oral) Med Classific ation: Hematolog ical Agents warfarin 5 mg tablet 03-15 00:00: 00 03-24 23:59 :00 No [id number] Per instruc tions DIRECTED Per instructio ns DIRECTED (route: oral) Med Classific ation: Hematolog ical Agents warfarin 2.5 mg tablet 03-28 00:00: 00 03-28 23:59 :00 No [id number] 0.5-1 tablet DAILY 0.5-1 tablet DAILY (route: oral) Med Classific ation: Hematolog ical Agents warfarin 2.5 mg tablet 03-28 00:00: 00 04-04 23:59 :00 No [id number] Per instruc tions DIRECTED Per instructio ns DIRECTED (route: oral) Med Classific ation: Hematolog ical Agents warfarin 2.5 mg tablet 04-04 00:00: 00 04-10 23:59 :00 No [id number] Per instruc tions DAILY Per instructio ns DAILY (route: oral) Med Classific ation: Hematolog ical Agents warfarin 5 mg tablet 2024-07 0-06 00:00: 00 04-12 23:59 :00 No [id number] Per instruc tions DAILY Per instructio ns DAILY (route: oral) Med Classific ation: Hematolog ical Agents warfarin 5 mg tablet 2024-07 0-13 00:00: 00 04-18 23:59 :00 No [id number] 2.5 mg DAILY 2.5 mg DAILY (route: oral) Med Classific ation: Hematolog ical Agents warfarin 5 mg tablet 2024-07 0-14 00:00: 00 04-25 23:59 :00 No [id number] 0.5 tablet DAILY 0.5 tablet DAILY (route: oral) Med Classific ation: Hematolog ical Agents warfarin 5 mg tablet 2024-07 0-20 00:00: 00 04-26 23:59 :00 No [id number] 2.5 mg DAILY 2.5 mg DAILY (route: [...] Observation Time Observation Value Commen ts Temperature 2025-04-25 09:16:00.000 97 [degF] Temperature 2025-04-19 10:12:00.000 97.9 [degF] Temperature 2025-04-11 09:58:00.000 97 [degF] Temperature 2025-04-04 08:49:00.000 97 [degF] Pulse 2025-04-25 09:16:00.000 70 /min Pulse 2025-04-19 10:12:00.000 70 /min Pulse 2025-04-11 09:58:00.000 62 /min Pulse 2025-04-04 08:49:00.000 60 /min O2 Saturation (%) 2025-04-25 09:18:00.000 100 % O2 Saturation (%) 2025-04-19 10:12:00.000 97 % O2 Saturation (%) 2025-04-11 09:58:00.000 97 % O2 Saturation (%) 2025-04-04 08:49:00.000 97 % Respirations 2025-04-25 09:16:00.000 18 /min Respirations 2025-04-19 10:12:00.000 18 /min Respirations 2025-04-11 09:58:00.000 18 /min Respirations 2025-04-04 08:49:00.000 18 /min Weight (lbs) 2025-04-25 09:16:00.000 161 [lb_av] Weight (lbs) 2025-04-19 10:12:00.000 165 [lb_av] Weight (lbs) 2025-04-11 09:58:00.000 166 [lb_av] Weight (lbs) 2025-04-04 08:49:00.000 165.4 [lb_av] Systolic Blood Pressure 2025-04-25 09:16:00.000 120 mm [Hg] Systolic Blood Pressure 2025-04-19 10:12:00.000 126 mm [Hg] Systolic Blood Pressure 2025-04-11 09:58:00.000 112 mm [Hg] Systolic Blood Pressure 2025-04-04 08:49:00.000 126 mm [Hg] Diastolic Blood Pressure 2025-04-25 09:16:00.000 [...] MAINTAIN SITUATIONAL AWARENESS AND WILL NOTIFY CLINICAL NUCLEAR TEST TECHNICIAN AND PHYSICIAN/PROVIDER WITH ANY CHANGE IN CONDITION. [code = SKILLED NURSE TO PERFORM ENVIRONMENTAL SAFETY RISK ASSESSMENT AND FALL RISK ASSESSMENT AND PROVIDE INSTRUCTION TO IMPLEMENT ENVIRONMENTAL SAFETY AND FALL PREVENTION STRATEGIES THROUGHOUT THE CERTIFICATION PERIOD. SKILLED NURSE WILL MAINTAIN SITUATIONAL AWARENESS AND WILL NOTIFY CLINICAL NUCLEAR TEST TECHNICIAN AND PHYSICIAN/PROVIDER WITH ANY CHANGE IN CONDITION.] [...] CARE WILL BE ESTABLISHED THAT MEETS PATIENT'S SENIOR CARE NEEDS AND INCLUDES PATIENT GOAL FOR HOME [...] End Date/Time Encounter Type Admission Type Attending [facility] Care Department Encounter ID Discharge Date Discharge Status Discharge Condition Discharge Reason Percent Goals Met 2025-03-29 00:00:00 2025-05-27 00:00:00 Outpatient RECERTIFIC ATION LUIS GODOY [facility] [id number]
== END 2025-05-09 18:23 | disposition home health service (06) | DRG 393 ==
LOC: HO.ED 15:29 → HO.SSS 15:52 → HO.EDOVER 16:05 → HO.S3 16:48 → HO.IMC 05-04 19:07
PROVIDERS: Hospitalist; Internal Medicine; Nurse Practitioner Acute Care; Nurse Practitioner Family; Physician Assistant Medical; Student in an Organized Health Care Education/Training Program; Admitting Provider Surgery; Emergency Provider Emergency Medicine Emergency Medical Services; PCP Physician Assistant Medical; Visit Provider Family Medicine
PROC: 0YJ5XZZ Inspection of Right Inguinal Region, External Approach (ICD-10-PCS; principal; 2025-05-01 17:00)
DX: K40.30 Unilateral inguinal hernia, with obstruction, without gangrene, not specified as recurrent (principal); J69.0 Pneumonitis due to inhalation of food and vomit; N17.9 Acute kidney failure, unspecified; J98.11 Atelectasis; I50.22 Chronic systolic (congestive) heart failure; I42.9 Cardiomyopathy, unspecified; I95.9 Hypotension, unspecified; E87.5 Hyperkalemia; I48.0 Paroxysmal atrial fibrillation; N40.0 Benign prostatic hyperplasia without lower urinary tract symptoms; G31.84 Mild cognitive impairment of uncertain or unknown etiology; I11.0 Hypertensive heart disease with heart failure; L89.156 Pressure-induced deep tissue damage of sacral region; Z45.02 Encounter for adjustment and management of automatic implantable cardiac defibrillator; Z95.2 Presence of prosthetic heart valve; Z79.01 Long term (current) use of anticoagulants; Z79.899 Other long term (current) drug therapy
CPT/HCPCS: 36415; 71045; 74176; 80048; 80053; 81001; 82565; 82570; 82947; 83605; 83735; 83880; 83935; 84300; 84443; 84484; 84520; 85025; 85027; 85610; 85730; 85999; 87040; 87086; 92526; 92610; 93005; 93306; 97162; 99285; J0330; J0690; J0696; J1271; J1644; J1650; J2003; J2004; J2270; J2405; J2470; J2704; J3430; J7120; P9047; Q9957

== ENCOUNTER → 2025-05-01 12:47 | Outpatient (BNV) | payer MEDICARE, SELFPAY | PROVIDERS: PCP Physician Assistant Medical; Visit Provider Radiology Diagnostic Radiology | DX: Z46.59 Encounter for fitting and adjustment of other gastrointestinal appliance and device (principal) | CPT/HCPCS: 71045; 74176 ==

== ENCOUNTER → 2025-05-01 12:47 | Outpatient (BNV) | payer MEDICARE, SELFPAY | PROVIDERS: Admitting Provider Surgery; Emergency Provider Emergency Medicine Emergency Medical Services; PCP Physician Assistant Medical; Visit Provider Internal Medicine | DX: R94.31 Abnormal electrocardiogram [ECG] [EKG] (principal); Z95.0 Presence of cardiac pacemaker | CPT/HCPCS: 93010 ==

== ENCOUNTER 2025-05-01 15:58 | Outpatient (BNV) | payer MEDICARE, SELFPAY | END 2025-05-05 12:18 | PROVIDERS: Admitting Provider Surgery; Emergency Provider Emergency Medicine Emergency Medical Services; PCP Physician Assistant Medical; Visit Provider Internal Medicine | DX: I51.7 Cardiomegaly (principal); I36.1 Nonrheumatic tricuspid (valve) insufficiency | CPT/HCPCS: 93306 ==

== ENCOUNTER → 2025-05-01 15:58 | Outpatient (BNV) | payer MEDICARE, SELFPAY | PROVIDERS: Admitting Provider Surgery; Emergency Provider Emergency Medicine Emergency Medical Services; PCP Physician Assistant Medical; Visit Provider Surgery | DX: K40.30 Unilateral inguinal hernia, with obstruction, without gangrene, not specified as recurrent (principal) | CPT/HCPCS: 99024; 99499 ==

== ENCOUNTER → 2025-05-01 15:58 | Outpatient (BNV) | payer MEDICARE, SELFPAY | PROVIDERS: Admitting Provider Surgery; Emergency Provider Emergency Medicine Emergency Medical Services; PCP Physician Assistant Medical; Visit Provider Internal Medicine Hypertension Specialist | DX: N17.9 Acute kidney failure, unspecified (principal) | CPT/HCPCS: 99232 ==

== ENCOUNTER → 2025-05-01 15:58 | Outpatient (BNV) | payer MEDICARE, SELFPAY | PROVIDERS: Admitting Provider Surgery; Emergency Provider Emergency Medicine Emergency Medical Services; PCP Physician Assistant Medical; Visit Provider Internal Medicine | DX: Z01.810 Encounter for preprocedural cardiovascular examination (principal); I48.91 Unspecified atrial fibrillation; Z95.810 Presence of automatic (implantable) cardiac defibrillator | CPT/HCPCS: 99223 ==

== ENCOUNTER 2025-05-13 10:10 | Outpatient (REF) | payer MEDICARE, SELFPAY ==
--- OUTSIDE RECORDS SUMMARY | 2025-05-13 12:37 | XMS_ITS | Encounter Summary ---
Author Organization [facility] Address [address] [place] [address] Care Team Providers Care Evaporator Name Role Phone Armando Aceves Primary Care Provider [phone] Encounter Details Date Type Department Care Team (Latest Contact Info) Description 05/13/2025 Anticoagulation - Warfarin Visit [facility] [address] [phone] Armando Aceves PA [address] [place] [phone] Persistent atrial fibrillation (CMS/HCC V24, CMS/HCC V28) (Primary Dx); intermediate frame tender (current) use of anticoagulants Social History Tobacco [...] ed Within the last 3 months, jameel valero many times did you visit the emergency [...] care for your loved ones. For example, children's choir director or elderly care for an older adult? [...] Assessment Author No 09/26/2024 4:23 PM EDT Cooley, N icholas, RN * Are you blind or do you have serious difficulty seeing, even when wearing glasses? Answer Date of Assessment Author No 09/26/2024 4:23 PM Megan Sanders RN * Do you have serious difficulty walking or climbing stairs? Answer Date of Assessment Author No 09/26/2024 4:23 PM Megan Sanders RN * Do you have serious difficulty dressing or bathing? Answer Date of Assessment Author No 09/26/2024 4:23 PM Megan Sanders RN * Because of a physical, mental, or emotional condition, do you have serious difficulty doing errandsalone such as visiting the doctor? Answer Date of Assessment Author No 09/26/2024 4:23 PM Megan Sanders RN documented as of this encounter Mental Status * Because of a physical, mental, or emotional condition, do you have serious difficulty concentrating, remembering, or making decisions? (5 years old or older) Answer Entry Date Author No 09/26/2024 4:23 PM Megan Sanders RN documented in this encounter Progress Notes * Breanne Zhong LPN - 05/13/2025 9:53 AM EST Images from the original note were not included. Anticoagulation Summary As of 05/13/2025 INR goal: 2.5-3.5 TTR: 55.1% (11.3 mo) INR used for dosin.7 (05/13/2025) Warfarin maintenance plan: 0 mg every Fri, Sat; 2.5 mg (5 mg x 0.5) every Fri, Emily; 5 mg (5 mg x 1)all other days Weekly warfarin total: 20 mg Plan last modified: Breanne Zhong LPN (05/13/2025) Next INR check: 05/16/2025 Priority: Critical Target end date: -- Indications Atrial fibrillation (CMS/HCC V24 CMS/HCC V28) [I48.91] H/O mechanical aortic valve replacement (Resolved) [Z95.2] senior care (current) use of anticoagulants [Z79.01] Anticoagulation Episode Summary INR check location: Anticoagulation Clinic Preferred lab: -- Send INR reminders to: [facility] Comments: -- Anticoagulation Care Providers Provider Role Specialty Phone number TOM Roger Internal Medicine [phone] Patient presents for follow-up of ongoing Warfarin therapy. Patient had his INR drawn via [facility] Draw.Patient denies any significant issues with adherence to the medication regimen. Patient denies experiencing any symptoms of bleeding, such as unusual bruising, nosebleeds, hematuria, or melena. Patient reports feeling generally well and denies any new complaints. Plan of care: 2 New warfarin dose: Hold 2 doses Warfarin education of dietary considerations, medication/supplement interactions, [...] = recheck in 4 weeks Cosigned by TOM Roger at 05/13/2025 10:18 AM EST documented in this encounter Plan of Treatment Upcoming Encounters Date Type Department Care Team (Late st Contact Info) Description 05/18/2025 2:00 PM EST Office Visit Adult Medicine [address] [phone] Armando Aceves PA [address] [place] [phone] 06/01/2025 11:00 AM EST Office Visit Adult Medicine [address] [phone] Armando Aceves PA [address] [place] [phone] 07/28/2025 10:30 AM EST Nutrition Internal Medicine [facility] [address] [phone] Georgette Bradley, RD [address] [place] [address] 11/17/2025 11:00 AM EDT Ancillary Procedure [facility] [address] [facility] [address] [place] [address] documented as of this encounter [...] of UE's for safety only. Pt will [id number] reps or more for 30 SCS Test. documented as of this encounter Procedures Procedure Name Priority Date/Time Associated Diagnosis Comments PROTHROMBIN TIME WITH INR Routine 05/13/2025 documented in this encounter Results * Prothrombin time with INR (05/13/2025) INR 5.7 Comment:Marlyn Jackson Prothrombin Time POC Blood Venous blood specimen / Unknown 05/13/2025 Armando SANTOS LAB BLOOD ORDERABLES Charlotte l Result documented in this encounter Visit Diagnoses Diagnosis Persistent atrial fibrillation (CMS/HCC V24, CMS/HCC V28)- Primary Atrial fibrillation intermediate frame tender (current) use of anticoagulants Long-term (current) use of anticoagulants Encounter for adjustment or management of cardiac device documented in this encounter Additional Health Concerns Assessment Noted Time PHQ-9 Depression Total Score: 0 02/05/20 25 9:57 AM EDT A fall risk assessment has been complete d for the patient 06/17/2024 2:30 PM EST documented as of this encounter Care Teams Evaporator Relationship Specialty Start Date End Date Armando Aceves PA [address] [place] [address] PCP - General Internal Medicine 10/11/20 documented as of this encounter
--- OUTSIDE RECORDS SUMMARY | 2025-05-13 12:37 | XMS_ITS | Encounter Summary ---
Author Organization [facility], Address [address] [place] [address] Phone Care Team Providers Care Application Support Manager Name Role Phone Ryan Zhang Primary Care Provider [phone] [phone] Encounter Details Date Type Department Care Team (Late st Contact Info) Description 03/12/2024 Documentation Only [facility], [address] [place] [address] Suni Florez [address] [place] [phone] Social History Tobacco Use Types Packs/Day Years [...] on filedocumented in this encounter Care Teams Application Support Manager Relationship Specialty Start Date End Date Ryan Zhang PCP - General 08/05/23 documented as of this encounter
--- OUTSIDE RECORDS SUMMARY | 2025-05-13 12:37 | XMS_ITS | Clinical Summary ---
Author Organization [facility] Address [address] [place] [phone] Phone Care Team Providers Care Wood Heel Flap Trimmer Name Role Phone Ryan Zhang Primary Care Provider [phone] Allergies Active Allergy Reactions Criticality Noted Date [...] age to complete this topic Insurance Medicare [facility] Medicare [facility] Care Teams Wood Heel Flap Trimmer Relationship Specialty Start Date End Date Ryan Zhang PCP - General 08/05/23
--- OUTSIDE RECORDS SUMMARY | 2025-05-13 12:37 | XMS_ITS | Encounter Summary ---
Author Organization [facility] Address [address] [place] [address] Care Team Providers Care Recyclable Products Sorter Name Role Phone Armando Aceves Primary Care Provider [phone] Encounter Details Date Type Department Care Team (Latest Contact Info) Description 02/24/2025 Anticoagulation - Warfarin Visit Coumadin [address] [phone] Melissa Nichols LPN Persistent atrial fibrillation (CMS/HCC V24, CMS/HCC V28) (Primary Dx); residential (current) use of anticoagulants Social History Tobacco [...] care for your loved ones. For example, residential child care counselor or elderly care for an older adult? [...] Entry Date Author No 09/26/2024 4:23 PM CARLYT Megan Cooley RN documented in this encounter Plan of Treatment Upcoming Encounters Date Type Department Care Team (Late st Contact Info) Description 05/18/2025 2:00 PM EST Office Visit Adult Medicine [address] [phone] Armando Aceves PA [address] [place] [phone] 06/01/2025 11:00 AM EST Office Visit Adult Medicine [address] [phone] Armando Aceves PA [address] [place] [phone] 07/28/2025 10:30 AM EST Nutrition Internal Medicine - [place] 175 [facility] [address] [place] [phone] Georgette Bradley, RD [address] [place] [phone] 11/17/2025 11:00 AM EDT Ancillary Procedure [facility] [address] [facility] [address] [place] [phone] documented as of this encounter Goals Goal [...] of UE's for safety only. Pt will [id number] reps or more for 30 SCS Test. documented as of this encounter Visit Diagnoses Diagnosis Persistent atrial fibrillation (CMS/HCC V24, CMS/HCC V28)- Primary Atrial fibrillation residential (current) use of anticoagulants Long-term (current) use of anticoagulants Encounter for adjustment or management of cardiac device documented in this encounter Additional Health Concerns Assessment Noted Time PHQ-9 Depression Total Score: 0 02/05/20 25 9:57 AM EDT A fall risk assessment has been complete d for the patient 06/17/2024 2:30 PM EST documented as of this encounter Care Teams Recyclable Products Sorter Relationship Specialty Start Date End Date Armando Aceves PA [address] [place] [phone] PCP - General Internal Medicine 10/11/20 documented as of this encounter
--- OUTSIDE RECORDS SUMMARY | 2025-05-13 12:37 | XMS_ITS | Encounter Summary ---
Author Organization [facility] Address [address] [place] [address] Care Team Providers Care Motor Equipment Captain Name Role Phone Armando Aceves Primary Care Provider [phone] Reason for Visit * Reason Onset Date Comments patient outreach 05/11/2025 Encounter Details Date Type Department Care Team ([facility] Contact Info) Description 05/11/2025 Telephone Adult Medicine [facility] [address] [place] [phone] Katherine Hugo, PharmD [address] [place] [address] Social History Tobacco Use Types Packs/Day Years [...] for your loved ones. For example, child and adolescent psychiatrist or elderly care for an older adult? [...] of Assessment Author No 09/26/2024 4:23 PM EDMegan Espana RN * Because of a physical, mental, [...] documented in this encounter Progress Notes * Katherine Hugo PharmD - 05/11/2025 2:28 PM EST Received referral from Daniel Owusu in regards to [facility] of jardiance. Patient is paying 96/month for jardiance. Patient may qualify for jardiance's PAP. Called patient- no answer. LM with my direct line Katherine Hugo PharmD., BCACP Clinical Pharmacist [email or web address] P: [phone] F:[phone] documented in this encounter Plan of Treatment Upcoming Encounters Date Type Department Care Team (Late st Contact Info) Description 05/18/2025 2:00 PM EST Office Visit Adult [address] [phone] Armando Aceves PA [address] [place] [phone] 06/01/2025 11:00 AM EST Office Visit Adult Medicine [place] [id number] [place] [address] Armando Aceves PA [address] [place] [phone] 07/28/2025 10:30 AM EST Nutrition Internal Medicine - [place] [address] [facility] [address] [place] [phone] Georgette Bradley, RD [address] [place] [phone] 11/17/2025 11:00 AM EDT Ancillary Procedure [facility] [address] [facility] [address] [place] [phone] documented as of this encounter Goals Goal [...] of UE's for safety only. Pt will [id number] reps or more for 30 SCS Test. documented as of this encounter Visit Diagnoses Not on filedocumented in this encounter Additional Health Concerns Assessment Noted Time PHQ-9 Depression Total Score: 0 02/05/20 25 9:57 AM EDT A fall risk assessment has been complete d for the patient 06/17/2024 2:30 PM EST documented as of this encounter Care Teams Motor Equipment Captain Relationship Specialty Start Date End Date Armando Aceves PA [address] [place] [id number] PCP - General Internal Medicine 10/11/20 documented as of this encounter
--- OUTSIDE RECORDS SUMMARY | 2025-05-13 12:37 | XMS_ITS | Clinical Summary ---
Author Organization [facility] [address] [place] [address] [place] [phone] Phone Care Team Providers Care Artist Relationship Manager Name Role Phone Armando Aceves Primary Care Provider [phone] Allergies Active Allergy Reactions Criticality Noted Date Comments Iodinated Contrast Media Swelling High 08/23/2022 Confirmed with pt 09/05/24 Penicillins 09/05/2023 Medications warfarin (COUMADIN) 5 mg tablet Take 1 tablet (5 mg total) by mouth 2 (two) times a week. FRIDAY + FRIDAY May cause heavy bleeding. Take at same time every day. Do not change dietary habits. Managed by [facility] Class: Historic 023 Active FREESTYLE [...] EACH DAY 60 tablet 1 025 Active amiodarone (PACERONE) 200 [...] and fluid and electrolyte imbalances Diverticulum of [place] 11/13/2024 Dizziness 11/08/2024 Assessment & Plan (11/24/2024 [...] symptoms. Acute kidney injury superimposed on CKD ([facility] V24) 10/22/2024 Nonischemic cardiomyopathy (CMS/HCC V24, CMS/HCC V28) 10/14/2024 Assessment & Plan (12/30/2024 8:44 [...] with the advanced heart failure clinic at [facility], Dr. Connell, 12/31/2024 at 0745; we discussed [...] to the advanced heart failure clinic at [facility], Dr. Connell, for further evaluation as well. [...] panel; Future Acute on chronic heart failure ([facility] V24, [facility] /[facility] V28) 09/26/2024 Aortic aneurysm ([facility] V24) 09/13/2024 Aortic valve stenosis 09/13/2024 Assessment & Plan (12/30/2024 8:31 PM EDT): Assessment & Plan (11/24/2024 6:21 AM EDT): retirement (current) use of anticoagulants 2023 Assessment & [...] Ambulatory referral to Cardiology; Future Atrial tachycardia ([facility] V24) 06/09/2023 Heart block 03/04/2023 Snoring 03/04/2023 Bradycardia 02/25/2023 Type 2 diabetes mellitus wit hout complication, without long-term current use of insulin ([facility] V24, [facility] V28) 02/03/2023 Assessment & Plan (11/16/2024 1:06 [...] count; Future Stage 3b chronic kidney disease (CMS/HCC V24, CM S/HCC V28) 10/09/2022 Assessment & Plan (11/24/2024 6:21 [...] in and root replacement in 1986 at [facility] by Dr. Zee for bicuspid AV with [...] 06/13/2011 Overview (09/09/2023): Amiodarone-induced Congestive heart failure (CMS/[facility] V24, CMS/[facility] V 28) 02/14/2011 Hemorrhage of gastrointestinal tract [...] mouth within his view reasonable Atrial fibrillation (CMS/HCC V24, CMS/HCC V28) 0 09/17/2005 Assessment & Plan (12/30/2024 [...] Extensive evaluation, approximately 1996, Dr. Royer Coronado, [place], [place], upper GI endoscopy, duodenal biopsy, flexible [...] Encounters Date Type Department Care Team Description 05/13/2025 Telephone Adult Medicine [address] [phone] Armando Aceves PA 05/13/2025 Anticoagulation - Warfarin Visit [facility] [address] [phone] Armando Aceves PA Persistent atrial fibrillation (CMS/HCC V24, CMS/HCC V28) (Primary Dx); retirement (current) use of anticoagulants 05/11/2025 Telephone Adult Medicine [address], [place] [phone] Katherine Hugo PharmD 05/11/2025 Telephone Gastroenterology - [address] [place] [phone] La Kidd MD 05/10/2025 Telephone Adult Medicine [address] [phone] Asya Mcelroy [place] 05/10/2025 Anticoagulation - Warfarin Visit Coumadin [address] [phone] Armando Aceves, PA Persistent atrial fibrillation (CMS/HCC V24, CMS/HCC V28) (Primary Dx); retirement (current) use of anticoagulants 05/05/2025 Telephone [facility] - [address] [place] [phone] Provider, Not In System 05/04/2025 Telephone Adult Medicine [address] [phone] Armando Aceves, PA 04/29/2025 10:00 AM EDT Clinical Support Coumadin [address] [phone] Persistent atrial fibrillation (CMS/HCC V24, CMS/HCC V28) (Primary Dx); retirement (current) use of anticoagulants 04/26/2025 Telephone Adult Medicine [address] [phone] Armando Aceves PA 04/25/2025 Telephone Adult Medicine [address] [phone] Armando Aceves, PA 04/25/2025 Telephone Coumadin [address] [phone] Breanne Zhong LPN 04/25/2025 Anticoagulation - Warfarin Visit Coumadin [address] [phone] Armando Aceves PA Persistent atrial fibrillation (CMS/HCC V24, CMS/HCC V28) (Primary Dx); retirement (current) use of anticoagulants 04/22/2025 Telephone Adult Medicine [address] [phone] Armando Aceves PA 04/19/2025 Anticoagulation - Warfarin Visit Coumadin [address] [phone] Armando Aceves PA Persistent atrial fibrillation (CMS/HCC V24, CMS/HCC V28) (Primary Dx); 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 terminal 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 (current) use of anticoagulants 04/18/2025 Telephone Gastroenterology - [address] [facility] [address] [place] [phone] Rashaad Jose MD 04/15/2025 9:50 AM EDT Anticoagulation - Warfarin Visit Coumadin [address] [phone] Persistent atrial fibrillation (CMS/HCC V24, CMS/HCC V28) (Primary Dx); ferry terminal agent (current) use of anticoagulants 04/12/2025 Telephone Adult Medicine [address] [phone] Armando Aceves PA 04/12/2025 Telephone Adult Medicine [address] [phone] Armando Aceves PA 04/11/2025 Anticoagulation - Warfarin Visit Coumadin [address] [phone] Armando Aceves PA Persistent atrial fibrillation (CMS/HCC V24, CMS/HCC V28) (Primary Dx); retirement (current) use of anticoagulants 04/07/2025 Telephone [facility] - [address] [place] [phone] Provider, Not In System 04/06/2025 Telephone Adult Medicine [address] [phone] Genie Brown [place] 04/04/2025 Anticoagulation - Warfarin Visit Coumadin [address] [phone] Armando Aceves, PA Persistent atrial fibrillation ([facility]/HCC V24, [facility]/HCC V28) (Primary Dx); ferry terminal agent (current) use of anticoagulants 04/04/2025 Telephone Adult Medicine [address] [phone] Armando Aceves PA 04/01/2025 Telephone Gastroenterology - 299 [facility] 299 [facility] [address] [place] [phone] Kandice Laura [place] 03/28/2025 10:30 AM EDT Nutrition Internal Medicine - [place] [address] [facility] 200 [place] [phone] Stage 3b chronic kidney disease ([facility]/HCC V24, CMS/HCC V28) (Primary Dx); Type 2 diabetes mellitus without complication, without long-term current use of insulin ([facility]/HCC V24, [facility]/HCC V28) 03/28/2025 [facility] [address] [phone] Breanne Zhong LPN Persistent atrial fibrillation ([facility]/HCC V24, [facility]/HCC V28) (Primary Dx); ferry terminal agent (current) use of anticoagulants 03/24/2025 Telephone Adult Medicine [address] [phone] Armando Aceves PA 03/24/2025 Telephone Coumadin [address] [phone] Breanne Zhong LPN 03/24/2025 Anticoagulation - Warfarin Visit Coumadin [address] [phone] Breanne Zhong LPN Persistent atrial fibrillation (CMS/HCC V24, CMS/HCC V28) (Primary Dx); ferry terminal agent (current) use of anticoagulants 03/23/2025 12:30 PM EDT Ancillary Procedure [facility] - [address] [place] [phone] Persistent atrial fibrillation (CMS/HCC V24, CMS/HCC V28); Biventricular congestive heart failure (CMS/HCC V24, CMS/HCC V28); H/O aortic root repair; History of heart valve replacement; Nonischemic cardiomyopathy (CMS/HCC V24, CMS/HCC V28); Acute kidney injury superimposed on CKD ([facility]/HCC V24); Biventricular implantable cardioverter-defibrill ator (ICD) in situ; Elevated INR 03/21/2025 2:30 PM EDT Anesthesia Event [facility] [address] [place] [phone] Andres Vinson MD 03/21/2025 1:44 PM EDT - 03/21/2025 11:59 PM EDT Hospital Encounter [facility] [address] [place] [phone] La Kidd MD Oral phase dysphagia; Weight loss Discharge Disposition: Home or Self Care 03/21/2025 Telephone Gastroenterology - [address] [facility] 299 [facility] [address] [place] [phone] La Kidd MD 03/18/2025 10:00 AM EDT Anticoagulation - Warfarin Visit [facility] [address] [phone] Persistent atrial fibrillation (CMS/HCC V24, CMS/HCC V28) (Primary Dx); retirement (current) use of anticoagulants 03/18/2025 Telephone Adult Medicine [address] [phone] Armando Aceves PA 03/16/2025 10:00 AM EDT Office Visit Adult Medicine [address] [phone] Thanh Anand PA Bilateral impacted cerumen (Primary Dx) 03/16/2025 Telephone Adult Medicine [facility] - [address] [phone] Armando Aceves PA 03/15/2025 Anticoagulation - Warfarin Visit Coumadin [address] [phone] Breanne Zhong LPN Persistent atrial fibrillation (CMS/HCC V24, CMS/HCC V28) (Primary Dx); retirement (current) use of anticoagulants 03/11/2025 Anticoagulation - Warfarin Visit Coumadin [address] [phone] Breanne Zhong LPN Persistent atrial fibrillation (CMS/HCC V24, CMS/HCC V28) (Primary Dx); ferry terminal agent (current) use of anticoagulants 03/09/2025 12:40 PM EDT Lab Draw Station - [address] Persistent atrial fibrillation (CMS/HCC V24, CMS/HCC V28); Biventricular congestive heart failure (CMS/HCC V24, CMS/HCC V28); H/O aortic root repair; History of heart valve replacement; Nonischemic cardiomyopathy (CMS/HCC V24, CMS/HCC V28); Acute kidney injury superimposed on CKD ([facility]/HCC V24); Biventricular implantable cardioverter-defibrill ator (ICD) in situ; Elevated INR; Chronic sinus complaints; Dysphagia, unspecified type; Atherosclerosis of coronary artery with other form of angina pectoris, unspecified vessel or lesion type, unspecified whether pala or transplanted heart ([facility]/HCC V24); Essential hypertension, benign; Hyperthyroidism; Impaired fasting glucose; Type 2 diabetes mellitus without complication, without long-term current use of insulin (CMS/HCC V24, CMS/HCC V28) 03/09/2025 10:50 AM EDT Office Visit [facility] - [address] [place] [address] Solo Delarosa MD Biventricular congestive heart failure (CMS/HCC V24, CMS/HCC V28) (Primary Dx); Persistent atrial fibrillation (CMS/HCC V24, CMS/HCC V28); H/O aortic root repair; History of heart valve replacement; Nonischemic cardiomyopathy (CMS/HCC V24, CMS/HCC V28); Acute kidney injury superimposed on CKD (CMS/HCC V24); Biventricular implantable cardioverter-defibrill ator (ICD) in situ; Elevated INR; Tricuspid valve insufficiency, unspecified etiology 03/08/2025 Telephone [facility] - [facility] [address] [place] [phone] Solo Delarosa MD 03/08/2025 Anticoagulation - Warfarin Visit [facility] [address] [phone] Breanne Zhong LPN Persistent atrial fibrillation (CMS/HCC V24, CMS/HCC V28) (Primary Dx); ferry terminal agent (current) use of anticoagulants 03/03/2025 11:30 AM EDT Office Visit Adult Medicine [address] [phone] Anita Gastelum PA Fall, subsequent encounter (Primary Dx); Laceration of scalp, subsequent encounter; Dysphagia, unspecified type; Type 2 diabetes mellitus without complication, without long-term current use of insulin ([facility]/HCC V24, [facility]/HCC V28) 03/01/2025 Telephone Adult Medicine [address] [phone] Armando Aceves PA 03/01/2025 Anticoagulation - Warfarin Visit Coumadin [address] [phone] Breanne Zhong LPN Persistent atrial fibrillation ([facility]/HCC V24, CMS/HCC V28) (Primary Dx); ferry terminal agent (current) use of anticoagulants 03/01/2025 Telephone Gastroenterology [facility] [address] [facility] [address] [place] [phone] Анна Enamorado PA 02/28/2025 Telephone Gastroenterology [facility] [address] [phone] Анна Enamorado PA 02/25/2025 10:30 AM EDT Office Visit [address] [phone] Aury Ferreira PA Fall, subsequent encounter (Primary Dx); Laceration of scalp, subsequent encounter 02/25/2025 Telephone Adult Medicine [address] [phone] Ariella Jimenez [place] 02/24/2025 Anticoagulation - Warfarin Visit Coumadin [address] [phone] Melissa Nichols LPN Persistent atrial fibrillation (CMS/HCC V24, CMS/HCC V28) (Primary Dx); retirement (current) use of anticoagulants 02/24/2025 Telephone Adult [address] [phone] Armando Aceves PA 02/23/2025 3:07 PM EDT - 02/23/2025 6:37 PM EDT Emergency [facility] [address] [place] [address] Fall, initial encounter (Primary Dx); Laceration of scalp, initial encounter; History of pacemaker; History of atrial fibrillation Discharge Disposition: Home or Self Care 02/23/2025 9:00 AM EDT Office Visit [address] [phone] Thanh Anand PA Bilateral impacted cerumen (Primary Dx); ferry terminal agent (current) use of anticoagulants; Type 2 diabetes mellitus without complication, without long-term current use of insulin (CMS/HCC V24, CMS/HCC V28) 02/22/2025 Telephone Coumadin [address] [phone] Breanne Zhong LPN 02/22/2025 Telephone Gastroenterology [facility] [address] [place] [phone] Megan Hollis LPN 02/21/2025 10:30 AM EDT Office Visit Gastroenterology [facility] [address] [facility] [address] [place] [phone] Анна Enamorado PA Gastroesophageal reflux disease, unspecified whether esophagitis present (Primary Dx); Dysphagia, unspecified type 02/18/2025 Telephone Adult Medicine [address] [phone] Ariella Jimenez [place] 02/16/2025 Anticoagulation - Warfarin Visit Coumadin [address] [phone] Melissa Nichols LPN Persistent atrial fibrillation (CMS/HCC V24, CMS/HCC V28) (Primary Dx); ferry terminal agent (current) use of anticoagulants 02/14/2025 11:00 AM EDT Office Visit Adult Medicine [address] [phone] Armando Aceves PA Chronic sinus complaints (Primary Dx); Dysphagia, unspecified type; Persistent atrial fibrillation (CMS/HCC V24, CMS/HCC V28); Biventricular congestive heart failure (CMS/HCC V24, CMS/HCC V28); Atherosclerosis of coronary artery with other form of angina pectoris, unspecified vessel or lesion type, unspecified whether pala or transplanted heart ([facility]/HCC V24); Essential hypertension, benign; Hyperthyroidism; Impaired fasting glucose; Type 2 diabetes mellitus without complication, without long-term current use of insulin (CMS/HCC V24, CMS/HCC V28) 02/14/2025 Telephone Adult Medicine [address] [phone] Armando Aceves PA 02/11/2025 Anticoagulation - Warfarin Visit Coumadin [address] [phone] Breanne Zhong LPN Persistent atrial fibrillation (CMS/HCC V24, CMS/HCC V28) (Primary Dx); retirement (current) use of anticoagulants 02/10/[address] [phone] Ariella Jimenez [place] from Last 3 Months Immunizations Immunization Administration [...] HISTORICAL CERV LAMINECTOMY OTHER SURGICAL HISTORY PROCEDURE: TN RPR THORACOABDOMINAL AORTIC ANEURYS W/WO BYPASS COLONOSCOPY 05/14/2007 PROCEDURE: TN COLONOSCOPY FLX DX W/COLLJ SPEC WHEN PFRMD; COMMENT: Negative AORTIC VALVE REPLACEMENT PROCEDURE: HISTORICAL AORTIC VALVE REPL Medical History Medical History Date Comments Heart valve replaced by other means DX:Heart valve replaced by other means; COMMENT: [facility] Aortic Atrial fibrillation ([facility] V24, [facility] V28) DX:Atrial fibrillation (HCC) ; COMMENT: S/P [...] gallstones 12/01/2019 DX:History of gallstones Diabetes mellitus ([facility] V 24, [facility] V28) Hyperlipidemia Chronic gout CKD (chronic kidney disease) Lung disease Non-ischemic cardiomyopathy ([facility] V24, [facility] V28) CHF (congestive heart failur e) ([facility] V24, [facility] V28) Biventricular implantable cardioverter-defibrillator (ICD) in situ Anemia Depression Anxiety Elevated INR 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 ejection fraction ([facility] V24, [facility] V28) Aortic aneurysm ([facility] V24) Heart block Tricuspid regurgitation Aberrant right [...] your loved ones. For example, child care coordinator or elderly care for an older [...] 2:00 PM EST Office Visit Adult Medicine [address] [phone] Armando Aceves PA [address] [place] [phone] 06/01/2025 11:00 AM EST Office Visit Adult Medicine [address] [phone] Armando Aceves PA [address] [place] [phone] 07/28/2025 10:30 AM EST Nutrition Internal Medicine - [address] [place] [address] Georgette Bradley, RD [address] [place] [address] 11/17/2025 11:00 AM EDT Ancillary Procedure [facility] - [facility] [address] [facility] [address] [place] [address] Health Maintenance Due Date Last [...] of UE's for safety only. Pt will [id number] reps or more for 30 SCS Test. Medical Devices Implanted Type Area Instruments Sales Representative Device Identifier Shelf Expiration Date Model / Serial / Lot Defib Icd Bi Vent [place] [employer] Button Puncher D - [id number] - [id number] Implanted:Qty: 1 on 10/20/2024 by Adal Padilla MD at [facility] Cardiac MIS MANAGER-D ICD Left: Heart [facility] [id number] 09/03/2025 [id number] / [id number] / Abbt-Stju [place] [employer] [id number] Implanted:10/05 (Quantity not on file) Cardiac MIS MANAGER-D ICD [facility] G[place]ANT HF / [id number] / Abbt-Stju [id number] [place](Tm) Hf [id number] Implanted:10/05 (Quantity not on file) Cardiac MIS MANAGER-D ICD [facility] [id number] GALLANT(T M) HF / [id number] / Lead Tachy Durat 65cm 7122q/65 Sj4 - [id number] - [id number] Implanted:Qty: 1 on 10/20/2024 by Adal Padilla MD at [facility] Cardiac Lead N/A: Heart [facility] [employer] [id number] 07/06/2027 7122Q/65 / [id number] / Lead Pcmk Tendril Sts 6vay54ec - [id number] - [id number] Implanted:Qty: 1 on 10/20/2024 by Adal Padilla MD at [facility] Cardiac Lead N/A: Heart [facility] [employer] [id number] 05/06/2027 2088TC/52 / [id number] / Lead Pcmkr Lv Quartet Quardri 86 - [id number] - [id number] Implanted:Qty: 1 on 10/20/2024 by Adal Padilla MD at [facility] Cardiac Lead Left: Heart [facility] [employer] [id number] 03/06/2027 1458Q/86 / [id number] / Procedures Procedure Name Priority Date/Time Associated Diagnosis Comments PROTHROMBIN TIME WITH INR Routine 05/13/2025 PROTHROMBIN TIME WITH INR Routine 05/10/2025 EXTERNAL XRAY REPORT 05/01/2025 EXTERNAL XRAY REPORT 05/01/2025 EXTERNAL XRAY REPORT 05/01/2025 EXTERNAL XRAY REPORT 05/01/2025 EXTERNAL XRAY REPORT 05/01/2025 EXTERNAL XRAY REPORT 05/01/2025 EXTERNAL XRAY REPORT 05/01/2025 EXTERNAL XRAY REPORT 05/01/2025 EXTERNAL XRAY REPORT 05/01/2025 EXTERNAL XRAY REPORT 05/01/[address] REPORT 05/01/2025 POC PROTIME INR BLOOD Routine 04/29/2025 9:59 AM EDT Persistent atrial fibrillation (CMS/HCC V24, CMS/HCC V28) retirement (current) use of anticoagulants PROTHROMBIN TIME WITH INR Routine 04/25/2025 PROTHROMBIN TIME WITH INR Routine 04/19/2025 POC PROTIME INR BLOOD Routine 04/15/2025 9:49 AM EDT Persistent atrial fibrillation (CMS/HCC V24, CMS/HCC V28) ferry terminal agent (current) use of anticoagulants PROTHROMBIN TIME WITH [...] Persistent atrial fibrillation (CMS/HCC V24, CMS/HCC V28) ferry terminal agent (current) use of anticoagulants PROTHROMBIN TIME WITH [...] unspecified vessel or lesion type, unspecified whether pala or transplanted heart (CMS/HCC V24) Essential hypertension, [...] unspecified vessel or lesion type, unspecified whether pala or transplanted heart ([facility] V24) Essential hypertension, benign Hyperthyroidism Impaired fasting glucose Type 2 diabetes mellitus without complication, without long-term current use of insulin ([facility] V24, [facility] V28) COMPREHENSIVE METABOLIC PANEL Routine 03/09/2025 12:44 PM EDT Chronic sinus complaints Dysphagia, unspecified type Persistent atrial fibrillation ([facility] V24, [facility] V28) Biventricular congestive heart failure ([facility] V24, [facility] V28) Atherosclerosis of coronary artery with other form of angina pectoris, unspecified vessel or lesion type, unspecified whether pala or transplanted heart ([facility] V24) Essential hypertension, benign Hyperthyroidism Impaired fasting glucose Type 2 diabetes mellitus without complication, without long-term current use of insulin ([facility] V24, [facility] V28) HEMOGLOBIN A1C Routine 03/09/2025 12:44 PM EDT Chronic sinus complaints Dysphagia, unspecified type Persistent atrial fibrillation ([facility] V24, [facility] V28) Biventricular congestive heart failure ([facility] V24, [facility] V28) Atherosclerosis of coronary artery with other form of angina pectoris, unspecified vessel or lesion type, unspecified whether pala or transplanted heart ([facility] V24) Essential hypertension, benign Hyperthyroidism Impaired fasting glucose Type 2 diabetes mellitus without complication, without long-term current use of insulin ([facility] V24, [facility] V28) THYROID STIMULATING HORMONE WITH REFLEX TO FREE T4 AND FREE T3 Routine 03/09/2025 12:44 PM EDT Chronic sinus complaints Dysphagia, unspecified type Persistent atrial fibrillation ([facility] V24, [facility] V28) Biventricular congestive heart failure ([facility] [facility] V24, [facility] V28) Atherosclerosis of coronary artery with other form of angina pectoris, unspecified vessel or lesion type, unspecified whether pala or transplanted heart ([facility] V24) Essential hypertension, benign Hyperthyroidism Impaired fasting glucose Type 2 diabetes mellitus without complication, without long-term current use of insulin ([facility] V24, [facility] V28) CBC AND DIFFERENTIAL Routine 03/09/2025 12:44 PM EDT Chronic sinus complaints Dysphagia, unspecified type Persistent atrial fibrillation (CMS/HCC V24, CMS/HCC V28) Biventricular congestive heart failure (CMS/HCC V24, CMS/HCC V28) Atherosclerosis of coronary artery with other form of angina pectoris, unspecified vessel or lesion type, unspecified whether pala or transplanted heart (CMS/HCC V24) Essential hypertension, benign Hyperthyroidism Impaired fasting glucose Type 2 diabetes mellitus without complication, without long-term current use of insulin (CMS/HCC V24, CMS/HCC V28) URIC ACID Routine 03/09/2025 12:44 PM EDT Chronic sinus complaints Dysphagia, unspecified type Persistent atrial fibrillation (CMS/HCC V24, CMS/HCC V28) Biventricular congestive heart failure (CMS/HCC V24, CMS/HCC V28) Atherosclerosis of coronary artery with other form of angina pectoris, unspecified vessel or lesion type, unspecified whether pala or transplanted heart (CMS/HCC V24) Essential hypertension, benign Hyperthyroidism Impaired fasting glucose Type 2 diabetes mellitus without complication, without long-term current use of insulin (CMS/HCC V24, CMS/HCC V28) PROTHROMBIN TIME WITH INR Routine 03/08/2025 [...] 02/16/2025 PROTHROMBIN TIME WITH INR Routine 02/11/2025 MICROALBUMIN CREATININE URINE RATIO Routine 09/14/2024 10:58 AM EDT Longstanding persistent atrial fibrillation (CMS/HCC V24, CMS/HCC V28) Hospital discharge follow-up Atrial tachycardia (CMS/HCC V24) Aberrant right subclavian artery Chronic heart failure with preserved ejection fraction (CMS/HCC V24, CMS/HCC V28) Congestive heart failure, unspecified HF chronicity, unspecified heart failure type (CMS/HCC V24, CMS/HCC V28) Essential hypertension, benign DEPRESSION SCREENING Routine 08/15/2023 FALLS RISK ASSESSMENT Routine 08/15/2023 DIABETES EYE EXAM Routine 07/15/2023 DIABETES FOOT EXAM Routine 07/15/2023 STOOL BASED TEST Routine 01/28/2023 HEPATITIS C SCREENING Routine 04/08/2013 from Last 3 Months or Most Recently Relevant to Health Maintenance Results * Prothrombin time with INR (05/13/2025) Only the most recent of15 resultswithin the time period is included. [facility] INR 5.7 Comment:Marlyn Jackson Prothrombin Time POC Blood Venous blood specimen / Unknown 05/13/2025 Armando SANTOS LAB BLOOD ORDERABLES Charlotte l Result * External Xray Report (05/01/2025) Only the most recent of10 resultswithin the time period is included. Anatomical Region Laterality Modality Radiographic Mireille ging Provider [facility] XR PROCEDURES Final Result * External CT Report (05/01/2025) Anatomical Region Laterality Modality Computed Tomogra phy Result [facility] Provider [facility] CT PROCEDURES Final Result * POC Protime INR Blood (04/29/2025 9:59 AM EDT) Only the most recent of3 resultswithin the time period is included. Pathologist [facility] Lot Number INR POC 3.0 Prothrombin Time POC Exp Date Blood 04/29/2025 9:59 AM EDT Result [facility] Ryan Zhang MD POINT OF CARE TEST ENT ER/EDIT ORDERABLES Final Result * (ABNORMAL) TRANSTHORACIC ECHOCARDIOGRAM (TTE) COMPLETE W/ CONTRAST (03/23/2025 1:19 PM EDT) Pathologist [facility] LV EDV (A2C) 218 mL CV PACS [...] 39 mL CV PACS Left [facility] Minor [place] 6.9 cm CV PACS Left [facility] Major [place] 7.5 cm CV PACS LA Area Sys [...] Gradient 7 mmHg CV PACS MV Deceleration Tensas 3.7 m/s2 CV PACS MV PHT 105 [...] was difficult due to: poor endocardial visualization. us Solo Delarosa MD CV ECHO PROCEDURES Final Result * (ABNORMAL) Bilirubin duplicate procedure to order (03/09/2025 12:44 PM EDT) Total Bilirubin 0.8 0.0 - 1.4 mg/dL LAB CHEMISTRY METHOD 03/09/2025 4:03 PM EDT [facility] Bilirubin, Direct 0.4(H) 0.0 - 0.3 mg/dL LAB CHEMISTRY METHOD 03/09/2025 4:03 PM EDT [facility] Bilirubin, Indirect 0.4 0.0 - 1.1 mg/dL LAB CHEMISTRY METHOD 03/09/2025 4:03 PM EDT [facility] Blood Venous blood specimen / Unknown Venipuncture / Unknown 03/09/2025 12:44 PM EDT 03/09/2025 12:44 PM EDT Solo Delarosa MD LAB BLOOD ORDERABLES Final Resu lt Performing Organization Address City/[facility]/ZIP Co de Phone Number [facility] [address] [place] [address], [place] [phone] * Thyroid stimulating hormone with reflex to free t4 and free t3 (03/09/2025 12:44 PM EDT) Pathologist [facility] TSH 3.12 0.40 - 4.00 mcIU/mL LAB CHEMISTRY METHOD 03/09/2025 5:08 PM EDT [facility] Blood Venous blood specimen / Unknown Venipuncture / Unknown 03/09/2025 12:44 PM EDT 03/09/2025 12:44 PM EDT Armando SANTOS LAB BLOOD ORDERABLES Charlotte l Result Performing Organization Address City/[facility]/ZIP Co de Phone Number [facility] [address] [place] [address], [place] [phone] * Lipid panel with reflex to direct LDL (03/09/2025 12:44 PM EDT) Cholesterol 102 0 - 200 mg/dL LAB CHEMISTRY METHOD 03/09/2025 4:03 PM EDT [facility] Triglycerides 71 0 - 150 mg/dL LAB CHEMISTRY METHOD 03/09/2025 4:03 PM EDT [facility] HDL 60 >=40 mg/dL LAB CHEMISTRY METHOD 03/09/2025 4:03 PM EDT [facility] LDL Calculated 28 0 - 100 mg/dL LAB CHEMISTRY METHOD 03/09/2025 4:03 PM EDT [facility] Comment:Estimated LDL Calcul ated using equation: Total cholesterol - HDL cholesterol - (Triglycerides/5) VLDL Cholesterol David 14.2 mg/dL LAB CHEMISTRY METHOD 03/09/2025 4:03 PM EDT [facility] Non HDL Chol. (LDL+VLDL) 42 <145 mg/dL LAB CHEMISTRY METHOD 03/09/2025 4:03 PM EDT [facility] Chol/HDL Ratio 1.7 0.0 - 4.4 LAB CHEMISTRY METHOD 03/09/2025 4:03 PM EDT [facility] Blood Venous blood specimen / Unknown Venipuncture / Unknown 03/09/2025 12:44 PM EDT 03/09/2025 12:44 PM EDT Armando SANTOS LAB BLOOD ORDERABLES Charlotte hickey Result [facility] [address] [place] [address], * (ABNORMAL) CBC auto differential (03/09/2025 12:44 PM EDT) Only the most recent of2 resultswithin the time period is included. WBC 5.8 4.8 - 10.8 K/mcL LAB HEMETOLOGY METHOD 03/09/2025 2:56 PM T [facility] RBC 3.40(L) 4.50 - 5.50 M/mcL LAB HEMETOLOGY METHOD 03/09/2025 2:56 PM EDT [facility] Hemoglobin 10.1(L) 13.5 - 17.5 g/dL LAB HEMETOLOGY METHOD 03/09/2025 2:56 PM EDT [facility] Hematocrit 33.1(L) 42.0 - 54.0 % LAB HEMETOLOGY METHOD 03/09/2025 2:56 PM T [facility] MCV 96.5 79.0 - 98.0 FL LAB HEMETOLOGY METHOD 03/09/2025 2:56 PM EDT [facility] MCH 29.4 27.0 - 32.0 pcg LAB HEMETOLOGY METHOD 03/09/2025 2:56 PM EDT [facility] MCHC 30.5(L) 32.0 - 37.0 g/dL LAB HEMETOLOGY METHOD 03/09[facility]2025 [facility] RDW 17.8(H) 11.0 - 15.0 % LAB HEMETOLOGY METHOD 03/09/2025 2:56 PM EDT [facility] Platelets 100(L) 130 - 400 K/mcL LAB HEMETOLOGY METHOD 03/09/2025 2:[facility] MPV 11.5(H) 7.0 - 11.0 FL LAB HEMETOLOGY METHOD 03/09/2025 2:[facility] NRBC 0.0 <1.0 % LAB HEMETOLOGY METHOD 03/09/2025 2:56 [facility] NRBC Absolute 0.00 <0.10 K/mcL LAB HEMETOLOGY METHOD 03/09/2025 2:56 [facility] Neutrophils Relative 77.1 % LAB HEMETOLOGY METHOD 03/09/2025 2:56 PM [facility] Lymphocytes Relative 14.6 % LAB HEMETOLOGY METHOD 03/09/2025 2:56 PM [facility] Monocytes Relative 5.9 % LAB HEMETOLOGY METHOD 03/09/2025 2:56 PM [facility] Eosinophils Relative 1.0 % LAB HEMETOLOGY METHOD 03/09/2025 2:[facility] Basophils Relative 0.9 % LAB HEMETOLOGY METHOD 03/09/2025 2:56 PM [facility] Immature Granulocytes Relative 0.5 % LAB HEMETOLOGY METHOD 03/09/2025 2:56 [facility] Neutrophils Absolute 4.45 1.50 - 7.00 K/mcL LAB HEMETOLOGY METHOD 03/09/2025 2:56 PM EDT [facility] Lymphocytes Absolute 0.84(L) 1.00 - 5.00 K/mcL LAB HEMETOLOGY METHOD 03/09/2025 2:56 PM EDT [facility] Monocytes Absolute 0.34 0.20 - 1.00 K/[facility] LAB HEMETOLOGY METHOD 03/09/2025 2:56 PM EDT [facility] Eosinophils Absolute 0.06 0.00 - 0.50 K/[facility] LAB HEMETOLOGY METHOD 03/09/2025 2:56 PM EDT [facility] Basophils Absolute 0.05 0.00 - 0.20 K/mcL LAB HEMETOLOGY METHOD 03/09/2025 2:56 PM EDT [facility] Immature Granulocytes Absolute 0.03 0.00 - 0.03 K/[facility] LAB HEMETOLOGY METHOD 03/09/2025 2:56 PM EDT [facility] Blood Venous blood specimen / Unknown Venipuncture / Unknown 03/09/2025 12:44 PM EDT 03/09/2025 12:44 PM EDT Armando SANTOS LAB BLOOD ORDERABLES Charlotte l Result [facility] [address] [place] [address], * Uric acid (03/09/2025 12:44 PM EDT) Uric Acid 4.1 3.7 - 9.2 mg/dL LAB CHEMISTRY METHOD 03/09/2025 4:03 PM EDT [facility] Blood Venous blood specimen / Unknown Venipuncture / Unknown 03/09/2025 12:44 PM EDT 03/09/2025 12:44 PM EDT Armando SANTOS LAB BLOOD ORDERABLES Charlotte l Result [facility] [address] [place] [address], [place] [phone] * Hemoglobin A1c (03/09/2025 12:44 PM EDT) Pathologist [facility] Hemoglobin A1C 6.4 <6.5 % LAB CHEMISTRY METHOD 03/09/2025 8:32 PM EDT [facility] Mean Bld Glu Estim. 137 mg/dL LAB CHEMISTRY METHOD 03/09/2025 8:32 PM EDT [facility] Blood Venous blood specimen / Unknown Venipuncture / Unknown 03/09/2025 12:44 PM EDT 03/09/2025 12:44 PM EDT Armando SANTOS LAB BLOOD ORDERABLES Charlotte l Result Performing Organization Address City/[facility]/ZIP Co de Phone Number [facility] [address] [place] [address], [place] [phone] * (ABNORMAL) Comprehensive metabolic panel (03/09/2025 12:44 PM EDT) [facility] Sodium 136 133 - 145 mmol/L LAB CHEMISTRY METHOD 03/09/2025 4:03 PM EDT [facility] Potassium 4.4 3.5 - 5.5 mmol/L LAB CHEMISTRY METHOD 03/09/2025 4:03 PM EDT [facility] Chloride 103 96 - 110 mmol/L LAB CHEMISTRY METHOD 03/09/2025 4:03 PM EDT [facility] CO2 27 21 - 32 mmol/L LAB CHEMISTRY METHOD 03/09/2025 4:03 PM EDT [facility] Anion Gap 6 3 - 11 LAB CHEMISTRY METHOD 03/09/2025 4:03 PM EDT [facility] Glucose 136(H) 70 - 100 mg/dL LAB CHEMISTRY METHOD 03/09/2025 4:03 PM [facility] BUN 25 5 - 25 mg/dL LAB CHEMISTRY METHOD 03/09/2025 4:03 PM [facility] Creatinine 2.05(H) 0.70 - 1.30 mg/dL LAB CHEMISTRY METHOD 03/09/2025 4:03 PM [facility] eGFR 32(L) >=60 mL/min/1. 73m2 LAB CHEMISTRY METHOD 03/09/2025 4:03 PM [facility] Comment:Calculation based on the Chronic Kidney Disease Epidemiology Collaboration (CKD-EPI) equation refit without adjustment for race. BUN/Creatinine Ratio 12.2 LAB CHEMISTRY METHOD 03/09/2025 4:03 PM [facility] Calcium 8.5 8.5 - 10.5 mg/dL LAB CHEMISTRY METHOD 03/09/2025 4:03 PM [facility] AST (SGOT) 18 10 - 42 unit/L LAB CHEMISTRY METHOD 03/09/2025 4:03 PM [facility] ALT (SGPT) 14 10 - 60 unit/L LAB CHEMISTRY METHOD 03/09/2025 4:03 PM [facility] Alkaline Phosphatase 140(H) 42 - 121 unit/L LAB CHEMISTRY METHOD 03/09/2025 4:03 PM [facility] Total Protein 6.2 6.0 - 8.0 g/dL LAB CHEMISTRY METHOD 03/09/2025 4:03 PM [facility] Albumin 3.5 3.2 - 5.0 g/dL LAB CHEMISTRY METHOD 03/09/2025 4:03 PM [facility] Total Bilirubin 0.8 0.0 - 1.4 mg/dL LAB CHEMISTRY METHOD 03/09/2025 4:03 PM [facility] Blood Venous blood specimen / Unknown Venipuncture / Unknown 03/09/2025 12:44 PM EDT 03/09/2025 12:44 PM EDT Armando SANTOS LAB BLOOD ORDERABLES Charlotte edelmira Result [facility] [address] [place] [address], [place] [phone] * ECG-Annotated (02/24/2025) Provider Onbase MD ECG ORDERABLES Final Result * Laceration Repair [...] Infection and pain Alternatives discussed: No treatment [place] protocol: Procedure explained and questions answered to [...] Irrigation method: Syringe Skin repair: Repair method: Lynco Number of leatha: 5 Post-procedure details: Dressing: Antibiotic ointment Procedure completion: Tolerated well, no immediate complications Rosamaria Duffy NP IN CLINIC/BEDSIDE ORDERABLES Fi nal Result * Troponin I High Sensitivity (02/23/2025 4:22 PM EDT) High Sensitivity Troponin I 14 <=79 ng/L LAB CHEMISTRY METHOD 02/23/2025 5:23 PM EDT [facility] Blood Venous blood specimen / Unknown Venipuncture / Unknown 02/23/2025 4:22 PM EDT 02/23/2025 4:54 PM EDT Narrative [facility] - 02/23/2025 5:23 PM EDT High levels of biotin in samples may falsely decrease hsTroponin values. Use caution when interpreting hsTroponin results in patients taking biotin who exhibit renal impairment (eGFR <60) or in patients taking more than 20 mg/day of biotin. Rosamaria Duffy LAB BLOOD ORDERABLES Final Resu lt Performing Organization Address City/[facility]/ZIP Co de Phone Number [facility] [address] [place] [address], [place] [phone] * (ABNORMAL) APTT (02/23/2025 4:22 PM EDT) aPTT 43.0(H) 24.1 - 39.3 sec LAB COAGULATION METHOD 02/23/2025 5:08 PM EDT [facility] Blood Venous blood specimen / Unknown Venipuncture / Unknown 02/23/2025 4:22 PM EDT 02/23/2025 4:54 PM EDT Rosamaria Duffy LAB BLOOD ORDERABLES Final Resu lt Performing Organization Address City/[facility]/ZIP Co de Phone Number [facility] [address] [place] [address], [place] [phone] * Creatine kinase (02/23/2025 4:22 PM EDT) Total CK 82 22 - 269 unit/L LAB CHEMISTRY METHOD 02/23/2025 5:23 PM EDT [facility] Blood Venous blood specimen / Unknown Venipuncture / Unknown 02/23/2025 4:22 PM EDT 02/23/2025 4:54 PM EDT Rosamaria Duffy NP LAB BLOOD ORDERABLES Final Resu lt [facility] [address] [place] [address], * (ABNORMAL) Basic Metabolic Panel (BMP) (02/23/2025 4:22 PM EDT) Sodium 136 133 - 145 mmol/L LAB CHEMISTRY METHOD [facility]2025 [facility] Potassium 4.4 3.5 - 5.5 mmol/L LAB CHEMISTRY METHOD 02/23/2025 5:23 PM [facility] Chloride 102 96 - 110 mmol/L LAB CHEMISTRY METHOD 02/23/2025 5:23 PM [facility] CO2 30 21 - 32 mmol/L LAB CHEMISTRY METHOD 02/23/2025 5:23 PM [facility] Anion Gap 4 3 - 11 LAB CHEMISTRY METHOD 02/23/2025 5:23 PM [facility] Glucose 111(H) 70 - 100 mg/dL LAB CHEMISTRY METHOD 02/23/2025 5:23 PM [facility] BUN 25 5 - 25 mg/dL LAB CHEMISTRY METHOD 02/23/2025 5:23 PM [facility] Creatinine 2.51(H) 0.70 - 1.30 mg/dL LAB CHEMISTRY METHOD 02/23/2025 5:23 PM [facility] eGFR 25(L) >=60 mL/min/1. 73m2 LAB CHEMISTRY METHOD 02/23/2025 5:23 PM [facility] Comment:Calculation based on the Chronic Kidney Disease Epidemiology Collaboration (CKD-EPI) equation refit without adjustment for race. BUN/Creatinine Ratio 10.0 LAB CHEMISTRY METHOD 02/23/2025 5:23 PM [facility] Calcium 8.4(L) 8.5 - 10.5 mg/dL LAB CHEMISTRY METHOD 02/23/2025 5:23 PM EDT [facility] Blood Venous blood specimen / Unknown Venipuncture / Unknown 02/23/2025 4:22 PM EDT 02/23/2025 4:54 PM EDT [facility] LAB BLOOD ORDERABLES Final Resu lt Performing Organization Address [facility] Co de Phone Number [facility] [address] [place] [address], [place] [phone] * 12-Lead ECG (02/23/2025 4:22 PM EDT) Ventricular Rate ECG 110 BPM GEMUSE Atrial Rate 102 BPM GEMUSE QRS Duration 216 ms GEMUSE Q-T Interval 474 ms GEMUSE QTc 641 ms GEMUSE R [place] -160 degrees GEMUSE T [place] 53 degrees GEMUSE ECG Interpretation Ventricular-pa wali rhythm Biventricular pacemaker detected Abnormal ECG When compared with ECG of 06-JAN-2025 17:14, Vent. rate has increased BY 39 BPM Suspect tracking of sinus tachycardia or slow atrial tachycardia Confirmed by Montrell PADILLA JOHN ([id number]) on 02/23/2025 5:54:45 PM GEMUSE 02/23/2025 4:22 PM EDT 02/23/2025 5:54 PM EDT [facility] ECG ORDERABLES Final Result Performing Organization Address [facility] Co de Phone Number GEMUSE * CT [...] Dictated Date: 02/23/2025 16:16 ET Assigned Physician: kD Kenney Reviewed and Electronically Signed By: Dk Kenney Signed Date: 02/23/2025 16:20 ET Workstation ID: [id number] Transcribed By: Self Edit Transcribed Date: 02/23/2025 16:16 ET Narrative 02/23/2025 4:20 PM EDT INDICATION: Neck trauma with pain Technique: CT scan of the cervical spine obtained without contrast. Scanner: [employer] 64 slice VCT Dose reduction technique: [...] the cervical spine obtained without contrast. Scanner: [employer] 64 slice VCT Dose reduction technique: [...] Signed Date: 02/23/2025 16:20 ET Workstation ID: [id number] Transcribed By: Self Edit Transcribed Date: 02/23/2025 16:16 ET Rosamaria Duffy NP IMG CT PROCEDURES Final Result * CT [...] Signed Date: 02/23/2025 16:16 ET Workstation ID: [id number] Transcribed By: Self Edit Transcribed Date: 02/23/2025 16:15 ET Narrative 02/23/2025 4:16 PM EDT INDICATION: Head trauma Technique: Axial images were obtained from the skull base to the vertex without contrast enhancement. Coronal and sagittal reformats obtained. Scanner: [employer] 64 slice VCT Dose reduction technique: ASIR [...] enhancement. Coronal and sagittal reformats obtained. Scanner: [employer] 64 slice VCT Dose reduction technique: ASIR [...] Signed Date: 02/23/2025 16:16 ET Workstation ID: [id number] Transcribed By: Self Edit Transcribed Date: 02/23/2025 16:15 ET Rosamaria Duffy NP IM CT PROCEDURES Final Result * (ABNORMAL) Microalbumin creatinine urine ratio (09/14/2024 10:58 AM EDT) Creatinine, Urine 46.0 mg/dL LAB CHEMISTRY METHOD 09/14/2024 2:02 PM EDT [facility] Microalb, Ur 226.0(H) 0.0 - 29.0 mg/L LAB CHEMISTRY METHOD 09/14/2024 2:02 PM EDT [facility] Microalb/Crea t Ratio 491(H) <30 mg/g creat LAB CHEMISTRY METHOD 09/14/2024 2:02 PM EDT [facility] Urine Urine specimen obtained by clean catch procedure / Unknown Non-blood Collection / Unknown 09/14/2024 10:58 AM EDT 09/14/2024 10:58 AM EDT Armando SANTOS LAB URINE ORDERABLES Charlotte l Result [facility] [address] [place] [address], [place] [phone] * Falls Risk Assessment (08/15/2023) [facility] Falls Risk Assessment Abstracted [facility] Provider HEALTH MAINTENANCE Final Result * Depression Screening (08/15/2023) [facility] Depression Screening Abstracted Result [facility] Provider HEALTH MAINTENANCE Final Result * Diabetes Foot Exam (07/15/2023) [facility] Diabetes: Annual Foot Exam Abstracted [facility] Provider HEALTH MAINTENANCE Final Result * Diabetes Eye Exam (07/15/2023) [facility] Diabetes: Annual Retina Eye Exam Abstracted Result [facility] Provider HEALTH MAINTENANCE Final Result * Stool Based Tests (FOBT/FIT) (01/28/2023) [facility] Colorectal Cancer Screening: Stool Based Tests negative Result [facility] Provider HEALTH MAINTENANCE Final Result * Hepatitis C Screening (04/08/2013) [facility] Hepatitis C Screening Abstracted Result [facility] Provider HEALTH MAINTENANCE Final Result from Last 3 Months or Most Recently Relevant to Health Maintenance Insurance MEDICARE [facility] Advance Directives Documents on File Type Date Recorded 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 Communication Surendra Duron [facility] Health Care Agent Care Teams Artist Relationship Manager Relationship Specialty Start Date End Date Armando Aceves PA [address] [place] [address] PCP - General Internal Medicine 10/11/20
--- OUTSIDE RECORDS SUMMARY | 2025-05-13 12:37 | XMS_ITS ---
Author Organization [facility] [address] [place] [address] Address [address] [place] [address] Phone Care Team Providers Care Rehabilitation Therapist Name Role Phone Armando Aceves Primary Care Provider [phone] Transitional Care Management Status:Ongoing (Active) Start date:05/09/2025 Enrollment date:05/09/2025 Enrollment reason:Identified using hospital discharge data Related social drivers of health:Food Access & Nutrition, Access to Healthcare Case Team Name Relationship Phone Katie Ferrera LPN(Responsible Staff) Bottling Line Operator Continued Care and Services Coordination
--- OUTSIDE RECORDS SUMMARY | 2025-05-13 12:37 | XMS_ITS | Encounter Summary ---
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 For example, child and youth program assistant or elderly care for an older [...] Progress Notes * Breanne Zhong LPN - 05/10/2025 1:03 PM EST Anticoagulation Summary As of 05/10/2025 INR goal: 2.5-3.5 TTR: 55.3% (11.2 mo) INR used for dosin.6 (05/10/2025) Warfarin maintenance plan: 2.5 mg (5 mg x 0.5) every Fri, Emily; 5 mg (5 mg x 1) every Fri, Tue; 0 mgall other days Weekly warfarin total: 15 mg Plan last modified: Breanne Zhong LPN (05/10/2025) Next INR check: 05/13/2025 Priority: Critical Target end date: -- Indications Atrial fibrillation (CMS/HCC V24 CMS/HCC V28) [I48.91] H/O mechanical aortic valve replacement (Resolved) [Z95.2] USP (current) use of anticoagulants [Z79.01] Anticoagulation Episode Summary INR check location: Anticoagulation Clinic Preferred lab: -- Send IN[facility] reminders [facility]: [facility] Comments: -- Anticoagulation Care Providers Provider Role Specialty Phone number TOM Roger Internal Medicine [phone] Patient presents for follow-up of ongoing Warfarin therapy. Patient had his INR drawn via [facility] Draw.Patient denies any significant issues with adherence to the medication regimen. Patient denies experiencing any symptoms of bleeding, such as unusual bruising, nosebleeds, hematuria, or melena. Patient reports feeling generally well and denies any new complaints. Plan of care: New warfarin dose: pt Is home from the hospital, amiodorone was decreased from 400 mg to 200 mg daily. Warfarin will be adjusted, re ck inr on Friday. Warfarin education of dietary considerations, medication/supplement interactions, [...] 4 weeks Cosigned by TOM Roger at 05/10/2025 3:22 PM EST documented in this encounter Plan of Treatment Upcoming Encounters Date Type Department Care Team (Late st Contact Info) Description 05/18/2025 2:00 PM EST Office Visit Adult Medicine [address] [phone] Armando Aceves PA [address] [place] [address] 06/01/2025 11:00 AM EST Office Visit Adult Medicine [address] [phone] Armando Aceves PA [address] [place] [phone] 07/28/2025 10:30 AM EST Nutrition Internal Medicine [facility] 175 [facility] 200 [place] [phone] Georgette Bradley, RD 175 [place] [phone] 11/17/2025 11:00 AM EDT Ancillary Procedure [facility] - [facility] [address] 300 [facility] 154 [place] [phone] documented as of this encounter Goals Goal [...] of UE's for safety only. Pt will [id number] reps or more for 30 SCS Test. documented as of this encounter Procedures Procedure Name Priority Date/Time Associated Diagnosis Comments PROTHROMBIN TIME WITH INR Routine 05/10/2025 documented in this encounter Results * Prothrombin time with INR (05/10/2025) INR 2.6 Prothrombin Time POC Blood Venous blood specimen / Unknown 05/10/2025 Armando SANTOS LAB BLOOD ORDERABLES [place] l Result documented in this encounter Visit Diagnoses Diagnosis Persistent atrial fibrillation (CMS/HCC V24, CMS/HCC V28)- Primary Atrial fibrillation USP (current) use of anticoagulants Long-term (current) use of anticoagulants Encounter for adjustment or management of cardiac device documented in this encounter Additional Health Concerns Assessment Noted Time PHQ-9 Depression Total Score: 0 02/05/20 25 9:57 AM EDT A fall risk assessment has been complete d for the patient 06/17/2024 2:30 PM EST documented as of this encounter Care Teams Pv Design And Installation Technician Relationship Specialty Start Date End Date Armando Aceves PA [address] [place] [address] PCP - General Internal Medicine 10/11/20 documented as of this encounter
--- OUTSIDE RECORDS SUMMARY | 2025-05-13 12:37 | XMS_ITS | Encounter Summary ---
Author Organization [facility] Address [address] [place] [address] Care Team Providers Care J2Ee Consultant Name Role Phone Armando Aceves Primary Care Provider +1 [phone] Reason for Visit * Reason Onset Date Comments [facility] 05/13/2025 Encounter Details Date Type Department Care Team ([facility] st Contact Info) Description 05/13/2025 Telephone Adult Medicine [address] [phone] Armando Aceves PA [address] [place] [phone] Social History Tobacco Use Types Packs/Day Years [...] for your loved ones. For example, children's court magistrate or elderly care for an older adult? [...] 09/26/2024 4:23 PM EDMegan Espana RN * Do you have serious difficulty [...] documented in this encounter Progress Notes * Napoleon Saxena LPN - 05/13/2025 10:43 AM EST See message from A patient has a hospital follow up on 05/18/25 * Herlinda Marie - 05/13/2025 10:26 AM EST [facility] CALL Which [facility] office is calling? HILARIO Full name of caller: LUIS The caller is A nurse Is the caller at the patients home?: no Reason for call: [facility] BMP lab work, nurse rodolfo it and bringing it to [facility]. Requesting results go to TOM Gordon Does caller need an urgent call back? no Was CONTACT Telephone # obtained above?: yes Fax #: N/A documented in this encounter Plan of Treatment Upcoming Encounters Date Type Department Care Team ([facility] Contact Info) Description 05/18/2025 2:00 PM EST Office Visit Adult Medicine [address] [phone] Armando Aceves PA [address] [place] [phone] 06/01/2025 11:00 AM EST Office Visit Adult Medicine [address] [phone] Armando Aceves, TOM [address] [place] [address] 07/28/2025 10:30 AM EST Nutrition Internal Medicine - [place] 175 [facility] 200 [place] [phone] Georgette Bradley, RD 175 [place] [phone] 11/17/2025 11:00 AM EDT Ancillary Procedure [facility] - [facility] 154 300 [facility] 154 [place] [phone] documented as of this encounter Goals Goal [...] of UE's for safety only. Pt will xwzxbadhshg45 reps or more for 30 SCS Test. documented as of this encounter Visit Diagnoses Not on filedocumented in this encounter Additional Health Concerns Assessment Noted Time PHQ-9 Depression Total Score: 0 02/05/20 25 9:57 AM EDT A fall risk assessment has been complete d for the patient 06/17/2024 2:30 PM EST documented as of this encounter Care Teams J2Ee Consultant Relationship Specialty Start Date End Date Armando Aceves PA [address] [place] [address] PCP - General Internal Medicine 10/11/20 documented as of this encounter
--- OUTSIDE RECORDS SUMMARY | 2025-05-13 12:37 | XMS_ITS | Encounter Summary ---
Author Organization [facility], Address [address] [place] [address] Phone Care Team Providers Care Residential Team Leader Name Role Phone Ryan Zhang Primary Care Provider [phone] [phone] Encounter Details Date Type Department Care Team (Late st Contact Info) Description 03/17/2024 Documentation Only [facility], [address] [place] [address] Suni Florez [address] [place] [phone] Social History Tobacco Use Types Packs/Day Years [...] on filedocumented in this encounter Care Teams Residential Team Leader Relationship Specialty Start Date End Date Ryan Zhang PCP - General 08/05/23 documented as of this encounter
--- OUTSIDE RECORDS SUMMARY | 2025-05-13 12:37 | XMS_ITS | Encounter Summary ---
Author Organization [facility] Address [address] [place] [address] Care Team Providers Care Residential Real Estate Agent Name Role Phone Armando Aceves Primary Care Provider [phone] [phone] Encounter Details Date Type Department Care Team ([facility] st Contact Info) Description 05/11/2025 Telephone Gastroenterology - [address] [facility] [address] [place] [phone] La Kidd MD [address] [facility] [address] [place] [address] Social History Tobacco Use Types Packs/Day Years [...] your loved ones. For example, child care team lead or elderly care for an older adult? [...] No 09/26/2024 4:23 PM EDMegan Espana RN documented as of this encounter Mental Status * Because of a physical, mental, or emotional condition, do you have serious difficulty concentrating, remembering, or making decisions? (5 years old or older) Answer Entry Date Author No 09/26/2024 4:23 PM Megan Sanders RN documented in this encounter Progress Notes * Tim Adame - 05/11/2025 1:41 PM EST Spoke with patient and he stated he would like to r/s but now isn't a good time and he will CB to r/s when he can documented in this encounter Plan of Treatment Upcoming Encounters Date Type Department Care Team (Late st Contact Info) Description 05/18/2025 2:00 PM EST Office Visit Adult Medicine [address] [phone] Armando Aceves PA [address] [place] [address] 06/01/2025 11:00 AM EST Office Visit Adult Medicine [address] [phone] Armando Aceves PA [address] [place] [phone] 07/28/2025 10:30 AM EST Nutrition Internal Medicine - [address] [place] [phone] Georgette Bradley, RD 175 [place] [address] 11/17/2025 11:00 AM EDT Ancillary Procedure [facility] - [facility] 154 300 [facility] 154 [place] [address] documented as of this encounter [...] of UE's for safety only. Pt will vdqurjxfekm08 reps or more for 30 SCS Test. documented as of this encounter Visit Diagnoses Not on filedocumented in this encounter Additional Health Concerns Assessment Noted Time PHQ-9 Depression Total Score: 0 02/05/20 25 9:57 AM EDT A fall risk assessment has been complete d for the patient 06/17/2024 2:30 PM EST documented as of this encounter Care Teams Residential Real Estate Agent Relationship Specialty Start Date End Date Armando Aceves PA [address] [place] [address] PCP - General Internal Medicine 10/11/20 documented as of this encounter
--- OUTSIDE RECORDS SUMMARY | 2025-05-13 12:37 | XMS_ITS ---
Author Organization [address] Address [address] [place] [phone] Phone Care Team Providers Care Straightener Name Role Phone Armando Aceves Primary Care Provider +1 -[phone] Chronic Care Management Status:Identified (Enrolling) Start date:05/11/2025 Enrollment reason:Referred by Care Team Related social drivers of health:Food Access & Nutrition, Access to Healthcare Case Team Name Relationship Phone Noemi Bustillos RN(Responsible Staff) Heating Operators Engineer Continued Care and Services Coordination
--- OUTSIDE RECORDS SUMMARY | 2025-05-13 12:37 | XMS_ITS | Encounter Summary ---
Author Organization [facility] Address [address] [place] [address] Care Team Providers Care Line Tender Name Role Phone Armando Aceves Primary Care Provider [phone] [phone] Reason for Visit * Reason Onset Date Comments faxed order 04/26/2025 Marlyn Kyler - # [id number], #[id number], #[id number] Encounter Details Date Type Department Care Team ([facility] Contact Info) Description 04/26/2025 Telephone Adult Medicine [address] [phone] Armando Aceves PA [address] [place] [phone] Social History Tobacco Use Types Packs/Day [...] care for your loved ones. For example, attendant children's institution or elderly care for an older adult? [...] documented in this encounter Progress Notes * Genie Brown MA - 05/02/2025 12:12 PM EDT Order # [id number] signed, scanned and faxed back via Right Fax on 05.02.2025 at 12:12 pm * Cecil Jefferson - 04/26/2025 9:39 AM EDT Marlyn Caring order #[id number], #[id number], #[id number] received please sign and fax to [phone] documented in this encounter Plan of Treatment Upcoming Encounters Date Type Department Care Team (Late st Contact Info) Description 05/18/2025 2:00 PM EST Office Visit Adult [address] [phone] Armando Aceves PA [address] [place] [phone] 06/01/2025 11:00 AM EST Office Visit Adult Medicine [place] [place], [place] [phone] Armando Aceves PA [address] [place] [phone] 07/28/2025 10:30 AM EST Nutrition Internal Medicine - [place] 175 [facility] 200 [place] [phone] Georgette Bradley, [place] 175 [place] [phone] 11/17/2025 11:00 AM EDT Ancillary Procedure [facility] - [facility] 154 300 [facility] 154 [place] [phone] documented as of this encounter Goals Goal [...] of UE's for safety only. Pt will pesnivizyoh02 reps or more for 30 SCS Test. documented as of this encounter Visit Diagnoses Not on filedocumented in this encounter Additional Health Concerns Assessment Noted Time PHQ-9 Depression Total Score: 0 02/05/20 25 9:57 AM EDT A fall risk assessment has been complete d for the patient 06/17/2024 2:30 PM EST documented as of this encounter Care Teams Line Tender Relationship Specialty Start Date End Date Armando Aceves PA 4 [place] [address] PCP - General Internal Medicine 10/11/20 documented as of this encounter
--- OUTSIDE RECORDS SUMMARY | 2025-05-13 12:37 | XMS_ITS | Encounter Summary ---
Author Organization [facility], Address [address] [place] [address] Phone Care Team Providers Care Wheel Alignment Technician Name Role Phone Ryan Zhang Primary Care Provider [phone] [phone] Encounter Details Date Type Department Care Team (Late st Contact Info) Description 03/12/2024 Documentation Only [facility], [address] [place] [address] Suni Florez [address] [place] [phone] Social History Tobacco Use Types Packs/Day Years [...] on filedocumented in this encounter Care Teams Wheel Alignment Technician Relationship Specialty Start Date End Date Ryan Zhang PCP - General 08/05/23 documented as of this encounter
--- OUTSIDE RECORDS SUMMARY | 2025-05-13 12:37 | XMS_ITS | Encounter Summary ---
Author Organization [facility] Address [address] [place] [address] Care Team Providers Care Mathematical Sciences Professor Name Role Phone Armando Aceves Primary Care Provider +1 -[phone] Reason for Visit * Reason Onset Date Comments faxed order 05/04/2025 Marlyn Chávez - # [id number] Encounter Details Date Type Department Care Team ([facility] st Contact Info) Description 05/04/2025 Telephone Adult Medicine [address] [phone] Armando Aceves PA [address] [place] [phone] Social History Tobacco Use Types Packs/Day [...] care for your loved ones. For example, children librarian or elderly care for an older adult? [...] documented in this encounter Progress Notes * Yanely Espinoza MA - 05/10/2025 2:56 PM EST Orders signed, faxed manually and scanned in. * Veronique Santoro MA - 05/09/2025 9:[address] on provider desk for signature * Cecil Jeffesron - 05/04/2025 10:25 AM EDT Marlyn Kyler order #[id number] received please sign and fax to [phone] documented in this encounter Plan of Treatment Upcoming Encounters Date Type Department Care Team (Late st Contact Info) Description 05/18/2025 2:00 PM EST Office Visit Adult [address] [phone] Armando Aceves PA [address] [place] [phone] 06/01/2025 11:00 AM EST Office Visit Adult Medicine [place] [place], [place] [phone] Armando Aceves PA [address] [place] [phone] 07/28/2025 10:30 AM EST Nutrition Internal Medicine - [place] 175 [facility] 200 [place] [phone] Georgette Bradley, [place] 175 [place] [phone] 11/17/2025 11:00 AM EDT Ancillary Procedure [facility] - [facility] 154 300 [facility] 154 [place] [phone] documented as of this encounter Goals Goal [...] of UE's for safety only. Pt will iohimddveoe13 reps or more for 30 SCS Test. documented as of this encounter Visit Diagnoses Not on filedocumented in this encounter Additional Health Concerns Assessment Noted Time PHQ-9 Depression Total Score: 0 02/05/20 25 9:57 AM EDT A fall risk assessment has been complete d for the patient 06/17/2024 2:30 PM EST documented as of this encounter Care Teams Mathematical Sciences Professor Relationship Specialty Start Date End Date Armando Aceves PA [address] [place] [address] PCP - General Internal Medicine 10/11/20 documented as of this encounter
--- OUTSIDE RECORDS SUMMARY | 2025-05-13 12:37 | XMS_ITS | Encounter Summary ---
Author Organization [facility] Address [address] [place] [address] Care Team Providers Care Occasional Babysitter Name Role Phone Armando Aceves Primary Care Provider +1 -[phone] Reason for Visit * Reason Onset Date Comments Hospital Follow-up 05/10/2025 Encounter Details Date Type Department Care Team ([facility] st Contact Info) Description 05/10/2025 Telephone Adult Medicine [address] [phone] Asya Mcelroy [place] Social History Tobacco Use Types Packs/Day Years [...] for your loved ones. For example, children's zoo caretaker or elderly care for an older adult? [...] Assessment Author No 09/26/2024 4:23 PM EDT Mgean Cooley RN * Do you have serious difficulty dressing or bathing? Answer Date of Assessment Author No 09/26/2024 4:23 PM CARLYT Megan Cooley RN * Because of a [...] documented in this encounter Progress Notes * Ailyn Santiago RN - 05/10/2025 4:58 PM EST Called pt hosp fu for 05/18 with pcp * Napoleon Saxena LPN - 05/10/2025 4:44 PM EST VO given to Luis she said he could use a sooner appointment Please book a hospital follow up thank you * TOM Roger - 05/10/2025 3:26 PM EST OK for Verbal Order * Napoleon Saxena LPN - 05/10/2025 2:45 PM EST [facility] requesting VO for PT, OT and nursing. Please review and advise. Thank you Please send response to nurse triage [facility] 03/16/25 Please book a hospital follow up * Asya Mcelroy MA - 05/10/2025 1:42 PM EST [facility] CALL Which [facility] office is calling? MARTELL TRUNG Full name of caller: LUIS Jean The caller is A nurse Is the caller at the patients home?: no Reason for call: VERBAL ORDERS FOR NURSING AND PHYSICAL THERAPY AND ALSO HAS QUESTIONS ON MEDICATIONS. Does caller need an urgent call back? no Was CONTACT Telephone # obtained above?: yes Fax #: documented in this encounter Plan of Treatment Upcoming Encounters Date Type Department Care Team (Late st Contact Info) Description 05/18/2025 2:00 PM EST Office Visit Adult Medicine [address] [phone] Armando Aceves PA [address] [place] [phone] 06/01/2025 11:00 AM EST Office Visit Adult [address] [phone] Armando Aceves PA [address] [place] [phone] 07/28/2025 10:30 AM EST Nutrition Internal Medicine - [place] 175 [facility] 200 [place] [phone] Georgette Bradley, RD 175 [place] [phone] 11/17/2025 11:00 AM EDT Ancillary Procedure [facility] - [facility] 154 300 [facility] 154 [place] [phone] documented as of this encounter Goals Goal [...] of UE's for safety only. Pt will kwijbvmugst17 reps or more for 30 SCS Test. documented as of this encounter Visit Diagnoses Not on filedocumented in this encounter Additional Health Concerns Assessment Noted Time PHQ-9 Depression Total Score: 0 02/05/20 25 9:57 AM EDT A fall risk assessment has been complete d for the patient 06/17/2024 2:30 PM EST documented as of this encounter Care Teams Occasional Babysitter Relationship Specialty Start Date End Date Armando Aceves PA [address] [place] [address] PCP - General Internal Medicine 10/11/20 documented as of this encounter
[2025-05-13 13:59] LABS: Anion Gap 15 (12-20); Blood Urea Nitrogen 22 mg/dL (9-16); Calcium 8.0 mg/dL (8.4-10.2); Carbon Dioxide 26 mmol/L (22-29); Chloride 106 mmol/L (96-108); Estimated Glomerular Filt Rate 41; Potassium 3.9 mmol/L (3.3-5.1); Sodium 143 mmol/L (135-145)
--- OUTSIDE RECORDS SUMMARY | 2025-05-26 19:00 | XMS_ITS | Clinical Summary ---
Author Organization Unknown Care Team Providers Care Driller Portable Name Role Phone HARJIT SANTOS, JESS Unavailable Unavailmalinda FINK RN, JESUS Unavailable Unavaila jesse GODOY RN, LUIS Unavailable Unavailable RESHMA PT, DONTE Unavailable Unavailable BRI INGCARLOS HAND LEATHER TRIMMER, MALATHI Unavailable Unavai lable Payers Payer Name Policy Type Policy Number Effective Date Expira tion Date MEDICARE - 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 HYPOGLYCEMIC DRUGS Active [...] 02-25 00:00: 00 09-26 23:59 :00 No [id number] 1 tablet DAILY 1 tablet DAILY (route: oral) Med Classific ation: Gout and Hyperuric emia Therapy amitriptyli ne 50 mg tablet 02-25 00:00: 00 09-26 23:59 :00 No [id number] 1 tablet BEDTIME 1 tablet BEDTIME (route: oral) Med Classific ation: Central Nervous System Agents diltiazem CD 180 mg capsule,ext ended release 24 hr 02-25 00:00: 00 09-26 23:59 :00 No [id number] 1 capsule DAILY 1 capsule DAILY (route: oral) Med Classific ation: Cardiovas cular Therapy Agents fluticasone propionate 50 mcg/actuati on nasal spray,suspe nsion 02-25 00:00: 00 09-26 23:59 :00 No [id number] 1 spray DAILY 1 spray DAILY (route: nasal) Med Classific ation: Respirato ry Therapy Agents omeprazole 20 mg capsule,del ayed release 02-25 00:00: 00 09-26 23:59 :00 No [id number] 1 capsule DAILY 1 capsule DAILY (route: oral) Med Classific ation: Gastroint estinal Therapy Agents potassium chloride ER 20 mEq tablet,exte nded release 02-25 00:00: 00 09-26 23:59 :00 No [id number] 1 tablet DAILY 1 tablet DAILY (route: oral) Med Classific ation: Electroly te Balance-N utritiona l Products simvastatin 20 mg tablet 02-25 00:00: 00 09-26 23:59 :00 No [id number] 1 tablet BEDTIME 1 tablet BEDTIME (route: oral) Med Classific ation: Cardiovas cular Therapy Agents torsemide 20 mg tablet 02-25 00:00: 00 09-26 23:59 :00 No [id number] 1 tablet DAILY 1 tablet DAILY (route: oral) Med Classific ation: Cardiovas cular Therapy Agents warfarin 5 mg tablet 02-22 00:00: 00 03-02 23:59 :00 No [id number] 1 tablet DAILY 1 tablet DAILY (route: oral) Med Classific ation: Hematolog ical Agents warfarin 2.5 mg tablet 03-06 00:00: 00 03-06 23:59 :00 No [id number] 2.5 mg DAILY 2.5 mg DAILY (route: oral) Med Classific ation: Hematolog ical Agents warfarin 5 mg tablet 03-07 00:00: 00 03-08 23:59 :00 No [id number] 5 mg DAILY 5 mg DAILY (route: oral) Med Classific ation: Hematolog ical Agents warfarin 5 mg tablet 03-09 00:00: 00 03-12 23:59 :00 No [id number] 5 tablet DAILY 5 tablet DAILY (route: oral) Med Classific ation: Hematolog ical Agents warfarin 5 mg tablet 03-12 00:00: 00 03-18 23:59 :00 No [id number] 5 mg DAILY 5 mg DAILY (route: oral) Med Classific ation: Hematolog ical Agents allopurinol 100 mg tablet 3-26 00:00: 00 Yes [id number] 2 tablet DAILY 2 tablet DAILY (route: oral) Med Classific ation: Gout and Hyperuric emia Therapy amitriptyli ne 75 mg tablet 09-29 00:00: 00 Yes [id number] 1 tablet BEDTIME 1 tablet BEDTIME (route: oral) Med Classific ation: Central Nervous System Agents carvedilol 3.125 mg tablet 09-29 00:00: 00 Yes [id number] 1 tablet 2 TIMES DAILY 1 tablet 2 TIMES DAILY (route: oral) Med Classific ation: Cardiovas cular Therapy Agents cyanocobala min (vit B-12) 1,000 mcg tablet 09-29 00:00: 00 Yes [id number] 1 tablet DAILY 1 tablet DAILY (route: oral) Med Classific ation: Electroly te Balance-N utritiona l Products donepezil 10 mg tablet 09-29 00:00: 00 Yes [id number] 1 tablet DAILY 1 tablet DAILY (route: oral) Med Classific ation: Cognitive Disorder Therapy furosemide 80 mg tablet 09-29 00:00: 00 10-05 23:59 :00 No [id number] 1 tablet 2 TIMES DAILY 1 tablet 2 TIMES DAILY (route: oral) Med Classific ation: Cardiovas cular Therapy Agents lansoprazol e 30 mg capsule,del ayed release 09-29 00:00: 00 03-01 23:59 :00 No [id number] 1 capsule DAILY 1 capsule DAILY (route: oral) Med Classific ation: Gastroint estinal Therapy Agents losartan 25 mg tablet 09-29 00:00: 00 Yes [id number] 1 tablet DAILY 1 tablet DAILY (route: oral) Med Classific ation: Cardiovas cular Therapy Agents potassium chloride 20 mEq oral packet 09-29 00:00: 00 02-16 00:00 :00 No [id number] 1 packet 2 TIMES DAILY 1 packet 2 TIMES DAILY (route: oral) Med Classific ation: Electroly te Balance-N utritiona l Products simvastatin 20 mg tablet 09-29 00:00: 00 Yes [id number] 1 tablet BEDTIME 1 tablet BEDTIME (route: oral) Med Classific ation: Cardiovas cular Therapy Agents warfarin 5 mg tablet 09-29 00:00: 10-05 23:59 :00 No [id number] 5 mg DIRECTED 5 mg DIRECTED (route: oral) Med Classific ation: Hematolog ical Agents furosemide 80 mg tablet 10-05 00:00: 00 11-21 23:59 :00 No [id number] Per instruc tions DAILY Per instructio ns DAILY (route: oral) Med Classific ation: Cardiovas cular Therapy Agents warfarin 5 mg tablet 10-11 00:00: 00 10-17 23:59 :00 No [id number] Per instruc tions DAILY Per instructio ns DAILY (route: oral) Med Classific ation: Hematolog ical Agents warfarin 5 mg tablet 10-05 00:00: 00 10-10 23:59 :00 No [id number] Per instruc tions DAILY Per instructio ns DAILY (route: oral) Med Classific ation: Hematolog ical Agents warfarin 2.5 mg tablet 10-18 00:00: 00 10-21 23:59 :00 No [id number] 1 tablet DAILY 1 tablet DAILY (route: oral) Med Classific ation: Hematolog ical Agents warfarin 5 mg tablet 10-25 00:00: 00 10-31 23:59 :00 No [id number] Per instruc tions DAILY Per instructio ns DAILY (route: oral) Med Classific ation: Hematolog ical Agents acetaminoph en ER 650 mg tablet,exte nded release 10-25 00:00: 00 Yes [id number] 1 tablet EVERY 8 HOURS 1 tablet EVERY 8 HOURS (route: oral) Med Classific ation: Analgesic , Anti-infl ammatory or Antipyret ic amiodarone 200 mg tablet 10-25 00:00: 00 01-10 23:59 :00 No [id number] 1 tablet DAILY 1 tablet DAILY (route: oral) Med Classific ation: Cardiovas cular Therapy Agents ferrous sulfate 325 mg (65 mg iron) tablet 10-25 00:00: 00 02-16 00:00 :00 No [id number] 1 tablet DAILY 1 tablet DAILY (route: oral) Med Classific ation: Electroly te Balance-N utritiona l Products Jardiance 10 mg tablet -21 00:00: 00 Yes [id number] 1 tablet DAILY 1 tablet DAILY (route: oral) Med Classific ation: Endocrine warfarin 5 mg tablet 4-28 00:00: 00 11-08 23:59 :00 No [id number] Per instruc tions DAILY Per instructio ns DAILY (route: oral) Med Classific ation: Hematolog ical Agents warfarin 5 mg tablet 11-10 00:00: 00 11-14 23:59 :00 No [id number] 2.5 mg DIRECTED 2.5 mg DIRECTED (route: oral) Med Classific ation: Hematolog ical Agents warfarin 5 mg tablet 11-15 00:00: 00 11-21 23:59 :00 No [id number] 2.5 mg DIRECTED 2.5 mg DIRECTED (route: oral) Med Classific ation: Hematolog ical Agents warfarin 2.5 mg tablet 20 00:00: 00 11-30 23:59 :00 No [id number] Per instruc tions DAILY Per instructio ns DAILY (route: oral) Med Classific ation: Hematolog ical Agents warfarin 5 mg tablet 11-30 00:00: 00 12-05 23:59 :00 No [id number] Per instruc tions DAILY Per instructio ns DAILY (route: oral) Med Classific ation: Hematolog ical Agents torsemide 20 mg tablet 19 00:00: 00 01-25 23:59 :00 No [id number] 4 tablet 2 TIMES DAILY 4 tablet 2 TIMES DAILY (route: oral) Med Classific ation: Cardiovas cular Therapy Agents warfarin 5 mg tablet 6-09 00:00: 00 12-16 23:59 :00 No [id number] 0.5 tablet DIRECTED 0.5 tablet DIRECTED (route: oral) Med Classific ation: Hematolog ical Agents warfarin 5 mg tablet 6-13 00:00: 00 12-20 23:59 :00 No [id number] 2.5 mg DAILY 2.5 mg DAILY (route: oral) Med Classific ation: Hematolog ical Agents warfarin 5 mg tablet 6-19 00:00: 00 12-28 23:59 :00 No [id number] 2.5 mg DAILY 2.5 mg DAILY (route: oral) Med Classific ation: Hematolog ical Agents warfarin 5 mg tablet 6-24 00:00: 00 01-03 23:59 :00 No [id number] 2.5 mg DAILY 2.5 mg DAILY (route: oral) Med Classific ation: Hematolog ical Agents warfarin 5 mg tablet - 00:00: 00 01-09 23:59 :00 No [id number] 2.5 mg DAILY 2.5 mg DAILY (route: oral) Med Classific ation: Hematolog ical Agents warfarin 5 mg tablet -07 00:00: 00 01-13 23:59 :00 No [id number] 0.5 tablet DIRECTED 0.5 tablet DIRECTED (route: oral) Med Classific ation: Hematolog ical Agents amiodarone 200 mg tablet -07 00:00: 00 01-25 23:59 :00 No [id number] 2 tablet DAILY 2 tablet DAILY (route: oral) Med Classific ation: Cardiovas cular Therapy Agents warfarin 5 mg tablet 7-11 00:00: 00 01-20 23:59 :00 No [id number] 2.5 mg DIRECTED 2.5 mg DIRECTED (route: oral) Med Classific ation: Hematolog ical Agents warfarin 5 mg tablet 7-18 00:00: 00 01-27 23:59 :00 No [id number] 2.5 mg DAILY 2.5 mg DAILY (route: oral) Med Classific ation: Hematolog ical Agents warfarin 5 mg tablet 8-03 00:00: 00 02-06 23:59 :00 No [id number] 2.5 mg DAILY 2.5 mg DAILY (route: oral) Med Classific ation: Hematolog ical Agents torsemide 20 mg tablet 01-25 00:00: 00 Yes [id number] 4 tablet DAILY 4 tablet DAILY (route: oral) Med Classific ation: Cardiovas cular Therapy Agents warfarin 5 mg tablet 02-11 00:00: 00 02-15 23:59 :00 No [id number] 2.5 mg DIRECTED 2.5 mg DIRECTED (route: oral) Med Classific ation: Hematolog ical Agents warfarin 5 mg tablet 02-16 00:00: 00 02-22 23:59 :00 No [id number] 0.5 tablet DIRECTED 0.5 tablet DIRECTED (route: oral) Med Classific ation: Hematolog ical Agents Allergy Relief (fluticason e) 50 mcg/actuati on nasal spray,suspe nsion 02-16 00:00: 00 Yes [id number] 2 spray DAILY 2 spray DAILY (route: nasal) Med Classific ation: Respirato ry Therapy Agents amiodarone 200 mg tablet 02-16 00:00: 00 05-10 23:59 :00 No [id number] 2 tablet DAILY 2 tablet DAILY (route: oral) Med Classific ation: Cardiovas cular Therapy Agents ferrous sulfate 325 mg (65 mg iron) tablet 02-16 00:00: 00 Yes [id number] 1 tablet 2 TIMES DAILY 1 tablet 2 TIMES DAILY (route: oral) Med Classific ation: Electroly te Balance-N utritiona l Products potassium chloride ER 20 mEq tablet,exte nded release 02-16 00:00: 00 Yes [id number] 1 tablet 2 TIMES DAILY 1 tablet 2 TIMES DAILY (route: oral) Med Classific ation: Electroly te Balance-N utritiona l Products Senna with Docusate Sodium 8.6 mg-50 mg tablet 02-16 00:00: 00 Yes [id number] 2 tablet DAILY 2 tablet DAILY (route: oral) Med Classific ation: Gastroint estinal Therapy Agents memantine 5 mg tablet 13 00:00: 00 Yes [id number] 1 tablet 2 TIMES DAILY 1 tablet 2 TIMES DAILY (route: oral) Med Classific ation: Cognitive Disorder Therapy warfarin 5 mg tablet 02-23 00:00: 00 03-01 23:59 :00 No [id number] Per instruc tions DIRECTED Per instructio ns DIRECTED (route: oral) Med Classific ation: Hematolog ical Agents omeprazole 40 mg capsule,del ayed release 03-01 00:00: 00 05-10 23:59 :00 No [id number] 1 capsule 2 TIMES DAILY 1 capsule 2 TIMES DAILY (route: oral) Med Classific ation: Gastroint estinal Therapy Agents warfarin 5 mg tablet 03-03 00:00: 00 03-07 23:59 :00 No [id number] Per instruc tions DAILY Per instructio ns DAILY (route: oral) Med Classific ation: Hematolog ical Agents warfarin 5 mg tablet 03-11 00:00: 00 03-14 23:59 :00 No [id number] Per instruc tions DAILY Per instructio ns DAILY (route: oral) Med Classific ation: Hematolog ical Agents warfarin 5 mg tablet 03-15 00:00: 00 03-24 23:59 :00 No [id number] Per instruc tions DIRECTED Per instructio ns DIRECTED (route: oral) Med Classific ation: Hematolog ical Agents warfarin 2.5 mg tablet 03-28 00:00: 00 03-28 23:59 :00 No [id number] 0.5-1 tablet DAILY 0.5-1 tablet DAILY (route: oral) Med Classific ation: Hematolog ical Agents warfarin 2.5 mg tablet 03-28 00:00: 00 04-04 23:59 :00 No [id number] Per instruc tions DIRECTED Per instructio ns DIRECTED (route: oral) Med Classific ation: Hematolog ical Agents warfarin 2.5 mg tablet 04-04 00:00: 00 04-10 23:59 :00 No [id number] Per instruc tions DAILY Per instructio ns DAILY (route: oral) Med Classific ation: Hematolog ical Agents warfarin 5 mg tablet 2024-07 0-06 00:00: 00 04-12 23:59 :00 No [id number] Per instruc tions DAILY Per instructio ns DAILY (route: oral) Med Classific ation: Hematolog ical Agents warfarin 5 mg tablet 2024-07 0-13 00:00: 00 04-18 23:59 :00 No [id number] 2.5 mg DAILY 2.5 mg DAILY (route: oral) Med Classific ation: Hematolog ical Agents warfarin 5 mg tablet 2024-07 0-14 00:00: 00 04-25 23:59 :00 No [id number] 0.5 tablet DAILY 0.5 tablet DAILY (route: oral) Med Classific ation: Hematolog ical Agents warfarin 5 mg tablet 2024-0720 00:00: 00 04-26 23:59 :00 No [id number] 2.5 mg DAILY 2.5 mg DAILY (route: oral) Med Classific ation: Hematolog ical Agents amiodarone 200 mg tablet 2024-07 00:00: 00 Yes [id number] 1 tablet DAILY 1 tablet DAILY (route: oral) Med Classific ation: Cardiovas cular Therapy Agents omeprazole 40 mg capsule,del ayed release 2024-07 00:00: 00 Yes [id number] 1 capsule DAILY 1 capsule DAILY (route: oral) Med Classific ation: Gastroint estinal Therapy Agents warfarin 5 mg tablet 2024-07 00:00: 00 05-12 23:59 :00 No [id number] Per instruc tions DAILY Per instructio ns [...] Observation Time Observation Value Commen ts Temperature 2025-05-10 13:06:00.000 97.4 [degF] Temperature 2025-04-25 09:16:00.000 97 [degF] Temperature 2025-04-19 10:12:00.000 97.9 [degF] Temperature 2025-04-11 09:58:00.000 97 [degF] Temperature 2025-04-04 08:49:00.000 97 [degF] BMI (%) 2025-05-10 13:06:00.000 25 kg/m2 Height 2025-05-10 13:06:00.000 70 [in_us] Pulse 2025-05-10 13:06:00.000 78 /min Pulse 2025-04-25 09:16:00.000 70 /min Pulse 2025-04-19 10:12:00.000 70 /min Pulse 2025-04-11 09:58:00.000 62 /min Pulse 2025-04-04 08:49:00.000 60 /min O2 Saturation (%) 2025-05-10 13:09:00.000 97 % O2 Saturation (%) 2025-04-25 09:18:00.000 100 % O2 Saturation (%) 2025-04-19 10:12:00.000 97 % O2 Saturation (%) 2025-04-11 09:58:00.000 97 % O2 Saturation (%) 2025-04-04 08:49:00.000 97 % Respirations 2025-05-10 13:06:00.000 18 /min Respirations 2025-04-25 09:16:00.000 18 /min Respirations 2025-04-19 10:12:00.000 18 /min Respirations 2025-04-11 09:58:00.000 18 /min Respirations 2025-04-04 08:49:00.000 18 /min Weight (lbs) 2025-05-10 13:06:00.000 177 [lb_av] Weight (lbs) 2025-04-25 09:16:00.000 161 [lb_av] Weight (lbs) 2025-04-19 10:12:00.000 165 [lb_av] Weight (lbs) 2025-04-11 09:58:00.000 166 [lb_av] Weight (lbs) 2025-04-04 08:49:00.000 165.4 [lb_av] Systolic Blood Pressure 2025-05-10 13:06:00.000 102 mm [Hg] Systolic Blood Pressure 2025-04-25 09:16:00.000 120 mm [Hg] Systolic Blood Pressure 2025-04-19 10:12:00.000 126 mm [Hg] Systolic Blood Pressure 2025-04-11 09:58:00.000 112 mm [Hg] Systolic Blood Pressure 2025-04-04 08:49:00.000 126 mm [Hg] Diastolic Blood Pressure 2025-05-10 13:06:00.000 [...] MAINTAIN SITUATIONAL AWARENESS AND WILL NOTIFY CLINICAL BUTTER LIQUEFIER AND PHYSICIAN/PROVIDER WITH ANY CHANGE IN CONDITION. [code = SKILLED NURSE TO PERFORM ENVIRONMENTAL SAFETY RISK ASSESSMENT AND FALL RISK ASSESSMENT AND PROVIDE INSTRUCTION TO IMPLEMENT ENVIRONMENTAL SAFETY AND FALL PREVENTION STRATEGIES THROUGHOUT THE CERTIFICATION PERIOD. SKILLED NURSE WILL MAINTAIN SITUATIONAL AWARENESS AND WILL NOTIFY CLINICAL BUTTER LIQUEFIER AND PHYSICIAN/PROVIDER WITH ANY CHANGE IN CONDITION.] [...] CARE WILL BE ESTABLISHED THAT MEETS PATIENT'S DETENTION NEEDS AND INCLUDES PATIENT GOAL FOR HOME [...] BY THE END OF THE CERTIFICATION PERIOD. Progress Notes Progress Notes <paragraph>[Visit Date: 2024 by LUIS GODOY RN]:</paragraph><paragraph>CLINICAL SUMMARY EDELMIRA</paragraph><paragraph></paragraph><paragraph>THE PATIENT IS RECEIVING HOMECARE DUE TO: HYP HRT & CHR [facility] DIS W HRT FAIL AND STG 1-4/UNSP CHR KDNY</paragraph><paragraph></paragraph><paragraph>RECENT HOSPITALIZATION/INPATIENT ADMISSION RELATED TO INCARCERATED R INGUINALHERNIA CAUSE SBO.</paragraph><paragraph></paragraph><paragraph>PATIENT LIVING SITUATION/CAREGIVER STATUS: SINGLE FAMILY HOME WITH ROOMMATE SON LIVES NEARBY WORKS [place] NOT AVAILABLE 24-7 NT FALLS: N</paragraph><paragraph></paragraph><paragraph>PMH: AFIB, ESOPHAGEAL STRICTURE,NON-ISCHEMIC CARDIOMYOPATHY, HEART FAILURE, BIVENTRICULAR PACEMAKER, MECHANICAL AORTIC VALVE REPLACEMENT SECONDARY TO AORTIC STENOSIS, TYPE 2 DIABETES MELLITUS, HYPERTENSION, HYPERLIPIDEMIA, CHRONIC KIDNEY DISEASE STAGE 4, INGUINAL HERNIA CAUSED SBO 04/30</paragraph><paragraph></paragraph><paragraph>FOC: HYP HRT & CHR KDNY DIS W HRT FAIL AND STG 1-4/UNSP CHR KDNY</paragraph><paragraph></paragraph><paragraph>SUMMARIZE SKILLED NEED: DISEASE MANAGEMENT AND EDUCATION, PROPER USE OF DMES, MED/PAIN EDUC/TEACHING</paragraph><paragraph></paragraph><paragraph>ADDITIONAL DISCIPLINES NEED PT</paragraph><paragraph></paragraph><paragraph>MD COMMUNICATION: MD UPDATED ON PLAN OF CARE REQUEST HOSPITAL FOLLOW-UP APPT MADE </paragraph><paragraph></paragraph><paragraph>UPCOMING APPOINTMENTS: REQUEST MADE PATIENT </paragraph><paragraph></paragraph><paragraph>ANTICIPATED DISCHARGE PLAN: DC UNDER THE CARE OF MD WHEN ALL GOALS ARE MET</paragraph><paragraph></paragraph><paragraph>PAYOR SOURCE: MEDICARE</paragraph><paragraph></paragraph><paragraph>PATIENT RESUMPTION OF CARE TODAY AFTER HOSPITALIZATION FOR SBO CAUSED BY AN INCARCERATED RIGHT INGUINAL HERNIA. </paragraph><paragraph>PATIENT BECAME WEAK AND EXPERIENCED A NEAR SYNCOPAL EPISODE AT HOME. HIS ROOMMATE CALLED EMS AND HE WAS BROUGHT TO THE EMERGENCY ROOM IMAGING REVEALED SMALL BOWEL OBSTRUCTION AND INCARCERATED RIGHT INGUINAL HERNIA UNFORTUNATELY PATIENT'S TOO WEAK AND FRAIL FOR SURGICAL INTERVENTION HE WAS TREATED CONSERVATIVELY THE HERNIA WAS REDUCED SMALL BOWEL OBSTRUCTION RESOLVED WITH BOWEL REST AND HE IS NOW DISCHARGED HOME. PT REPORTS NO PAIN WITH SBO/HERNIA.</paragraph><paragraph>ONLY MEDICATION CHANGE AMIODARONE IS NOW 200 MG DAILY PATIENT CONTINUES ON HIS COUMADIN INR TODAY 2.6 CALL TO [facility] ORDERS OBTAINED AND WILL RECHECK INR ON FRIDAY PATIENT IS QUITE DECONDITIONED PHYSICAL THERAPY EVAL PLACE FOR GAIT STABILITY AND STRENGTH HE LIVES IN A SINGLE FAMILY HOME WITH A ROOMMATE THE ROOMMATE IS ASSISTING WITH MEDICATION MANAGEMENT REVIEWED NEW MEDICATIONS WITH ROOMMATE TODAY. PATIENT'S BLOOD PRESSURE WAS RUNNING QUITE LOW IN THE HOSPITAL IS 100 OVER 50S TODAY DURING VISIT HE DENIES ANY DIZZINESS UPON STANDING REVIEWED PATIENT TO TAKE IT SLOW HIS BLOOD PRESSURE IS ON THE LOWER END AND WHEN HE STANDS IT COULD BECOME LOWER TO PREVENT FALLS TO MAKE SURE HE IS STABLE BEFORE HE BEGINS AMBULATING HE IS USING HIS ROLLING WALKER WHEN AMBULATING. HIS SKIN IS INTACT THERE IS NO OPEN AREAS NO RASHES SOME BRUISING NOTED ON BILATERAL HANDS AND ARMS FROM IV AND LAB DRAWS. PRIMARY CARE OFFICE CALLED SPOKE WITH ARIS PATIENT DOES HAVE HIS HOSPITAL FOLLOW UP MID MAY PLAN OF CARE TO HAVE SKILLED NURSE VISITS 2 TIMES A WEEK X3 UNTIL RECERT DAY FOR ASSESSMENT WELL TEACHING AND MANAGEMENT OF MEDICATION AND DISEASE AND DIET HOME SAFETY FALL PREVENTION.PT IS QUITE FRAIL POST HOSPITAL STAY. PATIENT'S ABDOMEN IS SOFT AND NONTENDER HE HAS POSITIVE BOWEL SOUNDS BM REPORTED YESTERDAY. HE REPORTS A GOOD APPETITE LUNGS ARE CLEAR SPEAKING IN FULL SENTENCES NO ACUTE DISTRESS HE DOES HAVE SHORTNESS OF BREATH WITH EXERTION ENERGY CONSERVING TECHNIQUES REVIEWED DEEP BREATHING TECHNIQUES ENCOURAGED. PATIENT WILL REQUIRE ASSISTANCE WITH BATHING AND DRESSING UNTIL HE GETS HIS STRENGTH BACK. HE DID RECEIVE THE NEW FLU SHOT JUST PRIOR TO DISCHARGE FROM HOSPITAL</paragraph> Encounters Start Date/Time End Date/Time Encounter Type Admission Type Attending Clinicians Care Facility Care Department Encounter ID Discharge Date Discharge Status Discharge Condition Discharge Reason Percent Goals Met 2025-03-29 00:00:00 2025-05-27 00:00:00 Outpatient RECERTIFIC [facility]IS [facility] [id number] [id number]
== END 2025-05-13 10:11 | disposition home or self-care (01) ==
LOC: HO.HMGCLNP 10:10
PROVIDERS: PCP Physician Assistant Medical; Visit Provider Family Medicine
DX: N17.9 Acute kidney failure, unspecified (principal); N18.9 Chronic kidney disease, unspecified
CPT/HCPCS: 80048

== ENCOUNTER 2025-05-17 13:08 | Outpatient (AMB) | payer MEDICARE, SELFPAY ==
--- NOTE | 2025-05-17 13:41 | MHC.OFFVIS ---
Intake Visit Reasons: 3m [facility] Allergies Iodinated Contrast Media (IV Contrast Dye) Allergy (Intermediate, Verified 05/17/25 13:44) Swelling Penicillins Allergy (Verified 05/17/25 13:44) Swelling Medication List - Last Reconciled 05/17/25 by Katherine Rizvi CNP allopurinol 200 mg PO DAILY amiodarone 200 mg PO DAILY amitriptyline 75 mg PO BEDTIME carvedilol 3.125 mg PO BID cyanocobalamin (vitamin B-12) 1,000 mcg PO DAILY donepezil 10 mg PO DAILY empagliflozin (Jardiance) 10 mg PO DAILY ferrous sulfate 325 mg PO BID fluticasone propionate 50 mcg/actuation 2 sprays intranasal BID lansoprazole 30 mg PO DAILY@0630 losartan 25 mg PO DAILY memantine (Namenda) 5 mg PO BID 30 days potassium chloride ER 20 mEq PO BID prochlorperazine maleate 10 mg PO Q6H PRN sennosides-docusate sodium 8.6-50 mg (Senna with Docusate Sodium) 2 tab-caps PO DAILY@1200 simvastatin 20 mg PO BEDTIME torsemide 80 mg PO DAILY warfarin (Jantoven) 5 mg PO DAILY@1800 HPI Comments Details: He was doing okay. He was recently [place] [facility]. He did not notice any improvement in memory with memantine, but no medication side effects. Memory was not so good. He could be forgetful at times. He would sometimes go into a room and forget why. He was driving locally without issue. He had [facility] that helped manage his medications. He was walking with cane or walker, no recent falls. Sleep was okay with amitriptyline. He was starting to have more dreams since he stopped smoking marijuana about a year ago. Mood was okay. He has been living with a friend since his passed in 05/2023. He has one son who lives in [place] that he saw about once a week. He noticed memory problems beginning around 2019. He was forgetting things and needed reminders. He had 3 cardioversions done for atrial fibrillation but continues to be back in afib. He got pacemaker/defibrillator in summer 2024. No history of head trauma. No history of stroke. No history of sleep apnea. No family history of dementia. [facility] Medical History (Updated 05/17/25 @ 00:02 by Background Daemon) Preoperative cardiovascular examination Marijuana dependence BPH (benign prostatic hyperplasia) Presence of combination internal cardiac defibrillator (ICD) and pacemaker Atrial fibrillation Hypertension MCI (mild cognitive impairment) Tachycardia with heart rate 121-140 beats per minute Chest pain Surgical History (Updated 05/17/25 @ 00:02 by Background Daemon) AICD (automatic cardioverter/defibrillator) present S/P aorta repair Heart valve replaced Social History (System 05/05/25 @ 11:17 by Radha Solorio) Household Members: Friend(s) Housing: House Do you presently have visiting nurse or other home services: Yes ([place]) Patient Tobacco Use Status: Never used Tobacco Substance Use Type: Marijuana service: No Review of Systems Const Denies chills, Denies daytime sleepiness, Denies difficulty sleeping, Denies fatigue, Denies fever(s), Denies frequent falls, Denies headache(s), Denies increased appetite, Denies poor appetite, Denies snoring, Denies weakness, Denies weight gain and Denies weight loss Eyes Denies loss of vision ENT Denies vertigo, Denies dizziness, Denies headache(s) and Denies neck pain Card Denies chest pain at rest, Denies chest pain with activity, Denies syncope, Denies leg edema, Denies palpitations, Denies dyspnea and Denies dyspnea on exertion Resp Denies cough, Denies dyspnea, Denies dyspnea on exertion and Denies snoring GI Denies abdominal pain, Denies constipation, Denies heartburn, Denies diarrhea and Denies nausea Denies urinary frequency, Denies urinary incontinence and Denies urinary urgency Musc Denies abnormal gait, Denies back pain, Denies myalgias, Denies arthralgias, Denies neck pain, Denies numbness and Denies tingling Neuro Denies abnormal gait, Denies vertigo, Denies dizziness, Denies syncope, Denies frequent falls, Denies headache(s), Denies lack of coordination, Denies loss of vision, Reports memory loss, Denies numbness, Denies Other visual disturbances, Denies restless legs, Denies seizure-like activity, Denies tingling, Denies paresthesias, Denies tremor(s) and Denies weakness Psych Denies anxiety, Denies depression, Denies auditory hallucinations, Reports memory loss and Denies visual hallucinations Endo Denies fatigue and Denies palpitations Physical Exam Const Other: General Appearance:? normal, in no acute distress. Heart:? S1, S2 normal, no murmurs. Lungs:? clear anteriorly and posteriorly. Musculoskeletal:? normal. Extremities:? no edema. Psych:? alert, as below. Neuro Other: Abnormal Neurological Findings:?MMSE 29/30.?Walking with cane. Mental Status: alert, as below. Cranial Nerves: Pupils are equal, round, and reactive to light. External ocular muscles are intact. Visual woods are full, no ptosis. Face is symmetrical, no facial weakness or droop. Facial sensations are normal. Tongue protrudes in midline. Palate elevates symmetrically. Shoulder shrugging is normal Motor Examination: Normal muscle tone, bulk and strength. No atrophy or fasciculations. No drift of the extended upper extremities. DTR 2+. Plantars are flexor. Sensory Exam: Normal light touch, temperature, pinprick, vibration, and joint-position sensations. Rhomberg sign is absent. Coordination: No ataxia. No titubation. Gait Exam: With cane. Cerebellar Signs: [id number] and [id number] is normal. No dysdiadochokinesia. Extrapyramidal System: No tremor, rigidity with normal facial expressions. No bradykinesia. No bradyphrenia. Normal arm swing and posture. No propulsion or retropulsion. Speech: Normal. No dysphasia or dysarthria. MMSE Level of Consciousness: Alert. Orientation: Knows correct year, month, day, and season. Does not know date. Knows correct city, county and state. Knows correct location and floor. Registration: Able to register 3 objects. Attention: Serial 7's performed accurately to 65 Recall: Able to recall 3 out of 3 objects. Language: Normal spontaneous speech, fluency, repetition, naming, comprehension, reading, and writing. Total Score: 29/30. 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 There is diffuse volume loss. 11/21/22 EEG- Mild slowing diffusely 7 Hz Assessment & Plan Assessment & Plan (1) MCI (mild cognitive impairment): Code(s): G31.84 - Mild cognitive impairment of uncertain or unknown etiology Category: Medical Plan: Continue donepezil 10mg 1 tablet at bedtime. Increase memantine 10mg 1 tablet twice a day. Stay physically and socially active. Medications: New memantine (Namenda) 10 mg PO BID 180 tabs 1RF 90 days Changed From donepezil 10 mg PO DAILY To donepezil 10 mg PO BEDTIME 90 tabs 1RF 90 days Discontinued memantine (Namenda) Discontinued Reason: Doctor's Order 5 mg PO BID 30 days 60 tabs 3RF Coding Level of Care Code Est Pt Level 4 (97771) Diagnoses MCI (mild cognitive impairment) G31.84
--- OUTSIDE RECORDS SUMMARY | 2025-05-17 14:53 | XMS_ITS | Clinical Summary ---
Author Organization [facility] [address] [place] [address] [place] [phone] Phone Care Team Providers Care Executor Of Estate Name Role Phone Armando Aceves Primary Care Provider [phone] Allergies Active Allergy Reactions Criticality Noted Date Comments Iodinated Contrast Media Swelling High 08/23/2022 Confirmed with pt 09/05/24 Penicillins 09/05/2023 Medications warfarin (COUMADIN) 5 mg tablet Take 1 tablet (5 mg total) by mouth 2 (two) times a week. FRIDAY + FRIDAY May cause heavy bleeding. Take at same time every day. Do not change dietary habits. Managed by [facility] Class: Historic 023 Active FREESTYLE [...] symptoms. Acute kidney injury superimposed on CKD ([facility] V24) 10/22/2024 Nonischemic cardiomyopathy (CMS/HCC V24, CMS/HCC [...] with the advanced heart failure clinic at [facility], Dr. Connell, 12/31/2024 at 0745; we [...] to the advanced heart failure clinic at [facility], Dr. Connell, for further evaluation as [...] panel; Future Acute on chronic heart failure ([facility] V24, [facility] V28) 09/26/2024 Aortic aneurysm ([facility] [place]24) 09/13/2024 Aortic valve stenosis 09/13/2024 Assessment & Plan (12/30/2024 8:31 PM EDT): Assessment & Plan (11/24/2024 6:21 AM EDT): intermediate designer (current) use of anticoagulants 2023 Assessment & [...] Ambulatory referral to Cardiology; Future Atrial tachycardia ([facility] V24) 06/09/2023 Heart block 03/04/2023 Snoring 03/04/2023 Bradycardia 02/25/2023 Type 2 diabetes mellitus wit hout complication, without long-term current use of insulin ([facility] V24, [facility] V28) 02/03/2023 Assessment & Plan (11/16/2024 1:06 [...] in and root replacement in 1986 at [facility] by Dr. Zee for bicuspid AV [...] 06/13/2011 Overview (09/09/2023): Amiodarone-induced Congestive heart failure (CMS/[facility] V24, CMS/[facility] V 28) 02/14/2011 Hemorrhage of gastrointestinal tract [...] Extensive evaluation, approximately 1996, Dr. Royer Coronado, [place], [place], upper GI endoscopy, duodenal biopsy, flexible [...] Encounters Date Type Department Care Team Description 05/16/2025 Telephone Coumadin [address] [phone] Breanne Zhong LPN 05/16/2025 Anticoagulation - Warfarin Visit Coumadin [address] [phone] Armando Aceves PA Persistent atrial fibrillation (CMS/HCC V24, CMS/HCC V28) (Primary Dx); intermediate designer (current) use of anticoagulants 05/13/2025 Telephone Adult Medicine [address], [place] [phone] Armando Aceves PA 05/13/2025 Anticoagulation - Warfarin Visit Coumadin [address] [phone] Armando Aceves PA Persistent atrial fibrillation (CMS/HCC V24, CMS/HCC V28) (Primary Dx); senior care (current) use of anticoagulants 05/11/2025 Telephone Adult Medicine [address] [phone] Katherine Hugo PharmD 05/11/2025 Telephone Gastroenterology - [address] [facility] [address] [place] [address] La Kidd MD 05/10/2025 Telephone Adult Medicine [address] [phone] Asya Mcelroy [place] 05/10/2025 Anticoagulation - Warfarin Visit Coumadin [address] [phone] Armando Aceves PA Persistent atrial fibrillation (CMS/HCC V24, CMS/HCC V28) (Primary Dx); intermediate designer (current) use of anticoagulants 05/05/2025 Telephone [facility] - [address] [place] [address] Provider, Not In System 05/04/2025 Telephone Adult Medicine [address] [phone] Armando Aceves PA 04/29/2025 10:00 AM EDT Clinical Support Coumadin [address] [phone] Persistent atrial fibrillation (CMS/HCC V24, CMS/HCC V28) (Primary Dx); intermediate designer (current) use of anticoagulants 04/26/2025 Telephone Adult Medicine [address] [phone] Armando Aceves PA 04/25/2025 Telephone Adult Medicine [address] [phone] Armando Aceves PA 04/25/2025 Telephone Coumadin [address] [phone] Breanne Zhong LPN 04/25/2025 Anticoagulation - Warfarin Visit Coumadin [address] [phone] Armando Aceves PA Persistent atrial fibrillation (CMS/HCC V24, CMS/HCC V28) (Primary Dx); senior care (current) use of anticoagulants 04/22/2025 Telephone Adult [address] [phone] Armando Aceves PA 04/19/2025 Anticoagulation - Warfarin Visit Coumadin [address] [phone] Armando Aceves PA Persistent atrial fibrillation (CMS/HCC V24, CMS/HCC V28) (Primary Dx); intermediate designer (current) use of anticoagulants 04/18/2025 Telephone Gastroenterology - [address] [place] [phone] Rashaad Jose MD 04/15/2025 9:50 AM EDT Anticoagulation - Warfarin Visit Coumadin [address] [phone] Persistent atrial fibrillation (CMS/HCC V24, CMS/HCC V28) (Primary Dx); intermediate designer (current) use of anticoagulants 04/12/2025 Telephone Adult Medicine [address] [phone] Armando Aceves PA 04/12/2025 Telephone Adult Medicine [address] [phone] Armando Aceves PA 04/11/2025 Anticoagulation - Warfarin Visit Coumadin [address] [phone] Armando Aceves PA Persistent atrial fibrillation (CMS/HCC V24, CMS/HCC V28) (Primary Dx); senior care (current) use of anticoagulants 04/07/2025 Telephone [facility] - [address] [place] [phone] Provider, Not In System 04/06/2025 Telephone Adult Medicine [address] [phone] Genie Brown [place] 04/04/2025 Anticoagulation - Warfarin Visit Coumadin [address] [phone] Amrando Aceves PA Persistent atrial fibrillation (CMS/HCC V24, CMS/HCC V28) (Primary Dx); senior care (current) use of anticoagulants 04/04/2025 Telephone Adult Medicine [address] [phone] Armando Aceves PA 04/01/2025 Telephone Gastroenterology - 299 [facility] 299 [facility] [address] [place] [phone] Kandice Laura MA 03/28/2025 10:30 AM EDT Nutrition Internal Medicine - [place] 175 [facility] 200 [place] [phone] Stage 3b chronic kidney disease (CMS/HCC V24, CMS/HCC V28) (Primary Dx); Type 2 diabetes mellitus without complication, without long-term current use of insulin (CMS/HCC V24, CMS/HCC V28) 03/28/2025 Anticoagulation - Warfarin Visit Coumadin [address] [phone] Breanne Zhong LPN Persistent atrial fibrillation (CMS/HCC V24, CMS/HCC V28) (Primary Dx); senior care (current) use of anticoagulants 03/24/2025 Telephone Adult Medicine [facility] [address] [place], [place] [phone] Armando Aceves PA 03/24/2025 Telephone Coumadin [address] [phone] Breanne Zhong LPN 03/24/2025 Anticoagulation - Warfarin Visit Coumadin [address] [phone] Breanne Zhong LPN Persistent atrial fibrillation (CMS/HCC V24, CMS/HCC V28) (Primary Dx); senior care (current) use of anticoagulants 03/23/2025 12:30 PM EDT Ancillary Procedure [facility] - [address] [place] [phone] Persistent atrial fibrillation (CMS/HCC V24, CMS/HCC V28); Biventricular congestive heart failure (CMS/HCC V24, CMS/HCC V28); H/O aortic root repair; History of heart valve replacement; Nonischemic cardiomyopathy (CMS/HCC V24, CMS/HCC V28); Acute kidney injury superimposed on CKD (CMS/HCC V24); Biventricular implantable cardioverter-defibrill ator (ICD) in situ; Elevated INR 03/21/2025 2:30 PM EDT Anesthesia Event [facility] [address] [place] [phone] Andres Vinson MD 03/21/2025 1:44 PM EDT - 03/21/2025 11:59 PM EDT Hospital Encounter [facility] [address] [place] [phone] La Kidd MD Oral phase dysphagia; Weight loss Discharge Disposition: Home or Self Care 03/21/2025 Telephone Gastroenterology - 299 [facility] 299 [facility] [address] [place] [phone] La Kidd MD 03/18/2025 10:00 AM EDT Anticoagulation - Warfarin Visit Coumadin [address] [phone] Persistent atrial fibrillation (CMS/HCC V24, CMS/HCC V28) (Primary Dx); senior care (current) use of anticoagulants 03/18/2025 Telephone Adult Medicine [address] [phone] Armando Aceves PA 03/16/2025 10:00 AM EDT Office Visit Adult [address] [phone] Thanh Anand PA Bilateral impacted cerumen (Primary Dx) 03/16/2025 Telephone Adult [address] [phone] Armando Aceves PA 03/15/2025 Anticoagulation - Warfarin Visit Coumadin [address] [phone] Breanne Zhong LPN Persistent atrial fibrillation (CMS/HCC V24, CMS/HCC V28) (Primary Dx); senior care (current) use of anticoagulants 03/11/2025 Anticoagulation - Warfarin Visit Coumadin [address] [phone] Breanne Zhong LPN Persistent atrial fibrillation (CMS/HCC V24, CMS/HCC V28) (Primary Dx); intermediate designer (current) use of anticoagulants 03/09/2025 12:40 PM EDT Lab Draw Station [address] Persistent atrial fibrillation (CMS/HCC V24, CMS/HCC V28); Biventricular congestive heart failure (CMS/HCC V24, CMS/HCC V28); H/O aortic root repair; History of heart valve replacement; Nonischemic cardiomyopathy (CMS/HCC V24, CMS/HCC V28); Acute kidney injury superimposed on CKD ([facility]/HCC V24); Biventricular implantable cardioverter-defibrill ator (ICD) in situ; Elevated INR; Chronic sinus complaints; Dysphagia, unspecified type; Atherosclerosis of coronary artery with other form of angina pectoris, unspecified vessel or lesion type, unspecified whether [place] or transplanted heart ([facility]/HCC V24); Essential hypertension, benign; Hyperthyroidism; Impaired fasting glucose; Type 2 diabetes mellitus without complication, without long-term current use of insulin (CMS/HCC V24, CMS/HCC V28) 03/09/2025 10:50 AM EDT Office Visit [facility] [address] [phone] Solo Delarosa MD Biventricular congestive heart failure (CMS/HCC V24, CMS/HCC V28) (Primary Dx); Persistent atrial fibrillation (CMS/HCC V24, CMS/HCC V28); H/O aortic root repair; History of heart valve replacement; Nonischemic cardiomyopathy (CMS/HCC V24, CMS/HCC V28); Acute kidney injury superimposed on CKD ([facility] V24); Biventricular implantable cardioverter-defibrill ator (ICD) in situ; Elevated INR; Tricuspid valve insufficiency, unspecified etiology 03/08/2025 Telephone [facility] [address] [phone] Solo Delarosa MD 03/08/2025 Anticoagulation - Warfarin Visit Coumadin [address] [phone] Breanne Zhong LPN Persistent atrial fibrillation ([facility] V24, [facility] V28) (Primary Dx); intermediate designer (current) use of anticoagulants 03/03/2025 11:30 AM EDT Office Visit Adult Medicine [address] [phone] Anita Gastelum PA Fall, subsequent encounter (Primary Dx); Laceration of scalp, subsequent encounter; Dysphagia, unspecified type; Type 2 diabetes mellitus without complication, without long-term current use of insulin ([facility] V24, [facility] V28) 03/01/2025 Telephone Adult Medicine [address] [phone] Armando Aceves PA 03/01/2025 Anticoagulation - Warfarin Visit Coumadin [address], [place] [phone] Breanne Zhong LPN Persistent atrial fibrillation (CMS/HCC V24, CMS/HCC V28) (Primary Dx); senior care (current) use of anticoagulants 03/01/2025 Telephone Gastroenterology [facility] 175 [facility] 175 [facility] [address] [place] [phone] Анна Enamorado PA 02/28/2025 Telephone Gastroenterology [facility] [address] [place] [address] Анна Enamorado PA 02/25/2025 10:30 AM EDT Office Visit Adult Medicine [address] [phone] Aury Ferreira PA Fall, subsequent encounter (Primary Dx); Laceration of scalp, subsequent encounter 02/25/2025 Telephone Adult Medicine [address] [phone] Ariella Jimenez MA 02/24/2025 Anticoagulation - Warfarin Visit Coumadin Clinic [address] [phone] Melissa Nichols LPN Persistent atrial fibrillation (CMS/HCC V24, CMS/HCC V28) (Primary Dx); senior care (current) use of anticoagulants 02/24/2025 Telephone Adult [address] [phone] Armando Aceves PA 02/23/2025 3:07 PM EDT - 02/23/2025 6:37 PM EDT Emergency [facility] [address] [place] [phone] Fall, initial encounter (Primary Dx); Laceration of scalp, initial encounter; History of pacemaker; History of atrial fibrillation Discharge Disposition: Home or Self Care 02/23/2025 9:00 AM EDT Office Visit Adult [address] [phone] Thanh Anand PA Bilateral impacted cerumen (Primary Dx); senior care (current) use of anticoagulants; Type 2 diabetes mellitus without complication, without long-term current use of insulin ([facility] V24, [facility] V28) 02/22/2025 Telephone Coumadin [address] [phone] Breanne Zhong LPN 02/22/2025 Telephone Gastroenterology [facility] 175 [facility] [address] [phone] Megan Hollis LPN 02/21/2025 10:30 AM EDT Office Visit [address]astroenter[address] [phone] Анна Enamorado PA Gastroesophageal reflux disease, unspecified whether esophagitis present (Primary Dx); Dysphagia, unspecified type 02/18/2025 Telephone Adult Medicine [address] [phone] Ariella Jimenez [place] 02/16/2025 Anticoagulation - Warfarin Visit [address] [phone] Melissa Nichols LPN Persistent atrial fibrillation ([facility] V24, [facility] V28) (Primary Dx); intermediate designer (current) use of anticoagulants 02/14/2025 11:00 AM EDT Office Visit Adult [address] [phone] Armando Aceves PA Chronic sinus complaints (Primary Dx); Dysphagia, unspecified type; Persistent atrial fibrillation ([facility]/HCC V24, CMS/HCC V28); Biventricular congestive heart failure ([facility] V24, [facility] V28); Atherosclerosis of coronary artery with other form of angina pectoris, unspecified vessel or lesion type, unspecified whether [place] or transplanted heart ([facility] V24); Essential hypertension, benign; Hyperthyroidism; Impaired fasting glucose; Type 2 diabetes mellitus without complication, without long-term current use of insulin ([facility] V24, [facility] V28) 02/14/2025 Telephone Adult [address] [phone] Armando Aceves PA from Last 3 Months Immunizations Immunization Administration [...] HISTORICAL CERV LAMINECTOMY OTHER SURGICAL HISTORY PROCEDURE: [place] RPR THORACOABDOMINAL AORTIC ANEURYS W/WO BYPASS COLONOSCOPY 05/14/2007 PROCEDURE: [place] COLONOSCOPY FLX DX W/COLLJ SPEC WHEN PFRMD; COMMENT: Negative AORTIC VALVE REPLACEMENT PROCEDURE: HISTORICAL AORTIC VALVE REPL Medical History Medical History Date Comments Heart valve replaced by other means DX:Heart valve replaced by other means; COMMENT: [facility] Aortic Atrial fibrillation ([facility] V24, [facility] V28) DX:Atrial fibrillation (HCC) ; COMMENT: S/P [...] gallstones 12/01/2019 DX:History of gallstones Diabetes mellitus ([facility] V 24, [facility] V28) Hyperlipidemia Chronic gout CKD (chronic kidney disease) Lung disease Non-ischemic cardiomyopathy ([facility] V24, [facility] V28) CHF (congestive heart failur e) ([facility] V24, [facility] V28) Biventricular implantable cardioverter-defibrillator (ICD) in situ Anemia Depression Anxiety Elevated INR 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 For example, children's entertainer or elderly care for an older adult? [...] 2:00 PM EST Office Visit Adult Medicine [address] [phone] Armando Aceves PA [address] [place] [phone] 06/01/2025 11:00 AM EST Office Visit Adult Medicine [address] [phone] Armando Aceves PA [address] [place] [phone] 07/28/2025 10:30 AM EST Nutrition Internal Medicine - [address] [place] [phone] Georgette rBadley, RD [address] [place] [phone] 11/17/2025 11:00 AM EDT Ancillary Procedure [facility] - [facility] [address] 300 [facility] [address] [place] [phone] 01/02/2026 3:00 PM EDT Office Visit Gastroenterology - [address] [facility] [address] [place] [address] Penelope Henry, TAWANNA 299 [facility] [address] [place] [address] Health Maintenance Due Date Last Done Comments Colorectal Cancer Screening: Stool Based Tests (FOBT/FIT) 01/29/2024 01/28/2023 Diabetes: Annual Foot Exam 07/15/2024 07/15/2023, COVID-19 Vaccine ( season) 2025 04/06/2024, 04/29/2023, 05/07/2022, Additional history [...] of UE's for safety only. Pt will [id number] reps or more for 30 SCS Test. Medical Devices Implanted Type Area [employer]over Device Identifier Shelf Expiration Date Model / Serial / Lot Defib Icd Bi Vent [place] Hr Senior Sharepoint Architect D - [id number] - [id number] Implanted:Qty: 1 on 10/20/2024 by Adal Padilla MD at [facility] Cardiac COUNSELOR AIDE-D ICD Left: Heart [facility] [id number] 09/03/2025 [id number] / [id number] / Abbt-Stju [place] Hf [id number] Implanted:10/05 (Quantity not on file) Cardiac COUNSELOR AIDE-D ICD [facility] [place] HF / [id number] / Abbt-Stju [id number] [place](Tm) Hf [id number] Implanted:10/05 (Quantity not on file) Cardiac COUNSELOR AIDE-D ICD [facility] [id number] GALLANT(T M) HF / [id number] / Lead Tachy Durat 65cm 7122q/65 Sj4 - [id number] - [id number] Implanted:Qty: 1 on 10/20/2024 by Adal Padilla MD at [facility] Cardiac Lead N/A: Heart [facility] [id number] 07/06/2027 7122Q/65 / [id number] / Lead Pcmk Tendril Sts 7mgr69lw - [id number] - [id number] Implanted:Qty: 1 on 10/20/2024 by Adal Padilla MD at [facility] Cardiac Lead N/A: Heart [facility] [id number] 05/06/2027 2088TC/52 / [id number] / Lead Pcmkr Lv Quartet Quardri 86 - [id number] - [id number] Implanted:Qty: 1 on 10/20/2024 by Adal Padilla MD at [facility] Cardiac Lead Left: Heart [facility] [id number] 03/06/2027 1458Q/86 / [id number] / Procedures Procedure Name Priority Date/Time Associated Diagnosis Comments PROTHROMBIN TIME WITH INR Routine 05/16/2025 PROTHROMBIN TIME WITH INR Routine 05/13/2025 PROTHROMBIN [...] atrial fibrillation (CMS/HCC V24, CMS/HCC V28) senior care (current) use of anticoagulants PROTHROMBIN TIME WITH INR Routine 04/25/2025 PROTHROMBIN TIME WITH INR Routine 04/19/2025 POC PROTIME INR BLOOD Routine 04/15/2025 9:49 AM EDT Persistent atrial fibrillation (CMS/HCC V24, CMS/HCC V28) senior care (current) use of anticoagulants PROTHROMBIN TIME WITH [...] atrial fibrillation (CMS/HCC V24, CMS/HCC V28) intermediate designer (current) use of anticoagulants PROTHROMBIN TIME WITH [...] unspecified vessel or lesion type, unspecified whether [place] or transplanted heart (CMS/HCC V24) Essential hypertension, benign Hyperthyroidism Impaired fasting glucose Type 2 diabetes mellitus without complication, without long-term current use of insulin ([facility] V24, [facility] V28) LIPID PANEL WITH REFLEX TO DIRECT LDL Routine 03/09/2025 12:44 PM EDT Chronic sinus complaints Dysphagia, unspecified type Persistent atrial fibrillation ([facility]/HCC V24, [facility] V28) Biventricular congestive heart failure ([facility]/HCC V24, [facility] V28) Atherosclerosis of coronary artery with other form of angina pectoris, unspecified vessel or lesion type, unspecified whether [place] or transplanted heart ([facility] V24) Essential hypertension, benign Hyperthyroidism Impaired fasting glucose Type 2 diabetes mellitus without complication, without long-term current use of insulin ([facility] V24, [facility] V28) COMPREHENSIVE METABOLIC PANEL Routine 03/09/2025 12:44 PM EDT Chronic sinus complaints Dysphagia, unspecified type Persistent atrial fibrillation ([facility]/HCC V24, [facility] V28) Biventricular congestive heart failure ([facility] V24, [facility] V28) Atherosclerosis of coronary artery with other form of angina pectoris, unspecified vessel or lesion type, unspecified whether [place] or transplanted heart ([facility] V24) Essential hypertension, benign Hyperthyroidism Impaired fasting glucose Type 2 diabetes mellitus without complication, without long-term current use of insulin ([facility] V24, [facility] V28) HEMOGLOBIN A1C Routine 03/09/2025 12:44 PM EDT Chronic sinus complaints Dysphagia, unspecified type Persistent atrial fibrillation ([facility]/HCC V24, [facility]/HCC V28) Biventricular congestive heart failure ([facility] V24, [facility] V28) Atherosclerosis of coronary artery with other form of angina pectoris, unspecified vessel or lesion type, unspecified whether [place] or transplanted heart ([facility] V24) Essential hypertension, benign Hyperthyroidism Impaired fasting glucose Type 2 diabetes mellitus without complication, without long-term current use of insulin ([facility] V24, [facility] V28) THYROID STIMULATING HORMONE WITH REFLEX TO FREE T4 AND FREE T3 Routine 03/09/2025 12:44 PM EDT Chronic sinus complaints Dysphagia, unspecified type Persistent atrial fibrillation (CMS/HCC V24, CMS/HCC V28) Biventricular congestive heart failure (CMS/HCC V24, CMS/HCC V28) Atherosclerosis of coronary artery with other form of angina pectoris, unspecified vessel or lesion type, unspecified whether [place] or transplanted heart (CMS/HCC V24) Essential hypertension, benign Hyperthyroidism Impaired fasting glucose Type 2 diabetes mellitus without complication, without long-term current use of insulin (CMS/HCC V24, CMS/HCC V28) CBC AND DIFFERENTIAL Routine 03/09/2025 12:44 PM EDT Chronic sinus complaints Dysphagia, unspecified type Persistent atrial fibrillation (CMS/HCC V24, CMS/HCC V28) Biventricular congestive heart failure (CMS/HCC V24, CMS/HCC V28) Atherosclerosis of coronary artery with other form of angina pectoris, unspecified vessel or lesion type, unspecified whether [place] or transplanted heart (CMS/HCC V24) Essential hypertension, [...] unspecified vessel or lesion type, unspecified whether [place] or transplanted heart (CMS/HCC V24) Essential hypertension, benign Hyperthyroidism Impaired fasting glucose Type 2 diabetes mellitus without complication, without long-term current use of insulin (CMS/[facility] V24, CMS/[facility] V28) PROTHROMBIN TIME WITH INR Routine 03/08/2025 [...] EDT PROTHROMBIN TIME WITH INR Routine 02/16/2025 MICROALBUMIN CREATININE URINE RATIO Routine 09/14/2024 10:58 [...] Maintenance Results * Prothrombin time with INR (05/16/2025) Only the most recent of15 resultswithin the time period is included. INR 6.6 Prothrombin Time POC Blood Venous blood specimen / Unknown 05/16/2025 Armando SANTOS LAB BLOOD ORDERABLES Charlotte l Result * External Xray Report (05/01/2025) Only the most recent of10 resultswithin the time period is included. Anatomical Region Laterality Modality Radiographic Mireille ging Provider [facility] XR PROCEDURES Final Result * External CT Report (05/01/2025) Anatomical Region Laterality Modality Computed Tomogra phy Provider [facility] CT PROCEDURES Final [...] 39 mL CV PACS Left Atrium Minor Canby 6.9 cm CV PACS Left Atrium Major [place]by 7.5 cm CV PACS LA Area Sys [...] Gradient 7 mmHg CV PACS MV Deceleration Dod[place] 3.7 m/s2 CV PACS MV PHT 105 [...] LAB CHEMISTRY METHOD 03/09/2025 4:03 PM EDT [facility] Bilirubin, Direct 0.4(H) 0.0 - 0.3 mg/dL LAB CHEMISTRY METHOD 03/09/2025 4:03 PM EDT [facility] Bilirubin, Indirect 0.4 0.0 - 1.1 mg/dL LAB CHEMISTRY METHOD 03/09/2025 4:03 PM EDT [facility] Blood Venous blood specimen / Unknown Venipuncture / Unknown 03/09/2025 12:44 PM EDT 03/09/2025 12:44 PM EDT Solo Delarosa MD LAB BLOOD ORDERABLES Final Resu lt Performing Organization Address [facility] Co de Phone Number [facility] [address] [place] [address], [place] [phone] * Thyroid stimulating hormone with reflex to free t4 and free t3 (03/09/2025 12:44 PM EDT) TSH 3.12 0.40 - 4.00 mcIU/mL LAB CHEMISTRY METHOD 03/09/2025 5:08 PM EDT [facility] Blood Venous blood specimen / Unknown Venipuncture / Unknown 03/09/2025 12:44 PM EDT 03/09/2025 12:44 PM EDT Armando SANTOS LAB BLOOD ORDERABLES Charlotte l Result Performing Organization Address [facility] Co de Phone Number [facility] [address] [place] [address], [place] [phone] * Lipid panel with reflex to direct LDL (03/09/2025 12:44 PM EDT) Cholesterol 102 0 - 200 mg/dL LAB CHEMISTRY METHOD 03/09/2025 4:03 PM EDT [facility] Triglycerides 71 0 - 150 mg/dL LAB CHEMISTRY METHOD 03/09/2025 4:03 PM EDT [facility] HDL 60 >=40 mg/dL LAB CHEMISTRY METHOD 03/09/2025 4:03 PM EDT [facility] LDL Calculated 28 0 - 100 mg/dL LAB CHEMISTRY METHOD 03/09/2025 4:03 PM EDT [facility] Comment:Estimated LDL Calcul ated using equation: Total cholesterol - HDL cholesterol - (Triglycerides/5) VLDL Cholesterol David 14.2 mg/dL LAB CHEMISTRY METHOD 03/09/2025 4:03 PM EDT [facility] Non HDL Chol. (LDL+VLDL) 42 <145 mg/dL LAB CHEMISTRY METHOD 03/09/2025 4:03 PM EDT [facility] Chol/HDL Ratio 1.7 0.0 - 4.4 LAB CHEMISTRY METHOD 03/09/2025 4:03 PM EDT [facility] Blood Venous blood specimen / Unknown Venipuncture / Unknown 03/09/2025 12:44 PM EDT 03/09/2025 12:44 PM EDT Armando SANTOS LAB BLOOD ORDERABLES Charlotte hickey Result [facility] [address] [place] [address], * (ABNORMAL) CBC auto differential (03/09/2025 12:44 PM EDT) Only the most recent of2 resultswithin the time period is included. WBC 5.8 4.8 - 10.8 K/mcL LAB HEMETOLOGY METHOD 03/09/2025 2:56 PM EDT [facility] RBC 3.40(L) 4.50 - 5.50 M/mcL LAB HEMETOLOGY METHOD 03/09/2025 2:56 PM EDT [facility] Hemoglobin 10.1(L) 13.5 - 17.5 g/dL LAB HEMETOLOGY METHOD 03/09/2025 2:56 PM EDT [facility] Hematocrit 33.1(L) 42.0 - 54.0 % LAB HEMETOLOGY METHOD 03/09/2025 2:56 PM EDT [facility] MCV 96.5 79.0 - 98.0 FL LAB HEMETOLOGY METHOD 03/09/2025 2:56 PM EDT [facility] MCH 29.4 27.0 - 32.0 pcg LAB HEMETOLOGY METHOD 03/09/2025 2:56 PM EDT [facility] MCHC 30.5(L) 32.0 - 37.0 g/dL LAB HEMETOLOGY METHOD 03/09/2025 2:56 PM EDT [facility] RDW 17.8(H) 11.0 - 15.0 % LAB [facility]EMETOLOGY [facility] Platelets 100(L) 130 - 400 K/mcL LAB HEMETOLOGY METHOD 03/09/2025 2:56 PM EDT [facility] MPV 11.5(H) 7.0 - 11.0 FL LAB HEMETOLOGY METHOD 03/09/2025 2:56 PM EDT [facility] NRBC 0.0 <1.0 % LAB HEMETOLOGY METHOD 03/09/2025 2:[facility] NRBC Absolute 0.00 <0.10 K/mcL LAB HEMETOLOGY METHOD 03/09/2025 2:56 PM EDT [facility] Neutrophils Relative 77.1 % LAB HEMETOLOGY METHOD 03/09/2025 2:56 PM EDT [facility] Lymphocytes Relative 14.6 % LAB HEMETOLOGY METHOD 03/09/2025 2:56 PM EDT [facility] Monocytes Relative 5.9 % LAB HEMETOLOGY METHOD 03/09/2025 2[facility] Eosinophils Relative 1.0 % LAB HEMETOLOGY METHOD 03/09/2025 2:[facility] Basophils Relative 0.9 % LAB HEMETOLOGY METHOD 03/09/2025 2:56 PM EDT [facility] Immature Granulocytes Relative 0.5 % LAB HEMETOLOGY METHOD 03/09/2025 2:56 PM EDT [facility] Neutrophils Absolute 4.45 1.50 - 7.00 K/mcL LAB HEMETOLOGY METHOD 03/09/2025 2:56 PM EDT [facility] Lymphocytes Absolute 0.84(L) 1.00 - 5.00 K/mcL LAB HEMETOLOGY METHOD 03/09/2025 2:56 PM EDT [facility] Monocytes Absolute 0.34 0.20 - 1.00 K/mcL LAB HEMETOLOGY METHOD 03/09/2025 2:56 PM EDT [facility] Eosinophils Absolute 0.06 0.00 - 0.50 K/mcL LAB HEMETOLOGY METHOD 03/09/2025 2:56 PM EDT [facility] Basophils Absolute 0.05 0.00 - 0.20 K/mcL LAB HEMETOLOGY METHOD 03/09/2025 2:56 PM EDT [facility] Immature Granulocytes Absolute 0.03 0.00 - 0.03 K/mcL LAB HEMETOLOGY METHOD 03/09/2025 2:56 PM EDT [facility] Blood Venous blood specimen / Unknown Venipuncture / Unknown 03/09/2025 12:44 PM EDT 03/09/2025 12:44 PM EDT us Armando SANTOS LAB BLOOD ORDERABLES Charlotte hickey Result [facility] [address] [place] [address], * Uric acid (03/09/2025 12:44 PM EDT) Uric Acid 4.1 3.7 - 9.2 mg/dL LAB CHEMISTRY METHOD 03/09/2025 4:03 PM EDT [facility] Blood Venous blood specimen / Unknown Venipuncture / Unknown 03/09/2025 12:44 PM EDT 03/09/2025 12:44 PM EDT [facility] Nayla SANTOS LAB BLOOD ORDERABLES Charlotte l Result Performing Organization Address City/[facility]/ZIP Co de Phone Number [facility] [address] [place] [address], [place] [phone] * Hemoglobin A1c (03/09/2025 12:44 PM EDT) Pathologist [facility] Hemoglobin A1C 6.4 <6.5 % LAB CHEMISTRY METHOD 03/09/2025 8:32 PM EDT [facility] Mean Bld Glu Estim. 137 mg/dL LAB CHEMISTRY METHOD 03/09/2025 8:32 PM EDT [facility] Blood Venous blood specimen / Unknown Venipuncture / Unknown 03/09/2025 12:44 PM EDT 03/09/2025 12:44 PM EDT Armando SANTOS LAB BLOOD ORDERABLES Charlotte l Result Performing Organization Address [facility]/ZIP Co de Phone Number [facility] [address] [place] [address], [place] [phone] * (ABNORMAL) Comprehensive metabolic panel (03/09/2025 12:44 PM EDT) Sodium 136 133 - 145 mmol/L LAB CHEMISTRY METHOD 03/09/2025 4:03 PM EDT [facility] Potassium 4.4 3.5 - 5.5 mmol/L LAB CHEMISTRY METHOD 03/09/2025 4:03 PM EDT [facility] Chloride 103 96 - 110 mmol/L LAB CHEMISTRY METHOD 03/09/2025 4:03 PM EDT [facility] CO2 27 21 - 32 mmol/L LAB CHEMISTRY METHOD 03/09/2025 4:03 PM [facility] Anion Gap 6 3 - 11 LAB CHEMISTRY METHOD 03/09/2025 4:03 PM [facility] Glucose 136(H) 70 - 100 mg/dL LAB CHEMISTRY METHOD 03/09/2025 4:03 PM [facility] BUN 25 5 - 25 mg/dL LAB CHEMISTRY METHOD 03/09/2025 4:03 PM [facility] Creatinine 2.05(H) 0.70 - 1.30 mg/dL LAB CHEMISTRY METHOD 03/09/2025 4:03 PM [facility] eGFR 32(L) >=60 mL/min/1. 73m2 LAB CHEMISTRY METHOD 03/09/2025 4:03 PM [facility] Comment:Calculation based on the Chronic Kidney Disease Epidemiology Collaboration (CKD-EPI) equation refit without adjustment for race. BUN/Creatinine Ratio 12.2 LAB CHEMISTRY METHOD 03/09/2025 4:03 PM [facility] Calcium 8.5 8.5 - 10.5 mg/dL LAB CHEMISTRY METHOD 03/09/2025 4:03 PM [facility] AST (SGOT) 18 10 - 42 unit/L LAB CHEMISTRY METHOD 03/09/2025 4:03 PM [facility] ALT (SGPT) 14 10 - 60 unit/L LAB CHEMISTRY METHOD 03/09/2025 4:03 PM [facility] Alkaline Phosphatase 140(H) 42 - 121 unit/L LAB CHEMISTRY METHOD 03/09/2025 4:03 PM [facility] Total Protein 6.2 6.0 - 8.0 g/dL LAB CHEMISTRY METHOD 03/09/2025 4:03 PM [facility] Albumin 3.5 3.2 - 5.0 g/dL LAB CHEMISTRY METHOD 03/09/2025 4:03 PM EDT [facility] Total Bilirubin 0.8 0.0 - 1.4 mg/dL LAB CHEMISTRY METHOD 03/09/2025 4:03 PM EDT [facility] Blood Venous blood specimen / Unknown Venipuncture / Unknown 03/09/2025 12:44 PM EDT 03/09/2025 12:44 PM EDT us Armando SANTOS LAB BLOOD ORDERABLES Charlotte l Result [facility] [address] [place] [address], [place] [phone] * ECG-Annotated (02/24/2025) us Provider Onbase MD ECG ORDERABLES Final Result [...] Infection and pain Alternatives discussed: No treatment Pelican protocol: Procedure explained and questions answered to [...] Irrigation method: Syringe Skin repair: Repair method: [place] Number of leatha: 5 Post-procedure details: Dressing: Antibiotic ointment Procedure completion: Tolerated well, no immediate complications us Rosamaria Duffy NP IN CLINIC/BEDSIDE ORDERABLES Fi nal Result * Troponin I High Sensitivity (02/23/2025 4:22 PM EDT) [facility] High Sensitivity Troponin I 14 <=79 ng/L LAB CHEMISTRY METHOD 02/23/2025 5:23 PM EDT [facility] Blood Venous blood specimen / Unknown Venipuncture / Unknown 02/23/2025 4:22 PM EDT 02/23/2025 4:54 PM EDT Narrative [facility] - 02/23/2025 5:23 PM EDT High levels of biotin in samples may falsely decrease hsTroponin values. Use caution when interpreting hsTroponin results in patients taking biotin who exhibit renal impairment (eGFR <60) or in patients taking more than 20 mg/day of biotin. Rosamaria Duffy LAB BLOOD ORDERABLES Final Resu lt Performing Organization Address [facility]/ZIP Co de Phone Number [facility] [address] [place] [address], [place] [phone] * (ABNORMAL) APTT (02/23/2025 4:22 PM EDT) [facility] aPTT 43.0(H) 24.1 - 39.3 sec LAB COAGULATION METHOD 02/23/2025 5:08 PM EDT [facility] Blood Venous blood specimen / Unknown Venipuncture / Unknown 02/23/2025 4:22 PM EDT 02/23/2025 4:54 PM EDT [facility] LAB BLOOD ORDERABLES Final Resu lt [facility] [address] [place] [address], [place] [phone] * Creatine kinase (02/23/2025 4:22 PM EDT) [facility] Total CK 82 22 - 269 unit/L LAB CHEMISTRY METHOD 02/23/2025 5:23 PM [facility] Blood Venous blood specimen / Unknown Venipuncture / Unknown 02/23/2025 4:22 PM EDT 02/23/2025 4:54 PM EDT us Rosamaria Duffy [employer] LAB BLOOD ORDERABLES Final Resu lt [facility] [address] [place] [address], * (ABNORMAL) Basic Metabolic Panel (BMP) (02/23/2025 4:22 PM EDT) Sodium 136 133 - 145 mmol/L LAB CHEMISTRY METHOD 02/23/2025 5:23 PM [facility] Potassium 4.4 3.5 - 5.5 mmol/L LAB CHEMISTRY METHOD 02/23/2025 5:23 PM [facility] Chloride 102 96 - 110 mmol/L LAB CHEMISTRY METHOD 02/23/2025 5:23 PM [facility] CO2 30 21 - 32 mmol/L LAB CHEMISTRY METHOD 02/23/2025 5:23 PM [facility] Anion Gap 4 3 - 11 LAB CHEMISTRY METHOD 02/23/2025 5:23 PM [facility] Glucose 111(H) 70 - 100 mg/dL LAB CHEMISTRY METHOD 02/23/2025 5:23 PM [facility] BUN 25 5 - 25 mg/dL LAB CHEMISTRY METHOD 02/23/2025 5:23 PM [facility] Creatinine 2.51(H) 0.70 - 1.30 mg/dL LAB CHEMISTRY METHOD 02/23/2025 5:23 PM [facility] eGFR 25(L) >=60 mL/min/1. 73m2 LAB CHEMISTRY METHOD 02/23/2025 5:23 PM EDT [facility] Comment:Calculation based on the Chronic Kidney Disease Epidemiology Collaboration (CKD-EPI) equation refit without adjustment for race. BUN/Creatinine Ratio 10.0 LAB CHEMISTRY METHOD 02/23/2025 5:23 PM EDT [facility] Calcium 8.4(L) 8.5 - 10.5 mg/dL LAB CHEMISTRY METHOD 02/23/2025 5:23 PM EDT [facility] Blood Venous blood specimen / Unknown Venipuncture / Unknown 02/23/2025 4:22 PM EDT 02/23/2025 4:54 PM EDT Rosamaria Duffy LAB BLOOD ORDERABLES Final Resu lt [facility] [address] [place] [address], [place] [phone] * 12-Lead ECG (02/23/2025 4:22 PM EDT) Ventricular Rate ECG 110 BPM GEMUSE Atrial Rate 102 BPM GEMUSE QRS Duration 216 ms GEMUSE Q-T Interval 474 ms GEMUSE QTc 641 ms GEMUSE R Canby -160 degrees GEMUSE T [place] 53 degrees GEMUSE ECG Interpretation Ventricular-pa wali rhythm Biventricular pacemaker detected Abnormal ECG When compared with ECG of 06-JAN-2025 17:14, Vent. rate has increased BY 39 BPM Suspect tracking of sinus tachycardia or slow atrial tachycardia Confirmed by Montrell PADILLA JOHN ([id number]) on 02/23/2025 5:54:45 PM GEMUSE 02/23/2025 4:22 PM EDT 02/23/2025 5:54 PM EDT Rosamaria Duffy [employer] ECG ORDERABLES Final Result Performing Organization Address City/[facility]/ZIP Co de Phone Number GEMUSE * CT [...] Signed Date: 02/23/2025 16:20 ET Workstation ID: [id number] Transcribed By: Self Edit Transcribed Date: 02/23/2025 16:16 ET Narrative 02/23/2025 4:20 PM EDT INDICATION: Neck trauma with pain Technique: CT scan of the cervical spine obtained without contrast. Scanner: Case Rover LightSpeed 64 slice VCT Dose reduction technique: [...] the cervical spine obtained without contrast. Scanner: Case Rover LightSpeed 64 slice VCT Dose reduction technique: [...] Signed Date: 02/23/2025 16:20 ET Workstation ID: [id number] Transcribed By: Self Edit Transcribed Date: 02/23/2025 [...] Signed Date: 02/23/2025 16:16 ET Workstation ID: [id number] Transcribed By: Self Edit Transcribed Date: 02/23/2025 16:15 ET Narrative 02/23/2025 4:16 PM EDT INDICATION: Head trauma Technique: Axial images were obtained from the skull base to the vertex without contrast enhancement. Coronal and sagittal reformats obtained. Scanner: [email or web address] 64 slice VCT Dose reduction technique: ASIR [...] enhancement. Coronal and sagittal reformats obtained. Scanner: GoSpotCheck 64 slice VCT Dose reduction technique: ASIR [...] Signed Date: 02/23/2025 16:16 ET Workstation ID: [id number] Transcribed By: Self Edit Transcribed Date: 02/23/2025 16:15 ET Rosamaria Duffy NP IM CT PROCEDURES Final Result * (ABNORMAL) Microalbumin creatinine urine ratio (09/14/2024 10:58 AM EDT) Creatinine, Urine 46.0 mg/dL LAB CHEMISTRY METHOD 09/14/2024 2:02 PM EDT [facility] Microalb, Ur 226.0(H) 0.0 - 29.0 mg/L LAB CHEMISTRY METHOD 09/14/2024 2:02 PM EDT [facility] Microalb/Crea t Ratio 491(H) <30 mg/g creat LAB CHEMISTRY METHOD 09/14/2024 2:02 PM EDT [facility] Urine Urine specimen obtained by clean catch procedure / Unknown Non-blood Collection / Unknown 09/14/2024 10:58 AM EDT 09/14/2024 10:58 AM EDT Armando SANTOS LAB URINE ORDERABLES Charlotte l Result [facility]) [facility] [address] [place] [address], * Falls Risk Assessment (08/15/2023) [facility] Falls Risk Assessment Abstracted Result [facility] Provider HEALTH MAINTENANCE Final Result * Depression Screening (08/15/2023) [facility] Depression Screening Abstracted Result [facility] Provider HEALTH MAINTENANCE Final Result * Diabetes Foot Exam (07/15/2023) [facility] Diabetes: Annual Foot Exam Abstracted [facility] Provider HEALTH MAINTENANCE Final Result * Diabetes Eye Exam (07/15/2023) [facility] Diabetes: Annual Retina Eye Exam Abstracted Result [facility] Provider HEALTH MAINTENANCE Final Result * Stool Based Tests (FOBT/FIT) (01/28/2023) [facility] Colorectal Cancer Screening: Stool Based Tests negative Result [facility] Provider HEALTH MAINTENANCE Final Result * Hepatitis C Screening (04/08/2013) [facility] Hepatitis C Screening Abstracted Result [facility] Provider HEALTH MAINTENANCE Final Result from Last 3 Months or Most Recently Relevant to Health Maintenance Insurance MEDICARE [facility] Advance Directives Documents on File Type Date Recorded Patient Lan/Wan Engineer Expl anation Advance Directives and Living Will [...] Agents on File Name Relationship Healthcare Agent [facility] Communication Surendra Duron [facility] Health Care Agent Care Teams Executor Of Estate Relationship Specialty Start Date End Date Armando Aceves PA [address] [place] [address] PCP - General Internal Medicine 10/11/20
--- OUTSIDE RECORDS SUMMARY | 2025-05-17 14:54 | XMS_ITS | Encounter Summary ---
Author Organization [facility] Address [address] [place] [address] Care Team Providers Care Slate Roofer Helper Name Role Phone Armando Aceves Primary Care Provider [phone] Encounter Details Date Type Department Care Team (Latest Contact Info) Description 05/16/2025 Anticoagulation - Warfarin Visit Coumadin [address] [phone] Armando Aceves PA [address] [place] [phone] Persistent atrial fibrillation (CMS/HCC V24, CMS/HCC V28) (Primary Dx); retirement (current) use of anticoagulants Social History Tobacco [...] Progress Notes * Breanne Zhong LPN - 05/16/2025 10:06 AM EST Images from the original note were not included. Anticoagulation Summary As of 05/16/2025 INR goal: 2.5-3.5 TTR: 54.6% (11.4 mo) INR used for dosin.6 (05/16/2025) Warfarin maintenance plan: 2.5 mg (5 mg x 0.5) every Fri, Emily; 5 mg (5 mg x 1) every Fri; 0 mg all other days Weekly warfarin total: 10 mg Plan last modified: Breanne Zhong LPN (05/16/2025) Next INR check: 05/18/2025 Priority: Critical Target end date: -- Indications Atrial fibrillation (CMS/HCC V24 CMS/HCC V28) [I48.91] H/O mechanical aortic valve replacement (Resolved) [Z95.2] long term care social worker (current) use of anticoagulants [Z79.01] Anticoagulation Episode Summary INR check location: Anticoagulation Clinic Preferred lab: -- [facility] [place] [facility] ANTICOAGULATION POOL Comments: -- Anticoagulation Care Providers Provider Role Specialty Phone number TOM Rgoer Internal Medicine [phone] Patient presents for follow-up of ongoing Warfarin therapy. Patient had his INR drawn via [facility] Draw.Patient denies any significant issues with adherence to the medication regimen. Patient denies experiencing any symptoms of bleeding, such as unusual bruising, nosebleeds, hematuria, or melena. Patient reports feeling generally well and denies any new complaints. Plan of care: New warfarin dose: Hold 2 doses Warfarin [...] 4 weeks Cosigned by TOM Roger at 05/16/2025 11:59 AM EST documented in this encounter Plan of Treatment Upcoming Encounters Date Type Department Care Team (Late st Contact Info) Description 05/18/2025 2:00 PM EST Office Visit Adult Medicine [address] [phone] Armando Aceves PA [address] [place] [phone] 06/01/2025 11:00 AM EST Office Visit Adult Medicine [address] [phone] Armando Aceves PA [address] [place] [phone] 07/28/2025 10:30 AM EST Nutrition Internal Medicine [facility] [address] [phone] Georgette Bradley, RD [address] [place] [address] 11/17/2025 11:00 AM EDT Ancillary Procedure [facility] [address] [place] [phone] 01/02/2026 3:00 PM EDT Office Visit Gastroenterology - [address] [place] [phone] Penelope Henry, TAWANNA [address] [place] [address] documented as of this encounter Goals Goal [...] of UE's for safety only. Pt will [id number] reps or more for 30 SCS Test. documented as of this encounter Procedures Procedure Name Priority Date/Time Associated Diagnosis Comments PROTHROMBIN TIME WITH INR Routine 05/16/2025 documented in this encounter Results * Prothrombin time with INR (05/16/2025) INR 6.6 Prothrombin Time POC Blood Venous blood specimen / Unknown 05/16/2025 Armando SANTOS LAB BLOOD ORDERABLES Charlotte l Result documented in this encounter Visit Diagnoses Diagnosis Persistent atrial fibrillation (CMS/HCC V24, CMS/HCC V28)- Primary Atrial fibrillation long term care social worker (current) use of anticoagulants Long-term (current) use of anticoagulants Encounter for adjustment or management of cardiac device documented in this encounter Additional Health Concerns Assessment Noted Time PHQ-9 Depression Total Score: 0 02/05/20 25 9:57 AM EDT A fall risk assessment has been complete d for the patient 06/17/2024 2:30 PM EST documented as of this encounter Care Teams Slate Roofer Helper Relationship Specialty Start Date End Date Armando Aceves PA [address] [place] [address] PCP - General Internal Medicine 10/11/20 documented as of this encounter
--- OUTSIDE RECORDS SUMMARY | 2025-05-17 14:54 | XMS_ITS | Encounter Summary ---
Author Organization [facility] Address [address] [place] [address] Care Team Providers Care Pants Cutter Name Role Phone Armando Aceves Primary Care Provider +1 -[phone] Reason for Visit * Reason Onset Date Comments faxed order 04/26/2025 Marlyn Kyler - # [id number], #[id number], #[id number] Encounter Details Date Type Department Care Team ([facility] Contact Info) Description 04/26/2025 Telephone Adult Medicine [address] [phone] Armando Aceves PA [address] [place] [phone] Social History Tobacco Use Types Packs/Day [...] care for your loved ones. For example, childcare center administrator or elderly care for an older adult? [...] - 05/02/2025 12:12 PM EDT Order # [id number] signed, scanned and faxed back via Right Fax on 05.02.2025 at 12:12 pm * Cecil Jefferson - 04/26/2025 9:39 AM EDT Marlyn Caring order #[id number], #[id number], #[id number] received please sign and fax to [phone] documented in this encounter Plan of Treatment Upcoming Encounters Date Type Department Care Team (Late st Contact Info) Description 05/18/2025 2:00 PM EST Office Visit Adult [address] [address] Armando Aceves PA [address] [place] [address] 06/01/2025 11:00 AM EST Office Visit Adult Medicine [facility] [address] [place], [place] [phone] Armando Aceves PA [address] [place] [address] 07/28/2025 10:30 AM EST Nutrition Internal Medicine - [place] 175 [facility] 200 [place] [phone] Georgette Bradley, FLORENTIN 175 [place] [address] 11/17/2025 11:00 AM EDT Ancillary Procedure [facility] - [facility] 154 300 [facility] 154 [place] [phone] 01/02/2026 3:00 PM EDT Office Visit Gastroenterology - 299 [facility] 299 [facility] 419 [place] [phone] Penelope Henry, TAWANNA 299 [facility] 419 [place] [address] documented as of this encounter Goals Goal [...] documented as of this encounter Care Teams Pants Cutter Relationship Specialty Start Date End Date Armando Aceves PA [address] [place] [address] PCP - General Internal Medicine 10/11/20 documented as of this encounter
--- OUTSIDE RECORDS SUMMARY | 2025-05-17 14:54 | XMS_ITS ---
Author Organization [address] Address [address] [place] [phone] Phone Care Team Providers Care Property Claim Rep Name Role Phone Armando Aceves Primary Care Provider +1 -[phone] Chronic Care Management Status:Identified (Enrolling) Start date:05/11/2025 Enrollment reason:Referred by Care Team Related social drivers of health:Food Access & Nutrition, Access to Healthcare Case Team Name Relationship Phone Noemi Bustillos RN(Responsible Staff) Vascular Surgeon Continued Care and Services Coordination
--- OUTSIDE RECORDS SUMMARY | 2025-05-17 14:54 | XMS_ITS | Encounter Summary ---
Author Organization [facility] Address [address] [place] [address] Care Team Providers Care Bundle Person Name Role Phone Armando Aceves Primary Care Provider +1 -[phone] Encounter Details Date Type Department Care Team ([facility] st Contact Info) Description 05/16/[address] [phone] Breanne Zhong LPN Social History Tobacco Use Types Packs/Day Years [...] documented in this encounter Progress Notes * TOM Roger - 05/16/2025 12:03 PM EST Ok will order labs thanks for the heads up * Breanne Zhong LPN - 05/16/2025 10:26 AM EST Nitin Howard, I just wanted to let you know about Rogers and his recent INR s He is seeing you on Fri for a post hosp follow up. His INR on 05/13 was 5.5, his Vna nurse takes care of his pill box and his warfarin was held on Friday and Friday with 5 mg on Sun. Inr on Friday, today is 6.6. His roommate Saulo states he did not give him any warfarin, as I have worried that he still may be giving it to him even though the vna nurse gave strict instructions not to. I am concerned about his living situation as Rogers states his roommate manages his medication. I told the vna nurse to have him hold his warfarin today and tomorrow. He will need to go to the lab on Fri as the clinic is not open on Fri. Could you order a cbc as well? Veronique is covering the clinic from [facility] and I will have her look for the inr results on Fri.Could you please remind him that he must go to the lab before he leaves. Thank you, [facility] documented in this encounter Plan of Treatment Upcoming Encounters Date Type Department Care Team (Late st Contact Info) Description 05/18/2025 2:00 PM EST Office Visit Adult Medicine [address] [address] Armando Aceves PA 230 [place] [phone] 06/01/2025 11:00 AM EST Office Visit [address] [address] Armando Aceves PA [address] [place] [address] 07/28/2025 10:30 AM EST Nutrition Internal Medicine - [address] 175 [facility] 200 [place] [phone] Georgette Bradley, RD 175 [place] [address] 11/17/2025 11:00 AM EDT Ancillary Procedure [facility] - [facility] 154 300 [facility] 154 [place] [address] 01/02/2026 3:00 PM EDT Office Visit Gastroenterology - 299 [facility] 299 [facility] 419 [place] [phone] Penelope Henry, TAWANNA 299 [facility] [address] [place] [address] Scheduled Orders Name Type Priority Associated Diagnoses Orde r Schedule CBC and differential Lab Routine Nonischemic cardiomyopathy (CMS/HCC V24, CMS/HCC V28) Type 2 diabetes mellitus without complication, without long-term current use of insulin (CMS/HCC V24, CMS/HCC V28) 1 Occurrences starting 05/16/2025 until 05/16/2026 Prothrombin time with INR Lab Routine Nonischemic cardiomyopathy ([facility] V24, [facility] V28) Type 2 diabetes mellitus without complication, without long-term current use of insulin ([facility] V24, [facility] V28) 1 Occurrences starting 05/16/2025 until 05/16/2026 documented as of this encounter Goals Goal [...] of UE's for safety only. Pt will [id number] reps or more for 30 SCS Test. documented as of this encounter Visit Diagnoses Diagnosis Nonischemic cardiomyopathy ([facility] V24, [facility] V28)- Primary Other primary cardiomyopathies Type 2 diabetes mellitus without complication, without long-term current use of insulin ([facility] V24, [facility] V28) Encounter for adjustment or management of cardiac device documented in this encounter Additional Health Concerns Assessment Noted Time PHQ-9 Depression Total Score: 0 02/05/20 25 9:57 AM EDT A fall risk assessment has been complete d for the patient 06/17/2024 2:30 PM EST documented as of this encounter Care Teams Bundle Person Relationship Specialty Start Date End Date Armando Aceves PA [address] [place] [address] PCP - General Internal Medicine 10/11/20 documented as of this encounter
--- OUTSIDE RECORDS SUMMARY | 2025-05-17 14:54 | XMS_ITS | Encounter Summary ---
Author Organization [facility] Address [address] [place] [address] Care Team Providers Care Brick Pitcher Name Role Phone Armando Aceves Primary Care Provider +1 -[phone] Reason for Visit * Reason Onset Date Comments VNA 05/13/2025 Encounter Details Date Type Department Care Team ([facility] st Contact Info) Description 05/13/2025 Telephone Adult Medicine [address] [phone] Armando Aceves PA [address] [place] [phone] Social History Tobacco Use Types Packs/Day Years [...] for your loved ones. For example, child neurologist or elderly care for an older adult? [...] Herlinda Marie - 05/13/2025 10:26 AM EST [facility] CALL Which [facility] office is calling? HILARIO Full name of caller: LUIS The caller is A nurse Is the caller at the patients home?: no Reason for call: [facility] BMP lab work, nurse rodolfo it and bringing it to [facility]. Requesting results go to TOM Gordon Does caller need an urgent call back? no Was CONTACT Telephone # obtained above?: yes Fax #: N/A documented in this encounter Plan of Treatment Upcoming Encounters Date Type Department Care Team ([facility] Contact Info) Description 05/18/2025 2:00 PM EST Office Visit Adult Medicine [address] [phone] Armando Aceves PA 230 [place] [phone] 06/01/2025 11:00 AM EST Office Visit Adult Medicine [address] [phone] Armando Aceves, TOM 230 [place] [address] 07/28/2025 10:30 AM EST Nutrition Internal Medicine - [place] 175 [facility] 200 [place] [address] Georgette Bradley, RD 175 [place] [phone] 11/17/2025 11:00 AM EDT Ancillary Procedure [facility] Associates - [facility] 154 300 [facility] 154 [place] [phone] 01/02/2026 3:00 PM EDT Office Visit Gastroenterology - 299 [facility] 299 [facility] 419 [place] [phone] Penelope Henry, TAWANNA 299 [facility] 419 [place] [address] documented as of this encounter Goals Goal [...] of UE's for safety only. Pt will [id number] reps or more for 30 SCS Test. documented as of this encounter Visit Diagnoses Not on filedocumented in this encounter Additional Health Concerns Assessment Noted Time PHQ-9 Depression Total Score: 0 02/05/20 25 9:57 AM EDT A fall risk assessment has been complete d for the patient 06/17/2024 2:30 PM EST documented as of this encounter Care Teams Brick Pitcher Relationship Specialty Start Date End Date Armando Aceves PA 4 [place] [address] PCP - General Internal Medicine 10/11/20 documented as of this encounter
--- OUTSIDE RECORDS SUMMARY | 2025-05-17 14:54 | XMS_ITS | Encounter Summary ---
Author Organization [facility] Address [address] [place] [address] Care Team Providers Care Property Assessment Monitor Name Role Phone Armando Aceves Primary Care Provider +1 [phone] Reason for Visit * Reason Onset Date Comments patient outreach 05/11/2025 Encounter Details Date Type Department Care Team ([facility] Contact Info) Description 05/11/2025 Telephone Adult Medicine [facility] 444 [place] [phone] Katherine Hugo, PharmD 444 [place] [address] Social History Tobacco Use Types Packs/Day Years [...] care for your loved ones. For example, exceptional children's teacher or elderly care for an older adult? [...] Progress Notes * Katherine Hugo PharmD - 05/17/2025 12:01 PM EST Called and spoke with patient about jardiance patient assistance program Patient believes he will qualify. Patient has appt with pcp tomorrow. Printed and filled out katheryn for patient to sign with pcp tomorrow. Pcp will then give to me to fax upon my return 05/30. Katherine Hugo PharmD., ANCELMOCP Clinical Pharmacist [email or web address] P: [phone] F:[phone] * Katherine Hugo PharmD - 05/11/2025 2:28 PM EST Received referral from Daniel Owusu in regards to ambrocio of jardiance. Patient is paying 96/month for jardiance. Patient may qualify for jardiance's PAP. Called patient- no answer. LM with my direct line Katherine Hugo PharmD., ANCELMOCP Clinical Pharmacist Linnette P: [phone] F:[phone] documented in this encounter Plan of Treatment Upcoming Encounters Date Type Department Care Team (Late st Contact Info) Description 05/18/2025 2:00 PM EST Office Visit Adult Medicine [address] [phone] Armando Aceves PA 230 [place] [phone] 06/01/2025 11:00 AM EST Office Visit Adult Medicine [address] [address] Armando Aceves PA [address] [place] [phone] 07/28/2025 10:30 AM EST Nutrition Internal Medicine - [place] 175 [facility] 200 [place] [phone] Georgette Bradley, RD 175 [place] [phone] 11/17/2025 11:00 AM EDT Ancillary Procedure [facility] - [facility] 154 300 [facility] 154 [place] [address] 01/02/2026 3:00 PM EDT Office Visit Gastroenterology - 299 [place] 299 [facility] 419 [place] [phone] Penelope Henry, TAWANNA 299 [facility] 419 [place], [place] [phone] documented as of this encounter Goals Goal [...] of UE's for safety only. Pt will [id number] reps or more for 30 SCS Test. documented as of this encounter Visit Diagnoses Not on filedocumented in this encounter Additional Health Concerns Assessment Noted Time PHQ-9 Depression Total Score: 0 02/05/20 25 9:57 AM EDT A fall risk assessment has been complete d for the patient 06/17/2024 2:30 PM EST documented as of this encounter Care Teams Property Assessment Monitor Relationship Specialty Start Date End Date Armando Aceves PA [address] [place] [address] PCP - General Internal Medicine 10/11/20 documented as of this encounter
--- OUTSIDE RECORDS SUMMARY | 2025-05-17 14:54 | XMS_ITS | Encounter Summary ---
Author Organization [facility] Address [address] [place] [address] Care Team Providers Care Tubular Riveter Name Role Phone Armando Aceves Primary Care Provider +1 -[phone] Encounter Details Date Type Department Care Team (Latest Contact Info) Description 02/24/2025 Anticoagulation - Warfarin Visit Coumadin [address] [phone] Melissa Nichols LPN Persistent atrial fibrillation (CMS/HCC [...] your loved ones. For example, child care teacher or elderly care for an older [...] 2:00 PM EST Office Visit Adult Medicine [address] [phone] Armando Aceves PA 230 [place] [phone] 06/01/2025 11:00 AM EST Office Visit Adult Medicine [address] [phone] Armando Aceves PA [address] [place] [address] 07/28/2025 10:30 AM EST Nutrition Internal Medicine - [place] 175 [facility] 200 [place] [phone] Georgette Bradley, RD 175 [place] [address] 11/17/2025 11:00 AM EDT Ancillary Procedure [facility]iology Associates - [facility] [address] [facility] 154 [place] [address] 01/02/2026 3:00 PM EDT Office Visit Gastroenterology - 299 [place] 299 [facility] 419 [place] [address] Penelope Henry NP 299 [facility] 419 [place] [address] documented as of this encounter Goals Goal [...] of UE's for safety only. Pt will bpjdijfymvy13 reps or more for 30 SCS Test. documented as of this encounter Visit Diagnoses Diagnosis Persistent atrial fibrillation (CMS/HCC V24, CMS/HCC V28)- Primary Atrial fibrillation retirement (current) use of anticoagulants Long-term (current) use of anticoagulants Encounter for adjustment or management of cardiac device documented in this encounter Additional Health Concerns Assessment Noted Time PHQ-9 Depression Total Score: 0 02/05/20 25 9:57 AM EDT A fall risk assessment has been complete d for the patient 06/17/2024 2:30 PM EST documented as of this encounter Care Teams Tubular Riveter Relationship Specialty Start Date End Date Armando Aceves PA 444 [place] [address] PCP - General Internal Medicine 10/11/20 documented as of this encounter
--- OUTSIDE RECORDS SUMMARY | 2025-05-17 14:54 | XMS_ITS ---
Author Organization [facility] [address] [place] [address] Address 444 [place] [address] Phone Care Team Providers Care Insulation Nozzleman Name Role Phone Armando Aceves Primary Care Provider +1 -[phone] Transitional Care Management Status:Ongoing (Active) Start date:05/09/2025 Enrollment date:05/09/2025 Enrollment reason:Identified using hospital discharge data Related social drivers of health:Food Access & Nutrition, Access to Healthcare Case Team Name Relationship Phone Katie Ferrera LPN(Responsible Staff) Pipe Fitter Apprentice Continued Care and Services Coordination
--- OUTSIDE RECORDS SUMMARY | 2025-05-17 14:54 | XMS_ITS | Encounter Summary ---
Author Organization [facility] Address [address] [place] [address] Care Team Providers Care Data Migration Consultant Name Role Phone Armando Aceves Primary Care Provider +1 -[phone] Encounter Details Date Type Department Care Team (Latest Contact Info) Description 05/13/2025 Anticoagulation - Warfarin Visit [facility] [address] [phone] Armando Aceves PA [address] [place] [phone] Persistent atrial fibrillation (CMS/HCC V24, CMS/HCC V28) (Primary Dx); correction (current) use of anticoagulants Social History Tobacco [...] Record ed Within the last 3 months, jamele valero many times did you visit the [...] for your loved ones. For example, child protective services social worker or elderly care for an older adult? [...] H/O mechanical aortic valve replacement (Resolved) [Z95.2] technician terminal and repeater (current) use of anticoagulants [Z79.01] Anticoagulation Episode Summary INR check location: Anticoagulation Clinic Preferred lab: -- Send INR reminders to: [facility] Comments: -- Anticoagulation Care Providers Provider Role Specialty Phone number TOM Roger Internal Medicine [phone] Patient presents for follow-up of ongoing Warfarin [...] 2:00 PM EST Office Visit Adult Medicine [address] [phone] Armando Aceves PA 230 [place] [address] 06/01/2025 11:00 AM EST Office Visit Adult Medicine [address] [phone] Armando Aceves PA 230 [place] [phone] 07/28/2025 10:30 AM EST Nutrition Internal Medicine [facility] [address] [phone] Georgette Bradley, RD 175 [place] [address] 11/17/2025 11:00 AM EDT Ancillary Procedure [facility] Associates - [address] [place] [address] 01/02/2026 3:00 PM EDT Office Visit Gastroenterology - 299 [place] 299 [facility] [address] [place] [phone] Penelope Henry, TAWANNA [address] [facility] [place] [address] documented as of this encounter Goals Goal [...] of UE's for safety only. Pt will [id number] reps or more for 30 SCS Test. [...] (CMS/HCC V24, CMS/HCC V28)- Primary Atrial fibrillation technician terminal and repeater (current) use of anticoagulants Long-term (current) use of anticoagulants Encounter for adjustment or management of cardiac device documented in this encounter Additional Health Concerns Assessment Noted Time PHQ-9 Depression Total Score: 0 02/05/20 25 9:57 AM EDT A fall risk assessment has been complete d for the patient 06/17/2024 2:30 PM EST documented as of this encounter Care Teams Data Migration Consultant Relationship Specialty Start Date End Date Armando Aceves PA 4 [place] [address] PCP - General Internal Medicine 10/11/20 documented as of this encounter
--- OUTSIDE RECORDS SUMMARY | 2025-05-26 19:00 | XMS_ITS | Clinical Summary ---
Author Organization Unknown Care Team Providers [facility] Name Role Phone HARJIT SANTOS, JESS Unavailable Unavailmalinda FINK RN, JESUS Unavailable Unavaila jesse GODOY RN, LUIS Unavailable Unavailable RESHMA PT, DONTE Unavailable Unavailable BRI INGCARLOS ENERGY TRADER, MALATHI Unavailable Unavai lable Payers Payer Name Policy Type Policy Number Effective Date Expira tion Date MEDICARE - [facility]/DC - PD [id number] [facility] - ORDER DRIVEN [id number] Problems Condition Name Condition Details Condition Category Status Onset Date Resolution Date Last Treatment Date Treating Clinician Comments HYP HRT AND CHR KDNY DIS W HRT FAIL AND STG 1-4/UNSP CHR KDNY Active 07-07 00:00: 00 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 07-07 00:00: 00 TYPE 2 DIABETES MELLITUS W DIABETIC CHRONIC KIDNEY DISEASE Active 07-07 00:00: 00 CHRONIC KIDNEY DISEASE, STAGE 4 (SEVERE) Active 07-07 00:00: 00 ANEMIA IN CHRONIC KIDNEY DISEASE Active 07-07 00:00: 00 ANEURYSM OF UNSPECIFIED SITE Active 07-07 00:00: 00 CHRONIC ATRIAL FIBRILLATION , UNSPECIFIED Active 07-07 00:00: 00 DEPRESSION, UNSPECIFIED Active 07-07 00:00: 00 INSOMNIA, UNSPECIFIED Active 07-07 00:00: 00 HYPOTHYROIDI SM, UNSPECIFIED Active 07-07 00:00: 00 HYPERLIPIDEM IA, UNSPECIFIED Active 07-07 00:00: 00 ATHSCL HEART DISEASE OF [place] CORONARY ARTERY W/O ANG PCTRS Active 07-07 00:00: 00 GOUT, UNSPECIFIED Active 07-07 00:00: 00 UNSPECIFIED HEARING LOSS, UNSPECIFIED EAR Active 07-07 00:00: 00 CONDUCTION DISORDER, UNSPECIFIED Active 07-07 00:00: 00 PRESENCE OF PROSTHETIC HEART VALVE Active 07-07 00:00: 00 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 Ordering Clinician Indication Dosage Frequency Signature (SIG) Comments Components allopurinol 100 mg tablet 02-25 00:00: 00 09-26 23:59 :00 No [id number] 1 tablet DAILY 1 tablet DAILY (route: oral) Med Classific ation: Gout and Hyperuric emia Therapy amitriptyli ne 50 mg tablet 02-25 00:00: 00 09-26 23:59 :00 No [id number] 1 tablet BEDTIME 1 tablet BEDTIME (route: oral) Med Classific ation: Central Nervous System Agents diltiazem CD 180 mg capsule,ext ended release 24 hr 02-25 00:00: 00 09-26 23:59 :00 No [id number] 1 capsule DAILY 1 capsule DAILY (route: oral) Med Classific ation: Cardiovas cular Therapy Agents fluticasone propionate 50 mcg/actuati on nasal spray,suspe nsion 02-25 00:00: 00 09-26 23:59 :00 No [id number] 1 spray DAILY 1 spray DAILY (route: nasal) Med Classific ation: Respirato ry Therapy Agents omeprazole 20 mg capsule,del ayed release 02-25 00:00: 00 09-26 23:59 :00 No [id number] 1 capsule DAILY 1 capsule DAILY (route: oral) Med Classific ation: Gastroint estinal Therapy Agents potassium chloride ER 20 mEq tablet,exte nded release 02-25 00:00: 00 09-26 23:59 :00 No [id number] 1 tablet DAILY 1 tablet DAILY (route: oral) Med Classific ation: Electroly te Balance-N utritiona l Products simvastatin 20 mg tablet 02-25 00:00: 00 09-26 23:59 :00 No [id number] 1 tablet BEDTIME 1 tablet BEDTIME (route: oral) Med Classific ation: Cardiovas cular Therapy Agents torsemide 20 mg tablet 02-25 00:00: 00 09-26 23:59 :00 No [id number] 1 tablet DAILY 1 tablet DAILY (route: oral) Med Classific ation: Cardiovas cular Therapy Agents warfarin 5 mg tablet 02-22 00:00: 00 03-02 23:59 :00 No [id number] 1 tablet DAILY 1 tablet DAILY (route: oral) Med Classific ation: Hematolog ical Agents warfarin 2.5 mg tablet 03-06 00:00: 00 03-06 23:59 :00 No [id number] 2.5 mg DAILY 2.5 mg DAILY (route: oral) Med Classific ation: Hematolog ical Agents warfarin 5 mg tablet 03-07 00:00: 00 03-08 23:59 :00 No [id number] 5 mg DAILY 5 mg DAILY (route: oral) Med Classific ation: Hematolog ical Agents warfarin 5 mg tablet 03-09 00:00: 00 03-12 23:59 :00 No [id number] 5 tablet DAILY 5 tablet DAILY (route: oral) Med Classific ation: Hematolog ical Agents warfarin 5 mg tablet 03-12 00:00: 00 03-18 23:59 :00 No [id number] 5 mg DAILY 5 mg DAILY (route: oral) Med Classific ation: Hematolog ical Agents allopurinol 100 mg tablet 3-26 00:00: 00 Yes [id number] 2 tablet DAILY 2 tablet DAILY (route: oral) Med Classific ation: Gout and Hyperuric emia Therapy amitriptyli ne 75 mg tablet 09-29 00:00: 00 Yes [id number] 1 tablet BEDTIME 1 tablet BEDTIME (route: oral) Med Classific ation: Central Nervous System Agents carvedilol 3.125 mg tablet 09-29 00:00: 00 Yes [id number] 1 tablet 2 TIMES DAILY 1 tablet 2 TIMES DAILY (route: oral) Med Classific ation: Cardiovas cular Therapy Agents cyanocobala min (vit B-12) 1,000 mcg tablet 09-29 00:00: 00 Yes [id number] 1 tablet DAILY 1 tablet DAILY (route: oral) Med Classific ation: Electroly te Balance-N utritiona l Products donepezil 10 mg tablet 09-29 00:00: 00 Yes [id number] 1 tablet DAILY 1 tablet DAILY (route: oral) Med Classific ation: Cognitive Disorder Therapy furosemide 80 mg tablet 09-29 00:00: 00 10-05 23:59 :00 No [id number] 1 tablet 2 TIMES DAILY 1 tablet 2 TIMES DAILY (route: oral) Med Classific ation: Cardiovas cular Therapy Agents lansoprazol e 30 mg capsule,del ayed release 09-29 00:00: 00 03-01 23:59 :00 No [id number] 1 capsule DAILY 1 capsule DAILY (route: oral) Med Classific ation: Gastroint estinal Therapy Agents losartan 25 mg tablet 09-29 00:00: 00 Yes [id number] 1 tablet DAILY 1 tablet DAILY (route: oral) Med Classific ation: Cardiovas cular Therapy Agents potassium chloride 20 mEq oral packet 09-29 00:00: 00 02-16 00:00 :00 No [id number] 1 packet 2 TIMES DAILY 1 packet 2 TIMES DAILY (route: oral) Med Classific ation: Electroly te Balance-N utritiona l Products simvastatin 20 mg tablet 09-29 00:00: 00 Yes [id number] 1 tablet BEDTIME 1 tablet BEDTIME (route: oral) Med Classific ation: Cardiovas cular Therapy Agents warfarin 5 mg tablet 09-29 00:00: 10-05 23:59 :00 No [id number] 5 mg DIRECTED 5 mg DIRECTED (route: oral) Med Classific ation: Hematolog ical Agents furosemide 80 mg tablet 10-05 00:00: 00 11-21 23:59 :00 No [id number] Per instruc tions DAILY Per instructio ns DAILY (route: oral) Med Classific ation: Cardiovas cular Therapy Agents warfarin 5 mg tablet 10-11 00:00: 00 10-17 23:59 :00 No [id number] Per instruc tions DAILY Per instructio ns DAILY (route: oral) Med Classific ation: Hematolog ical Agents warfarin 5 mg tablet 10-05 00:00: 00 10-10 23:59 :00 No [id number] Per instruc tions DAILY Per instructio ns DAILY (route: oral) Med Classific ation: Hematolog ical Agents warfarin 2.5 mg tablet 10-18 00:00: 00 10-21 23:59 :00 No [id number] 1 tablet DAILY 1 tablet DAILY (route: oral) Med Classific ation: Hematolog ical Agents warfarin 5 mg tablet 10-25 00:00: 00 10-31 23:59 :00 No [id number] Per instruc tions DAILY Per instructio ns DAILY (route: oral) Med Classific ation: Hematolog ical Agents acetaminoph en ER 650 mg tablet,exte nded release 10-25 00:00: 00 Yes [id number] 1 tablet EVERY 8 HOURS 1 tablet EVERY 8 HOURS (route: oral) Med Classific ation: Analgesic , Anti-infl ammatory or Antipyret ic amiodarone 200 mg tablet 10-25 00:00: 00 01-10 23:59 :00 No [id number] 1 tablet DAILY 1 tablet DAILY (route: oral) Med Classific ation: Cardiovas cular Therapy Agents ferrous sulfate 325 mg (65 mg iron) tablet 10-25 00:00: 00 02-16 00:00 :00 No [id number] 1 tablet DAILY 1 tablet DAILY (route: oral) Med Classific ation: Electroly te Balance-N utritiona l Products Jardiance 10 mg tablet -21 00:00: 00 Yes [id number] 1 tablet DAILY 1 tablet DAILY (route: oral) Med Classific ation: Endocrine warfarin 5 mg tablet 4-28 00:00: 00 11-08 23:59 :00 No [id number] Per instruc tions DAILY Per instructio ns DAILY (route: oral) Med Classific ation: Hematolog ical Agents warfarin 5 mg tablet 11-10 00:00: 00 11-14 23:59 :00 No [id number] 2.5 mg DIRECTED 2.5 mg DIRECTED (route: oral) Med Classific ation: Hematolog ical Agents warfarin 5 mg tablet 11-15 00:00: 00 11-21 23:59 :00 No [id number] 2.5 mg DIRECTED 2.5 mg DIRECTED (route: oral) Med Classific ation: Hematolog ical Agents warfarin 2.5 mg tablet 20 00:00: 00 11-30 23:59 :00 No [id number] Per instruc tions DAILY Per instructio ns DAILY (route: oral) Med Classific ation: Hematolog ical Agents warfarin 5 mg tablet 11-30 00:00: 00 12-05 23:59 :00 No [id number] Per instruc tions DAILY Per instructio ns DAILY (route: oral) Med Classific ation: Hematolog ical Agents torsemide 20 mg tablet 19 00:00: 00 01-25 23:59 :00 No [id number] 4 tablet 2 TIMES DAILY 4 tablet 2 TIMES DAILY (route: oral) Med Classific ation: Cardiovas cular Therapy Agents warfarin 5 mg tablet 6-09 00:00: 00 12-16 23:59 :00 No [id number] 0.5 tablet DIRECTED 0.5 tablet DIRECTED (route: oral) Med Classific ation: Hematolog ical Agents warfarin 5 mg tablet 6-13 00:00: 00 12-20 23:59 :00 No [id number] 2.5 mg DAILY 2.5 mg DAILY (route: oral) Med Classific ation: Hematolog ical Agents warfarin 5 mg tablet 6-19 00:00: 00 12-28 23:59 :00 No [id number] 2.5 mg DAILY 2.5 mg DAILY (route: oral) Med Classific ation: Hematolog ical Agents warfarin 5 mg tablet 6-24 00:00: 00 01-03 23:59 :00 No [id number] 2.5 mg DAILY 2.5 mg DAILY (route: oral) Med Classific ation: Hematolog ical Agents warfarin 5 mg tablet - 00:00: 00 01-09 23:59 :00 No [id number] 2.5 mg DAILY 2.5 mg DAILY (route: oral) Med Classific ation: Hematolog ical Agents warfarin 5 mg tablet -07 00:00: 00 01-13 23:59 :00 No [id number] 0.5 tablet DIRECTED 0.5 tablet DIRECTED (route: oral) Med Classific ation: Hematolog ical Agents amiodarone 200 mg tablet -07 00:00: 00 01-25 23:59 :00 No [id number] 2 tablet DAILY 2 tablet DAILY (route: oral) Med Classific ation: Cardiovas cular Therapy Agents warfarin 5 mg tablet 7-11 00:00: 00 01-20 23:59 :00 No [id number] 2.5 mg DIRECTED 2.5 mg DIRECTED (route: oral) Med Classific ation: Hematolog ical Agents warfarin 5 mg tablet 7-18 00:00: 00 01-27 23:59 :00 No [id number] 2.5 mg DAILY 2.5 mg DAILY (route: oral) Med Classific ation: Hematolog ical Agents warfarin 5 mg tablet 8-03 00:00: 00 02-06 23:59 :00 No [id number] 2.5 mg DAILY 2.5 mg DAILY (route: oral) Med Classific ation: Hematolog ical Agents torsemide 20 mg tablet 01-25 00:00: 00 Yes [id number] 4 tablet DAILY 4 tablet DAILY (route: oral) Med Classific ation: Cardiovas cular Therapy Agents warfarin 5 mg tablet 02-11 00:00: 00 02-15 23:59 :00 No [id number] 2.5 mg DIRECTED 2.5 mg DIRECTED (route: oral) Med Classific ation: Hematolog ical Agents warfarin 5 mg tablet 02-16 00:00: 00 02-22 23:59 :00 No [id number] 0.5 tablet DIRECTED 0.5 tablet DIRECTED (route: oral) Med Classific ation: Hematolog ical Agents Allergy Relief (fluticason e) 50 mcg/actuati on nasal spray,suspe nsion 02-16 00:00: 00 Yes [id number] 2 spray DAILY 2 spray DAILY (route: nasal) Med Classific ation: Respirato ry Therapy Agents amiodarone 200 mg tablet 02-16 00:00: 00 05-10 23:59 :00 No [id number] 2 tablet DAILY 2 tablet DAILY (route: oral) Med Classific ation: Cardiovas cular Therapy Agents ferrous sulfate 325 mg (65 mg iron) tablet 02-16 00:00: 00 Yes [id number] 1 tablet 2 TIMES DAILY 1 tablet 2 TIMES DAILY (route: oral) Med Classific ation: Electroly te Balance-N utritiona l Products potassium chloride ER 20 mEq tablet,exte nded release 02-16 00:00: 00 Yes [id number] 1 tablet 2 TIMES DAILY 1 tablet 2 TIMES DAILY (route: oral) Med Classific ation: Electroly te Balance-N utritiona l Products Senna with Docusate Sodium 8.6 mg-50 mg tablet 02-16 00:00: 00 Yes [id number] 2 tablet DAILY 2 tablet DAILY (route: oral) Med Classific ation: Gastroint estinal Therapy Agents memantine 5 mg tablet 13 00:00: 00 Yes [id number] 1 tablet 2 TIMES DAILY 1 tablet 2 TIMES DAILY (route: oral) Med Classific ation: Cognitive Disorder Therapy warfarin 5 mg tablet 02-23 00:00: 00 03-01 23:59 :00 No [id number] Per instruc tions DIRECTED Per instructio ns DIRECTED (route: oral) Med Classific ation: Hematolog ical Agents omeprazole 40 mg capsule,del ayed release 03-01 00:00: 00 05-10 23:59 :00 No [id number] 1 capsule 2 TIMES DAILY 1 capsule 2 TIMES DAILY (route: oral) Med Classific ation: Gastroint estinal Therapy Agents warfarin 5 mg tablet 03-03 00:00: 00 03-07 23:59 :00 No [id number] Per instruc tions DAILY Per instructio ns DAILY (route: oral) Med Classific ation: Hematolog ical Agents warfarin 5 mg tablet 03-11 00:00: 00 03-14 23:59 :00 No [id number] Per instruc tions DAILY Per instructio ns DAILY (route: oral) Med Classific ation: Hematolog ical Agents warfarin 5 mg tablet 03-15 00:00: 00 03-24 23:59 :00 No [id number] Per instruc tions DIRECTED Per instructio ns DIRECTED (route: oral) Med Classific ation: Hematolog ical Agents warfarin 2.5 mg tablet 03-28 00:00: 00 03-28 23:59 :00 No [id number] 0.5-1 tablet DAILY 0.5-1 tablet DAILY (route: oral) Med Classific ation: Hematolog ical Agents warfarin 2.5 mg tablet 03-28 00:00: 00 04-04 23:59 :00 No [id number] Per instruc tions DIRECTED Per instructio ns DIRECTED (route: oral) Med Classific ation: Hematolog ical Agents warfarin 2.5 mg tablet 04-04 00:00: 04-10 23:59 :00 No [id number] Per instruc tions DAILY Per instructio ns DAILY (route: oral) Med Classific ation: Hematolog ical Agents warfarin 5 mg tablet 2024-07 0-06 00:00: 00 04-12 23:59 :00 No [id number] Per instruc tions DAILY Per instructio ns DAILY (route: oral) Med Classific ation: Hematolog ical Agents warfarin 5 mg tablet 2024-07 0- 00:00: 00 04-18 23:59 :00 No [id number] 2.5 mg DAILY 2.5 mg DAILY (route: oral) Med Classific ation: Hematolog ical Agents warfarin 5 mg tablet 2024-07 0-14 00:00: 00 04-25 23:59 :00 No [id number] 0.5 tablet DAILY 0.5 tablet DAILY (route: oral) Med Classific ation: Hematolog ical Agents warfarin 5 mg tablet 2024-07 00:00: 00 04-26 23:59 :00 No [id number] 2.5 mg DAILY 2.5 mg DAILY (route: oral) Med Classific ation: Hematolog ical Agents amiodarone 200 mg tablet 2024-07 00:00: 00 Yes [id number] 1 tablet DAILY 1 tablet DAILY (route: oral) Med Classific ation: Cardiovas cular Therapy Agents omeprazole 40 mg capsule,del ayed release 2024-07 00:00: 00 Yes [id number] 1 capsule DAILY 1 capsule DAILY (route: oral) Med Classific ation: Gastroint estinal Therapy Agents warfarin 5 mg tablet 2024-07 00:00: 00 05-12 23:59 :00 No [id number] Per instruc tions DAILY Per instructio ns DAILY (route: oral) Med Classific ation: Hematolog ical Agents warfarin 5 mg tablet 2024-07 00:00: 00 05-15 23:59 :00 No [id number] Per instruc tions DAILY Per instructio ns DAILY (route: oral) Med Classific ation: Hematolog ical Agents Immunizations Ordered Immunization Name Filled Immunization Name Date Status Comments Refusal Reason RSV, RSV 2024-06-24 00:00:00 SHINGLES, TIV (INACTIVATED) 2023-09-19 00:00:00 SHINGLES, TIV (INACTIVATED) 2023-07-21 00:00:00 COVID-19, COVID-19 2023-04-29 00:00:00 PNEUMOCOCCAL (PPV), PPV 2021-09-10 00:00:00 COVID FIRST DOSE, COVID FIRST DOSE 2021-06-12 00:00:00 COVID SECOND DOSE, COVID SECOND DOSE 2021-04-17 00:00:00 COVID-19, COVID-19 2020-08-22 00:00:00 TETANUS, TD (TETANUS) 2018-05-13 00:00:00 PNEUMOCOCCAL (PPV), PPV 2016-08-23 00:00:00 PNEUMOCOCCAL (PPV), PPV 2015-07-19 00:00:00 TETANUS, TDAP (TETANUS) 2008-05-18 00:00:00 Vital Signs Vital Name Observation Time Observation Value Commen ts Temperature 2025-05-13 09:46:00.000 97.7 [degF] Temperature 2025-05-10 13:06:00.000 97.4 [degF] Temperature 2025-04-25 09:16:00.000 97 [degF] Temperature 2025-04-19 10:12:00.000 97.9 [degF] Temperature 2025-04-11 09:58:00.000 97 [degF] Temperature 2025-04-04 08:49:00.000 97 [degF] BMI (%) 2025-05-10 13:06:00.000 25 kg/m2 Height 2025-05-10 13:06:00.000 70 [in_us] Pulse 2025-05-13 09:46:00.000 60 /min Pulse 2025-05-10 13:06:00.000 78 /min Pulse 2025-04-25 09:16:00.000 70 /min Pulse 2025-04-19 10:12:00.000 70 /min Pulse 2025-04-11 09:58:00.000 62 /min Pulse 2025-04-04 08:49:00.000 60 /min O2 Saturation (%) 2025-05-13 10:02:00.000 100 % O2 Saturation (%) 2025-05-10 13:09:00.000 97 % O2 Saturation (%) 2025-04-25 09:18:00.000 100 % O2 Saturation (%) 2025-04-19 10:12:00.000 97 % O2 Saturation (%) 2025-04-11 09:58:00.000 97 % O2 Saturation (%) 2025-04-04 08:49:00.000 97 % Respirations 2025-05-13 09:46:00.000 19 /min Respirations 2025-05-10 13:06:00.000 18 /min Respirations 2025-04-25 09:16:00.000 18 /min Respirations 2025-04-19 10:12:00.000 18 /min Respirations 2025-04-11 09:58:00.000 18 /min Respirations 2025-04-04 08:49:00.000 18 /min Weight (lbs) 2025-05-13 09:46:00.000 168 [lb_av] Weight (lbs) 2025-05-10 13:06:00.000 177 [lb_av] Weight (lbs) 2025-04-25 09:16:00.000 161 [lb_av] Weight (lbs) 2025-04-19 10:12:00.000 165 [lb_av] Weight (lbs) 2025-04-11 09:58:00.000 166 [lb_av] Weight (lbs) 2025-04-04 08:49:00.000 165.4 [lb_av] Systolic Blood Pressure 2025-05-13 09:46:00.000 102 mm [Hg] Systolic Blood Pressure 2025-05-10 13:06:00.000 102 mm [Hg] Systolic Blood Pressure 2025-04-25 09:16:00.000 120 mm [Hg] Systolic Blood Pressure 2025-04-19 10:12:00.000 126 mm [Hg] Systolic Blood Pressure 2025-04-11 09:58:00.000 112 mm [Hg] Systolic Blood Pressure 2025-04-04 08:49:00.000 126 mm [Hg] Diastolic Blood Pressure 2025-05-13 09:46:00.000 54 mm [Hg] Diastolic Blood Pressure 2025-05-10 13:06:00.000 52 mm [Hg] Diastolic Blood Pressure 2025-04-25 09:16:00.000 62 mm [Hg] Diastolic Blood Pressure 2025-04-19 10:12:00.000 70 mm [Hg] Diastolic Blood Pressure 2025-04-11 09:58:00.000 64 mm [Hg] Diastolic Blood Pressure 2025-04-04 08:49:00.000 62 mm [Hg] Plan of Treatment Planned Activity Planned Date Details Comments Future Scheduled Test SKILLED NU RSE TO EVALUATE PATIENT, IDENTIFY PRIMARY AND CO-MORBID CONDITIONS CODED PER CODING GUIDELINES, AND DEVELOP PATIENT SPECIFIC PLAN OF CARE THAT INCLUDES PATIENT GOAL FOR HOME HEALTH. [code = SKILLED NURSE TO EVALUATE PATIENT, IDENTIFY PRIMARY AND CO-MORBID CONDITIONS CODED PER CODING GUIDELINES, AND DEVELOP PATIENT SPECIFIC PLAN OF CARE THAT INCLUDES PATIENT GOAL FOR HOME HEALTH.] Future Scheduled Test SKILLED NU RSE FOR O/A, TEACHING, AND MANAGEMENT OF HTN, HLD, CAD [code = SKILLED NURSE FOR O/A, TEACHING, AND MANAGEMENT OF HTN, HLD, CAD] Future Scheduled Test SKILLED NU RSE FOR O/A, TEACHING AND MANAGEMENT OF CKD FOR EARLY IDENTIFICATION OF EXACERBATION OF DISEASE PROCESS [code = SKILLED NURSE FOR O/A, TEACHING AND MANAGEMENT OF CKD FOR EARLY IDENTIFICATION OF EXACERBATION OF DISEASE PROCESS] Future Scheduled Test SKILLED NU RSE FOR O/A AND SKILLED TEACHING RELATED TO SIGNS AND SYMPTOMS OF INFECTION AND INFECTION CONTROL MEASURES. [code = SKILLED NURSE FOR O/A AND SKILLED TEACHING RELATED TO SIGNS AND SYMPTOMS OF INFECTION AND INFECTION CONTROL MEASURES.] Future Scheduled Test SKILLED NU RSE TO OBTAIN BLOOD SUGAR PRN FOR SIGNS AND SYMPTOMS OF HYPO/HYPERGLYCEMIA. IF OBTAINED BY PATIENT/CAREGIVER PRIOR TO VISIT AND PATIENT IS NOT SYMPTOMATIC, SKILLED NURSE TO RECORD READING FROM PATIENT LOG. [code = SKILLED NURSE TO OBTAIN BLOOD SUGAR PRN FOR SIGNS AND SYMPTOMS OF HYPO/HYPERGLYCEMIA. IF OBTAINED BY PATIENT/CAREGIVER PRIOR TO VISIT AND PATIENT IS NOT SYMPTOMATIC, SKILLED NURSE TO RECORD READING FROM PATIENT LOG.] Future Scheduled Test SKILLED NU RSE FOR O/A AND TEACHING OF ENDOCRINE SYSTEM TO IDENTIFY CHANGES ASSOCIATED WITH EXACERBATION OF HYPOTHYROIDISM FOR EARLY INTERVENTION OF COMPLICATIONS. [code = SKILLED NURSE FOR O/A AND TEACHING OF ENDOCRINE SYSTEM TO IDENTIFY CHANGES ASSOCIATED WITH EXACERBATION OF HYPOTHYROIDISM FOR EARLY INTERVENTION OF COMPLICATIONS.] Future Scheduled Test SKILLED NU RSE TO INSTRUCT PATIENT/CAREGIVER ON SIGNS AND SYMPTOMS, RISK FACTORS, COMPLICATIONS, AND MANAGEMENT OF ATRIAL FIBRILLATION. [code = SKILLED NURSE TO INSTRUCT PATIENT/CAREGIVER ON SIGNS AND SYMPTOMS, RISK FACTORS, COMPLICATIONS, AND MANAGEMENT OF ATRIAL FIBRILLATION.] Future Scheduled Test SKILLED NU RSE FOR O/A, TEACHING AND SELF-MANAGEMENT RELATED TO HEART FAILURE. INSTRUCT PATIENT/CAREGIVER ON SIGNS AND SYMPTOMS OF EXACERBATION TO REPORT AND IMPORTANCE OF OBTAINING AND RECORDING DAILY WEIGHT AND/OR MEASUREMENTS. SN OR TRAINED PATIENT/CAREGIVER TO OBTAIN WEIGHT DAILY AND WEIGHT GAIN OF 2 LBS OVERNIGHT OR 5 LBS IN 1 WEEK TO BE REPORTED TO PHYSICIAN/PROVIDER. IF UNABLE TO WEIGH PATIENT, SN OR TRAINED PATIENT/CAREGIVER TO OBTAIN MEASUREMENT OF THIGH IN CM DAILY AND REPORT AN INCREASE OF 2 CM TO PHYSICIAN/PROVIDER. [code = SKILLED NURSE FOR O/A, TEACHING AND SELF-MANAGEMENT RELATED TO HEART FAILURE. INSTRUCT PATIENT/CAREGIVER ON SIGNS AND SYMPTOMS OF EXACERBATION TO REPORT AND IMPORTANCE OF OBTAINING AND RECORDING DAILY WEIGHT AND/OR MEASUREMENTS. SN OR TRAINED PATIENT/CAREGIVER TO OBTAIN WEIGHT DAILY AND WEIGHT GAIN OF 2 LBS OVERNIGHT OR 5 LBS IN 1 WEEK TO BE REPORTED TO PHYSICIAN/PROVIDER. IF UNABLE TO WEIGH PATIENT, SN OR TRAINED PATIENT/CAREGIVER TO OBTAIN MEASUREMENT OF THIGH IN CM DAILY AND REPORT AN INCREASE OF 2 CM TO PHYSICIAN/PROVIDER.] Future Scheduled Test SKILLED NU RSE FOR O/A AND SKILLED TEACHING RELATED TO SIGNS AND SYMPTOMS AND MANAGEMENT OF ANEMIA. [code = SKILLED NURSE FOR O/A AND SKILLED TEACHING RELATED TO SIGNS AND SYMPTOMS AND MANAGEMENT OF ANEMIA.] Future Scheduled Test SKILLED NU RSE FOR O/A AND TEACHING OF DIABETIC MANAGEMENT INCLUDING BLOOD SUGAR MONITORING/USE OF GLUCOMETER, DIABETIC DIET, LOWER EXTREMITY SKIN INSPECTION, PROPER SKIN/FOOT CARE, AND SIGNS AND SYMPTOMS HYPO/HYPERGLYCEMIA TO REPORT. [code = SKILLED NURSE FOR O/A AND TEACHING OF DIABETIC MANAGEMENT INCLUDING BLOOD SUGAR MONITORING/USE OF GLUCOMETER, DIABETIC DIET, LOWER EXTREMITY SKIN INSPECTION, PROPER SKIN/FOOT CARE, AND SIGNS AND SYMPTOMS HYPO/HYPERGLYCEMIA TO REPORT.] Future Scheduled Test PATIENT CHAUDHRY S A RISK OF HOSPITALIZATION AND ED USE. SKILLED NURSE TO ESTABLISH SUPPORT MEASURES TO MINIMIZE RISK OF HOSPITALIZATION AND ED USE, AND INSTRUCT PATIENT/CAREGIVER ON METHODS TO REDUCE AVOIDABLE HOSPITALIZATION AND ED USE. [code = PATIENT HAS A RISK OF HOSPITALIZATION AND ED USE. SKILLED NURSE TO ESTABLISH SUPPORT MEASURES TO MINIMIZE RISK OF HOSPITALIZATION AND ED USE, AND INSTRUCT PATIENT/CAREGIVER ON METHODS TO REDUCE AVOIDABLE HOSPITALIZATION AND ED USE.] Future Scheduled Test SKILLED NU RSE TO PROVIDE INSTRUCTION TO PATIENT/CAREGIVER RELATED TO DISCHARGE PLANNING. [code = SKILLED NURSE TO PROVIDE INSTRUCTION TO PATIENT/CAREGIVER RELATED TO DISCHARGE PLANNING.] Future Scheduled Test SKILLED NU RSE TO PERFORM ENVIRONMENTAL SAFETY RISK ASSESSMENT AND FALL RISK ASSESSMENT AND PROVIDE INSTRUCTION TO IMPLEMENT ENVIRONMENTAL SAFETY AND FALL PREVENTION STRATEGIES THROUGHOUT THE CERTIFICATION PERIOD. SKILLED NURSE WILL MAINTAIN SITUATIONAL AWARENESS AND WILL NOTIFY CLINICAL ASSOCIATE DIRECTOR OF NURSING AND PHYSICIAN/PROVIDER WITH ANY CHANGE IN CONDITION. [code = SKILLED NURSE TO PERFORM ENVIRONMENTAL SAFETY RISK ASSESSMENT AND FALL RISK ASSESSMENT AND PROVIDE INSTRUCTION TO IMPLEMENT ENVIRONMENTAL SAFETY AND FALL PREVENTION STRATEGIES THROUGHOUT THE CERTIFICATION PERIOD. SKILLED NURSE WILL MAINTAIN SITUATIONAL AWARENESS AND WILL NOTIFY CLINICAL ASSOCIATE DIRECTOR OF NURSING AND PHYSICIAN/PROVIDER WITH ANY CHANGE IN CONDITION.] Future Scheduled Test SKILLED NU RSE FOR OBSERVATION AND ASSESSMENT OF PATIENT S PAIN LEVEL AND EFFECTIVENESS OF PAIN MANAGEMENT REGIMEN. SKILLED NURSE TO INSTRUCT PATIENT/CAREGIVER REGARDING PHARMACOLOGIC AND NON-PHARMACOLOGIC PAIN CONTROL MEASURES. SKILLED NURSE TO REPORT TO PHYSICIAN IF PAIN LEVEL IS OUTSIDE OF ESTABLISHED PARAMETERS. [code = SKILLED NURSE FOR OBSERVATION AND ASSESSMENT OF PATIENT S PAIN LEVEL AND EFFECTIVENESS OF PAIN MANAGEMENT REGIMEN. SKILLED NURSE TO INSTRUCT PATIENT/CAREGIVER REGARDING PHARMACOLOGIC AND NON-PHARMACOLOGIC PAIN CONTROL MEASURES. SKILLED NURSE TO REPORT TO PHYSICIAN IF PAIN LEVEL IS OUTSIDE OF ESTABLISHED PARAMETERS.] Future Scheduled Test SKILLED NU RSE TO ASSESS PATIENT'S SKIN INTEGRITY AND INSTRUCT PATIENT/CAREGIVER ON MEASURES TO PREVENT PRESSURE ULCERS. [code = SKILLED NURSE TO ASSESS PATIENT'S SKIN INTEGRITY AND INSTRUCT PATIENT/CAREGIVER ON MEASURES TO PREVENT PRESSURE ULCERS.] Future Scheduled Test SKILLED NU RSE TO PROVIDE ASSESSMENT AND TEACHING/REINFORCEMENT OF MANAGEMENT OF DEPRESSION INCLUDING DISEASE PROCESS, MEDICATION MANAGEMENT, COPING SKILLS AND IDENTIFY CHANGES ASSOCIATED WITH DEPRESSIVE DISORDERS FOR EARLY INTERVENTION. [code = SKILLED NURSE TO PROVIDE ASSESSMENT AND TEACHING/REINFORCEMENT OF MANAGEMENT OF DEPRESSION INCLUDING DISEASE PROCESS, MEDICATION MANAGEMENT, COPING SKILLS AND IDENTIFY CHANGES ASSOCIATED WITH DEPRESSIVE DISORDERS FOR EARLY INTERVENTION.] Future Scheduled Test SKILLED NU RSE TO REVIEW PATIENT MEDICATIONS (PRESCRIPTION/OTC). INSTRUCT PATIENT/CAREGIVER ON ALL MEDICATIONS INCLUDING PURPOSE, WHEN TO TAKE, IMPORTANCE OF MEDICATION ADHERENCE, MONITORING OF EFFECTIVENESS, ADVERSE DRUG REACTIONS, POSSIBLE SIDE EFFECTS, AND WHEN TO NOTIFY AGENCY OR PHYSICIAN/PROVIDER OF ANY CONCERNS. [code = SKILLED NURSE TO REVIEW PATIENT MEDICATIONS (PRESCRIPTION/OTC). INSTRUCT PATIENT/CAREGIVER ON ALL MEDICATIONS INCLUDING PURPOSE, WHEN TO TAKE, IMPORTANCE OF MEDICATION ADHERENCE, MONITORING OF EFFECTIVENESS, ADVERSE DRUG REACTIONS, POSSIBLE SIDE EFFECTS, AND WHEN TO NOTIFY AGENCY OR PHYSICIAN/PROVIDER OF ANY CONCERNS.] Goal 2024-11-25 Patient Goal - BACK TO [facility] Goal 2025-05-10 Patient Goal - BACK TO [facility] Goal 2025-01-25 Patient Goal - BACK TO [facility] Goal 2025-03-24 Patient Goal - BACK TO [facility] Goal 2025-01-10 Patient Goal - BACK TO [facility] Goal Patient Goal - BACK TO [facility] Goal Provider Goal - A PLAN OF CARE WILL BE ESTABLISHED THAT MEETS PATIENT'S CARE HOME NEEDS AND INCLUDES PATIENT GOAL FOR HOME HEALTH. Goal Provider Goal - PATIENT/CAREGIVER WILL VERBALIZE/DEMONSTRATE MANAGEMENT OF CARDIAC DISEASE PROCESS AND EXACERBATIONS WILL BE IDENTIFIED AND PROMPTLY REPORTED THROUGHOUT THE CERTIFICATION PERIOD. Goal Provider Goal - PATIENT/CAREGIVER WILL VERBALIZE UNDERSTANDING OF GENITOURINARY DISEASE PROCESS, AND EXACERBATIONS OF GENITOURINARY DISEASE WILL BE PROMPTLY IDENTIFIED FOR EARLY INTERVENTION THROUGHOUT THE CERTIFICATION PERIOD. Goal Provider Goal - PATIENT/CAREGIVER WILL VERBALIZE/DEMONSTRATE UNDERSTANDING OF S/S OF INFECTION AND INFECTION CONTROL MEASURES. SIGNS AND SYMPTOMS OF INFECTION WILL BE IDENTIFIED AND PHYSICIAN NOTIFIED FOR PROMPT INTERVENTION THROUGHOUT THE CERTIFICATION PERIOD. Goal Provider Goal - BLOOD SUGAR READING WILL BE OBTAINED ORDERED THROUGHOUT CERTIFICATION PERIOD. Goal Provider Goal - PATIENT/CAREGIVER WILL VERBALIZE SIGNS AND SYMPTOMS OF EXACERBATION OF ENDOCRINE DIAGNOSIS TO REPORT TO NURSE/PHYSICIAN THROUGHOUT THE CERTIFICATION PERIOD. Goal Provider Goal - PATIENT/CAREGIVER WILL VERBALIZE UNDERSTANDING OF SIGNS AND SYMPTOMS, COMPLICATIONS, AND MANAGEMENT OF ATRIAL FIBRILLATION THROUGHOUT THE CERTIFICATION PERIOD. Goal Provider Goal - PATIENT/CAREGIVER WILL VERBALIZE/DEMONSTRATE KNOWLEDGE AND MANAGEMENT OF HEART FAILURE DISEASE PROCESS BY END OF EPISODE. Goal Provider Goal - PATIENT/CARGIVER WILL VERBALIZE UNDERSTANDING OF ANEMIA INCLUDING SIGNS AND SYMPTOMS, MANAGEMENT OF COMPLICATIONS, AND PRESCRIBED TREATMENT REGIMEN BY END OF EPISODE. Goal Provider Goal - PATIENT/CAREGIVER WILL VERBALIZE/DEMONSTRATE KNOWLEDGE OF DIABETIC MANAGEMENT. CHANGES IN DIABETIC STATUS WILL BE IDENTIFIED AND REPORTED TO PHYSICIAN FOR PROMPT INTERVENTION THROUGHOUT THE CERTIFICATION PERIOD. Goal Provider Goal - PATIENT WILL HAVE SUPPORT MEASURES ESTABLISHED TO PREVENT HOSPITALIZATION AND ED USE AND PATIENT/CAREGIVER WILL VERBALIZE/DEMONSTRATE METHODS TO REDUCE AVOIDABLE HOSPITALIZATION AND ED USE BY END OF EPISODE. Goal Provider Goal - PATIENT/CAREGIVER WILL VERBALIZE UNDERSTANDING OF DISCHARGE PLANNING INSTRUCTIONS BY DATE OF DISCHARGE. Goal Provider Goal - PATIENT/CAREGIVER WILL VERBALIZE/DEMONSTRATE EFFECTIVE ENVIRONMENTAL SAFETY AND FALL PREVENTION STRATEGIES, WILL REMAIN SAFE IN THE COMMUNITY, AND WILL BE FREE OF DANGER TO SELF AND OTHERS THROUGHOUT THE CERTIFICATION PERIOD. Goal Provider Goal - PATIENT/CAREGIVER WILL DEMONSTRATE UNDERSTANDING OF PHARMACOLOGIC AND NONPHARMACOLOGIC PAIN CONTROL MEASURES AND PATIENT WILL HAVE IMPROVEMENT IN PAIN INTERFERING WITH ACTIVITY EVIDENCED BY PAIN AT A LEVEL THAT IS ACCEPTABLE TO THE PATIENT AND PAIN LEVEL WITHIN ESTABLISHED PARAMETERS BY END OF CERTIFICATION PERIOD. Goal Provider Goal - PATIENT/CAREGIVER WILL VERBALIZE UNDERSTANDING OF PRESSURE ULCER PREVENTION BY END OF THE EPISODE. Goal Provider Goal - PATIENT/CAREGIVER WILL VERBALIZE/DEMONSTRATE UNDERSTANDING OF THE MANAGEMENT OF DEPRESSION THROUGHOUT THE CERTIFICATION PERIOD AND SYMPTOMS ARE IDENTIFIED AND MANAGED TO MAINTAIN PATIENT SAFETY IN THE HOME. Goal Provider Goal - PATIENT/CAREGIVER WILL VERBALIZE UNDERSTANDING OF EDUCATION PROVIDED ON MEDICATIONS BY THE END OF THE CERTIFICATION PERIOD. Encounters Start Date/Time End Date/Time Encounter Type Admission Type Attending [facility] Care Department Encounter ID Discharge Date Discharge Status Discharge Condition Discharge Reason Percent Goals Met 2025-03-29 00:00:00 2025-05-27 00:00:00 Outpatient RECERTIFIC ATION LUIS GODOY [facility] [id number]
== END 2025-05-17 13:57 | disposition home or self-care (01) ==
PROVIDERS: PCP Physician Assistant Medical; Visit Provider Registered Nurse
DX: G31.84 Mild cognitive impairment of uncertain or unknown etiology (principal)
CPT/HCPCS: 99214

== ENCOUNTER → 2025-05-17 13:08 | Outpatient (BNVA) | payer MEDICARE, SELFPAY | PROVIDERS: PCP Physician Assistant Medical; Visit Provider Registered Nurse | DX: G31.84 Mild cognitive impairment of uncertain or unknown etiology (principal) | CPT/HCPCS: 99212 ==